=== PATIENT | female | born 1990 | race Caucasian/White ===

== ENCOUNTER 2017-02-09 15:22 | Emergency (ER) | payer BC, OTHER ==
[2017-02-09] MEDS ORDERED: SODIUM CHLORIDE 0.9% 1,000 ML IV STA (16:15)
[2017-02-09] MEDS ORDERED: MAG HYDROX/AL HYDROX/SIMETH 30 ML, HYOSCYAMINE ELIXIR 10 ML, CIMETIDINE HCL 300 MG PO STA ×3 (16:15)
--- NOTE | 2017-02-09 16:20 | ED ---
Abdominal Pain HPI - General Chief Complaint: Abdominal Pain Stated Complaint: upper abdominal pain Time Seen by Provider: 02/09/17 16:09 Source: patient, RN notes reviewed Mode of arrival: ambulatory Limitations: no limitations - History of Present Illness Initial Comments: 26 yo female presents to the ER with cc of epigastric abdominal pain. Patient states the pain started yesterday. Patient states that she went her family care doctor was transferred to [facility]. She had blood work and x-rays done. Patient states he found OUT AND SHE WAS SENT HOME. PATIENT STATES THE PAIN CONTINUES TO WORSEN. PATIENT STATES IT'S WORSE WHEN SHE EATS. PATIENT DENIES ANY NAUSEA VOMITING OR ABDOMINAL SURGERIES. PATIENT STATES IT JUST STARTED YESTERDAY. PATIENT STATES LIKE A STABBING TYPE PAIN THAT IS CONSTANT. PATIENT STATES SHE WAS CONCERNED DUE TO THE CONTINUED PAIN SO SHE THOUGHT THAT SHE SHOULD BE EVALUATED. Patient denies any recent fever, chills, shortness of breath, chest pain, back pain, nausea vomiting, numbness or tingling, dysuria or hematuria, constipation or diarrhea, headaches or visual changes, or any other current symptoms. - Related Data Home Medications Medication Instructions Recorded Confirmed Hydroxychloroquine Sulfate 200 mg PO QAM 08/03/15 02/09/17 [Plaquenil] Benlysta 1 dose IV Q28D 05/11/16 02/09/17 Fluticasone Nasal [place] [Flonase 1 spr EA NOSTRIL DAILY PRN 07/27/16 02/09/17 Nasal [place]] ALPRAZolam [Xanax] 0.5 mg PO BID 02/09/17 02/09/17 Levothyroxine Sodium [Synthroid] 125 mcg PO DAILY 02/09/17 02/09/17 Venlafaxine HCl [Effexor XR] 75 mg PO DAILY 02/09/17 02/09/17 Previous Rx's Medication Instructions Recorded Famotidine [Pepcid] 20 mg PO BID #10 tablet 02/09/17 Allergies Allergy/AdvReac Type Severity Reaction Status Date / Time codeine AdvReac Nausea & Verified 02/09/17 16:28 Vomiting. HEADACHES Review of Systems ROS Statement: Those systems with pertinent positive or pertinent negative responses have been documented in the HPI. ROS Other: All systems not noted in ROS Statement are negative. 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 mota LMP 12/11/15/ was in [facility] 03/2016 for c/o temperol headache History of Any Multi-Drug Resistant Organisms: None Reported Past Surgical History: Ear Surgery, Orthopedic Surgery Additional Past Surgical History / Comment(s): elbow Past Anesthesia/Blood Transfusion Reactions: No Reported Reaction Past Psychological History: Depression Smoking Status: Never smoker Past Alcohol Use History: None Reported Past Drug Use History: None Reported General Exam - General Exam Comments Initial Comments: General: The patient is awake and alert, in no distress, and does not appear acutely ill. Eye: Pupils are equal, round and reactive to light, extra-ocular movements are intact; there is normal conjunctiva bilaterally. No signs of icterus. Ears, nose, mouth and throat: There are moist mucous membranes. Neck: The neck is supple, there is no tenderness. Cardiovascular: There is a regular rate and rhythm. No murmur, rub or gallop is appreciated. Respiratory: Lungs are clear to auscultation, respirations are non-labored, breath sounds are equal. No wheezes, stridor, rales, or rhonchi. Gastrointestinal: Soft, non-distended, bilateral epigastric tenderness of the abdomen without masses or organomegaly noted. There is no rebound or guarding present. No CVA tenderness. Bowel sounds are unremarkable. Back: There is no tenderness to palpation in the midline. There is no obvious deformity. No rashes noted. Musculoskeletal: Normal ROM, no tenderness, There is no pedal edema. There is no calf tenderness or swelling. Sensation intact. Pulses equal bilaterally 2+. Neurological: CN II-XII intact, There are no obvious motor or sensory deficits. Coordination appears grossly intact. Speech is normal. Skin: Skin is warm and dry and no rashes or lesions are noted. Psychiatric: Cooperative, appropriate mood & affect, normal judgment. Limitations: no limitations Course Vital Signs 02/09/17 02/09/17 15:36 17:00 Temperature 98.2 F 98.7 F Pulse Rate 74 57 L Respiratory 20 16 Rate Blood Pressure 138/104 134/85 O2 Sat by Pulse 96 97 Oximetry Medical Decision Making - Medical Decision Making 26-year-old female presents emergency Department chief complaint of abdominal pain. At this time patient's ultrasound and lab work is reviewed. At this time we discussed the findings. We discussed follow-up with GI and we'll put her on a small dose of Pepcid helps with her symptoms. We discussed return parameters all her questions. She stated that she understood all questions have been answered. She will be discharged home. - Lab Data Result diagrams: 02/09/17 16:45 02/09/17 16:45 Lab Results 02/09/17 02/09/17 02/09/17 Range/Units 16:45 16:45 17:54 WBC 6.0 (3.8-10.6) k/uL RBC 4.99 (3.80-5.40) m/uL Hgb 14.1 (11.4-16.0) gm/dL Hct 42.7 (34.0-46.0) % MCV 85.6 (80.0-100.0) fL MCH 28.2 (25.0-35.0) pg MCHC 32.9 (31.0-37.0) g/dL RDW 14.0 (11.5-15.5) % Plt Count 250 (150-450) k/uL Neutrophils % 64 % Lymphocytes % 26 % Monocytes % 7 % Eosinophils % 1 % Basophils % 1 % Neutrophils # 3.9 (1.3-7.7) k/uL Lymphocytes # 1.6 (1.0-4.8) k/uL Monocytes # 0.5 (0-1.0) k/uL Eosinophils # 0.0 (0-0.7) k/uL Basophils # 0.0 (0-0.2) k/uL Sodium 142 (137-145) mmol/L Potassium 4.1 (3.5-5.1) mmol/L Chloride 106 (98-107) mmol/L Carbon Dioxide 26 (22-30) mmol/L Anion Gap 10 mmol/L BUN 11 (7-17) mg/dL Creatinine 0.74 (0.52-1.04) mg/dL Est GFR (MDRD) Af Amer >60 (>60 ml/min/1.73 sqM) Est GFR (MDRD) Non-Af >60 (>60 ml/min/1.73 sqM) Glucose 81 (74-99) mg/dL Calcium 9.7 (8.4-10.2) mg/dL Total Bilirubin 0.5 (0.2-1.3) mg/dL AST 24 (14-36) U/L ALT 22 (9-52) U/L Alkaline Phosphatase 72 (38-126) U/L Total Protein 7.1 (6.3-8.2) g/dL Albumin 3.9 (3.5-5.0) g/dL Amylase 75 (30-110) U/L Lipase 142 (23-300) U/L Urine Color Light Red Urine Appearance Cloudy H (Clear) Urine pH 7.5 (5.0-8.0) Ur Specific [place] 1.015 (1.001-1.035) Urine Protein 1+ H (Negative) Urine Glucose (UA) Negative (Negative) Urine Ketones Negative (Negative) Urine Blood Moderate H (Negative) Urine Nitrite Negative (Negative) Urine Bilirubin Negative (Negative) Urine Urobilinogen <2.0 (<2.0) mg/dL Ur Leukocyte Esterase Moderate H (Negative) Urine RBC >182 H (0-5) /hpf Urine WBC 32 H (0-5) /hpf Ur Squamous Epith Cells 36 H (0-4) /hpf Urine Bacteria Rare H (None) /hpf Urine Mucus Occasional H (None) /hpf - Radiology Data Radiology results: report reviewed, image reviewed Disposition Clinical Impression: Epigastric abdominal pain Disposition: HOME SELF-CARE Condition: Stable Instructions: Abdominal Pain (ED) Additional Instructions: Please use medication as discussed. Please follow up with family doctor if symptoms have not improved over the next two days. Please return to the emergency room if your symptoms increase or worsen or for any other concerns. Prescriptions: Famotidine [Pepcid] 20 mg PO BID #10 tablet Referrals: Getachew Mar MD [Primary Care Provider] - 1-2 days Jagruti Hawk MD [STAFF PHYSICIAN] - 1-2 days Time of Disposition: 18:48
[2017-02-09 16:53] LABS: Basophils % (A) 1 %; CH 28.3; CHCM 33.2; Eosinophils % (A) 1 %; HCT 42.7 % (34.0-46.0); HDW 2.39; HGB 14.1 gm/dL (11.4-16.0); Luc # (Auto) 0.12; Luc % (Auto) 2; Lymphocytes # (A) 1.6 k/uL (1.0-4.8); Lymphocytes % (A) 26 %; MCH 28.2 pg (25.0-35.0); MCHC 32.9 g/dL (31.0-37.0); MCV 85.6 fL (80.0-100.0); Mean Platelet Volume 7.3; Monocytes # (A) 0.5 k/uL (0-1.0); Monocytes % (A) 7 %; Neutrophils # (A) 3.9 k/uL (1.3-7.7); Neutrophils % (A) 64 %; RBC 4.99 m/uL (3.80-5.40)
[2017-02-09 17:09] LABS: ALT 22 U/L (9-52); AST 24 U/L (14-36); Alkaline Phosphatase 72 U/L (38-126); Amylase 75 U/L (30-110); Anion Gap 10 mmol/L; Blood Urea Nitrogen 11 mg/dL (7-17); Calcium 9.7 mg/dL (8.4-10.2); Carbon Dioxide 26 mmol/L (22-30); Chloride 106 mmol/L (98-107); Glucose 81 mg/dL (74-99); Non-African American GFR(MDRD) >60 (>60 ml/min/1.73 sqM); Potassium 4.1 mmol/L (3.5-5.1); Sodium 142 mmol/L (137-145); Total Bilirubin 0.5 mg/dL (0.2-1.3); Total Protein 7.1 g/dL (6.3-8.2)
[2017-02-09 18:00] LABS: Appearance,Urine Cloudy (Clear); Bacteria,Urine Rare /hpf; Bilirubin,Urine Negative (Negative); Glucose,Urine (UA) Negative (Negative); Ketones,Urine Negative (Negative); Leukocyte Esterase,Urine Moderate (Negative); Mucus,Urine Occasional /hpf; Nitrite,Urine Negative (Negative); PH, Urine 7.5 (5.0-8.0); Particle Count 27000; Protein,Urine 1+ (Negative); RBC,Urine >182 /hpf (0-5); Specific Gravity,Urine 1.015 (1.001-1.035); Squamous Epithelial Cell,Urine 36 /hpf (0-4); UA Billing (MACRO vs. MICRO) MICRO; Urobilinogen,Urine <2.0 mg/dL (<2.0); WBC,Urine 32 /hpf (0-5)
--- NOTE | 2017-02-09 18:24 | US ---
EXAMINATION TYPE: US GALLBLADDER DATE OF EXAM: 02/09/2017 6:10 PM COMPARISON: Ultrasound 03/04/2014 CLINICAL HISTORY: Pain. Nausea EXAM MEASUREMENTS: Liver Length: 19.9 cm Gallbladder Wall: 0.2 cm CBD: 0.3 cm Right Kidney: 11.8 x 4.9 x 5.1 cm Pancreas: Obscured by bowel gas Liver: Enlarged, heterogeneous. Gallbladder: wnl Evidence for sonographic Molina's sign: Yes CBD: wnl as visualized, distal portion obscured by bowel gas Right Kidney: No hydronephrosis or masses seen IMPRESSION: 1. NO ACUTE PROCESS. 2. MILD HEPATOMEGALY NOTED.
[2017-02-09 19:00] VITALS: BP 142/92; PULSE 55; RESP 18; TEMP 98.9
== END 2017-02-09 19:00 | disposition home or self-care (01) ==
LOC: EC 15:22
DX: R10.13 Epigastric pain (principal); E07.9 Disorder of thyroid, unspecified; F32.9 Major depressive disorder, single episode, unspecified; Z79.899 Other long term (current) drug therapy; Z88.5 Allergy status to narcotic agent
CPT/HCPCS: 36415; 76705; 80053; 81001; 82150; 83690; 85025; 96360; 96361; 99284

== ENCOUNTER → 2017-07-12 | Outpatient (CLI) | payer BC | END | disposition home or self-care (01) | LOC: LABWHC1 12:29 | PROVIDERS: ATTEND Obstetrics & Gynecology | DX: N92.5 Other specified irregular menstruation (principal) | CPT/HCPCS: 36415; 84702 ==

== ENCOUNTER 2017-10-01 06:38 | Emergency (ER) | payer BC ==
--- NOTE | 2017-10-01 07:46 | ED ---
General Adult HPI - General Chief complaint: Eye Problems Stated complaint: right eye lid swelling Time Seen by Provider: 10/01/17 07:28 Source: patient, RN notes reviewed Mode of arrival: ambulatory Limitations: no limitations - History of Present Illness Initial comments: Patient is a pleasant 27-year-old female presenting to the emergency department complaining of right upper eyelid swelling. Discomfort started just the past couple of days. Patient does have discomfort that feels like pressure. Discomfort is isolated to the right upper eyelid. Patient has had some swelling of the left upper eyelid as well without discomfort. Swelling to both areas has been present for the past few months. Patient does not have any discomfort of the left upper eyelid. No recent sinus problems. No visual problems. Discomfort increases with touch. No fever. No redness. - Related Data Home Medications Medication Instructions Recorded Confirmed Hydroxychloroquine Sulfate 200 mg PO QAM 08/03/15 10/01/17 [Plaquenil] Benlysta 1 dose IV Q28D 05/11/16 10/01/17 Fluticasone Nasal [place] [Flonase 1 spr EA NOSTRIL DAILY PRN 07/27/16 10/01/17 Nasal [place]] ALPRAZolam [Xanax] 0.5 mg PO BID 02/09/17 10/01/17 Levothyroxine Sodium [Synthroid] 125 mcg PO DAILY 02/09/17 10/01/17 Venlafaxine HCl [Effexor XR] 75 mg PO DAILY 02/09/17 10/01/17 Previous Rx's Medication Instructions Recorded Famotidine [Pepcid] 20 mg PO BID #10 tablet 02/09/17 Amoxicillin 500 mg PO Q8H #30 capsule 10/01/17 Tobramycin [Tobrex 0.3% Ophth Soln] 1 drops RIGHT EYE QID #10 ml 10/01/17 Allergies Allergy/AdvReac Type Severity Reaction Status Date / Time codeine AdvReac Nausea & Verified 10/01/17 06:48 Vomiting. HEADACHES Review of Systems ROS Statement: Those systems with pertinent positive or pertinent negative responses have been documented in the HPI. ROS Other: All systems not noted in ROS Statement are negative. 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 mota LMP 12/11/15/ was in 03/2016 for c/o temperol headache History of Any Multi-Drug Resistant Organisms: None Reported Past Surgical History: Cholecystectomy, Ear Surgery, Orthopedic Surgery Additional Past Surgical History / Comment(s): elbow Past Anesthesia/Blood Transfusion Reactions: No Reported Reaction Past Psychological History: Depression Smoking Status: Never smoker Past Alcohol Use History: None Reported Past Drug Use History: None Reported General Exam Limitations: no limitations General appearance: alert, in no apparent distress Head exam: Present: atraumatic Eye exam: Present: normal appearance, PERRL, EOMI, other (Patient does have mild swelling of the right upper lateral eyelid. Eyelid is soft. There is tenderness on exam. Unable to visualize lesion on examination of the inner eyelid. There may be some mild swelling of the left upper lateral eyelid without tenderness. No tenderness over the sinuses.). Absent: scleral icterus , conjunctival injection ENT exam: Present: normal oropharynx Neck exam: Present: normal inspection. Absent: meningismus Respiratory exam: Present: normal lung sounds bilaterally Cardiovascular Exam: Present: regular rate, normal rhythm Neurological exam: Present: alert, oriented X3, CN II-XII intact Psychiatric exam: Present: normal affect, normal mood Skin exam: Present: normal color. Absent: rash Course Vital Signs 10/01/17 06:45 Temperature 97.7 F Pulse Rate 79 Respiratory 18 Rate Blood Pressure 140/94 O2 Sat by Pulse 100 Oximetry Medical Decision Making - Medical Decision Making No evidence of periorbital or orbital edema. Areas are swelling are limited to less than 1 cm. No sinus tenderness. No recent sinus disease. Unclear exact etiology of swelling however concern for early eyelid infection on the right. Patient is advised follow-up with ophthalmology tomorrow. Disposition Clinical Impression: Swelling of eyelid Disposition: HOME SELF-CARE Condition: Stable Instructions: Blepharitis (ED) Additional Instructions: Please follow-up tomorrow with ophthalmology. Return for change in vision, pain with eye movement, limited eye movement, sinus problems, increased swelling , redness, worsening symptoms or any other concerns. Prescriptions: Amoxicillin 500 mg PO Q8H #30 capsule Tobramycin [Tobrex 0.3% Ophth Soln] 1 drops RIGHT EYE QID #10 ml Referrals: Getachew Mar MD [Primary Care Provider] - 1-2 days Padmini Park MD [STAFF PHYSICIAN] - 1-2 days Time of Disposition: 07:58
[2017-10-01 08:07] VITALS: BP 130/76; PULSE 80; RESP 16; TEMP 97.9
== END 2017-10-01 08:04 | disposition home or self-care (01) ==
LOC: EC 06:38
DX: H57.8 Other specified disorders of eye and adnexa (principal); E07.9 Disorder of thyroid, unspecified; F32.9 Major depressive disorder, single episode, unspecified; Z88.5 Allergy status to narcotic agent; Z79.899 Other long term (current) drug therapy
CPT/HCPCS: 99283

== ENCOUNTER → 2017-10-17 | Outpatient (CLI) | payer BC ==
--- NOTE | 2017-10-17 14:56 | CT ---
EXAMINATION TYPE: CT brain wo/w con DATE OF EXAM: 10/17/2017 COMPARISON: NONE HISTORY: Migraines and lumps on eyelids CT DLP: 2930.9 (orbits and brain) mGycm Automated Exposure Control for Dose Reduction was Utilized. TECHNIQUE: CT scan of the head is performed with IV contrast.,CT scan of the head is performed withou t and with without and with IV Contrast, patient injected with 100 mL of Omnipaque 300. FINDINGS: Noncontrast images show no acute intracranial hemorrhage or midline shift. No suspicious extra-axial fluid collection. The ventricles and sulci are within normal limits in size. Postcontrast images show no suspicious enhancing intraparenchymal mass. The globes are intact. There is scant muc osal thickening within the right maxillary sinus. There is partial opacification of the inferior righ t mastoid air cells. Left mastoid air cells and remaining paranasal sinuses are well aerated. Calvari um is intact. IMPRESSION: 1. No evidence of acute intracranial hemorrhage, midline shift or mass effect. No abnormal intracrani al enhancement. Evaluation for white matter disease such as an chronic migraines would be better asse ssed with MRI. MR could be performed if there is further clinical indication. 2. Minimal right maxillary mucosal thickening. 3. Partial opacification of the right mastoid air cells. Correlation for point tenderness to exclude mastoiditis is recommended.
--- NOTE | 2017-10-17 15:13 | CT ---
EXAMINATION TYPE: CT orbits wo/w con DATE OF EXAM: 10/17/2017 COMPARISON: NONE HISTORY: Migraines and lumps on eyelids CT DLP: 2930.9 (orbits and brain) mGycm Automated exposure control for dose reduction was used. CONTRAST: Performed without and with IV Contrast, patient injected with 100 mL of Omnipaque 300. FINDINGS: The lacrimal glands appear symmetric. There is no engorgement of the superior ophthalmic veins. The o ptic nerves are symmetric and unremarkable. Extraocular muscles are symmetric and nonenlarged. There is no thickening of the myotendinous junction of the extraocular muscles. No intraconal or extraconal masses are seen bilaterally. No fat stranding is seen of the preseptal or postseptal fat. Orbits are symmetric and maintained a rounded morphology. Lenses are in place. No vascular varices are seen. Lamina Propecia and orbital de leon are intact. Minimal mucosal thickening of the ethmoid and maxillary sinuses are noted. Maxillary spine and nasal septum are intact. Nasal septum is midline. Nasal bone is also intact. There is no abnormal enhancement throughout the examination. IMPRESSION: 1. NO ORBITAL ABNORMALITIES SEEN BY CT. ORBITS, EXTRAOCULAR MUSCLES, OPTIC NERVES, AND VASCULATURE AP PEAR UNREMARKABLE. NO ORBITAL OR PERIORBITAL MASS IS IDENTIFIED. LACRIMAL GLANDS ARE SYMMETRIC. 2. MILD PARANASAL SINUS DISEASE.
== END | disposition home or self-care (01) ==
LOC: RADCTMAIN 14:03
PROVIDERS: ATTEND Ophthalmology
DX: H04.013 Acute dacryoadenitis, bilateral lacrimal glands (principal); R51 Headache
CPT/HCPCS: 70470; 70482; Q9967

== ENCOUNTER 2017-11-02 11:11 | Emergency (ER) | payer BC ==
--- NOTE | 2017-11-02 12:05 | ED ---
General Adult HPI - General Chief complaint: Chest Pain Stated complaint: Chest Pain x2 days Time Seen by Provider: 11/02/17 11:45 Source: patient, family, RN notes reviewed Mode of arrival: ambulatory Limitations: no limitations - History of Present Illness Initial comments: 27 yo female presenting with central chest pain and left upper chest pain. Pain is sharp, worse with deep inspiration. Pain began yesterday evening. No history of trauma. Patient denies fever. Denies cough. Denies URI symptoms. Denies abdominal pain. Denies lower extremity pain or swelling. She has had some nausea with 2 episodes of vomiting this morning. She is concerned she might be . She has past medical history of lupus. Not currently on any control. No prior history of DVT or PE. - Related Data Home Medications Medication Instructions Recorded Confirmed Benlysta 1 dose IV Q28D 05/11/16 11/02/17 Levothyroxine Sodium [Synthroid] 125 mcg PO DAILY 02/09/17 11/02/17 Cholecalciferol (Vitamin D3) 2,000 unit PO DAILY 11/02/17 11/02/17 [Vitamin D3] Ergocalciferol [Vitamin D2] 50,000 unit PO Q30D 11/02/17 11/02/17 Previous Rx's Medication Instructions Recorded Ibuprofen [Motrin] 600 mg PO Q8HR PRN #24 tab 11/02/17 Allergies Allergy/AdvReac Type Severity Reaction Status Date / Time codeine AdvReac Nausea & Verified 11/02/17 12:18 Vomiting. HEADACHES Review of Systems ROS Statement: Those systems with pertinent positive or pertinent negative responses have been documented in the HPI. ROS Other: All systems not noted in ROS Statement are negative. 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 mota LMP 12/11/15/ was in [facility] 03/2016 for c/o temperol headache History of Any Multi-Drug Resistant Organisms: None Reported Past Surgical History: Cholecystectomy, Ear Surgery, Orthopedic Surgery Additional Past Surgical History / Comment(s): elbow Past Anesthesia/Blood Transfusion Reactions: No Reported Reaction Past Psychological History: Depression Smoking Status: Never smoker Past Alcohol Use History: None Reported Past Drug Use History: None Reported General Exam Limitations: no limitations General appearance: alert, in no apparent distress Head exam: Present: atraumatic, normocephalic Eye exam: Present: normal appearance. Absent: PERRL ENT exam: Present: normal exam Neck exam: Present: normal inspection. Absent: tenderness Respiratory exam: Present: normal lung sounds bilaterally, chest wall tenderness (Sternal chest pain and left upper chest pain which is reproducible on examination). Absent: respiratory distress, wheezes Cardiovascular Exam: Present: regular rate, normal rhythm. Absent: rubs GI/Abdominal exam: Present: soft. Absent: distended, tenderness Extremities exam: Present: normal inspection, normal capillary refill. Absent: pedal edema, joint swelling, calf tenderness Neurological exam: Present: alert, oriented X3, CN II-XII intact. Absent: motor sensory deficit Psychiatric exam: Present: normal affect, normal mood Skin exam: Present: warm, dry, intact Course Vital Signs 11/02/17 11/02/17 11/02/17 11:22 12:09 12:48 Temperature 100.1 F H Pulse Rate 77 Pulse Rate [ 104 H Pulse Oximetery ] Respiratory 18 20 18 Rate Blood Pressure 135/84 O2 Sat by Pulse 98 Oximetry 11/02/17 13:41 Temperature Pulse Rate 84 Pulse Rate [ Pulse Oximetery ] Respiratory 16 Rate Blood Pressure O2 Sat by Pulse 96 Oximetry EKG Findings - EKG Comments: EKG Findings:: EKG shows sinus bradycardia with sinus arrhythmia, no ischemic changes. Ventricular rate 59, AZ interval 166, QRS duration 90, QTC 399. Medical Decision Making - Medical Decision Making 27 yo female presenting with sharp reproducible anterior chest pain. Patient is perc 1 for initial heart rate greater than 100. D-dimer is obtained, this is negative. White blood cell count is 6.5 which is normal. Electrolytes within normal limits. Troponin negative. Urinalysis does show 65 white blood cells, however patient is not symptomatic she will watch for signs of UTI. Beta hCG is negative. - Lab Data Result diagrams: 11/02/17 12:40 11/02/17 12:40 Lab Results 11/02/17 11/02/17 11/02/17 Range/Units 12:05 12:05 12:40 WBC 6.5 (3.8-10.6) k/uL RBC 5.03 (3.80-5.40) m/uL Hgb 13.9 (11.4-16.0) gm/dL Hct 44.3 (34.0-46.0) % MCV 88.2 (80.0-100.0) fL MCH 27.6 (25.0-35.0) pg MCHC 31.3 (31.0-37.0) g/dL RDW 13.5 (11.5-15.5) % Plt Count 239 (150-450) k/uL Neutrophils % 72 % Lymphocytes % 18 % Monocytes % 7 % Eosinophils % 0 % Basophils % 1 % Neutrophils # 4.7 (1.3-7.7) k/uL Lymphocytes # 1.2 (1.0-4.8) k/uL Monocytes # 0.5 (0-1.0) k/uL Eosinophils # 0.0 (0-0.7) k/uL Basophils # 0.0 (0-0.2) k/uL D-Dimer (<0.60) mg/L FEU Sodium (137-145) mmol/L Potassium (3.5-5.1) mmol/L Chloride (98-107) mmol/L Carbon Dioxide (22-30) mmol/L Anion Gap mmol/L BUN (7-17) mg/dL Creatinine (0.52-1.04) mg/dL Est GFR (MDRD) Af Amer (>60 ml/min/1.73 sqM) Est GFR (MDRD) Non-Af (>60 ml/min/1.73 sqM) Glucose (74-99) mg/dL Calcium (8.4-10.2) mg/dL Total Bilirubin (0.2-1.3) mg/dL AST (14-36) U/L ALT (9-52) U/L Alkaline Phosphatase (38-126) U/L Troponin I (0.000-0.034) ng/mL Total Protein (6.3-8.2) g/dL Albumin (3.5-5.0) g/dL Urine Color Yellow Urine Appearance Cloudy H (Clear) Urine pH 5.5 (5.0-8.0) Ur Specific [place] 1.021 (1.001-1.035) Urine Protein 1+ H (Negative) Urine Glucose (UA) Negative (Negative) Urine Ketones Negative (Negative) Urine Blood Small H (Negative) Urine Nitrite Negative (Negative) Urine Bilirubin Negative (Negative) Urine Urobilinogen <2.0 (<2.0) mg/dL Ur Leukocyte Esterase Large H (Negative) Urine RBC 13 H (0-5) /hpf Urine WBC 65 H (0-5) /hpf Ur Squamous Epith Cells 9 H (0-4) /hpf Urine Mucus Many H (None) /hpf Urine HCG, Qual Not Detected (Not Detectd) 11/02/17 11/02/17 11/02/17 Range/Units 12:40 12:40 12:40 WBC (3.8-10.6) k/uL RBC (3.80-5.40) m/uL Hgb (11.4-16.0) gm/dL Hct (34.0-46.0) % MCV (80.0-100.0) fL MCH (25.0-35.0) pg MCHC (31.0-37.0) g/dL RDW (11.5-15.5) % Plt Count (150-450) k/uL Neutrophils % % Lymphocytes % % Monocytes % % Eosinophils % % Basophils % % Neutrophils # (1.3-7.7) k/uL Lymphocytes # (1.0-4.8) k/uL Monocytes # (0-1.0) k/uL Eosinophils # (0-0.7) k/uL Basophils # (0-0.2) k/uL D-Dimer 0.39 (<0.60) mg/L FEU Sodium 142 (137-145) mmol/L Potassium 4.4 (3.5-5.1) mmol/L Chloride 106 (98-107) mmol/L Carbon Dioxide 26 (22-30) mmol/L Anion Gap 10 mmol/L BUN 10 (7-17) mg/dL Creatinine 0.80 (0.52-1.04) mg/dL Est GFR (MDRD) Af Amer >60 (>60 ml/min/1.73 sqM) Est GFR (MDRD) Non-Af >60 (>60 ml/min/1.73 sqM) Glucose 78 (74-99) mg/dL Calcium 9.6 (8.4-10.2) mg/dL Total Bilirubin 0.5 (0.2-1.3) mg/dL AST 21 (14-36) U/L ALT 23 (9-52) U/L Alkaline Phosphatase 74 (38-126) U/L Troponin I <0.012 (0.000-0.034) ng/mL Total Protein 7.1 (6.3-8.2) g/dL Albumin 3.9 (3.5-5.0) g/dL Urine Color Urine Appearance (Clear) Urine pH (5.0-8.0) Ur Specific [place] (1.001-1.035) Urine Protein (Negative) Urine Glucose (UA) (Negative) Urine Ketones (Negative) Urine Blood (Negative) Urine Nitrite (Negative) Urine Bilirubin (Negative) Urine Urobilinogen (<2.0) mg/dL Ur Leukocyte Esterase (Negative) Urine RBC (0-5) /hpf Urine WBC (0-5) /hpf Ur Squamous Epith Cells (0-4) /hpf Urine Mucus (None) /hpf Urine HCG, Qual (Not Detectd) Disposition Clinical Impression: Costalchondritis, Chest pain Disposition: HOME SELF-CARE Condition: Good Instructions: Costochondritis (ED), Chest Pain (ED) Prescriptions: Ibuprofen [Motrin] 600 mg PO Q8HR PRN #24 tab PRN Reason: Pain Referrals: Getachew Mar MD [Primary Care Provider] - 1-2 days Time of Disposition: 13:51
[2017-11-02 12:31] LABS: Appearance,Urine Cloudy (Clear); Bilirubin,Urine Negative (Negative); Blood,Urine Small (Negative); Color,Urine Yellow; Glucose,Urine (UA) Negative (Negative); Ketones,Urine Negative (Negative); Leukocyte Esterase,Urine Large (Negative); Mucus,Urine Many /hpf; Nitrite,Urine Negative (Negative); PH, Urine 5.5 (5.0-8.0); Protein,Urine 1+ (Negative); RBC,Urine 13 /hpf (0-5); Specific Gravity,Urine 1.021 (1.001-1.035); Squamous Epithelial Cell,Urine 9 /hpf (0-4); Urobilinogen,Urine <2.0 mg/dL (<2.0); WBC,Urine 65 /hpf (0-5)
[2017-11-02 12:58] LABS: Basophils % (A) 1 %; Eosinophils % (A) 0 %; HCT 44.3 % (34.0-46.0); HGB 13.9 gm/dL (11.4-16.0); Lymphocytes # (A) 1.2 k/uL (1.0-4.8); Lymphocytes % (A) 18 %; MCH 27.6 pg (25.0-35.0); MCHC 31.3 g/dL (31.0-37.0); MCV 88.2 fL (80.0-100.0); Mean Platelet Volume 8.1; Monocytes # (A) 0.5 k/uL (0-1.0); Monocytes % (A) 7 %; Neutrophils # (A) 4.7 k/uL (1.3-7.7); Neutrophils % (A) 72 %; Platelet Count 239 k/uL (150-450); RBC 5.03 m/uL (3.80-5.40); RDW 13.5 % (11.5-15.5); WBC 6.5 k/uL (3.8-10.6)
--- NOTE | 2017-11-02 13:01 | XR ---
EXAMINATION TYPE: XR chest 2V DATE OF EXAM: 11/02/2017 COMPARISON: Prior chest x-ray August 30, 2015. HISTORY: Chest pain. TECHNIQUE: Frontal and lateral views of the chest are obtained. FINDINGS: There is no focal air space opacity, pleural effusion, or pneumothorax seen. The cardiac silhouette size is within normal limits. The osseous structures are intact. Cholecystectomy clips a re noted on lateral view on current study. IMPRESSION: No acute cardiopulmonary process. No significant change from prior.
[2017-11-02 13:14] LABS: ALT 23 U/L (9-52); AST 21 U/L (14-36); Albumin 3.9 g/dL (3.5-5.0); Alkaline Phosphatase 74 U/L (38-126); Anion Gap 10 mmol/L; Blood Urea Nitrogen 10 mg/dL (7-17); Calcium 9.6 mg/dL (8.4-10.2); Carbon Dioxide 26 mmol/L (22-30); Chloride 106 mmol/L (98-107); Glucose 78 mg/dL (74-99); Potassium 4.4 mmol/L (3.5-5.1); Sodium 142 mmol/L (137-145); Total Bilirubin 0.5 mg/dL (0.2-1.3); Total Protein 7.1 g/dL (6.3-8.2)
[2017-11-02 14:10] VITALS: BP 127/75; PULSE 82; RESP 20; TEMP 99.2
== END 2017-11-02 14:05 | disposition home or self-care (01) ==
LOC: EC 11:11
DX: M94.0 Chondrocostal junction syndrome [Tietze] (principal); R00.0 Tachycardia, unspecified; R11.2 Nausea with vomiting, unspecified; E07.9 Disorder of thyroid, unspecified; Z88.5 Allergy status to narcotic agent; Z79.899 Other long term (current) drug therapy
CPT/HCPCS: 36415; 71046; 80053; 81001; 81025; 84484; 85025; 85379; 93005; 99285

== ENCOUNTER 2018-04-29 10:52 | Emergency (ER) | payer BC ==
[2018-04-29 11:10] VITALS: BP 140/93; PULSE 63; RESP 18; TEMP 98.2
[2018-04-29] MEDS ORDERED: PROPARACAINE 0.5% OPHTH DROPS 15 ML BTL RIGHT EYE STA (11:19)
--- NOTE | 2018-04-29 11:38 | ED ---
Eye Problem HPI - General Chief complaint: Eye Problems Stated complaint: rt eye chemical exposue Time Seen by Provider: 04/29/18 11:14 Source: patient, RN notes reviewed Mode of arrival: ambulatory Limitations: no limitations - History of Present Illness Initial comments: This is a 28-year-old female who presents to the emergency department with chief complaint of chemical exposure to her right eye. Patient reports that she was cleaning with diluted bleach last night between 8 and 9 PM. She states that the solution splashed into her right eye. Patient states that she flushed it out with water for 20-30 minutes. She states that she is having eye irritation and blurred vision. Denies vision loss. Denies significant pain. Denies any other injuries. Denies recent fevers or chills, chest pain or shortness of breath, abdominal pain, nausea or vomiting, dizziness or headache. - Related Data Home Medications Medication Instructions Recorded Confirmed Benlysta 1 dose IV Q28D 05/11/16 11/02/17 Levothyroxine Sodium [Synthroid] 125 mcg PO DAILY 02/09/17 11/02/17 Cholecalciferol (Vitamin D3) 2,000 unit PO DAILY 11/02/17 11/02/17 [Vitamin D3] Ergocalciferol [Vitamin D2] 50,000 unit PO Q30D 11/02/17 11/02/17 Previous Rx's Medication Instructions Recorded Ibuprofen [Motrin] 600 mg PO Q8HR PRN #24 tab 11/02/17 Carboxymethyl/Gly/Poly80/Pf 2 drops RIGHT EYE Q4HR PRN #1 04/29/18 [Refresh Optive Juan Pablo-3 Drops] bottle Allergies Allergy/AdvReac Type Severity Reaction Status Date / Time codeine AdvReac Nausea & Verified 11/02/17 12:18 Vomiting. HEADACHES Review of Systems ROS Statement: Those systems with pertinent positive or pertinent negative responses have been documented in the HPI. ROS Other: All systems not noted in ROS Statement are negative. 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 mota LMP 12/11/15/ was in [facility] 03/2016 for c/o temperol headache History of Any Multi-Drug Resistant Organisms: None Reported Past Surgical History: Cholecystectomy, Ear Surgery, Orthopedic Surgery Additional Past Surgical History / Comment(s): elbow Past Anesthesia/Blood Transfusion Reactions: No Reported Reaction Past Psychological History: Depression Smoking Status: Never smoker Past Alcohol Use History: None Reported Past Drug Use History: None Reported General Exam - General Exam Comments Initial Comments: General: Awake and alert, well-developed; in no apparent distress. HEENT: Head atraumatic, normocephalic. Pupils are equal, round and reactive to light. Extraocular movements intact. Right conjunctiva is non-injected. On fluorescein staining, no abrasions, chemical wallace or ulcers are noted. PH is 7.0. Negative Eun's test. Oropharynx moist without erythema or exudate. Neck: Supple. Normal ROM. Cardiovascular: Regular rate and rhythm. No murmurs, rubs or gallops. Chest symmetrical. Respiratory: Lungs clear to auscultation bilaterally. No wheezes, rales or rhonchi. Normal respiratory effort with no use of accessory muscles. Musculoskeletal: Normal ROM, no tenderness bilateral upper and lower extremities. Ambulating normally. Skin: [place], warm and dry without rashes or lesions. Neurological: Alert and oriented x3. CN II-XII grossly intact. Speech is fluent and answers are appropriate. No focal neuro deficits. Psychiatric: Normal mood and affect. No overt signs of depression or anxiety noted. Limitations: no limitations Course Vital Signs 04/29/18 11:01 Temperature 98.2 F Pulse Rate 63 Respiratory 18 Rate Blood Pressure 140/93 O2 Sat by Pulse 97 Oximetry Medical Decision Making - Medical Decision Making This is a 28-year-old female who presents to the emergency department with chief complaint of chemical exposure in the right eye. Patient reports getting placed into her right eye last night. She did flush it out for 20-30 minutes. Patient complains of some eye irritation and blurred vision today. On physical examination, right conjunctiva is non-injected. No uptake of fluorescein is identified. PH is normal. Patient will be started on lubricating eyedrops. Recommended following up with ophthalmology if no improvement in symptoms within the next couple days. Vitals are stable and patient is in no acute distress and she will be discharged home at this time. She is in agreement and voices understanding. All questions were answered. Disposition Clinical Impression: Chemical exposure of eye Disposition: HOME SELF-CARE Condition: Good Instructions: Chemical Eye Wallace (ED) Additional Instructions: Please take medications as prescribed. Please follow up with primary care provider within 1-2 days. Return to emergency department if symptoms should worsen or any concerns arise. Prescriptions: Carboxymethyl/Gly/Poly80/Pf [Refresh Optive Juan Pablo-3 Drops] 2 drops RIGHT EYE Q4HR PRN #1 bottle PRN Reason: Eye Irritation Is patient prescribed a controlled substance at d/c from ED?: No Referrals: Getachew Mar MD [Primary Care Provider] - 1-2 days Time of Disposition: 12:02
== END 2018-04-29 12:14 | disposition home or self-care (01) ==
LOC: EC 10:52
DX: Z77.098 Contact with and (suspected) exposure to other hazardous, chiefly nonmedicinal, chemicals (principal); E07.9 Disorder of thyroid, unspecified; Z79.899 Other long term (current) drug therapy; Z88.5 Allergy status to narcotic agent
CPT/HCPCS: 99283

== ENCOUNTER 2018-05-23 14:30 | Emergency (ER) | payer BC ==
[2018-05-23 15:00] VITALS: RESP 18
--- NOTE | 2018-05-23 16:01 | XR ---
EXAMINATION TYPE: XR ribs bilat w pa chest xray DATE OF EXAM: 05/23/2018 COMPARISON: 11/02/2017 HISTORY: Pain ribs TECHNIQUE: Chest is examined in the frontal views. Ribs are examined in 2 views FINDINGS: No acute fracture. No pneumothorax is evident. Lung knight are clear. No significant change chest x-ray IMPRESSION: 1. Normal bilateral ribs
--- NOTE | 2018-05-23 17:10 | ED ---
General Adult HPI - General Chief complaint: Chest Pain Stated complaint: Abd Pain Time Seen by Provider: 05/23/18 16:27 Source: patient, RN notes reviewed Mode of arrival: ambulatory Limitations: no limitations - History of Present Illness Initial comments: Patient's a 28-year-old past medical history for lupus, presenting to the emergency room today with chief complaint of bilateral rib pain. Patient denies any injury or trauma. Patient states that she noticed that she was having some discomfort starting 3 days ago. Patient does admit pain is worse with movements. She states that she is staying still pain is very minimal. 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 Patient denies any other complaints or symptoms. Patient denies any recent fever, chills, shortness of breath, abdominal pain, nausea or vomiting, numbness or tingling, headaches or visual changes, or any other complaints. - Related Data Home Medications Medication Instructions Recorded Confirmed Benlysta 1 dose IV Q28D 05/11/16 11/02/17 Levothyroxine Sodium [Synthroid] 125 mcg PO DAILY 02/09/17 11/02/17 Cholecalciferol (Vitamin D3) 2,000 unit PO DAILY 11/02/17 11/02/17 [Vitamin D3] Ergocalciferol [Vitamin D2] 50,000 unit PO Q30D 11/02/17 11/02/17 Previous Rx's Medication Instructions Recorded Ibuprofen [Motrin] 600 mg PO Q8HR PRN #24 tab 11/02/17 Carboxymethyl/Gly/Poly80/Pf 2 drops RIGHT EYE Q4HR PRN #1 04/29/18 [Refresh Optive Juan Pablo-3 Drops] bottle Cyclobenzaprine [Flexeril] 10 mg PO TID #20 tab 05/23/18 Ibuprofen [Motrin] 600 mg PO Q6HR PRN #40 day 05/23/18 Allergies Allergy/AdvReac Type Severity Reaction Status Date / Time codeine AdvReac Nausea & Verified 05/23/18 15:00 Vomiting. HEADACHES Review of Systems ROS Statement: Those systems with pertinent positive or pertinent negative responses have been documented in the HPI. ROS Other: All systems not noted in ROS Statement are negative. 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 mota LMP 12/11/15/ was in [facility] 03/2016 for c/o temperol headache History of Any Multi-Drug Resistant Organisms: None Reported Past Surgical History: Cholecystectomy, Ear Surgery, Orthopedic Surgery Additional Past Surgical History / Comment(s): elbow Past Anesthesia/Blood Transfusion Reactions: No Reported Reaction Past Psychological History: Depression Smoking Status: Never smoker Past Alcohol Use History: None Reported Past Drug Use History: None Reported General Exam - General Exam Comments Initial Comments: General: The patient is awake and alert, in no distress, and does not appear acutely ill. Eye: extra-ocular movements are intact. No nystagmus. There is normal conjunctiva bilaterally. No signs of icterus. Ears, nose, mouth and throat: There are moist mucous membranes and no oral lesions. Neck: The neck is supple, there is no tenderness or JVD. Cardiovascular: There is a regular rate and rhythm. No murmur, rub or gallop is appreciated. Respiratory: Lungs are clear to auscultation, respirations are non-labored, breath sounds are equal. No wheezes, stridor, rales, or rhonchi. Gastrointestinal: Soft, non-distended, non-tender abdomen without masses or organomegaly noted. There is no rebound or guarding present. No CVA tenderness. Musculoskeletal: Normal ROM, no tenderness. Sensation intact. Neurological: A&O x 3. CN II-XII intact, There are no obvious motor or sensory deficits. Coordination appears grossly intact. Speech is normal. Skin: Skin is warm and dry and no rashes or lesions are noted. Psychiatric: Cooperative, appropriate mood & affect, normal judgment. 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 NE interval 160. QRS 84. QT/QTc 460/404. No acute ST changes. Medical Decision Making - Medical Decision Making Patient reexamined at this time shows no signs of distress. Patient does admit that she began having bilateral lower rib pain that started 3 days ago. Patient 's x-rays are unremarkable. Patient's labs been reviewed and negative cardiac enzymes. Negative d-dimer. Patient's vitals are stable. Patient will continue anti-inflammatories. Pain is reproduced with movements. Given short prescription muscle relaxers advised - Lab Data Result diagrams: 05/23/18 17:40 05/23/18 17:40 Lab Results 05/23/18 05/23/18 05/23/18 Range/Units 15:11 17:40 17:40 WBC 6.6 (3.8-10.6) k/uL RBC 4.92 (3.80-5.40) m/uL Hgb 13.5 (11.4-16.0) gm/dL Hct 43.0 (34.0-46.0) % MCV 87.3 (80.0-100.0) fL MCH 27.5 (25.0-35.0) pg MCHC 31.5 (31.0-37.0) g/dL RDW 13.3 (11.5-15.5) % Plt Count 271 (150-450) k/uL Neutrophils % 64 % Lymphocytes % 24 % Monocytes % 9 % Eosinophils % 1 % Basophils % 1 % Neutrophils # 4.3 (1.3-7.7) k/uL Lymphocytes # 1.6 (1.0-4.8) k/uL Monocytes # 0.6 (0-1.0) k/uL Eosinophils # 0.1 (0-0.7) k/uL Basophils # 0.0 (0-0.2) k/uL D-Dimer (<0.60) mg/L FEU Sodium (137-145) mmol/L Potassium (3.5-5.1) mmol/L Chloride (98-107) mmol/L Carbon Dioxide (22-30) mmol/L Anion Gap mmol/L BUN (7-17) mg/dL Creatinine (0.52-1.04) mg/dL Est GFR (CKD-EPI)AfAm (>60 ml/min/1.73 sqM) Est GFR (CKD-EPI)NonAf (>60 ml/min/1.73 sqM) Glucose (74-99) mg/dL Calcium (8.4-10.2) mg/dL Total Bilirubin (0.2-1.3) mg/dL AST (14-36) U/L ALT (9-52) U/L Alkaline Phosphatase (38-126) U/L Total Creatine Kinase 98 (30-135) U/L CK-MB (CK-2) 0.6 (0.0-2.4) ng/mL CK-MB (CK-2) Rel Index 0.6 Troponin I <0.012 (0.000-0.034) ng/mL Total Protein (6.3-8.2) g/dL Albumin (3.5-5.0) g/dL Urine HCG, Qual Not Detected (Not Detectd) 05/23/18 05/23/18 Range/Units 17:40 17:40 WBC (3.8-10.6) k/uL RBC (3.80-5.40) m/uL Hgb (11.4-16.0) gm/dL Hct (34.0-46.0) % MCV (80.0-100.0) fL MCH (25.0-35.0) pg MCHC (31.0-37.0) g/dL RDW (11.5-15.5) % Plt Count (150-450) k/uL Neutrophils % % Lymphocytes % % Monocytes % % Eosinophils % % Basophils % % Neutrophils # (1.3-7.7) k/uL Lymphocytes # (1.0-4.8) k/uL Monocytes # (0-1.0) k/uL Eosinophils # (0-0.7) k/uL Basophils # (0-0.2) k/uL D-Dimer 0.24 (<0.60) mg/L FEU Sodium 139 (137-145) mmol/L Potassium 4.4 (3.5-5.1) mmol/L Chloride 106 (98-107) mmol/L Carbon Dioxide 25 (22-30) mmol/L Anion Gap 8 mmol/L BUN 12 (7-17) mg/dL Creatinine 0.70 (0.52-1.04) mg/dL Est GFR (CKD-EPI)AfAm >90 (>60 ml/min/1.73 sqM) Est GFR (CKD-EPI)NonAf >90 (>60 ml/min/1.73 sqM) Glucose 77 (74-99) mg/dL Calcium 9.5 (8.4-10.2) mg/dL Total Bilirubin 0.3 (0.2-1.3) mg/dL AST 24 (14-36) U/L ALT 29 (9-52) U/L Alkaline Phosphatase 68 (38-126) U/L Total Creatine Kinase (30-135) U/L CK-MB (CK-2) (0.0-2.4) ng/mL CK-MB (CK-2) Rel Index Troponin I (0.000-0.034) ng/mL Total Protein 7.0 (6.3-8.2) g/dL Albumin 3.7 (3.5-5.0) g/dL Urine HCG, Qual (Not Detectd) Disposition Clinical Impression: Muscle strain Disposition: HOME SELF-CARE Condition: Good Instructions: Muscle Strain (ED) Additional Instructions: Please use medication as discussed. Please follow-up with family doctor in the next 2 days. Please return to emergency room if the symptoms increase or worsen or for any other concerns. Prescriptions: Cyclobenzaprine [Flexeril] 10 mg PO TID #20 tab Ibuprofen [Motrin] 600 mg PO Q6HR PRN #40 day PRN Reason: Pain Is patient prescribed a controlled substance at d/c from ED?: No Referrals: Getachew Mar MD [Primary Care Provider] - 1-2 days Time of Disposition: 18:52
[2018-05-23] MEDS ORDERED: KETOROLAC 30 MG/ML 1 ML VIAL IVP STA (17:28)
[2018-05-23 18:07] LABS: Basophils % (A) 1 %; Eosinophils # (A) 0.1 k/uL (0-0.7); Eosinophils % (A) 1 %; HGB 13.5 gm/dL (11.4-16.0); Lymphocytes # (A) 1.6 k/uL (1.0-4.8); Lymphocytes % (A) 24 %; MCH 27.5 pg (25.0-35.0); MCHC 31.5 g/dL (31.0-37.0); MCV 87.3 fL (80.0-100.0); Mean Platelet Volume 8.1; Monocytes # (A) 0.6 k/uL (0-1.0); Monocytes % (A) 9 %; Neutrophils # (A) 4.3 k/uL (1.3-7.7); Neutrophils % (A) 64 %; Platelet Count 271 k/uL (150-450); RBC 4.92 m/uL (3.80-5.40); RDW 13.3 % (11.5-15.5); WBC 6.6 k/uL (3.8-10.6)
[2018-05-23 18:16] LABS: ALT 29 U/L (9-52); AST 24 U/L (14-36); Albumin 3.7 g/dL (3.5-5.0); Alkaline Phosphatase 68 U/L (38-126); Anion Gap 8 mmol/L; Blood Urea Nitrogen 12 mg/dL (7-17); Calcium 9.5 mg/dL (8.4-10.2); Carbon Dioxide 25 mmol/L (22-30); Chloride 106 mmol/L (98-107); Glucose 77 mg/dL (74-99); Potassium 4.4 mmol/L (3.5-5.1); Sodium 139 mmol/L (137-145); Total Bilirubin 0.3 mg/dL (0.2-1.3)
[2018-05-23 18:25] LABS: Creatine Kinase 98 U/L (30-135)
[2018-05-23 18:38] LABS: Creatine Kinase MB 0.6 ng/mL (0.0-2.4); Troponin I <0.012 ng/mL (0.000-0.034)
[2018-05-23 19:06] VITALS: BP 142/90; PULSE 85; TEMP 98.6
== END 2018-05-23 19:06 | disposition home or self-care (01) ==
LOC: EC 14:30
DX: S29.011A Strain of muscle and tendon of front wall of thorax, initial encounter (principal); E07.9 Disorder of thyroid, unspecified; M32.9 Systemic lupus erythematosus, unspecified; Z79.899 Other long term (current) drug therapy; Z88.5 Allergy status to narcotic agent; X58.XXXA Exposure to other specified factors, initial encounter
CPT/HCPCS: 36415; 93005; 85379; 80053; 82550; 82553; 84484; 85025; 81025; 71111; 99285; 96374; J1885

== ENCOUNTER 2018-07-08 11:02 | Emergency (ER) | payer BC ==
[2018-07-08 11:13] VITALS: PULSE 78
[2018-07-08] MEDS ORDERED: ONDANSETRON 4 MG/2 ML VIAL IVP STA (11:39)
[2018-07-08] MEDS ORDERED: SODIUM CHLORIDE 0.9% 1,000 ML IV STA (11:39)
--- NOTE | 2018-07-08 11:42 | ED ---
General Adult HPI - General Chief complaint: Abdominal Pain Stated complaint: abd pain Time Seen by Provider: 07/08/18 11:36 Source: patient, RN notes reviewed, old records reviewed Mode of arrival: ambulatory Limitations: no limitations - History of Present Illness Initial comments: 28 old female presents for evaluation of generalized abdominal pain. Patient's symptoms began approximately 12 hours prior to arrival. She has had several episodes of loose stool and diarrhea. She's had nausea, no vomiting. Denies fever or chills. Denies dysuria. Patient has had previous cholecystectomy. Describes the pain as surrounding her bellybutton. It is somewhat crampy in nature. Mild to moderate in intensity. - Related Data Home Medications Medication Instructions Recorded Confirmed Benlysta 1 dose IV WE 05/11/16 07/08/18 Levothyroxine Sodium [Synthroid] 125 mcg PO DAILY 02/09/17 07/08/18 Effexor Xr(Unknown Dose) 1 cap PO DAILY 07/08/18 07/08/18 Folic Acid 0.8 mg PO DAILY 07/08/18 07/08/18 Wbs-Oywr-Ouxsv Acid 1 cap PO DAILY 07/08/18 07/08/18 [-U Capsule (formulary)] Venlafaxine HCl [Effexor XR] 150 mg PO DAILY 07/08/18 07/08/18 Allergies Allergy/AdvReac Type Severity Reaction Status Date / Time codeine AdvReac Nausea & Verified 07/08/18 12:26 Vomiting. HEADACHES Review of Systems ROS Statement: Those systems with pertinent positive or pertinent negative responses have been documented in the HPI. ROS Other: All systems not noted in ROS Statement are negative. 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, AVASCULAR NECROSIS KARTHIK HIPS, arthritis , LMP 12/11/15/ was in [facility] 03/2016 for c/o temperol headache History of Any Multi-Drug Resistant Organisms: None Reported Past Surgical History: Cholecystectomy, Ear Surgery, Orthopedic Surgery Additional Past Surgical History / Comment(s): elbow Past Anesthesia/Blood Transfusion Reactions: No Reported Reaction Past Psychological History: Depression Smoking Status: Never smoker Past Alcohol Use History: None Reported Past Drug Use History: None Reported General Exam Limitations: no limitations General appearance: alert, in no apparent distress Head exam: Present: atraumatic, normocephalic Eye exam: Present: normal appearance, PERRL ENT exam: Present: normal exam Neck exam: Present: normal inspection. Absent: tenderness, meningismus Respiratory exam: Present: normal lung sounds bilaterally. Absent: respiratory distress Cardiovascular Exam: Present: regular rate, normal rhythm GI/Abdominal exam: Present: soft, tenderness (Very mild tenderness to palpation) . Absent: distended, guarding, rebound Extremities exam: Present: normal inspection, normal capillary refill. Absent: pedal edema Neurological exam: Present: alert, oriented X3, CN II-XII intact. Absent: motor sensory deficit Psychiatric exam: Present: normal affect, normal mood Skin exam: Present: warm, dry, intact. Absent: cyanosis, diaphoretic Course Vital Signs 07/08/18 11:10 Temperature 98.3 F Pulse Rate 78 Respiratory 18 Rate Blood Pressure 140/90 O2 Sat by Pulse 97 Oximetry - Reevaluation(s) Reevaluation #1: 07/08/18 13:13 Patient reevaluated, she is resting comfortably, no episodes of nausea and vomiting. Medical Decision Making - Medical Decision Making 28-year-old female presenting with generalized abdominal pain, nausea, and diarrhea. Patient is well-appearing, stable vitals. No episodes of vomiting while in the emergency department. Patient has normal CBC, normal CMP, normal urinalysis. X-rays obtained, negative for obstruction or free air. Patient will be discharged with outpatient follow-up. Instructed ondietary measures., And symptomatically treatment. Return with worsening or changing symptoms. - Lab Data Result diagrams: 07/08/18 11:45 07/08/18 11:45 Lab Results 07/08/18 07/08/18 07/08/18 Range/Units 11:45 11:45 11:56 WBC 7.2 (3.8-10.6) k/uL RBC 4.95 (3.80-5.40) m/uL Hgb 14.0 (11.4-16.0) gm/dL Hct 42.8 (34.0-46.0) % MCV 86.5 (80.0-100.0) fL MCH 28.2 (25.0-35.0) pg MCHC 32.6 (31.0-37.0) g/dL RDW 13.3 (11.5-15.5) % Plt Count 231 (150-450) k/uL Neutrophils % 71 % Lymphocytes % 20 % Monocytes % 6 % Eosinophils % 0 % Basophils % 0 % Neutrophils # 5.1 (1.3-7.7) k/uL Lymphocytes # 1.4 (1.0-4.8) k/uL Monocytes # 0.4 (0-1.0) k/uL Eosinophils # 0.0 (0-0.7) k/uL Basophils # 0.0 (0-0.2) k/uL Sodium 140 (137-145) mmol/L Potassium 4.5 (3.5-5.1) mmol/L Chloride 108 H (98-107) mmol/L Carbon Dioxide 25 (22-30) mmol/L Anion Gap 7 mmol/L BUN 7 (7-17) mg/dL Creatinine 0.64 (0.52-1.04) mg/dL Est GFR (CKD-EPI)AfAm >90 (>60 ml/min/1.73 sqM) Est GFR (CKD-EPI)NonAf >90 (>60 ml/min/1.73 sqM) Glucose 79 (74-99) mg/dL Calcium 9.0 (8.4-10.2) mg/dL Total Bilirubin 0.3 (0.2-1.3) mg/dL AST 21 (14-36) U/L ALT 18 (9-52) U/L Alkaline Phosphatase 70 (38-126) U/L Total Protein 7.2 (6.3-8.2) g/dL Albumin 3.6 (3.5-5.0) g/dL Amylase 84 (30-110) U/L Lipase 121 (23-300) U/L Urine Color Yellow Urine Appearance Cloudy H (Clear) Urine pH 6.5 (5.0-8.0) Ur Specific [place] 1.016 (1.001-1.035) Urine Protein 1+ H (Negative) Urine Glucose (UA) Negative (Negative) Urine Ketones Negative (Negative) Urine Blood Negative (Negative) Urine Nitrite Negative (Negative) Urine Bilirubin Negative (Negative) Urine Urobilinogen <2.0 (<2.0) mg/dL Ur Leukocyte Esterase Small H (Negative) Urine RBC 2 (0-5) /hpf Urine WBC 6 H (0-5) /hpf Ur Squamous Epith Cells 5 H (0-4) /hpf Urine Mucus Rare H (None) /hpf Urine HCG, Qual (Not Detectd) 07/08/18 Range/Units 11:56 WBC (3.8-10.6) k/uL RBC (3.80-5.40) m/uL Hgb (11.4-16.0) gm/dL Hct (34.0-46.0) % MCV (80.0-100.0) fL MCH (25.0-35.0) pg MCHC (31.0-37.0) g/dL RDW (11.5-15.5) % Plt Count (150-450) k/uL Neutrophils % % Lymphocytes % % Monocytes % % Eosinophils % % Basophils % % Neutrophils # (1.3-7.7) k/uL Lymphocytes # (1.0-4.8) k/uL Monocytes # (0-1.0) k/uL Eosinophils # (0-0.7) k/uL Basophils # (0-0.2) k/uL Sodium (137-145) mmol/L Potassium (3.5-5.1) mmol/L Chloride (98-107) mmol/L Carbon Dioxide (22-30) mmol/L Anion Gap mmol/L BUN (7-17) mg/dL Creatinine (0.52-1.04) mg/dL Est GFR (CKD-EPI)AfAm (>60 ml/min/1.73 sqM) Est GFR (CKD-EPI)NonAf (>60 ml/min/1.73 sqM) Glucose (74-99) mg/dL Calcium (8.4-10.2) mg/dL Total Bilirubin (0.2-1.3) mg/dL AST (14-36) U/L ALT (9-52) U/L Alkaline Phosphatase (38-126) U/L Total Protein (6.3-8.2) g/dL Albumin (3.5-5.0) g/dL Amylase (30-110) U/L Lipase (23-300) U/L Urine Color Urine Appearance (Clear) Urine pH (5.0-8.0) Ur Specific [place] (1.001-1.035) Urine Protein (Negative) Urine Glucose (UA) (Negative) Urine Ketones (Negative) Urine Blood (Negative) Urine Nitrite (Negative) Urine Bilirubin (Negative) Urine Urobilinogen (<2.0) mg/dL Ur Leukocyte Esterase (Negative) Urine RBC (0-5) /hpf Urine WBC (0-5) /hpf Ur Squamous Epith Cells (0-4) /hpf Urine Mucus (None) /hpf Urine HCG, Qual Not Detected (Not Detectd) Disposition Clinical Impression: Abdominal pain Disposition: HOME SELF-CARE Condition: Good Instructions: Abdominal Pain (ED) Is patient prescribed a controlled substance at d/c from ED?: No Referrals: Getachew Mar MD [Primary Care Provider] - 1-2 days Time of Disposition: 13:15
[2018-07-08 12:12] LABS: Basophils % (A) 0 %; Eosinophils % (A) 0 %; HCT 42.8 % (34.0-46.0); Lymphocytes # (A) 1.4 k/uL (1.0-4.8); Lymphocytes % (A) 20 %; MCH 28.2 pg (25.0-35.0); MCHC 32.6 g/dL (31.0-37.0); MCV 86.5 fL (80.0-100.0); Mean Platelet Volume 8.5; Monocytes # (A) 0.4 k/uL (0-1.0); Monocytes % (A) 6 %; Neutrophils # (A) 5.1 k/uL (1.3-7.7); Neutrophils % (A) 71 %; Platelet Count 231 k/uL (150-450); RBC 4.95 m/uL (3.80-5.40); RDW 13.3 % (11.5-15.5); WBC 7.2 k/uL (3.8-10.6)
[2018-07-08 12:28] LABS: Appearance,Urine Cloudy (Clear); Bilirubin,Urine Negative (Negative); Blood,Urine Negative (Negative); Color,Urine Yellow; Glucose,Urine (UA) Negative (Negative); Ketones,Urine Negative (Negative); Leukocyte Esterase,Urine Small (Negative); Mucus,Urine Rare /hpf; Nitrite,Urine Negative (Negative); PH, Urine 6.5 (5.0-8.0); Protein,Urine 1+ (Negative); RBC,Urine 2 /hpf (0-5); Specific Gravity,Urine 1.016 (1.001-1.035); Squamous Epithelial Cell,Urine 5 /hpf (0-4); Urobilinogen,Urine <2.0 mg/dL (<2.0); WBC,Urine 6 /hpf (0-5)
[2018-07-08 12:32] LABS: ALT 18 U/L (9-52); AST 21 U/L (14-36); Albumin 3.6 g/dL (3.5-5.0); Alkaline Phosphatase 70 U/L (38-126); Amylase 84 U/L (30-110); Anion Gap 7 mmol/L; Blood Urea Nitrogen 7 mg/dL (7-17); Carbon Dioxide 25 mmol/L (22-30); Chloride 108 mmol/L (98-107); Glucose 79 mg/dL (74-99); Lipase 121 U/L (23-300); Sodium 140 mmol/L (137-145); Total Bilirubin 0.3 mg/dL (0.2-1.3); Total Protein 7.2 g/dL (6.3-8.2)
--- NOTE | 2018-07-08 12:39 | XR ---
EXAMINATION TYPE: XR KUB , 2 VIEWS DATE OF EXAM ORDERED: 07/08/2018 HISTORY: abdominal pain. COMPARISON: Previous study dated 02/26/2014. FINDINGS: The lung bases are clear. Within the abdomen, the abdominal gas pattern is normal. There is no evidence of obstruction or free air. No unusual calcifications are seen. IMPRESSION: NO ACUTE INTRA-ABDOMINAL ABNORMALITY.
[2018-07-08 12:54] LABS: Potassium 4.5 mmol/L (3.5-5.1)
[2018-07-08 13:51] VITALS: BP 138/74; RESP 16; TEMP 97.8
== END 2018-07-08 13:30 | disposition home or self-care (01) ==
LOC: EC 11:02
DX: R10.84 Generalized abdominal pain (principal); R19.7 Diarrhea, unspecified; R11.0 Nausea; Z32.02 Encounter for pregnancy test, result negative; K21.9 Gastro-esophageal reflux disease without esophagitis; F32.9 Major depressive disorder, single episode, unspecified; Z79.899 Other long term (current) drug therapy; Z88.5 Allergy status to narcotic agent; Z90.49 Acquired absence of other specified parts of digestive tract
CPT/HCPCS: 36415; 80053; 82150; 83690; 85025; 81001; 81025; 74018; 99284; 96374; 96361; J2405

== ENCOUNTER 2018-08-02 10:33 | Emergency (ER) | payer BC ==
[2018-08-02 10:40] VITALS: PULSE 73; RESP 18; TEMP 98
[2018-08-02] MEDS ORDERED: diphenhydrAMINE 50 MG CAP PO STA (11:14)
[2018-08-02] MEDS ORDERED: SODIUM CHLORIDE 0.9% 500 ML 500 ML IV ONE (11:14)
[2018-08-02] MEDS ORDERED: KETOROLAC 30 MG/ML 1 ML VIAL IVP STA (11:14)
[2018-08-02] MEDS ORDERED: METOCLOPRAMIDE 5 MG/ML 2 ML VIAL IVP STA (11:15)
--- NOTE | 2018-08-02 11:36 | ED ---
Headache HPI - General Chief Complaint: Headache Stated Complaint: headache Time Seen by Provider: 08/02/18 10:45 Source: patient, RN notes reviewed Mode of arrival: ambulatory Limitations: no limitations - History of Present Illness Initial Comments: 28-year-old female presents emergency Department chief complaint migraine headache. Patient states that she has chronic migraines is not the worse headache of her life was not sudden onset. Patient states started last night worsened this morning when she woke up. Patient states it's primarily right sided which is usual for her. She only took one dose of Tylenol no relief. She does make to some nausea vomiting light sensitivity. Denies fever, chills. Patient denies any focal weakness denies any chest pain or shortness breath. Patient offers no other associated symptoms. - Related Data Home Medications Medication Instructions Recorded Confirmed Levothyroxine Sodium [Synthroid] 125 mcg PO DAILY 02/09/17 08/02/18 Folic Acid 0.8 mg PO DAILY 07/08/18 08/02/18 Dqo-Wqfi-Yfhrm Acid 1 cap PO DAILY 07/08/18 08/02/18 [-U Capsule (formulary)] Acetaminophen [Tylenol Extra 500 mg PO Q6H PRN 08/02/18 08/02/18 Strength] Belimumab [Benlysta] 120 mg SQ WE 08/02/18 08/02/18 Allergies Allergy/AdvReac Type Severity Reaction Status Date / Time codeine AdvReac Nausea & Verified 08/02/18 10:59 Vomiting. HEADACHES Review of Systems ROS Statement: Those systems with pertinent positive or pertinent negative responses have been documented in the HPI. ROS Other: All systems not noted in ROS Statement are negative. 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, AVASCULAR NECROSIS KARTHIK HIPS, arthritis , LMP 12/11/15/ was in [facility] 03/2016 for c/o temperol headache History of Any Multi-Drug Resistant Organisms: None Reported Past Surgical History: Cholecystectomy, Ear Surgery, Orthopedic Surgery Additional Past Surgical History / Comment(s): elbow Past Anesthesia/Blood Transfusion Reactions: No Reported Reaction Past Psychological History: Depression Smoking Status: Never smoker Past Alcohol Use History: None Reported Past Drug Use History: None Reported General Exam Limitations: no limitations General appearance: alert, in no apparent distress Head exam: Present: atraumatic, normocephalic, normal inspection Eye exam: Present: normal appearance, PERRL, EOMI. Absent: scleral icterus, conjunctival injection, periorbital swelling ENT exam: Present: normal exam, normal oropharynx, mucous membranes moist, TM's normal bilaterally, normal external ear exam Neck exam: Present: normal inspection, full ROM. Absent: tenderness, meningismus, lymphadenopathy Respiratory exam: Present: normal lung sounds bilaterally. Absent: respiratory distress, wheezes, rales, rhonchi, stridor Cardiovascular Exam: Present: regular rate, normal rhythm, normal heart sounds. Absent: systolic murmur, diastolic murmur, rubs, gallop, clicks Extremities exam: Present: other (Upper and lower extremity strength equal bilaterally neurovascular intact) Neurological exam: Present: alert, oriented X3, CN II-XII intact, reflexes normal, other (Finger to nose intact bilaterally, GCS of 15 and NIH scale 0). Absent: motor sensory deficit Skin exam: Present: warm, dry, intact, normal color. Absent: rash Course Vital Signs 08/02/18 10:37 Temperature 98 F Pulse Rate 73 Respiratory 18 Rate Blood Pressure 146/101 O2 Sat by Pulse 98 Oximetry - Reevaluation(s) Reevaluation #1: 08/02/18 12:43 Patient was updated states that she does feel improved. Patient states she still has some tightness. Patient given Norflex though she states that she feels better and wants to go home. Patient has a normal neuro exam. Medical Decision Making - Medical Decision Making 28-year-old female presented for migraine headache. Patient was given migraine cocktail IV states that she has improved. She had a normal neuro exam. Return parameters were discussed. Patient did have hypertension on her initial vitals. Patient does have a history hypertension on medications. Patient will follow-up for recheck. Disposition Clinical Impression: Migraine Disposition: HOME SELF-CARE Condition: Stable Instructions: Acute Headache (ED) Additional Instructions: Please return to the Emergency Department if symptoms worsen or any other concerns. Is patient prescribed a controlled substance at d/c from ED?: No Referrals: Getachew Mar MD [Primary Care Provider] - 1-2 days Time of Disposition: 12:46
[2018-08-02] MEDS ORDERED: ORPHENADRINE 30 MG/ML 2 ML VIAL IVP STA (12:42)
[2018-08-02 13:00] VITALS: BP 111/80
== END 2018-08-02 13:08 | disposition home or self-care (01) ==
LOC: EC 10:33
DX: G43.909 Migraine, unspecified, not intractable, without status migrainosus (principal); M32.9 Systemic lupus erythematosus, unspecified; E07.9 Disorder of thyroid, unspecified; Z90.49 Acquired absence of other specified parts of digestive tract; Z98.890 Other specified postprocedural states; Z79.899 Other long term (current) drug therapy; Z88.5 Allergy status to narcotic agent
CPT/HCPCS: 96361; 96374; 96375; 99283

== ENCOUNTER 2018-08-26 14:51 | Emergency (ER) | payer BC ==
[2018-08-26 14:56] VITALS: PULSE 82; TEMP 98.7
[2018-08-26 15:28] LABS: Basophils % (A) 0 %; Eosinophils # (A) 0.1 k/uL (0-0.7); Eosinophils % (A) 1 %; HCT 41.1 % (34.0-46.0); HGB 13.5 gm/dL (11.4-16.0); Lymphocytes # (A) 1.5 k/uL (1.0-4.8); Lymphocytes % (A) 24 %; MCH 27.7 pg (25.0-35.0); MCHC 32.8 g/dL (31.0-37.0); MCV 84.6 fL (80.0-100.0); Mean Platelet Volume 7.7; Monocytes # (A) 0.5 k/uL (0-1.0); Monocytes % (A) 8 %; Neutrophils % (A) 65 %; Platelet Count 233 k/uL (150-450); RBC 4.86 m/uL (3.80-5.40); RDW 13.4 % (11.5-15.5); WBC 6.2 k/uL (3.8-10.6)
[2018-08-26 15:36] LABS: ALT 18 U/L (9-52); AST 20 U/L (14-36); Albumin 3.6 g/dL (3.5-5.0); Alkaline Phosphatase 68 U/L (38-126); Amylase 71 U/L (30-110); Anion Gap 7 mmol/L; Blood Urea Nitrogen 12 mg/dL (7-17); Calcium 9.3 mg/dL (8.4-10.2); Carbon Dioxide 29 mmol/L (22-30); Chloride 106 mmol/L (98-107); Glucose 81 mg/dL (74-99); Lipase 161 U/L (23-300); Potassium 4.4 mmol/L (3.5-5.1); Sodium 142 mmol/L (137-145); Total Bilirubin 0.3 mg/dL (0.2-1.3); Total Protein 6.8 g/dL (6.3-8.2)
--- NOTE | 2018-08-26 15:57 | XR ---
EXAMINATION TYPE: XR KUB DATE OF EXAM: 08/26/2018 COMPARISON: NONE HISTORY: Pain TECHNIQUE: 2 views FINDINGS: 2 upright views show no sign of intestinal obstruction or pneumoperitoneum. There are clips from cholecystectomy. There are no pathologic calcifications over the kidneys. Lung bases are clear. Fecal pattern is normal. IMPRESSION: Nonacute abdomen. No change.
--- NOTE | 2018-08-26 16:48 | ED ---
Abdominal Pain HPI - General Chief Complaint: Abdominal Pain Stated Complaint: side pain x 2 weeks Time Seen by Provider: 08/26/18 14:58 Source: patient Mode of arrival: ambulatory Limitations: no limitations - History of Present Illness Initial Comments: 28-year-old female with past medical history of lupus and polycystic ovarian disease L0 sitting today for chief complaint of pelvic cramping, and LUQ pain. Pt states that for the past 2 weeks she has had mild LUQ pain, that is on/ off no correlation with food, admits to mild nausea. Denies constipation, diarrhea, vomiting, hematemesis, melena or hematochezia. Pt states that in addition she has had pelvic cramping for 3 weeks, and vaginal discharge with odor. Pt denies abnormal vaginal bleeding, lower abdominal pain, fever, chills, nightsweats, RUQ pain. Pt states she has not been sexually active in the past few months. Pt states she was recently tested by her OBGYN in May for STD which was (-). Remainder of ROS (-), patient denies any recent shortness of breath, chest pain, back pain, numbness or tingling, dysuria or hematuria, constipation or diarrhea, headaches or visual changes, or any other complaints. Upon arrival pt is afebrile and well appearing. No signs of acute distress. Denies . - Related Data Home Medications Medication Instructions Recorded Confirmed Levothyroxine Sodium [Synthroid] 125 mcg PO DAILY 02/09/17 08/02/18 Folic Acid 0.8 mg PO DAILY 07/08/18 08/02/18 Bca-Hazs-Xihkx Acid 1 cap PO DAILY 07/08/18 08/02/18 [-U Capsule (formulary)] Acetaminophen [Tylenol Extra 500 mg PO Q6H PRN 08/02/18 08/02/18 Strength] Belimumab [Benlysta] 120 mg SQ WE 08/02/18 08/02/18 Previous Rx's Medication Instructions Recorded Doxycycline [Vibramycin] 100 mg PO BID 7 Days #14 cap 08/26/18 Allergies Allergy/AdvReac Type Severity Reaction Status Date / Time codeine AdvReac Nausea & Verified 08/26/18 14:56 Vomiting. HEADACHES Review of Systems ROS Statement: Those systems with pertinent positive or pertinent negative responses have been documented in the HPI. ROS Other: All systems not noted in ROS Statement are negative. Constitutional: Denies: fever, chills ENT: Denies: ear pain, throat pain Respiratory: Denies: cough, dyspnea, wheezes, hemoptysis, stridor Cardiovascular: Denies: chest pain, palpitations Endocrine: Denies: fatigue Gastrointestinal: Reports: abdominal pain (LUQ, pelvic cramping), nausea (on/off ). Denies: vomiting, diarrhea, constipation, hematemesis, melena, hematochezia Genitourinary: Reports: discharge. 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, AVASCULAR NECROSIS KARTHIK HIPS, arthritis , LMP 12/10// was in [facility] 03/2016 for c/o temperol headache History of Any Multi-Drug Resistant Organisms: None Reported Past Surgical History: Cholecystectomy, Ear Surgery, Orthopedic Surgery Additional Past Surgical History / Comment(s): elbow Past Anesthesia/Blood Transfusion Reactions: No Reported Reaction Past Psychological History: Depression Smoking Status: Never smoker Past Alcohol Use History: None Reported Past Drug Use History: None Reported General Exam - General Exam Comments Initial Comments: General: The patient is awake and alert, in no distress, and does not appear acutely ill. Eye: Pupils are equal, round and reactive to light, extra-ocular movements are intact. No nystagmus. There is normal conjunctiva bilaterally. No signs of icterus. Ears, nose, mouth and throat: There are moist mucous membranes and no oral lesions. Neck: The neck is supple, there is no tenderness or JVD. Cardiovascular: There is a regular rate and rhythm. No murmur, rub or gallop is appreciated. Respiratory: Lungs are clear to auscultation, respirations are non-labored, breath sounds are equal. No wheezes, stridor, rales, or rhonchi. Gastrointestinal: No noted diaphoresis, jaundice, pallor, protecting postures or squirming. Symmetrical pigmentation of abdomen without signs of inflammation, [scars], or striae. Umbilicus mildline, inverted without swelling. No dilated veins. Abdomen contour obese, no noted abdominal distention. No visible masses. No peristalsis, aortic pulsations, or ventral hernia. Bowel sounds audible in all 4 quadrants, unremarkable. No friction rubs or venous hums. No epigastic, hepatic or abdominal bruits. No tenderness to light or deep palpation of thr RUQ,epigasrtic, periumbilical or lower abdominal quadrants. Mild pain to palpation of the pelvis region. Liver edge, not palpable. Spleen edge, right and left kidney not palpable. Superior bladder margin non-tender. Special Testing: Negative shifting dullness, fluid wave, Sharon, Rovsing, McBurney, Titi, cutaneous hyperesthesia. Iliopsoas and obturator tests negative bilaterally. Negative Heel Jar test/rosalinda sign. No CVA tenderness. Digital rectal exam deferred. Negative velazquez turners or cullens sign Musculoskeletal: Normal ROM, no tenderness. Strength 5/5. Sensation intact. Pulses equal bilaterally 2+. Neurological: A&O x 3. CN II-XII intact, There are no obvious motor or sensory deficits. Coordination appears grossly intact. Speech is normal. Skin: Skin is warm and dry and no rashes or lesions are noted. Psychiatric: Cooperative, appropriate mood & affect, normal judgment. EXAM: External genitalia: [place] eschucheon, no lesions Vagina: Rugated, white discharge, fish like odor Cervix: no motion tenderness, patent os without discharge, noted punctuate lesions Uterus: Small, mobile, mild tenderness Adnexae: No masses, mild left sided tenderness Limitations: no limitations Course Vital Signs 08/26/18 08/26/18 14:54 17:55 Temperature 98.7 F 98.7 F Pulse Rate 82 82 Respiratory 20 18 Rate Blood Pressure 130/89 135/92 O2 Sat by Pulse 99 98 Oximetry - Reevaluation(s) Reevaluation #1: Spoke with Dr Andrade who recommended treatment with 2g flaygll once, 250IM ceftriaxone and doxycycline 100mg BID x 7 days. He states pt is to call the office tmrw morning and if she is still not feeling well to f/u with appointment in next 2-3 days. No further instruction at this time. 08/26/18 18:08 Medical Decision Making - Medical Decision Making 28yo L0. Afebrile. No WBC, pelvic US (-). Remainder of laboratory findings unremarkable. No signs of acute abdomen, very mild tenderness to palpation of the LUQ. No signs of peritoneal irritation. Pt did have tenderness of pelvic region to deep palpation. US pelvis (-) for acute process. Cysts noted, no free fluid, adnexa WNL. No torsion or abscess. Trichomonas (+). All findings discussed with pt. OBGYN consulted, I spoke with Dr. Andrade to arrange f/u for patient. He recommended treatment for gonorrhea/chlamydia, as well as a trichomonas infection. He also recommended doxycycline 100 mg twice a day x 7 days. Pt is to call the office Monday if still experiencing pelvic pain to arrange f/u per Dr. Andrade. No further recommendation, pt stable for discharge with f/u as discussed. Pt is agreeable with plan. Case discussed with Dr Del Valle who agreed with impression and plan. Return parameters discussed at length, pt verbalized understanding. - Lab Data Result diagrams: 08/26/18 15:14 08/26/18 15:14 Lab Results 08/26/18 08/26/18 08/26/18 Range/Units 15:14 15:14 15:39 WBC 6.2 (3.8-10.6) k/uL RBC 4.86 (3.80-5.40) m/uL Hgb 13.5 (11.4-16.0) gm/dL Hct 41.1 (34.0-46.0) % MCV 84.6 (80.0-100.0) fL MCH 27.7 (25.0-35.0) pg MCHC 32.8 (31.0-37.0) g/dL RDW 13.4 (11.5-15.5) % Plt Count 233 (150-450) k/uL Neutrophils % 65 % Lymphocytes % 24 % Monocytes % 8 % Eosinophils % 1 % Basophils % 0 % Neutrophils # 4.0 (1.3-7.7) k/uL Lymphocytes # 1.5 (1.0-4.8) k/uL Monocytes # 0.5 (0-1.0) k/uL Eosinophils # 0.1 (0-0.7) k/uL Basophils # 0.0 (0-0.2) k/uL Sodium 142 (137-145) mmol/L Potassium 4.4 (3.5-5.1) mmol/L Chloride 106 (98-107) mmol/L Carbon Dioxide 29 (22-30) mmol/L Anion Gap 7 mmol/L BUN 12 (7-17) mg/dL Creatinine 0.85 (0.52-1.04) mg/dL Est GFR (CKD-EPI)AfAm >90 (>60 ml/min/1.73 sqM) Est GFR (CKD-EPI)NonAf >90 (>60 ml/min/1.73 sqM) Glucose 81 (74-99) mg/dL Calcium 9.3 (8.4-10.2) mg/dL Total Bilirubin 0.3 (0.2-1.3) mg/dL AST 20 (14-36) U/L ALT 18 (9-52) U/L Alkaline Phosphatase 68 (38-126) U/L Total Protein 6.8 (6.3-8.2) g/dL Albumin 3.6 (3.5-5.0) g/dL Amylase 71 (30-110) U/L Lipase 161 (23-300) U/L Urine Color Urine Appearance (Clear) Urine pH (5.0-8.0) Ur Specific [place] (1.001-1.035) Urine Protein (Negative) Urine Glucose (UA) (Negative) Urine Ketones (Negative) Urine Blood (Negative) Urine Nitrite (Negative) Urine Bilirubin (Negative) Urine Urobilinogen (<2.0) mg/dL Ur Leukocyte Esterase (Negative) Urine RBC (0-5) /hpf Urine WBC (0-5) /hpf Ur Squamous Epith Cells (0-4) /hpf Urine Mucus (None) /hpf Urine HCG, Qual Not Detected (Not Detectd) Trichomonas Ag (Rapid) (Negative) 08/26/18 08/26/18 Range/Units 15:39 16:48 WBC (3.8-10.6) k/uL RBC (3.80-5.40) m/uL Hgb (11.4-16.0) gm/dL Hct (34.0-46.0) % MCV (80.0-100.0) fL MCH (25.0-35.0) pg MCHC (31.0-37.0) g/dL RDW (11.5-15.5) % Plt Count (150-450) k/uL Neutrophils % % Lymphocytes % % Monocytes % % Eosinophils % % Basophils % % Neutrophils # (1.3-7.7) k/uL Lymphocytes # (1.0-4.8) k/uL Monocytes # (0-1.0) k/uL Eosinophils # (0-0.7) k/uL Basophils # (0-0.2) k/uL Sodium (137-145) mmol/L Potassium (3.5-5.1) mmol/L Chloride (98-107) mmol/L Carbon Dioxide (22-30) mmol/L Anion Gap mmol/L BUN (7-17) mg/dL Creatinine (0.52-1.04) mg/dL Est GFR (CKD-EPI)AfAm (>60 ml/min/1.73 sqM) Est GFR (CKD-EPI)NonAf (>60 ml/min/1.73 sqM) Glucose (74-99) mg/dL Calcium (8.4-10.2) mg/dL Total Bilirubin (0.2-1.3) mg/dL AST (14-36) U/L ALT (9-52) U/L Alkaline Phosphatase (38-126) U/L Total Protein (6.3-8.2) g/dL Albumin (3.5-5.0) g/dL Amylase (30-110) U/L Lipase (23-300) U/L Urine Color Yellow Urine Appearance Clear (Clear) Urine pH 8.5 H (5.0-8.0) Ur Specific [place] 1.023 (1.001-1.035) Urine Protein 2+ H (Negative) Urine Glucose (UA) Negative (Negative) Urine Ketones Negative (Negative) Urine Blood Negative (Negative) Urine Nitrite Negative (Negative) Urine Bilirubin Negative (Negative) Urine Urobilinogen <2.0 (<2.0) mg/dL Ur Leukocyte Esterase Moderate H (Negative) Urine RBC 13 H (0-5) /hpf Urine WBC 15 H (0-5) /hpf Ur Squamous Epith Cells 2 (0-4) /hpf Urine Mucus Rare H (None) /hpf Urine HCG, Qual (Not Detectd) Trichomonas Ag (Rapid) Positive H (Negative) Disposition Clinical Impression: Trichomonas infection Disposition: HOME SELF-CARE Condition: Good Instructions: Trichomoniasis (ED) Additional Instructions: Please use medication as discussed. Please follow-up with OBGYN in next 2-3 days. Please return to emergency room if the symptoms increase or worsen or for any other concerns,including fever, RUQ pain. Prescriptions: Doxycycline [Vibramycin] 100 mg PO BID 7 Days #14 cap Is patient prescribed a controlled substance at d/c from ED?: No Referrals: Getachew Mar MD [Primary Care Provider] - 1-2 days Darya Fischer MD [STAFF PHYSICIAN] - 1-2 days Time of Disposition: 17:59
[2018-08-26 17:28] LABS: Appearance,Urine Clear (Clear); Bilirubin,Urine Negative (Negative); Blood,Urine Negative (Negative); Color,Urine Yellow; Glucose,Urine (UA) Negative (Negative); Ketones,Urine Negative (Negative); Leukocyte Esterase,Urine Moderate (Negative); Mucus,Urine Rare /hpf; Nitrite,Urine Negative (Negative); PH, Urine 8.5 (5.0-8.0); Protein,Urine 2+ (Negative); RBC,Urine 13 /hpf (0-5); Specific Gravity,Urine 1.023 (1.001-1.035); Squamous Epithelial Cell,Urine 2 /hpf (0-4); Urobilinogen,Urine <2.0 mg/dL (<2.0); WBC,Urine 15 /hpf (0-5)
--- NOTE | 2018-08-26 17:46 | US ---
EXAMINATION TYPE: US pelvic complete DATE OF EXAM: 08/26/2018 COMPARISON: US CLINICAL HISTORY: Pain. EC patient with pelvic cramping and pressure as feeling like contractions TECHNIQUE: Transvaginal (TV). to better assess the anatomy as patient bladder not full to assess u terus and ovaries; Date of LMP: 08/19/2018 EXAM MEASUREMENTS: Uterus: 7.3 x 4.1 x 3.8 cm Endometrial Stripe: 0.8 cm Right Ovary: 3.8 x 1.8 x 2.2 cm Left Ovary: 2.9 x 1.7 x 2.1 cm 1. Uterus: Anteverted; small Nabothian Cyst in cervix/ JOSE = 0.3 x 0.2 x 0.2cm. 2. Endometrium: thickness is wnl for day 8 LMP 3. Right Ovary: multiple small follicles with largest = 0.7 x 0.5 x 0.5cm 4. Left Ovary: multifollicular with largest thick walled cyst with peripheral ring of color flow = 1 .3 x 1.2 x 1.2cm Spectral, color and waveform Doppler imaging shows good arterial and venous flow within the ovaries ; there is no evidence for ovarian torsion. 5. Bilateral Adnexa: wnl 6. Posterior cul-de-sac: wnl IMPRESSION: Negative transvaginal pelvic sonogram. No evidence of torsion.
[2018-08-26 17:56] VITALS: BP 135/92; RESP 18
[2018-08-26] MEDS ORDERED: metroNIDAZOLE 500 MG TAB PO STA ×2 (17:57→18:14)
[2018-08-26] MEDS ORDERED: DOXYCYCLINE 100 MG CAP PO STA (17:57)
[2018-08-26] MEDS ORDERED: cefTRIAXone 250 MG VIAL IM STA (17:57)
[2018-08-28 15:55] LABS: N. gonorrhoeae,PCR Negative (Neg,Equiv); Neisseria Source Vagina
[2018-08-28 16:06] LABS: C. trachomatis,PCR Negative (Neg,Equiv); Chlamydia trachomatis Source Vagina
== END 2018-08-26 18:35 | disposition home or self-care (01) ==
LOC: EC 14:51
DX: A59.9 Trichomoniasis, unspecified (principal); A54.9 Gonococcal infection, unspecified; A74.9 Chlamydial infection, unspecified; R10.12 Left upper quadrant pain; R11.0 Nausea; M32.9 Systemic lupus erythematosus, unspecified; E07.9 Disorder of thyroid, unspecified; E28.2 Polycystic ovarian syndrome; Z88.5 Allergy status to narcotic agent; Z79.899 Other long term (current) drug therapy; Z90.49 Acquired absence of other specified parts of digestive tract
CPT/HCPCS: 36415; 80053; 82150; 83690; 85025; 81001; 81025; 87808; 87491; 87591; 74018; 93975; 76830; 99284; 96372; J0696

== ENCOUNTER 2018-10-03 20:43 | Emergency (ER) | payer BC, OTHER ==
--- NOTE | 2018-10-03 22:46 | ED ---
General Adult HPI - General Chief complaint: ENT Stated complaint: Swollen lymph node Time Seen by Provider: 10/03/18 21:00 Source: patient, RN notes reviewed Mode of arrival: ambulatory Limitations: no limitations - History of Present Illness Initial comments: This is a 28-year-old female presents emergency Department complaining of swelling under her left mandible. Patient states anytime she eats the swelling starts. Patient states it's painful to touch and eventually it subsides but the pain is still there she touches it. Patient denies any fever chills. Patient denies any drainage in her mouth that she knows of. Patient denies any swelling in her mouth or any tooth pain. Patient states she's never had this before. Patient states been ongoing for 2 days. Patient states it happens consistently with eating. - Related Data Home Medications Medication Instructions Recorded Confirmed Levothyroxine Sodium [Synthroid] 125 mcg PO DAILY 02/09/17 08/02/18 Folic Acid 0.8 mg PO DAILY 07/08/18 08/02/18 Hbd-Wjii-Egplm Acid 1 cap PO DAILY 07/08/18 08/02/18 [-U Capsule (formulary)] Acetaminophen [Tylenol Extra 500 mg PO Q6H PRN 08/02/18 08/02/18 Strength] Belimumab [Benlysta] 120 mg SQ WE 08/02/18 08/02/18 Previous Rx's Medication Instructions Recorded Doxycycline [Vibramycin] 100 mg PO BID 7 Days #14 cap 08/26/18 Allergies Allergy/AdvReac Type Severity Reaction Status Date / Time codeine AdvReac Nausea & Verified 08/26/18 14:56 Vomiting. HEADACHES Review of Systems ROS Statement: Those systems with pertinent positive or pertinent negative responses have been documented in the HPI. ROS Other: All systems not noted in ROS Statement are negative. 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, AVASCULAR NECROSIS KARTHIK HIPS, arthritis , LMP 12/11/15/ was in [facility] 03/2016 for c/o temperol headache History of Any Multi-Drug Resistant Organisms: None Reported Past Surgical History: Cholecystectomy, Ear Surgery, Orthopedic Surgery Additional Past Surgical History / Comment(s): elbow Past Anesthesia/Blood Transfusion Reactions: No Reported Reaction Past Psychological History: Depression Smoking Status: Never smoker Past Alcohol Use History: None Reported, Rare Past Drug Use History: None Reported General Exam - General Exam Comments Initial Comments: GENERAL Patient is well-developed and well-nourished. Patient is in mild distress. EYES Patient's pupils are equal and round. Extraocular motion is intact NECK Patient has a tender and slightly swollen submandibular gland on the left. After patient eats the gland is more swollen. SKIN Unremarkable NEURO The patient is alert and oriented 3 PYSCH Patient has normal interpersonal interactions. Limitations: no limitations Course Vital Signs 10/03/18 21:21 Temperature 98.5 F Pulse Rate 62 Respiratory 16 Rate Blood Pressure 147/91 O2 Sat by Pulse 100 Oximetry Disposition Clinical Impression: Submandibular sialolithiasis Disposition: HOME SELF-CARE Condition: Good Instructions: Sialoadenitis (ED) Additional Instructions: Patient should follow-up with Dr. alexis and if symptoms don't resolve. Patient should massage the area gently, use warm compresses, take NSAIDs, and try to suck on sour hard candies. The patient's submandibular gland becomes red or painful or if she has fevers she should return to the emergency department. Is patient prescribed a controlled substance at d/c from ED?: No Referrals: Guerrero Haji DO [Doctor of Osteopathic Medicine] - 1-2 days Time of Disposition: 22:45
[2018-10-03 22:57] VITALS: BP 142/87; PULSE 61; RESP 18; TEMP 98.1
== END 2018-10-03 22:56 | disposition home or self-care (01) ==
LOC: EC 20:43
DX: K11.5 Sialolithiasis (principal); E07.9 Disorder of thyroid, unspecified; M32.9 Systemic lupus erythematosus, unspecified; Z90.49 Acquired absence of other specified parts of digestive tract; Z98.890 Other specified postprocedural states; Z79.890 Hormone replacement therapy; Z79.899 Other long term (current) drug therapy; Z88.5 Allergy status to narcotic agent
CPT/HCPCS: 99283

== ENCOUNTER 2018-10-15 08:26 | Emergency (ER) | payer OTHER ==
--- NOTE | 2018-10-15 08:51 | ED ---
General Adult HPI - General Chief complaint: Back Pain/Injury Stated complaint: Fall Time Seen by Provider: 10/15/18 08:43 Source: patient, RN notes reviewed Mode of arrival: ambulatory Limitations: no limitations - History of Present Illness Initial comments: Patient 28-year-old female presented to the emergency room today with a chief complaint of a fall that occurred 6 days ago. She does admit that she slipped on some steps outside. She does admit that she twisted the right ankle which is feeling better. She missed some pain in the low back and is the reason that she came here to the emergency room today because it is still bothering after week. Been trying Tylenol with little relief. Does admit that she feels pain in her lower back into the right hip area. Patient denies any bowel or bladder incontinence retention. Denies any saddle anesthesia. Patient admits to history of scoliosis but denies any other back pain. Patient denies any recent fever, chills, shortness of breath, chest pain, abdominal pain, nausea or vomiting, numbness or tingling, dysuria or hematuria, constipation or diarrhea, headaches or visual changes, or any other complaints. - Related Data Home Medications Medication Instructions Recorded Confirmed Belimumab [Benlysta] 120 mg SQ WE 08/02/18 10/15/18 Aspirin EC [Ecotrin Low Dose] 81 mg PO DAILY 10/15/18 10/15/18 Cholecalciferol (Vitamin D3) 2,000 unit PO DAILY 10/15/18 10/15/18 [Vitamin D3] Folic Acid 0.4 mg PO DAILY 10/15/18 10/15/18 Levothyroxine Sodium [Synthroid] 125 mcg PO DAILY 10/15/18 10/15/18 Bsk-Fymh-Eairx Acid 1 cap PO DAILY 10/15/18 10/15/18 [-U Capsule (formulary)] Venlafaxine HCl ER [Effexor Xr] 150 mg PO DAILY 10/15/18 10/15/18 Previous Rx's Medication Instructions Recorded Cyclobenzaprine [Flexeril] 10 mg PO TID #20 tab 10/15/18 Ibuprofen [Motrin] 600 mg PO Q6HR PRN #40 day 10/15/18 Allergies Allergy/AdvReac Type Severity Reaction Status Date / Time codeine AdvReac Nausea & Verified 10/15/18 09:27 Vomiting. HEADACHES Review of Systems ROS Statement: Those systems with pertinent positive or pertinent negative responses have been documented in the HPI. ROS Other: All systems not noted in ROS Statement are negative. 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, AVASCULAR NECROSIS KARTHIK HIPS, arthritis , LMP 12/11/15/ was in [facility] 03/2016 for c/o temperol headache History of Any Multi-Drug Resistant Organisms: None Reported Past Surgical History: Cholecystectomy, Ear Surgery, Orthopedic Surgery Additional Past Surgical History / Comment(s): elbow Past Anesthesia/Blood Transfusion Reactions: No Reported Reaction Past Psychological History: Depression Smoking Status: Never smoker Past Alcohol Use History: None Reported, Rare Past Drug Use History: None Reported General Exam - General Exam Comments Initial Comments: General: The patient is awake and alert, in no distress, and does not appear acutely ill. Eye: There is normal conjunctiva bilaterally. No signs of icterus. Ears, nose, mouth and throat: There are moist mucous membranes and no oral lesions. Neck: The neck is supple, Musculoskeletal: Normal appearance of the thoracic and lumbar spine no step-off or deformity. Mild tenderness beginning at L1 down through L5. Patient does have some paravertebral tenderness on the right side of the lumbar spine. Sensations intact. Strength 5/5. Neurological: A&O x 3. CN II-XII intact, There are no obvious motor or sensory deficits. Coordination appears grossly intact. Speech is normal. Skin: Skin is warm and dry and no rashes or lesions are noted. Psychiatric: Cooperative, appropriate mood & affect, normal judgment. Limitations: no limitations Course Vital Signs 10/15/18 08:37 Temperature 98.6 F Pulse Rate 66 Respiratory 16 Rate Blood Pressure 146/91 O2 Sat by Pulse 99 Oximetry Medical Decision Making - Medical Decision Making Patient's x-ray reviewed is negative for any acute abnormality. Results were discussed with the patient. Patient will be started on anti-inflammatories, muscle relaxer. Patient advised that muscle laxer may make her drowsy. She is requesting work note for today. Will be given this to go back to work tomorrow. Advised to follow-up family doctor return here to emergency room for any other concerns. - Lab Data Lab Results 01/21/19 Range/Units 08:42 Urine HCG, Qual Not Detected (Not Detectd) Disposition Clinical Impression: Acute low back pain Disposition: HOME SELF-CARE Condition: Good Instructions (If sedation given, give patient instructions): Acute Low Back Pain (ED) Additional Instructions: Please use medication as discussed. Please be aware that muscle relaxant may make you drowsy. Please follow-up with family doctor in the next 2-5 days of symptoms have not improved. Please return to emergency room if the symptoms increase or worsen or for any other concerns. Prescriptions: Cyclobenzaprine [Flexeril] 10 mg PO TID #20 tab Ibuprofen [Motrin] 600 mg PO Q6HR PRN #40 day PRN Reason: Pain Is patient prescribed a controlled substance at d/c from ED?: No Referrals: Getachew Mar MD [Primary Care Provider] - 1-2 days Time of Disposition: 10:15
--- NOTE | 2018-10-15 09:36 | XR ---
EXAMINATION TYPE: XR lumbosacral spine min 4V DATE OF EXAM: 10/15/2018 CLINICAL HISTORY: Pain from fall. TECHNIQUE: Frontal, lateral, and oblique images of the lumbar spine are obtained. COMPARISON: Lumbosacral x-ray October 12, 2013 FINDINGS: There are 5 lumbar type vertebral bodies identified. There is hypoplastic left T12 rib re demonstrated. The lumbar spine shows stable and straightened alignment without evidence of acute frac ture or dislocation. Vertebral body heights and disk space heights are within normal limits. The ob lique images appear within normal limits. Cholecystectomy clips are now present in overlying soft tis bertin. IMPRESSION: No acute fracture or dislocation is seen in the lumbar spine.
[2018-10-15 10:27] VITALS: BP 153/108; PULSE 63; RESP 18; TEMP 98
== END 2018-10-15 10:27 | disposition home or self-care (01) ==
LOC: EC 08:26
DX: M54.5 Low back pain (principal); M32.9 Systemic lupus erythematosus, unspecified; E07.9 Disorder of thyroid, unspecified; F32.9 Major depressive disorder, single episode, unspecified; Z87.39 Personal history of other diseases of the musculoskeletal system and connective tissue; Z79.82 Long term (current) use of aspirin; Z79.890 Hormone replacement therapy; Z79.899 Other long term (current) drug therapy; Z88.5 Allergy status to narcotic agent; W01.0XXA Fall on same level from slipping, tripping and stumbling without subsequent striking against object, initial encounter
CPT/HCPCS: 72110; 81025; 99283

== ENCOUNTER → 2019-01-30 | Outpatient (CLI) | payer OTHER ==
--- NOTE | 2019-01-31 18:54 | MR ---
EXAMINATION TYPE: MR ankle LT wo/w con DATE OF EXAM: 01/30/2019 COMPARISON: None HISTORY: Lt ankle pain/mass anterior aspect, marker placed CONTRAST: Standard multiplanar, multisequence MRI departmental protocol utilizing 12 mL intravenous Gadavist ga dolinium contrast. FINDINGS: There is a marker placed over the anterior aspect of the ankle joint. There is subcutaneous edema around the medial aspect of the ankle extending somewhat anteriorly. There is increased fluid signal at the area of concern over the anterior ankle joint in the subcutaneous tissues consistent wi th edema. No discrete solid mass identified. There is a 5 mm cystic fluid collection at the anterior aspect of the talonavicular joint that could be palpable and is probably a small synovial cyst. 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 The ankle mortise is anatomic. Collateral ligaments appear intact. The medial and lateral flexor tendons of the ankle appear intact. There is a mild ankle joint effusion. The Achilles tendon is intact. Plantar fascia appears intact. Joint spaces are fairly normal. I see n o focal bone destruction of the hindfoot. There is no sign of a fracture. I see no pathologic enhance ment. IMPRESSION: Subcutaneous edema around the medial ankle and lower leg. Subcutaneous edema seen at the area of conc blake over the anterior ankle joint. There is evidence of a small synovial cyst on the anterior aspect of the talonavicular joint in the area of concern. Small ankle joint effusion consistent with mild nonspecific synovitis. No evidence of ligament or tendon tear.
== END ==
LOC: RADMRIMAIN 18:52
PROVIDERS: ATTEND Podiatrist Foot & Ankle Surgery
DX: M25.472 Effusion, left ankle (principal); M71.372 Other bursal cyst, left ankle and foot
CPT/HCPCS: 73723; A9585

== ENCOUNTER 2019-02-02 12:10 | Emergency (ER) | payer OTHER ==
[2019-02-02 12:22] VITALS: BP 126/85; PULSE 76; RESP 18; TEMP 98.7
[2019-02-02] MEDS ORDERED: DEXAMETHASONE 4 MG TAB PO STA (13:10)
--- NOTE | 2019-02-02 13:26 | ED ---
ENT HPI - General Chief complaint: ENT Stated complaint: swollen lymph nodes Time Seen by Provider: 02/02/19 12:23 Source: patient Mode of arrival: ambulatory - History of Present Illness Initial comments: Patient is 28-year-old female with a history of lupus presenting to emergency Department for a swelling near the left submandibular region.. She states the pain started 4 days ago and 3 days ago she went to the emergency Department at [facility] where they didn't do anything and told her to follow with primary care. Patient states the swelling has slowly progressed and she has pain with swallowing. Patient reports that she also has otalgia in her left ear. Patient denies any fever, headache, night sweats, chills weight loss, nausea, vomiting, diarrhea, abdominal pain. Patient also reports the appearance of a butterfly rash on her face that is consistent with her symptoms of lupus. Patient also states that she feels discharged under her tongue when she applies pressure in the swelling. Patient denies taking any medication for pain. - Related Data Home Medications Medication Instructions Recorded Confirmed Belimumab [Benlysta] 120 mg SQ WE 08/02/18 10/15/18 Aspirin EC [Ecotrin Low Dose] 81 mg PO DAILY 10/15/18 10/15/18 Cholecalciferol (Vitamin D3) 2,000 unit PO DAILY 10/15/18 10/15/18 [Vitamin D3] Folic Acid 0.4 mg PO DAILY 10/15/18 10/15/18 Levothyroxine Sodium [Synthroid] 125 mcg PO DAILY 10/15/18 10/15/18 Wtb-Kptj-Tgrvg Acid 1 cap PO DAILY 10/15/18 10/15/18 [-U Capsule (formulary)] Venlafaxine HCl ER [Effexor Xr] 150 mg PO DAILY 10/15/18 10/15/18 Previous Rx's Medication Instructions Recorded Cyclobenzaprine [Flexeril] 10 mg PO TID #20 tab 10/15/18 Ibuprofen [Motrin] 600 mg PO Q6HR PRN #40 day 10/15/18 Amoxicillin/Potassium Clav 1 tab PO Q12HR #20 tab 02/02/19 [Augmentin 875-125 Tablet] Allergies Allergy/AdvReac Type Severity Reaction Status Date / Time codeine AdvReac Nausea & Verified 10/15/18 09:27 Vomiting. HEADACHES Review of Systems ROS Statement: Those systems with pertinent positive or pertinent negative responses have been documented in the HPI. ROS Other: All systems not noted in ROS Statement are negative. 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, AVASCULAR NECROSIS KARTHIK HIPS, arthritis , LMP 12/10// was in [facility] 03/2016 for c/o temperol headache History of Any Multi-Drug Resistant Organisms: None Reported Past Surgical History: Cholecystectomy, Ear Surgery, Orthopedic Surgery Additional Past Surgical History / Comment(s): elbow Past Anesthesia/Blood Transfusion Reactions: No Reported Reaction Past Psychological History: Depression Smoking Status: Never smoker Past Alcohol Use History: None Reported, Rare Past Drug Use History: None Reported General Exam Limitations: no limitations General appearance: alert, in no apparent distress Head exam: Present: atraumatic, normocephalic, normal inspection Eye exam: Present: normal appearance, PERRL, EOMI Pupils: Present: normal accommodation ENT exam: Present: normal exam, mucous membranes moist, TM's normal bilaterally Neck exam: Present: normal inspection, tenderness (With swallowing and palpation), full ROM (Limited left rotation due to pain.), lymphadenopathy (Left submandibular) Respiratory exam: Present: normal lung sounds bilaterally. Absent: respiratory distress, wheezes Cardiovascular Exam: Present: regular rate, normal rhythm, normal heart sounds GI/Abdominal exam: Present: soft Extremities exam: Present: normal inspection Back exam: Present: normal inspection Neurological exam: Present: alert, oriented X3 Psychiatric exam: Present: normal affect, normal mood Skin exam: Present: normal color, rash (Butterfly rash on her face) Course Vital Signs 02/02/19 12:18 Temperature 98.7 F Pulse Rate 76 Respiratory 18 Rate Blood Pressure 126/85 O2 Sat by Pulse 97 Oximetry Medical Decision Making - Medical Decision Making Patient a 28-year-old female presenting to the emergency department with left submandibular swelling. CBC for infection was obtained. Monospot and rapid strep were obtained to rule out mono and strep throat, respectively. Patient was also given a dose of Decadron to alleviate the swelling and acute flareup of the rash. Patient will be discharged with 10 days of Augmentin as I'm suspicious of sialadentitis due to erythematous salivary duct and discharge on palpation of the swollen area. The case was discussed with Dr. Phillips suggested no additional imaging is required. Patient advised to follow with ENT. Patient advised to return to the emergency department if symptoms worsen. Disposition Clinical Impression: Swelling, lymph nodes Disposition: HOME SELF-CARE Condition: Stable Additional Instructions: Please take prescribed medication as directed. Please follow up with ENT. Please return to the emergency department if symptoms worsen. Is patient prescribed a controlled substance at d/c from ED?: No Referrals: Getachew Mar MD [Primary Care Provider] - 1-2 days Guerrero Haji DO [Doctor of Osteopathic Medicine] - 1-2 days Time of Disposition: 14:43
[2019-02-02 13:30] LABS: Basophils % (A) 1 %; Eosinophils # (A) 0.1 k/uL (0-0.7); Eosinophils % (A) 1 %; HCT 43.7 % (34.0-46.0); HGB 14.5 gm/dL (11.4-16.0); Lymphocytes # (A) 1.4 k/uL (1.0-4.8); Lymphocytes % (A) 22 %; MCH 28.6 pg (25.0-35.0); MCHC 33.2 g/dL (31.0-37.0); MCV 86.3 fL (80.0-100.0); Mean Platelet Volume 7.8; Monocytes # (A) 0.5 k/uL (0-1.0); Monocytes % (A) 7 %; Neutrophils # (A) 4.4 k/uL (1.3-7.7); Neutrophils % (A) 68 %; Platelet Count 238 k/uL (150-450); RBC 5.07 m/uL (3.80-5.40); RDW 14.1 % (11.5-15.5); WBC 6.5 k/uL (3.8-10.6)
== END 2019-02-02 14:58 | disposition home or self-care (01) ==
LOC: EC 12:10
DX: R59.9 Enlarged lymph nodes, unspecified (principal); R13.10 Dysphagia, unspecified; H92.02 Otalgia, left ear; R21 Rash and other nonspecific skin eruption; M32.9 Systemic lupus erythematosus, unspecified; E07.9 Disorder of thyroid, unspecified; F32.9 Major depressive disorder, single episode, unspecified; Z79.82 Long term (current) use of aspirin; Z79.890 Hormone replacement therapy; Z79.899 Other long term (current) drug therapy; Z88.5 Allergy status to narcotic agent
CPT/HCPCS: 36415; 85025; 86308; 99283; J8540

== ENCOUNTER 2019-04-14 09:21 | Emergency (ER) | payer OTHER ==
[2019-04-14 09:45] VITALS: TEMP 98
[2019-04-14] MEDS ORDERED: ONDANSETRON 4 MG/2 ML VIAL IVP STA (10:06)
[2019-04-14] MEDS ORDERED: KETOROLAC 30 MG/ML 1 ML VIAL IVP STA (10:06)
--- NOTE | 2019-04-14 10:24 | ED ---
Chest Pain HPI - General Chief Complaint: Chest Pain Stated Complaint: Chest Pain Time Seen by Provider: 04/14/19 09:54 Source: patient Mode of arrival: ambulatory Limitations: no limitations - History of Present Illness Initial Comments: Patient is a 29-year-old female who presents emergency Department with complaints of chest pain and left arm pain since this morning. Patient states she was driving to work this morning and started to get chest pain with radiation to her left shoulder. Patient states he attempted to stay at work but then came to the ER. Patient states she has unable to lift or move her left arm without increase in pain. Patient states the chest pain has improved and it's mostly her left shoulder and left side of her neck that is hurting right now. Patient states she felt as slightly short of breath earlier but that has improved as well. Patient also admits to mild nausea. Patient denies cough, recent illness, fever, chills, abdominal pain, vomiting. Patient has never had anything like this before. Patient admits to past medical history of lupus and avascular necrosis of bilateral hips. No other complaints at this time. - Related Data Home Medications Medication Instructions Recorded Confirmed Belimumab [Benlysta] 120 mg SQ WE 08/02/18 10/15/18 Aspirin EC [Ecotrin Low Dose] 81 mg PO DAILY 10/15/18 10/15/18 Cholecalciferol (Vitamin D3) 2,000 unit PO DAILY 10/15/18 10/15/18 [Vitamin D3] Folic Acid 0.4 mg PO DAILY 10/15/18 10/15/18 Levothyroxine Sodium [Synthroid] 125 mcg PO DAILY 10/15/18 10/15/18 Rnz-Jzml-Nvsrb Acid 1 cap PO DAILY 10/15/18 10/15/18 [-U Capsule (formulary)] Venlafaxine HCl ER [Effexor Xr] 150 mg PO DAILY 10/15/18 10/15/18 Previous Rx's Medication Instructions Recorded Cyclobenzaprine [Flexeril] 10 mg PO TID #20 tab 10/15/18 Ibuprofen [Motrin] 600 mg PO Q6HR PRN #40 day 10/15/18 Amoxicillin/Potassium Clav 1 tab PO Q12HR #20 tab 02/02/19 [Augmentin 875-125 Tablet] Cyclobenzaprine [Flexeril] 5 mg PO BID #15 tablet 04/14/19 Allergies Allergy/AdvReac Type Severity Reaction Status Date / Time codeine AdvReac Nausea & Verified 04/14/19 09:45 Vomiting. HEADACHES Review of Systems ROS Statement: Those systems with pertinent positive or pertinent negative responses have been documented in the HPI. ROS Other: All systems not noted in ROS Statement are negative. EKG Findings - EKG Comments: EKG Findings:: Ventricular rate 53, NE interval 168, QTC 395. Sinus bradycardia, no ST segment changes, no T-wave inversions. 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, AVASCULAR NECROSIS KARTHIK HIPS, arthritis , LMP 12/10// was in [facility] 03/2016 for c/o temperol headache History of Any Multi-Drug Resistant Organisms: None Reported Past Surgical History: Cholecystectomy, Ear Surgery, Orthopedic Surgery Additional Past Surgical History / Comment(s): elbow Past Anesthesia/Blood Transfusion Reactions: No Reported Reaction Past Psychological History: Depression Smoking Status: Never smoker Past Alcohol Use History: None Reported, Rare Past Drug Use History: None Reported General Exam - General Exam Comments Initial Comments: GENERAL: Well-appearing, well-nourished and in no acute distress. HEAD: Atraumatic, normocephalic. EYES: Pupils equal round and reactive to light, extraocular movements intact, sclera anicteric, conjunctiva are normal. ENT: TMs normal, nares patent, oropharynx clear without exudates. Moist mucous membranes. NECK: Normal range of motion, supple without lymphadenopathy or JVD. LUNGS: Breath sounds clear to auscultation bilaterally and equal. No wheezes rales or rhonchi. HEART: Regular rate and rhythm without murmurs, rubs or gallops. Mild pain with palpation of the sternum. ABDOMEN: Soft, nontender, normoactive bowel sounds. No guarding, no rebound. No masses appreciated. : Deferred EXTREMITIES: Pain with palpation of the left cervical paraspinals, upper left trapezius, and around entire left shoulder joint. Patient has decreased left shoulder range of motion in all directions. Neurovascular intact NEUROLOGICAL: Cranial nerves II through XII grossly intact. Normal speech, normal gait. PSYCH: Normal mood, normal affect. SKIN: Warm, Dry, normal turgor, no rashes or lesions noted. Limitations: no limitations Course Vital Signs 04/14/19 04/14/19 04/14/19 09:42 10:21 10:30 Temperature 98 F Pulse Rate 61 53 L Respiratory 18 19 Rate Blood Pressure 141/104 138/101 O2 Sat by Pulse 99 Oximetry 04/14/19 10:40 Temperature Pulse Rate 50 L Respiratory 9 L Rate Blood Pressure 131/93 O2 Sat by Pulse Oximetry Chest Pain MDM - MDM Patient is a 29-year-old female with complaints of chest pain and left arm pain since this morning. Patient states she was driving to work her chest pain started and now she is unable to move her left shoulder with radiation down to her elbow. Patient has no cardiac risk factors. On exam patient has tenderness of the sternum, left shoulder, left cervical paraspinals, left upper trap. Patient has increased pain with left shoulder movement in all directions. EKG is within normal limits. CBC, CMP, troponin, UA are all within normal limits. Discussed with patient this is most likely related to muscle spasms in her left shoulder. Patient was counseled to use NSAIDs, heat and muscle relaxer to help with pain. Patient will be discharged home and she is in agreement with this plan. Return parameters were discussed with the patient she verbalized understanding. Case discussed with Dr. Bell. Disposition Clinical Impression: Left shoulder pain, Atypical chest pain Disposition: HOME SELF-CARE Condition: Stable Instructions (If sedation given, give patient instructions): Shoulder Pain (ED) Additional Instructions: Please return to the Emergency Department if symptoms worsen or any other concerns. Use heat, take NSAIDs for shoulder discomfort. Prescriptions: Cyclobenzaprine [Flexeril] 5 mg PO BID #15 tablet Is patient prescribed a controlled substance at d/c from ED?: No Referrals: Getachew Mar MD [Primary Care Provider] - 1-2 days
[2019-04-14 10:37] LABS: Appearance,Urine Cloudy (Clear); Bacteria,Urine Rare /hpf; Bilirubin,Urine Negative (Negative); Blood,Urine Negative (Negative); Color,Urine Light Yellow; Glucose,Urine (UA) Negative (Negative); Ketones,Urine Negative (Negative); Leukocyte Esterase,Urine Moderate (Negative); Mucus,Urine Rare /hpf; Nitrite,Urine Negative (Negative); Protein,Urine 2+ (Negative); RBC,Urine 2 /hpf (0-5); Specific Gravity,Urine 1.021 (1.001-1.035); Squamous Epithelial Cell,Urine 4 /hpf (0-4); Urobilinogen,Urine <2.0 mg/dL (<2.0)
[2019-04-14 10:39] LABS: ALT 21 U/L (9-52); AST 25 U/L (14-36); African American GFR (CKD) >90 (>60 ml/min/1.73 sqM); Albumin 3.5 g/dL (3.5-5.0); Alkaline Phosphatase 66 U/L (38-126); Anion Gap 5 mmol/L; Blood Urea Nitrogen 12 mg/dL (7-17); Calcium 9.2 mg/dL (8.4-10.2); Carbon Dioxide 27 mmol/L (22-30); Chloride 107 mmol/L (98-107); Glucose 76 mg/dL (74-99); Potassium 4.4 mmol/L (3.5-5.1); Sodium 139 mmol/L (137-145); Total Bilirubin 0.5 mg/dL (0.2-1.3); Total Protein 6.5 g/dL (6.3-8.2)
[2019-04-14 10:42] LABS: Basophils % (A) 1 %; Eosinophils # (A) 0.1 k/uL (0-0.7); Eosinophils % (A) 1 %; HCT 41.2 % (34.0-46.0); HGB 13.5 gm/dL (11.4-16.0); Lymphocytes # (A) 1.5 k/uL (1.0-4.8); Lymphocytes % (A) 25 %; MCH 27.9 pg (25.0-35.0); MCHC 32.7 g/dL (31.0-37.0); MCV 85.4 fL (80.0-100.0); Mean Platelet Volume 7.8; Monocytes # (A) 0.4 k/uL (0-1.0); Monocytes % (A) 7 %; Neutrophils # (A) 3.7 k/uL (1.3-7.7); Neutrophils % (A) 64 %; Platelet Count 250 k/uL (150-450); RBC 4.82 m/uL (3.80-5.40); RDW 13.3 % (11.5-15.5); WBC 5.9 k/uL (3.8-10.6)
--- NOTE | 2019-04-14 10:45 | XR ---
EXAMINATION TYPE: XR chest 2V DATE OF EXAM: 04/14/2019 HISTORY: Cough/pain. REFERENCE: Previous study dated 05/23/2018. FINDINGS: The lungs remain clear. Pleural space are clear. Heart size is upper limits of normal. IMPRESSION: NO ACUTE INTRATHORACIC ABNORMALITY.
[2019-04-14 11:54] VITALS: BP 138/89; PULSE 58; RESP 18
== END 2019-04-14 11:53 | disposition home or self-care (01) ==
LOC: EC 09:21
DX: R07.89 Other chest pain (principal); M25.512 Pain in left shoulder; M54.2 Cervicalgia; R11.0 Nausea; R06.02 Shortness of breath; F32.9 Major depressive disorder, single episode, unspecified; E07.9 Disorder of thyroid, unspecified; L93.0 Discoid lupus erythematosus; Z79.82 Long term (current) use of aspirin; Z79.890 Hormone replacement therapy; Z79.899 Other long term (current) drug therapy; Z88.5 Allergy status to narcotic agent
CPT/HCPCS: 36415; 93005; 80053; 84484; 85025; 81001; 81025; 87086; 71046; 99285; 96374; 96375; J2405; J1885

== ENCOUNTER 2019-05-24 08:15 | Emergency (ER) | payer OTHER ==
[2019-05-24 08:20] VITALS: BP 139/92; PULSE 82; RESP 18; TEMP 98
--- NOTE | 2019-05-24 08:38 | ED ---
General Adult HPI - General Chief complaint: Extremity Injury, Lower Stated complaint: Post Op Foot Pain Time Seen by Provider: 05/24/19 08:20 Source: patient Mode of arrival: ambulatory Limitations: no limitations - History of Present Illness Initial comments: Dictation was produced using [employer] dictation software. please excuse any g rammatical, word or spelling errors. Chief Complaint: 29-year-old female presents with left foot pain. History of Present Illness: 29-year-old female presents with left foot pain. Patient states that she had podiatry surgery 3 weeks ago. She states that she had a soft tissue mass removal that was compressing a nerve. Patient states that postoperatively she began having significant left foot pain. She had the stitches removed at wrap yarn sorter's office yesterday. Patient was initially given Hoven pills but ran out because she was told to double up on them. She does still partial weightbearing at this time. As any fever, chills or night sweats. No numbness to paresthesias. Patient states she has pain when she bears weight and was referred. The ROS documented in this emergency department record has been reviewed and confirmed by me. Those systems with pertinent positive or negative responses have been documented in the HPI. All other systems are other negative and/or noncontributory. PHYSICAL EXAM: General Impression: Alert and oriented x3, not in acute distress HEENT: Normocephalic atraumatic, extra-ocular movements intact, pupils equal and reactive to light bilaterally, mucous membranes moist. Cardiovascular: Heart regular rate and rhythm, S1&S2 audible, no murmurs, rubs or gallops Chest: Lungs clear to auscultation bilaterally, no rhonchi, no wheeze, no rales Abdomen: Bowel sounds present, abdomen soft, non-tender, non-distended, no organomegaly Musculoskeletal: Pulses present and equal in all extremities, no peripheral edema Motor: no focal deficits noted Neurological: CN II-XII grossly intact, no focal motor or sensory deficits noted Skin: Intact with no visualized rashes Left foot: 2 cm scar well-healed without any drainage, erythema or other signs of infection. Palpable tenderness around the surgical scar. Psych: Normal affect and mood ED course: 29-year-old male presents with postoperative left foot pain. As upon arrival are within acceptable limits. Patient's well-appearing. Rest of physical exam is unremarkable. No concerns of infection. X-ray is unremarkable however there is some mild soft tissue swelling. . Patient advised to follow- up with her wrap yarn sorter. Patient is agreeable to disposition. I did provide a prescription for when necessary analgesics. - Related Data Previous Rx's Medication Instructions Recorded HYDROcodone/APAP 5-325MG [[place] 1 tab PO Q6HR PRN 3 Days #12 tab 05/24/19 5-325] Allergies Allergy/AdvReac Type Severity Reaction Status Date / Time codeine AdvReac Nausea & Verified 05/24/19 09:10 Vomiting. HEADACHES Review of Systems ROS Statement: Those systems with pertinent positive or pertinent negative responses have been documented in the HPI. ROS Other: All systems not noted in ROS Statement are negative. 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, AVASCULAR NECROSIS KARTHIK HIPS, arthritis , LMP 12/11/15/ was in [facility] 03/2016 for c/o temperol headache History of Any Multi-Drug Resistant Organisms: None Reported Past Surgical History: Cholecystectomy, Ear Surgery, Orthopedic Surgery Additional Past Surgical History / Comment(s): elbow, L foot surgery Past Anesthesia/Blood Transfusion Reactions: No Reported Reaction Past Psychological History: Depression Smoking Status: Never smoker Past Alcohol Use History: None Reported Past Drug Use History: None Reported General Exam Limitations: no limitations Course Vital Signs 05/24/19 08:16 Temperature 98 F Pulse Rate 82 Respiratory 18 Rate Blood Pressure 139/92 O2 Sat by Pulse 99 Oximetry Disposition Clinical Impression: Pain at surgical site Disposition: HOME SELF-CARE Condition: Good Instructions (If sedation given, give patient instructions): Narcotic Safety (ED) Additional Instructions: follow up wrap yarn sorter Prescriptions: HYDROcodone/APAP 5-325MG [[place] 5-325] 1 tab PO Q6HR PRN 3 Days #12 tab PRN Reason: Severe Pain Is patient prescribed a controlled substance at d/c from ED?: Yes If prescribed controlled substance>3 days was MAPS reviewed?: Prescribed <3 Days Referrals: Getachew Mar MD [Primary Care Provider] - 1-2 days Time of Disposition: 09:14
--- NOTE | 2019-05-24 08:50 | XR ---
EXAMINATION TYPE: XR foot complete LT DATE OF EXAM: 05/24/2019 COMPARISON: NONE HISTORY: 29-year-old female with pain. TECHNIQUE: 3 views FINDINGS: There is dorsal soft tissue swelling noted. Small os supra naviculare. Tiny plantar calcane al spur. Os trigonum. No acute fracture, subluxation, or dislocation. IMPRESSION: Dorsal sided soft tissue swelling. Clinically correlate. Small plantar calcaneal spur. No acute osseo us abnormality seen.
== END 2019-05-24 09:20 | disposition home or self-care (01) ==
LOC: EC 08:15
DX: G89.18 Other acute postprocedural pain (principal); M79.672 Pain in left foot; M79.89 Other specified soft tissue disorders; Z88.5 Allergy status to narcotic agent
CPT/HCPCS: 99283

== ENCOUNTER 2019-06-12 15:17 | Emergency (ER) | payer OTHER ==
[2019-06-12] MEDS ORDERED: KETOROLAC 30 MG/ML 1 ML VIAL IVP STA (16:05)
[2019-06-12] MEDS ORDERED: METOCLOPRAMIDE 5 MG/ML 2 ML VIAL IVP STA (16:05)
[2019-06-12] MEDS ORDERED: diphenhydrAMINE 50 MG/ML 1 ML VIAL IVP STA (16:05)
--- NOTE | 2019-06-12 16:10 | ED ---
General Adult HPI - General Chief complaint: Headache Stated complaint: headache Time Seen by Provider: 06/12/19 15:51 Source: patient, RN notes reviewed Mode of arrival: ambulatory Limitations: no limitations - History of Present Illness Initial comments: 29-year-old female with a past medical history of GERD, hypertension, seizure disorder, thyroid disorder, lupus, avascular necrosis presents to the emergency department for chief when of migraine headache. Patient states that she has a history of migraines. States that this has lasted about 10 days. Patient states in the past they have lasted up to 6 months and she does not want that to happen again. Patient states the pain is in the bilateral temples and across her forehead. States this pain is consistent with previous migraines. Denies any head injury. States she has seen a neurologist for this but they did not tell her why she gets these headaches. She admits to associated nausea but denies vomiting. Patient does not take medications for this.Patient has no other complaints at this time including shortness of breath, chest pain, abdominal pain, nausea or vomiting, or visual changes. - Related Data Home Medications Medication Instructions Recorded Confirmed No Known Home Medications 06/12/19 06/12/19 Allergies Allergy/AdvReac Type Severity Reaction Status Date / Time codeine AdvReac Nausea & Verified 06/12/19 16:13 Vomiting. HEADACHES Review of Systems ROS Statement: Those systems with pertinent positive or pertinent negative responses have been documented in the HPI. ROS Other: All systems not noted in ROS Statement are negative. 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, AVASCULAR NECROSIS KARTHIK HIPS, arthritis , LMP 12/11/15/ was in [facility] 03/2016 for c/o temperol headache History of Any Multi-Drug Resistant Organisms: None Reported Past Surgical History: Cholecystectomy, Ear Surgery, Orthopedic Surgery Additional Past Surgical History / Comment(s): elbow, L foot surgery Past Anesthesia/Blood Transfusion Reactions: No Reported Reaction Past Psychological History: Depression Smoking Status: Never smoker Past Alcohol Use History: None Reported Past Drug Use History: None Reported General Exam Limitations: no limitations General appearance: alert, in no apparent distress Head exam: Present: atraumatic, normocephalic, normal inspection Eye exam: Present: normal appearance, PERRL, EOMI. Absent: scleral icterus, conjunctival injection, periorbital swelling ENT exam: Present: normal exam, mucous membranes moist, other (no tenerness to the temples or temporal arteries bilat. 2+ temporal pulse bilat) Neck exam: Present: normal inspection, full ROM. Absent: tenderness, meningismus, lymphadenopathy Respiratory exam: Present: normal lung sounds bilaterally. Absent: respiratory distress, wheezes, rales, rhonchi, stridor Cardiovascular Exam: Present: regular rate, normal rhythm, normal heart sounds. Absent: systolic murmur, diastolic murmur, rubs, gallop, clicks Neurological exam: Present: alert, oriented X3, CN II-XII intact, normal gait, other (GCS 15) Course Vital Signs 06/12/19 15:27 Temperature 98.1 F Pulse Rate 70 Respiratory 18 Rate Blood Pressure 141/98 O2 Sat by Pulse 100 Oximetry Medical Decision Making - Medical Decision Making 29-year-old female with a history of headaches presents for headache. States this 8has lasted about 10 days. States it is exactly consistent with previous headaches and migraines for whom she has seen a neurologist. Patient requesting a CT which was done and showed no acute abnormalities. Mild sphenoid sinusitis compared to last CT however no sinusitis symptoms or fever. She was given migraine cocktail and additional medications which did improve her pain somewhat. I did offer patient or pain medication but she states she is feeling well enough to go home. She'll follow up with her neurologist. She'll return if she has any worsening symptoms. - Lab Data Lab Results 06/12/19 Range/Units 16:16 Urine HCG, Qual Not Detected (Not Detectd) Disposition Clinical Impression: Headache Disposition: HOME SELF-CARE Condition: Good Instructions (If sedation given, give patient instructions): Acute Headache (ED) Additional Instructions: Please follow up with primary care and your neurologist in 1-2 days. Please return to the emergency department if you've any worsening symptoms. Is patient prescribed a controlled substance at d/c from ED?: No Referrals: Getachwe Mar MD [Primary Care Provider] - 1-2 days Time of Disposition: 19:04
--- NOTE | 2019-06-12 17:29 | CT ---
EXAMINATION TYPE: CT brain wo con DATE OF EXAM: 06/12/2019 COMPARISON: 10/17/2017 HISTORY: Headache x [address] DLP: 1094.4 mGycm. Automated Exposure Control for Dose Reduction was Utilized. TECHNIQUE: CT scan of the head is performed without contrast. FINDINGS: Ventricles have normal size. There is no mass effect nor midline shift. There is no sign of intracranial hemorrhage. There is mucosal thickening in the sphenoid sinus. Calvarium appears intact . IMPRESSION: Negative CT scan of the brain. Mild sphenoid sinusitis increased compared to old exam..
[2019-06-12] MEDS ORDERED: methylPREDNISolone SOD SUCCI 125 MG/2 ML VIAL IV STA (17:37)
[2019-06-12] MEDS ORDERED: MORPHINE SULFATE 4 MG/ML SYRINGE IVP STA (17:37)
[2019-06-12] MEDS ORDERED: SUMAtriptan SUCCINATE 6 MG/0.5 ML VIAL SQ STA (17:37)
[2019-06-12] MEDS ORDERED: ACETAMINOPHEN TAB 500 MG TAB PO STA (17:38)
[2019-06-12] MEDS ORDERED: DEXAMETHASONE SOD PHOSPHATE 10 MG/ML 1 ML VIAL IV STA (17:38)
[2019-06-12 19:35] VITALS: BP 145/105; PULSE 57; RESP 16; TEMP 98
== END 2019-06-12 19:34 | disposition home or self-care (01) ==
LOC: EC 15:17
DX: R51 Headache (principal); J32.3 Chronic sphenoidal sinusitis; R11.0 Nausea; Z88.5 Allergy status to narcotic agent; Z86.69 Personal history of other diseases of the nervous system and sense organs
CPT/HCPCS: 81025; 70450; 99284; 96374; 96375 ×5; 96372; J3030; J1200; J1100; J2765; J1885

== ENCOUNTER → 2020-03-25 | Outpatient (CLI) | payer OTHER ==
--- NOTE | 2020-03-25 15:59 | P.HPBAR ---
Bariatric H&P - History & Physicial H&P Date: 03/25/20 History & Physicial: Visit/CC: Patient initial contact: Initial weight: Initial weight in pounds: Height: Initial BMI: e has Last weight: Current weight: Current weight in pounds: Current BMI: [place] body weight (based on NIH guidelines): Excess body weight loss: The patient is a 30 year-old F who presents for Bariatric Assessment. She comes in with Lupus and pseudotumor cerebri. She has a terrible . She had vaginal delivery with HELP syndrome and baby . Her PCP is Dr. Mar. She has 1 time criteria. Her highest weight current. All family with troubles of weight. No Crohns in family. Ulcerative colitis. No chronic diarrhea. Her complex director is Dr. Reilly. No GERD. Her gallbladder is removed. Elbow surgery. She had kidney biopsy. No esophageal or stomach cancer. No DVTs. No easy bleeding. She wants the bypass. Scoliosis of the spine. Past knee pain. Has hip pain. Went over calculator PLAN: 1. She is trying to get . 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, AVASCULAR NECROSIS KARTHIK HIPS, arthritis , LMP 12/11/15/ was in [facility] 03/2016 for c/o temperol headache History of Any Multi-Drug Resistant Organisms: None Reported Past Surgical History: Cholecystectomy, Ear Surgery, Orthopedic Surgery Additional Past Surgical History / Comment(s): elbow, L foot surgery Past Anesthesia/Blood Transfusion Reactions: No Reported Reaction Past Psychological History: Depression Smoking Status: Never smoker Past Alcohol Use History: None Reported Past Drug Use History: None Reported Bariatric Checklist Checklist: Plan: Checklist: EGD: 1. Hiatal hernia: 2. H. Pylori: HgbA1c: Vitamin D: Smoking: Never smoker Primary care physician referral: Dr Saurabh Mar Psychiatry clearance: Cardiology clearance: Sleep study: Diet journal: VTE risk score: VTE risk level: Rehab needs at discharge:
[2020-03-25 16:10] VITALS: BP 147/100; PULSE 86; TEMP 98.1; BMI 51.9
== END | disposition home or self-care (01) ==
LOC: BARWHC3 14:34
PROVIDERS: ATTEND Surgery Plastic and Reconstructive Surgery
DX: E66.9 Obesity, unspecified (principal); G93.2 Benign intracranial hypertension; M32.9 Systemic lupus erythematosus, unspecified; K51.90 Ulcerative colitis, unspecified, without complications; Z68.43 Body mass index [BMI] 50.0-59.9, adult
CPT/HCPCS: 99211

== ENCOUNTER → 2020-03-26 | Outpatient (CLI) | payer OTHER ==
[2020-03-26 15:46] LABS: HCT 40.8 % (34.0-46.0); HGB 13.6 gm/dL (11.4-16.0); MCH 29.4 pg (25.0-35.0); MCHC 33.3 g/dL (31.0-37.0); MCV 88.2 fL (80.0-100.0); Mean Platelet Volume 10.1; Platelet Count 174 k/uL (150-450); RBC 4.62 m/uL (3.80-5.40); RDW 13.3 % (11.5-15.5); WBC 6.8 k/uL (3.8-10.6)
[2020-03-27 00:21] LABS: Hemoglobin A1C 5.8 % (4.0-6.0)
[2020-03-27 01:09] LABS: African American GFR (CKD) 115.5 (60.0-200.0); Albumin 4.1 g/dL (3.80-4.90); Albumin/Globulin Ratio 1.64 (1.60-3.17); BUN/Creat Ratio 12.5 Ratio (12.00-20.00); Calcium 9.4 mg/dL (8.7-10.3); Chol/HDL Ratio 4.77; Globulin 2.5 g/dL (1.6-3.3); LDL Cholesterol,Calculated 114.8 mg/dL (0.0-131.0); Non-African American GFR(CKD) 99.6 (60.0-200.0); Potassium 3.9 mmol/L (3.5-5.5); Total Bilirubin 0.3 mg/dL (0.3-1.2); Total Protein 6.6 g/dL (6.2-8.2); VLDL Calculation 32.2 mg/dL (5.00-40.00)
[2020-03-27 01:10] LABS: % Iron Saturation 14.33 (12.00-45.00); Magnesium 1.7 mg/dL (1.5-2.4); Phosphorus 3.8 mg/dL (2.4-5.1)
[2020-03-27 01:20] LABS: Ferritin 189.5 ng/mL (10.0-291.0); Folate, Serum 9.1 ng/mL
[2020-03-27 05:57] LABS: INR <0.90 (0.90-1.11); Partial Thromboplastin Time 30.4 sec (24.7-29.9); Prothrombin Time <9.9 sec (9.9-11.9)
== END | disposition home or self-care (01) ==
LOC: LABWHC1 14:15
PROVIDERS: ATTEND Surgery Plastic and Reconstructive Surgery
DX: E89.1 Postprocedural hypoinsulinemia (principal); D50.9 Iron deficiency anemia, unspecified; K90.9 Intestinal malabsorption, unspecified; E55.9 Vitamin D deficiency, unspecified; K74.1 Hepatic sclerosis; N19 Unspecified kidney failure; K50.90 Crohn's disease, unspecified, without complications; E66.01 Morbid (severe) obesity due to excess calories; E21.1 Secondary hyperparathyroidism, not elsewhere classified
CPT/HCPCS: 36415; 80053; 80061; 82306; 82525; 82607; 82728; 82746; 83036; 83540; 83550; 83735; 83970; 84100; 84134; 84255; 84425; 84443; 84590; 84630; 85027; 85610; 85730; 93005

== ENCOUNTER → 2020-04-08 | Day surgery (SDC) | payer OTHER ==
[2020-04-06 10:27] VITALS: BMI 49.3
[~2020-04-08] MED LIST: LACTATED RINGERS 1,000 ML IV SCH; LIDOCAINE 1% (10MG/ML) FOR IV START INTRADERMA PRN; LIDOCAINE 1% INJ 10MG/ML (20 ML MDV) ONE; PROPOFOL 10 MG/ML 20 ML VIAL IV ONE
[2020-04-08 09:11] VITALS: TEMP 97
--- NOTE | 2020-04-08 09:33 | P.GSHP ---
History of Present Illness H&P Date: 04/08/20 CHIEF COMPLAINT: GERD HISTORY OF PRESENT ILLNESS: The patient is a 30-year-old female who presents reports gastroesophageal reflux disease. Upper endoscopy was offered for further evaluation and management. PAST MEDICAL HISTORY: Please see list. PAST SURGICAL HISTORY: Please see list. MEDICATIONS: Please see list. ALLERGIES: Please see list. SOCIAL HISTORY: No illicit drug use FAMILY HISTORY: No reports of Crohn disease or ulcerative colitis. REVIEW OF ORGAN SYSTEMS: CONSTITUTIONAL: No reports of fevers or chills. GI: Denies any blood in stools or constipation. PHYSICAL EXAM: VITAL SIGNS: Stable GENERAL: Well-developed and pleasant in no acute distress. HEENT: No scleral icterus. Extraocular movements grossly intact. Moist buccal mucosa. NECK: Supple without lymphadenopathy. CHEST: Unlabored respirations. Equal bilateral excursions. CARDIOVASCULAR: Regular rate and rhythm. Distal 2+ pulses. ABDOMEN: Soft, nondistended. MUSCULOSKELETAL: No clubbing, cyanosis, or edema. ASSESSMENT: 1. Gastroesophageal reflux disease PLAN: 1. Recommend proceeding with an upper endoscopy 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, AVASCULAR NECROSIS KARTHIK HIPS, arthritis, pseudotumur History of Any Multi-Drug Resistant Organisms: None Reported Past Surgical History: Cholecystectomy, Ear Surgery, Orthopedic Surgery Additional Past Surgical History / Comment(s): elbow, L foot surgery Past Anesthesia/Blood Transfusion Reactions: No Reported Reaction Past Psychological History: Depression Past Alcohol Use History: None Reported Past Drug Use History: None Reported Medications and Allergies Home Medications Medication Instructions Recorded Confirmed Type HYDROcodone/APAP 5-325MG [[place] 1 tab PO BID 03/26/20 04/08/20 History 5-325] Levothyroxine Sodium [Synthroid] 25 mcg PO DAILY 03/26/20 04/06/20 History NIFEdipine [Procardia] 10 mg PO DAILY 03/26/20 04/08/20 History Belimumab [Benlysta] 200 mg SQ DIRECTED 03/30/20 04/08/20 History Multivitamins, Thera [Multivitamin 1 tab PO DAILY 04/06/20 04/06/20 History (formulary)] Allergies Allergy/AdvReac Type Severity Reaction Status Date / Time codeine AdvReac Nausea & Verified 04/06/20 10:22 Vomiting. HEADACHES Surgical - Exam Vital Signs Temp Pulse Resp BP Pulse Ox 97.0 F L 72 17 137/82 97 04/08/20 09:11 04/08/20 09:11 04/08/20 09:11 04/08/20 09:11 04/08/20 09:11
--- NOTE | 2020-04-08 10:04 | P.PCN ---
Date of Procedure: 04/08/20 Description of Procedure: PREOPERATIVE DIAGNOSIS: Gastroesophageal reflux disease. Morbid obesity. POSTOPERATIVE DIAGNOSIS: Morbid obesity. Gastritis. OPERATION: Esophagogastroduodenoscopy with biopsies along antrum. SURGEON: Darya Martinez MD ANESTHESIA: MAC. INDICATIONS: The patient is a 30-year-old female who presents with a history of reflux disease. Benefits and risks of the procedure were described. Informed consent was obtained. DESCRIPTION: The patient was brought into the endoscopy suite and laid in the left lateral decubitus position. An Olympus gastroscope was passed along the posterior oropharynx down to the distal esophagus where the squamocolumnar junction was encountered at 40 cm from the incisors. The stomach was entered and no bile reflux was found. Additional findings are listed below. Biopsies with cold forceps were obtained of the antrum. The first through third portion of the duodenum was examined and unremarkable. Retroflexion of the scope confirmed Hill grade 1 lower esophageal valve. The squamocolumnar junction demonstrated no LA grade A erosive esophagitis. The stomach was desufflated. The patient tolerated the procedure well. FINDINGS: Squamocolumnar junction 40 cm from the incisors. Diaphragmatic hiatus at 40 cm. Hill grade 1 lower esophageal valve. No LA grade A erosive esophagitis. No active duodenitis. Chronic gastritis RECOMMENDATIONS: Upper endoscopy as needed. Plan - Discharge Summary Discharge Rx Participant: No New Discharge Prescriptions: Continue Levothyroxine Sodium [Synthroid] 25 mcg PO DAILY HYDROcodone/APAP 5-325MG [[place] 5-325] 1 tab PO BID NIFEdipine [Procardia] 10 mg PO DAILY Belimumab [Benlysta] 200 mg SQ DIRECTED Multivitamins, Thera [Multivitamin (formulary)] 1 tab PO DAILY Discharge Medication List HYDROcodone/APAP 5-325MG [[place] 5-325] 1 tab PO BID 03/26/20 [History] Levothyroxine Sodium [Synthroid] 25 mcg PO DAILY 03/26/20 [History] NIFEdipine [Procardia] 10 mg PO DAILY 03/26/20 [History] Belimumab [Benlysta] 200 mg SQ DIRECTED 03/30/20 [History] Multivitamins, Thera [Multivitamin (formulary)] 1 tab PO DAILY 04/06/20 [History] [facility] [place] [facility] - [facility]20 Patient Instructions/Handouts: *[facility] - (Anesthesia) Endoscopy Discharge Instructions Discharge Disposition: HOME SELF-CARE
[2020-04-08 10:09] VITALS: RESP 18
[2020-04-08 10:32] VITALS: BP 126/82; PULSE 69
== END | disposition home or self-care (01) ==
LOC: ORWHC2ENDO 08:42
PROVIDERS: ATTEND Surgery Plastic and Reconstructive Surgery
DX: K29.50 Unspecified chronic gastritis without bleeding (principal); E66.01 Morbid (severe) obesity due to excess calories; I10 Essential (primary) hypertension; E07.9 Disorder of thyroid, unspecified; M32.9 Systemic lupus erythematosus, unspecified; M19.90 Unspecified osteoarthritis, unspecified site; F32.9 Major depressive disorder, single episode, unspecified; K08.89 Other specified disorders of teeth and supporting structures; Z68.42 Body mass index [BMI] 45.0-49.9, adult; Z88.5 Allergy status to narcotic agent; Z86.69 Personal history of other diseases of the nervous system and sense organs; Z87.39 Personal history of other diseases of the musculoskeletal system and connective tissue; Z90.49 Acquired absence of other specified parts of digestive tract; Z98.890 Other specified postprocedural states; Z79.891 Long term (current) use of opiate analgesic; Z79.890 Hormone replacement therapy; Z79.899 Other long term (current) drug therapy; Z86.73 Personal history of transient ischemic attack (TIA), and cerebral infarction without residual deficits
CPT/HCPCS: 81025; 88305; 43239; J2001; J2704

== ENCOUNTER → 2020-05-11 | Outpatient (CLI) | payer OTHER ==
[2020-05-11 09:25] VITALS: BMI 52.0
== END | disposition home or self-care (01) ==
LOC: BARWHC3 08:40
PROVIDERS: ATTEND Surgery Plastic and Reconstructive Surgery
DX: E66.01 Morbid (severe) obesity due to excess calories (principal); Z68.43 Body mass index [BMI] 50.0-59.9, adult; Z71.3 Dietary counseling and surveillance
CPT/HCPCS: 97804

== ENCOUNTER → 2020-05-27 | Outpatient (CLI) | payer OTHER ==
[2020-05-27 16:16] VITALS: BP 144/99; PULSE 74; TEMP 98.6; BMI 51.7
[2020-05-27 16:19] VITALS: RESP 18
--- NOTE | 2020-05-27 16:36 | P.PN ---
Subjective Progress Note Date: 05/27/20 DATE OF SERVICE: 05/27/2020 CHIEF COMPLAINT: Morbid obesity HISTORY OF PRESENT ILLNESS: Breonna Garcia is a 30-year-old female who comes with morbid obesity and looking into the gastric bypass. She is currently being managed for her moderate to severe hypothyroidism. No reports of gastroesophage al reflux disease or abdominal pain today. She is on antidepressants. She is pending additional cardiac risk assessment. At height of 5 feet 2 inches, her ideal body weight is 135 pounds. She comes in 282 pounds from 281 pounds. She gained 1 pound in 1 month. Her body mass index is 51.8. She is 147 pounds overweight. PAST MEDICAL HISTORY: 1. Morbid obesity due to excess calories 2. Body mass index, 51.9 3. Lupus 4. Pseudotumor cerebri 5. Hypertensive heart disease 6. History of kidney nodule 7. Hypothyroidism 8. Depressive disorder 9. Seizure disorder 10. Avascular necrosis hips 11. Scoliosis of the spine 12. History of HELLP syndrome 13. Osteoarthritis knee 14. Osteoarthritis of the hips PAST SURGICAL HISTORY: 1. Kidney biopsy 2. Elbow surgery 3. Cholecystectomy 4. Left foot surgery 5. Ear surgery 6. Upper endoscopy HOME MEDICATIONS: Home Medications Medication Instructions Recorded Confirmed HYDROcodone/APAP 5-325MG [[place] 1 tab PO BID 03/26/20 05/27/20 5-325] Levothyroxine Sodium [Synthroid] 25 mcg PO DAILY 03/26/20 05/27/20 NIFEdipine [Procardia] 10 mg PO DAILY 03/26/20 05/27/20 Belimumab [Benlysta] 200 mg SQ DIRECTED 03/30/20 05/27/20 Multivitamins, Thera [Multivitamin 1 tab PO DAILY 04/06/20 05/27/20 (formulary)] Venlafaxine HCl [Effexor] 75 mg PO DAILY 04/23/20 05/27/20 Previous Rx's Medication Instructions Recorded Levothyroxine Sodium [Synthroid] 100 mcg PO DAILY #30 tab 05/27/20 Cephalexin [Keflex] 250 mg PO Q6HR 7 Days #28 cap 05/30/20 acetaZOLAMIDE [Diamox] 250 mg PO BID 5 Days #10 tablet 05/30/20 Topiramate [Topamax] 50 mg PO BID #14 tab 06/01/20 ALLERGIES: SOCIAL HISTORY: No past tobacco use. FAMILY HISTORY: No family history of ulcerative colitis disease or Crohn's disease. Family history of morbid obesity. No lupus in the family. No reports of stomach or esophageal cancer. REVIEW OF ORGAN SYSTEMS: CONSTITUTIONAL: At height of 5 feet 2 inches, her ideal body weight is 135 pounds. She comes in 283 pounds. Her body mass index is 51.9. She is 148 pounds overweight. HEENT: Denies any active troubles with vision or hearing. ENDOCRINE: No diabetes. Has hypothyroidism. CARDIOVASCULAR: No past reports of palpitations or heart attacks or chest pain. RESPIRATORY: No daytime somnolence. No asthma. GASTROINTESTINAL: Denies any bright red blood per rectum. No diarrhea. No constipation. MUSCULOSKELETAL: Has lower back pain and joint pain. Has osteoarthritis of the knees. History of avascular necrosis of the tibia including hips. NEURO: Has headaches.has seizure disorders. PSYCH: Has depression. No suicidal ideation. RHEUMATOLOGIC: Has lupus. No rheumatoid arthritis. HEMATOLOGIC: Denies any abnormal bleeding or bruising. No personal history of DVTs. SKIN: No rash. No skin cancer. PHYSICAL EXAM: VITAL SIGNS: Height 5 foot 2 inches, weight 282 pounds. BMI 51.8 Vital Signs Temp 98.6 F 05/27/20 16:15 Pulse 74 05/27/20 16:15 Resp 18 05/27/20 16:15 BP 144/99 05/27/20 16:15 Pulse Ox GENERAL: Well-developed in no acute distress. HEENT: No scleral icterus. Extraocular movements grossly intact. Hears conversational speech. No nasal drainage. NECK: Supple without lymphadenopathy. CHEST: Nonlabored respirations with equal bilateral excursions. CARDIOVASCULAR: Tachycardic. Distal 2+ pulses. ABDOMEN: Obese, soft, nontender, nondistended. MUSCULOSKELETAL: No clubbing, cyanosis. NEURO: No focal or lateralizing signs. Cranial nerves 2 through 12 grossly within normal limits. PSYCH: Appropriate affect. Alert and oriented to person, place and time. SKIN: Good skin turgor. Well perfused. LABS: TSH moderately elevated 33 but improved to 26. ASSESSMENT: 1. Morbid obesity due to excess calories 2. Body mass index, 51.9 now 51.6 3. Lupus 4. Pseudotumor cerebri 5. Hypertensive heart disease 6. History of kidney nodule 7. Hypothyroidism, poorly treated 8. Depressive disorder 9. Seizure disorder 10. Avascular necrosis hips 11. Scoliosis of the spine 12. History of HELLP syndrome 13. Osteoarthritis knee 14. Osteoarthritis of the hips PLAN: 1. Bariatric options between a sleeve, band and a Bharathi-en-Y gastric bypass were reviewed in detail. The patient elected for gastric bypass. Robotic assisted approach described. 2. The [place] [facility] Data was also reviewed with benefits and risks as described. 3. An 8 page second-generation bariatric consent form was reviewed in detail including potential of bleeding, infection, leaks, adequate weight loss, nutritional deficiencies which the patient demonstrated understanding of the risks. 4. A 2 week high-protein low caloric 800 kcal diet described to address hepatomegaly. 5. Preoperative labs including complete metabolic panel and CBC with type and screen recommended. 6. DVT prophylaxis per [place] [facility]. 7. Antibiotic prophylaxis. 8. Inpatient hospitalization anticipated for more than 2 nights. 9. All questions and concerns were addressed with the patient. 10. Patient reports being started on Synthroid 50 g daily. Recommend thyroid TSH levels to be within normal limits prior to surgical intervention. 11. Patient presents with elevated risk for bruno-operative complications due to hypercoagulable state, lupus, pseudotumor cerebri Objective - Vital Signs Vital signs: Vital Signs Temp 98.6 F 05/27/20 16:15 Pulse 74 05/27/20 16:15 Resp 18 05/27/20 16:15 BP 144/99 05/27/20 16:15 Pulse Ox Intake & Output 05/26/20 05/27/20 05/27/20 18:59 06:59 18:59 Weight 128.367 kg
== END | disposition home or self-care (01) ==
LOC: BARWHC3 15:56
PROVIDERS: ATTEND Surgery Plastic and Reconstructive Surgery
DX: E66.01 Morbid (severe) obesity due to excess calories (principal); M32.9 Systemic lupus erythematosus, unspecified; G93.2 Benign intracranial hypertension; I11.9 Hypertensive heart disease without heart failure; E03.9 Hypothyroidism, unspecified; F32.9 Major depressive disorder, single episode, unspecified; G40.909 Epilepsy, unspecified, not intractable, without status epilepticus; I96 Gangrene, not elsewhere classified; M41.9 Scoliosis, unspecified; M17.10 Unilateral primary osteoarthritis, unspecified knee; M16.0 Bilateral primary osteoarthritis of hip; Z79.899 Other long term (current) drug therapy; Z79.890 Hormone replacement therapy; Z68.43 Body mass index [BMI] 50.0-59.9, adult; Z87.448 Personal history of other diseases of urinary system
CPT/HCPCS: 99211

== ENCOUNTER → 2020-05-27 | Outpatient (CLI) | payer OTHER ==
[2020-05-28 01:02] LABS: T4, Free (Free Thyroxine) 0.6 ng/dL (0.80-1.80)
== END | disposition home or self-care (01) ==
LOC: LABWHC1 15:27
PROVIDERS: ATTEND Family Medicine
DX: E03.9 Hypothyroidism, unspecified (principal); E55.9 Vitamin D deficiency, unspecified
CPT/HCPCS: 36415; 82306; 84439; 84443; 86376; 86800

== ENCOUNTER 2020-05-30 11:27 | Emergency (ER) | payer OTHER ==
[2020-05-30 11:35] VITALS: RESP 18; TEMP 98.5
[2020-05-30] MEDS ORDERED: SODIUM CHLORIDE 0.9% 500 ML 500 ML IV STA (12:07)
[2020-05-30] MEDS ORDERED: HYDROcodone/APAP 7.5-325MG 1 EACH TAB PO ONE (12:07)
[2020-05-30 12:28] LABS: Basophils % (A) 1 %; Eosinophils # (A) 0.1 k/uL (0-0.7); Eosinophils % (A) 1 %; HCT 44.8 % (34.0-46.0); HGB 14.4 gm/dL (11.4-16.0); Lymphocytes # (A) 1.6 k/uL (1.0-4.8); Lymphocytes % (A) 29 %; MCH 27.8 pg (25.0-35.0); MCHC 32.1 g/dL (31.0-37.0); MCV 86.6 fL (80.0-100.0); Monocytes # (A) 0.4 k/uL (0-1.0); Monocytes % (A) 7 %; Neutrophils # (A) 3.4 k/uL (1.3-7.7); Neutrophils % (A) 61 %; Platelet Count 160 k/uL (150-450); RBC 5.17 m/uL (3.80-5.40); RDW 13.2 % (11.5-15.5); WBC 5.6 k/uL (3.8-10.6)
--- NOTE | 2020-05-30 12:37 | CT ---
EXAMINATION TYPE: CT brain wo con DATE OF EXAM: 05/30/2020 COMPARISON: 06/12/2019 HISTORY: 30-year-old female Head pressure, swelling to Rt eye, blurred vision TECHNIQUE: Examination was done in axial plane without intravenous contrast. Coronal and sagittal r econstructions performed. CT DLP: 1011.4 mGycm Automated exposure control for dose reduction was used. FINDINGS: There is no evidence of acute intracranial hemorrhage, acute ischemic changes, mass, mass-effect, or extra-axial fluid collection. There is no effacement of cerebral sulci or basal subarachnoid cister ns. There is no hydrocephalus. There is no midline shift. Macedo-white matter distinction is preserv ed. Asymmetrically smaller right lateral ventricle unchanged from prior exam compatible with congenital v ariation. Air-fluid level left sphenoid sinus. There is also some trapped fluid inferior right mastoid air cell s. Orbits and globes appear intact. IMPRESSION: 1. No acute intracranial abnormality seen. 2. Correlate for acute left sphenoid sinusitis. 3. Some trapped fluid in the inferior right mastoid air cells. Correlate for any mastoid pain to excl ude mastoiditis.
[2020-05-30 12:40] LABS: ALT 35 U/L (4-34); AST 44 U/L (14-36); African American GFR (CKD) >90 (>60 ml/min/1.73 sqM); Albumin 3.7 g/dL (3.5-5.0); Alkaline Phosphatase 72 U/L (38-126); Anion Gap 4 mmol/L; Blood Urea Nitrogen 7 mg/dL (7-17); Calcium 9.1 mg/dL (8.4-10.2); Carbon Dioxide 25 mmol/L (22-30); Chloride 108 mmol/L (98-107); Glucose 80 mg/dL (74-99); Non-African American GFR(CKD) >90 (>60 ml/min/1.73 sqM); Potassium 4.1 mmol/L (3.5-5.1); Sodium 137 mmol/L (137-145); Total Bilirubin 0.5 mg/dL (0.2-1.3); Total Protein 6.8 g/dL (6.3-8.2)
--- NOTE | 2020-05-30 13:14 | ED ---
General Adult HPI - General Chief complaint: Neuro Symptoms/Deficit Stated complaint: eye swelling/blurred vision Time Seen by Provider: 05/30/20 11:39 Source: patient Mode of arrival: ambulatory Limitations: no limitations - History of Present Illness Initial comments: Patient is a 30-year-old female, hx of lupus, presenting to emergency Department with complaints of a right-sided headache as well as right eye pressure and swelling that started 2 days ago. Patient states she has a history of pseudotumor cerebri. She states she does have chronic headaches but feels like this is much worse. She states the headaches that started this morning and has been severe. Patient states she noticed some right eye swelling 2 days ago and now she is having blurry vision out of her right eye. Patient states she sees a [facility] neurologist in [place] and also sees a neurologist in [facility] here. Patient states she was able to get into her neurologist on Monday but feels like her symptoms are severe and she wanted to come to the ER for evaluation. She denies any falls or trauma. She denies any fever or chills. She denies any nausea, vomiting. She denies any recent changes in medications. She has no further complaints at this time. Upon arrival to the ER, her vital signs are stable. - Related Data Home Medications Medication Instructions Recorded Confirmed HYDROcodone/APAP 5-325MG [Anza 1 tab PO BID 03/26/20 05/27/20 5-325] Levothyroxine Sodium [Synthroid] 25 mcg PO DAILY 03/26/20 05/27/20 NIFEdipine [Procardia] 10 mg PO DAILY 03/26/20 05/27/20 Belimumab [Benlysta] 200 mg SQ DIRECTED 03/30/20 05/27/20 Multivitamins, Thera [Multivitamin 1 tab PO DAILY 04/06/20 05/27/20 (formulary)] Venlafaxine HCl [Effexor] 75 mg PO DAILY 04/23/20 05/27/20 Previous Rx's Medication Instructions Recorded Levothyroxine Sodium [Synthroid] 100 mcg PO DAILY #30 tab 05/27/20 Cephalexin [Keflex] 250 mg PO Q6HR 7 Days #28 cap 05/30/20 acetaZOLAMIDE [Diamox] 250 mg PO BID 5 Days #10 tablet 09/05/20 Allergies Allergy/AdvReac Type Severity Reaction Status Date / Time codeine AdvReac Nausea & Verified 05/30/20 11:31 Vomiting. HEADACHES Review of Systems ROS Statement: Those systems with pertinent positive or pertinent negative responses have been documented in the HPI. ROS Other: All systems not noted in ROS Statement are negative. 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 Patient is nontoxic and in no acute distress. HEAD: Atraumatic, normocephalic. EYES: Pupils equal round and reactive to light, extraocular movements intact, sclera anicteric, conjunctiva are normal. Right eyelid is swollen compared to left, she does have pain with palpation around the right orbit, no erythema or signs of infection. IOP of the left eye measures 25-28, right eye measures lowest 31, highest of 44. Visual acuity, left eye is 20/20, right eye is 20/50, bilateral 20/30. ENT: TMs normal, nares patent, oropharynx clear without exudates. Moist mucous membranes. NECK: Normal range of motion, supple without lymphadenopathy or JVD. LUNGS: Unlabored respirations. Breath sounds clear to auscultation bilaterally and equal. No wheezes rales or rhonchi. HEART: Regular rate and rhythm without murmurs, rubs or gallops. ABDOMEN: Soft, nontender, normoactive bowel sounds. No guarding, no rebound. No masses appreciated. : Deferred MUSCULOSKELETAL: Normal extremities with adequate strength and normal range of motion, no pitting or edema. No clubbing or cyanosis. NEUROLOGICAL: Patient is alert and oriented x 3. Motor and sensory are also intact. Cranial nerves II through XII grossly intact. Symmetrical smile. Normal speech, normal gait. PSYCH: Normal mood, normal affect. SKIN: Warm, Dry, normal turgor, no rashes or lesions noted. Limitations: no limitations Course Vital Signs 05/30/20 05/30/20 05/30/20 11:31 13:11 14:28 Temperature 98.5 F Pulse Rate 65 58 L 61 Respiratory 18 18 18 Rate Blood Pressure 142/98 147/99 150/118 O2 Sat by Pulse 99 98 98 Oximetry Medical Decision Making - Medical Decision Making Patient is a 30-year-old female, with history of pseudotumor cerebri, presenting with a right-sided headache, right eye swelling and right blurry vision for the past 2 days. Patient does have increased pressures with the left eye 25-28, right eye measures 31 to the highest of 44. Blood work shows no acute abnormalities, computed tomography scan also shows no acute bleeds or masses. We discussed case with Dr. Park who agreed to come in to see the patient. Pt was examined by Dr. Park who stated that she is okay to go home today, and did want her to start diamox and keflex. I did send these to her pharmacy. She can also use warm compresses for small sty in her right eye. Patient will co ntinue to follow-up with her neurologist and her marketing planning manager. Patient is in agreement with this plan of care. She is stable for discharge. Return parameters were discussed with the patient she verbalized understanding. Case discussed with Dr. Vargas. - Lab Data Result diagrams: 05/30/20 12:10 05/30/20 12:10 Lab Results 05/30/20 05/30/20 Range/Units 12:10 12:10 WBC 5.6 (3.8-10.6) k/uL RBC 5.17 (3.80-5.40) m/uL Hgb 14.4 (11.4-16.0) gm/dL Hct 44.8 (34.0-46.0) % MCV 86.6 (80.0-100.0) fL MCH 27.8 (25.0-35.0) pg MCHC 32.1 (31.0-37.0) g/dL RDW 13.2 (11.5-15.5) % Plt Count 160 (150-450) k/uL Neutrophils % 61 % Lymphocytes % 29 % Monocytes % 7 % Eosinophils % 1 % Basophils % 1 % Neutrophils # 3.4 (1.3-7.7) k/uL Lymphocytes # 1.6 (1.0-4.8) k/uL Monocytes # 0.4 (0-1.0) k/uL Eosinophils # 0.1 (0-0.7) k/uL Basophils # 0.0 (0-0.2) k/uL Sodium 137 (137-145) mmol/L Potassium 4.1 (3.5-5.1) mmol/L Chloride 108 H (98-107) mmol/L Carbon Dioxide 25 (22-30) mmol/L Anion Gap 4 mmol/L BUN 7 (7-17) mg/dL Creatinine 0.71 (0.52-1.04) mg/dL Est GFR (CKD-EPI)AfAm >90 (>60 ml/min/1.73 sqM) Est GFR (CKD-EPI)NonAf >90 (>60 ml/min/1.73 sqM) Glucose 80 (74-99) mg/dL Calcium 9.1 (8.4-10.2) mg/dL Total Bilirubin 0.5 (0.2-1.3) mg/dL AST 44 H (14-36) U/L ALT 35 H (4-34) U/L Alkaline Phosphatase 72 (38-126) U/L Total Protein 6.8 (6.3-8.2) g/dL Albumin 3.7 (3.5-5.0) g/dL Disposition Clinical Impression: Headache, Pain in right eye, Hordeolum externum right upper eyelid, Raised intraocular pressure of right eye Disposition: HOME SELF-CARE Condition: Stable Instructions (If sedation given, give patient instructions): Eye Pain (ED) Additional Instructions: Please return to the Emergency Department if symptoms worsen or any other concerns. Take both medications as prescribed. Follow up with neurologist and ophthalmology supervisor agency appointments as well, as discussed. Prescriptions: acetaZOLAMIDE [Diamox] 250 mg PO BID 5 Days #10 tablet Cephalexin [Keflex] 250 mg PO Q6HR 7 Days #28 cap Is patient prescribed a controlled substance at d/c from ED?: No Referrals: Getachew Mar MD [Primary Care Provider] - 1-2 days
[2020-05-30 14:31] VITALS: BP 150/118; PULSE 61
--- NOTE | 2020-05-30 16:31 | CONS ---
CONSULTATION CHIEF COMPLAINT: Pain and blurry vision in the right eye for the last 2 days. 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 The patient has systemic lupus. Medication was reviewed. Medical history was reviewed. CT scans were reviewed. EYE EXAMINATION: Lids show right upper lid swelling with a localized swelling (stye) in the right upper lid. There is tenderness on pressure on the lid. Extraocular motility full. The pupils were small, but normal with no relative afferent pupillary defect. Vision was 20/100 right eye and 20/30 left eye. The patient did not bring her glasses. AC deep in both eyes. Intra-ocular pressure was taken by the available tonometer in the emergency room and it recorded 28-30 right eye and 20 mmHg left eye. Retina dilated. Disk was 0.1. No obvious disk swelling. Possible mild retinal edema (patient has lupus). ASSESSMENT: 1. Ocular hypertension. Start Diamox 250 mg twice a day for 5 days until evaluated by Dr. Broussard in his office. 2. Right upper lid stye. Start Keflex 250 mg every 6 hours for 7 days. 3. Pseudotumor cerebri. The patient is a previous patient of Dr. Broussard. He is fully aware of her history and was given appointment to see Dr. Broussard on Monday. I can see her if she develops any more problems. I could not see any other retina problem, iritis or vitreitis but I am unaware of her previous visual acuity in the right eye. MMODL / IJN: [id number] /
== END 2020-05-30 14:31 | disposition home or self-care (01) ==
LOC: EC 11:27
DX: H00.011 Hordeolum externum right upper eyelid (principal); H40.051 Ocular hypertension, right eye; I10 Essential (primary) hypertension; F32.9 Major depressive disorder, single episode, unspecified; E07.9 Disorder of thyroid, unspecified; Z79.899 Other long term (current) drug therapy; Z79.890 Hormone replacement therapy; Z88.5 Allergy status to narcotic agent
CPT/HCPCS: 36415; 70450; 80053; 85025; 99285

== ENCOUNTER 2020-06-01 17:23 | Emergency (ER) | payer OTHER ==
[2020-06-01] MEDS ORDERED: PROPARACAINE 0.5% OPHTH DROPS 15 ML BTL RIGHT EYE STA (17:55)
[2020-06-01] MEDS: TROPICAMIDE 1% OPHTH DROPS 2 ML BTL RIGHT EYE SCH ×3 (18:26→21:48)
--- NOTE | 2020-06-01 18:28 | ED ---
General Adult HPI - General Chief complaint: ENT Stated complaint: eye pressure/vision loss Time Seen by Provider: 06/01/20 17:55 Source: patient, RN notes reviewed, old records reviewed Mode of arrival: ambulatory Limitations: no limitations - History of Present Illness Initial comments: 30-year-old female history of pseudotumor cerebri, chronic decreased vision in the right eye presenting with complete visual loss in the right eye. She was seen in the emergency department 2 days prior was prescribed Diamox and given close outpatient follow-up. She has been seen by neuro ophthalmology and follows with Dr. Broussard. She was seen 2 days ago with 20/100 vision in the right eye. Today she is unable to perceive light or any shadows in the right ey e. Vision in the left eye is unchanged according to the patient. She is also having a fullness and pressure sensation in the right eye. She is also being treated for a right eye stye. - Related Data Home Medications Medication Instructions Recorded Confirmed HYDROcodone/APAP 5-325MG [[place] 1 tab PO BID 03/26/20 05/27/20 5-325] Levothyroxine Sodium [Synthroid] 25 mcg PO DAILY 03/26/20 05/27/20 NIFEdipine [Procardia] 10 mg PO DAILY 03/26/20 05/27/20 Belimumab [Benlysta] 200 mg SQ DIRECTED 03/30/20 05/27/20 Multivitamins, Thera [Multivitamin 1 tab PO DAILY 04/06/20 05/27/20 (formulary)] Venlafaxine HCl [Effexor] 75 mg PO DAILY 04/23/20 05/27/20 Previous Rx's Medication Instructions Recorded Levothyroxine Sodium [Synthroid] 100 mcg PO DAILY #30 tab 05/27/20 Cephalexin [Keflex] 250 mg PO Q6HR 7 Days #28 cap 05/30/20 acetaZOLAMIDE [Diamox] 250 mg PO BID 5 Days #10 tablet 05/30/20 Topiramate [Topamax] 50 mg PO BID #14 tab 06/01/20 Allergies Allergy/AdvReac Type Severity Reaction Status Date / Time codeine AdvReac Nausea & Verified 06/01/20 17:48 Vomiting. HEADACHES Review of Systems ROS Statement: Those systems with pertinent positive or pertinent negative responses have been documented in the HPI. ROS Other: All systems not noted in ROS Statement are negative. 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, AVASCULAR NECROSIS KARTHIK HIPS, arthritis, pseudotumur History of Any Multi-Drug Resistant Organisms: None Reported Past Surgical History: Cholecystectomy, Ear Surgery, Orthopedic Surgery Additional Past Surgical History / Comment(s): elbow, L foot surgery; eye surg ed Past Anesthesia/Blood Transfusion Reactions: No Reported Reaction Past Psychological History: Depression Smoking Status: Never smoker Past Alcohol Use History: None Reported Past Drug Use History: None Reported General Exam Limitations: no limitations General appearance: alert, in no apparent distress Head exam: Present: atraumatic, normocephalic Eye exam: Present: normal appearance, PERRL, EOMI, other (Right eye pupil is reactive to light and contralateral light in the left eye.) ENT exam: Present: normal exam Neck exam: Present: normal inspection, tenderness Respiratory exam: Present: normal lung sounds bilaterally. Absent: respiratory distress Cardiovascular Exam: Present: regular rate, normal rhythm GI/Abdominal exam: Present: soft. Absent: distended, tenderness Course Vital Signs 06/01/20 17:46 Temperature 99.3 F Pulse Rate 86 Respiratory 18 Rate Blood Pressure 155/79 O2 Sat by Pulse 97 Oximetry Medical Decision Making - Medical Decision Making Case immediately discussed with Dr. Park who requested the patient be dilated and will evaluate the patient emergency department. Recommends CT orbits. Dr. Park requests the patient be transferred for ophthalmology and neurology consultation. He also requested the patient be started on Diamox 500 mg and 500 mg of IV Solu-Medrol. I did discuss the case with Dr. Mcdaniels covering for Dr. Sanders who is the patient's neuro-victim advocate regarding her presentation and where the patient should be transferred. He feels that this is likely a chronic progression and does not request the patient be transferred at this time. He recommends the patient be started on Topamax and follow-up with her neuro- victim advocate Dr. Sanders tomorrow at 11 AM. The findings and recommendation of victim advocate at our institution were discussed and Dr. Mcdaniels again feels this is chronic and requests the patient be discharged with close outpatient follow- up. - Lab Data Result diagrams: 06/01/20 18:13 06/01/20 18:13 Lab Results 06/01/20 06/01/20 Range/Units 18:13 18:13 WBC 8.6 (3.8-10.6) k/uL RBC 5.16 (3.80-5.40) m/uL Hgb 14.3 (11.4-16.0) gm/dL Hct 44.6 (34.0-46.0) % MCV 86.4 (80.0-100.0) fL MCH 27.7 (25.0-35.0) pg MCHC 32.0 (31.0-37.0) g/dL RDW 13.5 (11.5-15.5) % Plt Count 160 (150-450) k/uL Neutrophils % 77 % Lymphocytes % 14 % Monocytes % 6 % Eosinophils % 0 % Basophils % 1 % Neutrophils # 6.6 (1.3-7.7) k/uL Lymphocytes # 1.2 (1.0-4.8) k/uL Monocytes # 0.5 (0-1.0) k/uL Eosinophils # 0.0 (0-0.7) k/uL Basophils # 0.1 (0-0.2) k/uL Sodium 139 (137-145) mmol/L Potassium 4.2 (3.5-5.1) mmol/L Chloride 103 (98-107) mmol/L Carbon Dioxide 27 (22-30) mmol/L Anion Gap 9 mmol/L BUN 10 (7-17) mg/dL Creatinine 0.81 (0.52-1.04) mg/dL Est GFR (CKD-EPI)AfAm >90 (>60 ml/min/1.73 sqM) Est GFR (CKD-EPI)NonAf >90 (>60 ml/min/1.73 sqM) Glucose 102 H (74-99) mg/dL Calcium 9.7 (8.4-10.2) mg/dL Disposition Clinical Impression: Benign intracranial hypertension, Blind right eye Disposition: HOME SELF-CARE Condition: Fair Instructions (If sedation given, give patient instructions): Idiopathic Intracranial Hypertension (ED) Additional Instructions: Please follow up with Dr. Sanders tomorrow in the [place] [facility] at 11 AM. Prescriptions: Topiramate [Topamax] 50 mg PO BID #14 tab Is patient prescribed a controlled substance at d/c from ED?: No Referrals: Getachew Mar MD [Primary Care Provider] - 1-2 days Time of Disposition: 20:34
[2020-06-01 18:31] LABS: Basophils # (A) 0.1 k/uL (0-0.2); Basophils % (A) 1 %; Eosinophils % (A) 0 %; HCT 44.6 % (34.0-46.0); HGB 14.3 gm/dL (11.4-16.0); Lymphocytes # (A) 1.2 k/uL (1.0-4.8); Lymphocytes % (A) 14 %; MCH 27.7 pg (25.0-35.0); MCV 86.4 fL (80.0-100.0); Monocytes # (A) 0.5 k/uL (0-1.0); Monocytes % (A) 6 %; Neutrophils # (A) 6.6 k/uL (1.3-7.7); Neutrophils % (A) 77 %; Platelet Count 160 k/uL (150-450); RBC 5.16 m/uL (3.80-5.40); RDW 13.5 % (11.5-15.5); WBC 8.6 k/uL (3.8-10.6)
[2020-06-01 18:39] LABS: African American GFR (CKD) >90 (>60 ml/min/1.73 sqM); Anion Gap 9 mmol/L; Blood Urea Nitrogen 10 mg/dL (7-17); Calcium 9.7 mg/dL (8.4-10.2); Carbon Dioxide 27 mmol/L (22-30); Chloride 103 mmol/L (98-107); Glucose 102 mg/dL (74-99); Non-African American GFR(CKD) >90 (>60 ml/min/1.73 sqM); Potassium 4.2 mmol/L (3.5-5.1); Sodium 139 mmol/L (137-145)
--- NOTE | 2020-06-01 19:06 | CT ---
EXAMINATION TYPE: CT orbits wo/w con DATE OF EXAM: 06/01/2020 COMPARISON: CT brain 05/30/2020 HISTORY: 30-year-old female Right eye vision loss TECHNIQUE: Contiguous axial scanning of the orbits performed without and with IV Contrast, patient in jected with 100 mL of Isovue 300. Coronal reconstructions performed. CT DLP: 1098.8 mGycm Automated exposure control for dose reduction was used. FINDINGS: Some frothy fluid in the left sphenoid sinus. Scattered mild mucosal thickening in the ethmoid air ce lls. The sensitivity slight preseptal soft tissue swelling on the right. Globes appear symmetric and intact. Symmetric and normal appearance to the extraocular musculature. Appropriate enhancement of the superi or ophthalmic vein. No intraorbital rectal bulbar abnormality or other postseptal abnormality is seen . Optic canal appears normal. No acute fracture is identified. IMPRESSION: 1. THERE SEEMS TO BE SOME PRESEPTAL SOFT TISSUE SWELLING ON THE RIGHT. CORRELATE FOR POTENTIAL PRESEP IRA CELLULITIS. 2. NO POST SEPTAL OR RETROBULBAR ABNORMALITY IS IDENTIFIED. 3. CORRELATE TO EXCLUDE ACUTE LEFT SINUSITIS.
[2020-06-01] MEDS ORDERED: acetaZOLAMIDE 250 MG TAB PO STA (19:46)
[2020-06-01] MEDS ORDERED: TOPIRAMATE 25 MG TAB PO STA (20:31)
[2020-06-01 21:50] VITALS: BP 148/98; PULSE 63; RESP 19; TEMP 98
--- NOTE | 2020-06-02 06:43 | CONS ---
CONSULTATION CHIEF COMPLAINT: Decreased vision in the right eye in the last 3 hours. 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 Sanders in early this year. Followed by Dr. Skaggs as a neurologist in [facility]. Medical history was reviewed. EYE EXAMINATION: Vision right eye shows light perception. Left eye 20/40. Extraocular motility is full. Pupils are equal and reactive with no relative afferent pupillary defect and there is a mild upper lid swelling due to a stye, improving in size. Both lacrimal glands could be enlarged on the size from the lupus, however, from other disease. The cornea is clear. AC quiet and deep. Vitreous no cells. Disc is 0.2 to 0.3 with no disc swelling. Retina with no retinal detachment, possible minimum swelling on the superior and inferior arcades. Unable to evaluate without an OCT. Confrontation in the left eye was 100% normal. ASSESSMENT: 1. Right visual distortion in (loss of vision). 2. Right preseptal cellulitis, treated with antibiotic tablets, Keflex. 3. Benign intracranial hypertension. 4. Lupus erythematosus. PLAN: CT scan of the orbit was done and was within normal limits except for a preseptal cellulitis, mild. No retro-ocular or orbital lesion. The patient was given Diamox on Monday and she did not take the Diamox tablets. I consulted the ER doctor, decided to start Solu-Medrol 500 mg stat and Diamox 500 mg tablet stat and to send her to [place] where Dr. Sanders, her sciences dean, who did the fenestration of the sheath would see her with a neurologist consult to do a lumbar puncture and evaluate the benign intracranial hypertension. MMODL / IJN: [id number] /
== END 2020-06-01 21:14 | disposition home or self-care (01) ==
LOC: EC 17:23
DX: H54.61 Unqualified visual loss, right eye, normal vision left eye (principal); G93.2 Benign intracranial hypertension; I10 Essential (primary) hypertension; E07.9 Disorder of thyroid, unspecified; Z79.899 Other long term (current) drug therapy; Z79.890 Hormone replacement therapy; Z88.5 Allergy status to narcotic agent
CPT/HCPCS: 36415; 80048; 85025; 70482; 99284; 96365; J2930; Q9967

== ENCOUNTER → 2020-06-17 | Outpatient (CLI) | payer OTHER ==
--- NOTE | 2020-06-17 11:06 | P.STRESS ---
- Stress Test Note Stress Test Results/Findings: Exam Performed: stress test Exam Date: 06/17/20 Reason for Exam: ABNORMAL EKG, PRE-OP Height: 5 ft 2 in Weight: 122.47 kg Protocol: DEMI Stage: II Duration of Exercise: 6:00 Resting Heart Rate: 92 Resting Blood Pressure: 135/94 Maximum Achieved Heart Rate: 152 Maximum Achieved Blood Pressure: 147/79 85% PMHR: 162 100% PMHR: 191 METS: 7.3 Technologist Comment: Stress Test Results/Findings: Baseline heart rate 90 beats a minute, Baseline blood pressure 135/94 mmHg the central ECG shows normal sinus rhythm normal heart intervals Patient exercised for a Demi protocol for 6 minutes. She was unable to go any further for an unclear reason There is a 0.[address] depression inferolaterally. Normal blood pressure response No arrhythmias impression Low exercise level achieved, 6 minutes on Demi protocol Borderline abnormal ECG with exercise
== END | disposition home or self-care (01) ==
LOC: RADNMMAIN 08:24
PROVIDERS: ATTEND Family Medicine
DX: R94.31 Abnormal electrocardiogram [ECG] [EKG] (principal)
CPT/HCPCS: 93017

== ENCOUNTER → 2020-06-24 | Outpatient (CLI) | payer OTHER ==
--- NOTE | 2020-06-24 15:58 | US ---
EXAMINATION TYPE: US kidneys/renal and bladder DATE OF EXAM: 06/24/2020 COMPARISON: NONE CLINICAL HISTORY: R31.9 hematuria, unspecified type. EXAM MEASUREMENTS: Right Kidney: 12.1 x 5.7 x 4.9 cm Left Kidney: 11.7x 5.5 x 5.0 cm Morbidly obese, technically difficult study. Right Kidney: No hydronephrosis or masses seen Left Kidney: No hydronephrosis or masses seen . Hypoechoic area within the renal sinus of the left k idney measuring 1 cm. Bladder: wnl Bilateral Jets seen: yes IMPRESSION: No hydronephrosis or nephrolithiasis. Recommend CT of the abdomen to assess the left kidney for hypoe choic nodularity in the left renal sinus.
== END | disposition home or self-care (01) ==
LOC: RADUSWWP 15:22
PROVIDERS: ATTEND Family Medicine
DX: R31.9 Hematuria, unspecified (principal)
CPT/HCPCS: 76770

== ENCOUNTER → 2020-06-30 | Outpatient (CLI) | payer OTHER ==
[2020-06-30 21:12] LABS: African American GFR (CKD) 115.5 (60.0-200.0); Albumin 4.1 g/dL (3.80-4.90); Albumin/Globulin Ratio 1.71 (1.60-3.17); Anion Gap 8.1 mmol/L (4.00-12.00); Calcium 9.1 mg/dL (8.7-10.3); Carbon Dioxide 25.9 mmol/L (21.6-31.8); Globulin 2.4 g/dL (1.6-3.3); Non-African American GFR(CKD) 99.6 (60.0-200.0); Potassium 4.5 mmol/L (3.5-5.5); Total Bilirubin 0.4 mg/dL (0.2-1.2); Total Protein 6.5 g/dL (6.2-8.2)
== END | disposition home or self-care (01) ==
LOC: LABWHC1 12:15
PROVIDERS: ATTEND Physician Assistant
DX: E87.5 Hyperkalemia (principal)
CPT/HCPCS: 36415; 80053

== ENCOUNTER → 2020-07-02 | Outpatient (CLI) | payer OTHER ==
--- NOTE | 2020-07-02 14:56 | CT ---
EXAMINATION TYPE: CT abdomen wo con DATE OF EXAM: 07/02/2020 HISTORY: abnormal US, kidney nodule CT DLP: 747 mGycm. Automated Exposure Control for Dose Reduction was Utilized. TECHNIQUE: CT scan of the abdomen is performed without oral or IV contrast. COMPARISON: Renal ultrasound June 24, 2020 FINDINGS: Within the limitations of a non-contrast study, the following observations are made. LUNG BASES: No significant abnormality is appreciated. LIVER/GB: Liver is heterogeneously hypodense consistent with diffuse fatty infiltration. Mild thyrome tricia is present. Cholecystectomy clips are noted. PANCREAS: No significant abnormality is seen. SPLEEN:. There is 1.2 cm splenule anteriorly axial image 23. ADRENALS: No significant abnormality is seen. KIDNEYS: No renal stones on noncontrast CT. No concerning solid or cystic renal mass on noncontrast C T. No hydronephrosis noted bilaterally. BOWEL: Stomach not greatly distended and thus suboptimally evaluated. No suspicious bowel dilatation. LYMPH NODES: No greater than 1cm abdominal lymph nodes are appreciated. OSSEOUS STRUCTURES: Complete sagittal images not sent to PACS to assess for pars defect. No significa nt spondylolisthesis. OTHER: No significant additional abnormality is seen. IMPRESSION: No concerning mass identified noncontrast CT with particular attention central mid pole l evel left kidney.
== END | disposition home or self-care (01) ==
LOC: RADCTMAIN 12:24
PROVIDERS: ATTEND Family Medicine
DX: N28.89 Other specified disorders of kidney and ureter (principal)
CPT/HCPCS: 74150

== ENCOUNTER → 2020-07-23 | Outpatient (CLI) | payer OTHER | END | disposition home or self-care (01) | LOC: LABWHC1 12:44 | PROVIDERS: ATTEND Surgery Plastic and Reconstructive Surgery | DX: E44.0 Moderate protein-calorie malnutrition (principal) | CPT/HCPCS: 36415; 84443 ==

== ENCOUNTER → 2020-08-13 | Outpatient (CLI) | payer OTHER | END | disposition home or self-care (01) | LOC: LABWHC1 09:35 | PROVIDERS: ATTEND Family Medicine | DX: E03.9 Hypothyroidism, unspecified (principal) | CPT/HCPCS: 36415; 84443 ==

== ENCOUNTER 2020-08-18 09:37 | Emergency (ER) | payer OTHER ==
[2020-08-18 09:47] VITALS: RESP 18; TEMP 98.1
[2020-08-18] MEDS ORDERED: LIDOCAINE 5% PATCH TOPICAL STA (10:05)
[2020-08-18] MEDS ORDERED: predniSONE 50 MG TAB PO STA (10:06)
[2020-08-18] MEDS ORDERED: HYDROcodone/APAP 10-325MG 1 EACH TAB PO ONE (10:06)
[2020-08-18] MEDS ORDERED: KETOROLAC 15 MG/ML 1 ML VIAL IM STA (10:06)
[2020-08-18] MEDS ORDERED: ACET/COD 300 MG/30 MG STARTER PACK 6 TAB BTL PO STA (10:06)
--- NOTE | 2020-08-18 10:23 | ED ---
Lower Extremity Injury HPI - General Chief Complaint: Extremity Injury, Lower Stated Complaint: lower back pain Time Seen by Provider: 08/18/20 10:02 Source: patient Mode of arrival: ambulatory Limitations: no limitations - History of Present Illness Initial Comments: 30yo female presenting for low back pain that radiates down the right leg, patient states this occurred approximately 5-6 days ago and she can no longer tolerate the pain, pt states she is able to walk but it hurts. She denies chest pain SOB. Pt denies IVDU, cancer, falls trauma. Patient denies loss of bowel/bladder control or urinary retention. Denies sensation deficits. Denies rashes. Denies abdominal pain or urinary changes. Patient denies additional complaints. - Related Data Home Medications Medication Instructions Recorded Confirmed HYDROcodone/APAP 5-325MG [[place] 1 tab PO BID 03/26/20 05/27/20 5-325] Levothyroxine Sodium [Synthroid] 25 mcg PO DAILY 03/26/20 05/27/20 NIFEdipine [Procardia] 10 mg PO DAILY 03/26/20 05/27/20 Belimumab [Benlysta] 200 mg SQ DIRECTED 03/30/20 05/27/20 Multivitamins, Thera [Multivitamin 1 tab PO DAILY 04/06/20 05/27/20 (formulary)] Venlafaxine HCl [Effexor] 75 mg PO DAILY 04/23/20 05/27/20 Previous Rx's Medication Instructions Recorded Levothyroxine Sodium [Synthroid] 100 mcg PO DAILY #30 tab 05/27/20 Cephalexin [Keflex] 250 mg PO Q6HR 7 Days #28 cap 05/30/20 acetaZOLAMIDE [Diamox] 250 mg PO BID 5 Days #10 tablet 05/30/20 Topiramate [Topamax] 50 mg PO BID #14 tab 06/01/20 predniSONE 50 mg PO DAILY 4 Days #4 tab 08/18/20 Allergies Allergy/AdvReac Type Severity Reaction Status Date / Time codeine AdvReac Nausea & Verified 08/18/20 09:47 Vomiting. HEADACHES Review of Systems ROS Statement: Those systems with pertinent positive or pertinent negative responses have been documented in the HPI. ROS Other: All systems not noted in ROS Statement are negative. 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, AVASCULAR NECROSIS KARTHIK HIPS, arthritis, pseudotumur History of Any Multi-Drug Resistant Organisms: None Reported Past Surgical History: Cholecystectomy, Ear Surgery, Orthopedic Surgery Additional Past Surgical History / Comment(s): elbow, L foot surgery; eye surgery Past Anesthesia/Blood Transfusion Reactions: No Reported Reaction Past Psychological History: Depression Smoking Status: Never smoker Past Alcohol Use History: None Reported Past Drug Use History: None Reported General Exam - General Exam Comments Initial Comments: General: The patient is awake and alert, in no distress, and does not appear acutely ill. Eye: Pupils are equal, round and reactive to light, extra-ocular movements are intact. No nystagmus. There is normal conjunctiva bilaterally. No signs of icterus. Cardiovascular: There is a regular rate and rhythm. No murmur, rub or gallop is appreciated. Respiratory: Lungs are clear to auscultation, respirations are non-labored, breath sounds are equal. No wheezes, stridor, rales, or rhonchi. Gastrointestinal: Soft, non-distended, non-tender abdomen without masses or organomegaly noted. There is no rebound or guarding present. No CVA tenderness. Musculoskeletal: Normal inspection of the back. no midline tenderness to palpation of the spine some right sided paraspinal tenderness. Normal ROM, of the LE b/l. Can ambulate. Strength 5/5 of the LE b/l . Sensation intact of the saddle region b/l and LE b/l. DP and radial pulses equal bilaterally 2+. Neurological: A&O x 3. CN II-XII intact grossly, There are no obvious motor or sensory deficits. Coordination appears grossly intact. Speech is normal. Skin: Skin is warm and dry and no rashes or lesions are noted. Psychiatric: Cooperative, appropriate mood & affect, normal judgment. Limitations: no limitations Course Vital Signs 08/18/20 09:45 Temperature 98.1 F Pulse Rate 70 Respiratory 18 Rate Blood Pressure 148/97 O2 Sat by Pulse 99 Oximetry Disposition Clinical Impression: Low back pain, Radicular syndrome of right leg Disposition: HOME SELF-CARE Condition: Good Instructions (If sedation given, give patient instructions): Lumbar Radiculopathy (ED) Additional Instructions: Please use medication as discussed. Please follow-up with family doctor in the next 2 days. Please return to emergency room if the symptoms increase or worsen or for any other concerns. Prescriptions: predniSONE 50 mg PO DAILY 4 Days #4 tab Is patient prescribed a controlled substance at d/c from ED?: No Referrals: Getachew Mar MD [Primary Care Provider] - 1-2 days Time of Disposition: 10:23
[2020-08-18] MEDS ORDERED: HYDROmorphone 0.5 MG/0.5 ML SYRINGE IM STA (10:29)
[2020-08-18 11:06] VITALS: BP 125/87; PULSE 59
== END 2020-08-18 10:55 | disposition home or self-care (01) ==
LOC: EC 09:37
DX: M54.10 Radiculopathy, site unspecified (principal); M54.5 Low back pain; I10 Essential (primary) hypertension; F32.9 Major depressive disorder, single episode, unspecified; E07.9 Disorder of thyroid, unspecified; Z79.891 Long term (current) use of opiate analgesic; Z79.890 Hormone replacement therapy; Z79.899 Other long term (current) drug therapy; Z88.5 Allergy status to narcotic agent
CPT/HCPCS: 99283; 96372 ×2; J1885; J7512; J1170

== ENCOUNTER → 2020-12-09 | Outpatient (CLI) | payer OTHER ==
[2020-12-09 15:51] VITALS: BP 115/84; PULSE 69; RESP 18; TEMP 98.7; BMI 47.9
== END ==
LOC: BARWHC3 14:45
PROVIDERS: ATTEND Surgery Plastic and Reconstructive Surgery
DX: E66.01 Morbid (severe) obesity due to excess calories (principal); K21.9 Gastro-esophageal reflux disease without esophagitis; Z68.42 Body mass index [BMI] 45.0-49.9, adult
CPT/HCPCS: 99211

== ENCOUNTER → 2020-12-14 | Outpatient (CLI) | payer OTHER ==
[2020-12-14 18:25] LABS: HCT 39.5 % (37.2-46.3); HGB 12.5 g/dL (12.0-15.0); MCH 27.5 pg (27.0-32.0); MCHC 31.6 g/dL (32.0-37.0); MCV 86.8 fL (80.0-97.0); Mean Platelet Volume 12.1 fL (9.5-12.2); Platelet Count 224 X 10*3/uL (140-440); RBC 4.55 X 10*6/uL (4.10-5.20); RDW 13.2 % (11.5-14.5); WBC 6.78 X 10*3/uL (4.50-10.00)
[2020-12-14 19:46] LABS: Hemoglobin A1C 5.7 % (4.0-6.0)
[2020-12-14 21:38] LABS: % Iron Saturation 15.64 (12.00-45.00); African American GFR (CKD) 135.7 (60.0-200.0); Albumin 3.9 g/dL (3.80-4.90); Albumin/Globulin Ratio 1.86 (1.60-3.17); Anion Gap 5.4 mmol/L (4.00-12.00); BUN/Creat Ratio 15.71 Ratio (12.00-20.00); Calcium 9.4 mg/dL (8.7-10.3); Carbon Dioxide 31.6 mmol/L (21.6-31.8); Chol/HDL Ratio 4.36; Globulin 2.1 g/dL (1.6-3.3); LDL Cholesterol,Calculated 89.4 mg/dL (0.0-131.0); Magnesium 1.8 mg/dL (1.5-2.4); Non-African American GFR(CKD) 117.1 (60.0-200.0); Potassium 3.6 mmol/L (3.5-5.5); Total Bilirubin 0.3 mg/dL (0.3-1.2); VLDL Calculation 31.6 mg/dL (5.00-40.00)
[2020-12-14 21:48] LABS: Ferritin 167.2 ng/mL (10.0-291.0); Folate, Serum 6.5 ng/mL
[2020-12-15 00:06] LABS: INR 0.92 (0.90-1.11); Partial Thromboplastin Time 25.6 sec (23.5-31.0); Prothrombin Time 10.1 sec (9.9-11.9)
[2020-12-15 12:54] LABS: Zinc, Serum 57 ug/dL (60-130)
[2020-12-16 06:35] LABS: Vitamin A 25 ug/dL (38-106)
[2020-12-16 06:42] LABS: Vit B1(Thiamine) 59 ug/L (38-122)
== END | disposition home or self-care (01) ==
LOC: LABWHC1 13:16
PROVIDERS: ATTEND Surgery Plastic and Reconstructive Surgery
DX: E66.01 Morbid (severe) obesity due to excess calories (principal); E89.1 Postprocedural hypoinsulinemia; D50.8 Other iron deficiency anemias; K90.89 Other intestinal malabsorption; E55.9 Vitamin D deficiency, unspecified; K74.1 Hepatic sclerosis; N19 Unspecified kidney failure; K50.90 Crohn's disease, unspecified, without complications; F17.210 Nicotine dependence, cigarettes, uncomplicated
CPT/HCPCS: 84255; 84134; 84425; 80061; 80053; 82607; 82728; 82525; 82746; 83540; 83550; 83735; 84100; 84443; 84590; 84630; 85027; 85610; 85730; 82306; 83970; 83036; 36415; G0480; 80323

== ENCOUNTER → 2021-01-08 | Outpatient (CLI) | payer OTHER ==
[2021-01-08 12:10] LABS: Basophils % (A) 1 %; Eosinophils % (A) 1 %; HCT 42.2 % (34.0-46.0); HGB 13.5 gm/dL (11.4-16.0); Lymphocytes # (A) 1.4 k/uL (1.0-4.8); Lymphocytes % (A) 24 %; MCH 27.3 pg (25.0-35.0); MCV 85.6 fL (80.0-100.0); Mean Platelet Volume 8.6; Monocytes # (A) 0.5 k/uL (0-1.0); Monocytes % (A) 8 %; Neutrophils # (A) 3.7 k/uL (1.3-7.7); Neutrophils % (A) 65 %; Platelet Count 227 k/uL (150-450); RBC 4.93 m/uL (3.80-5.40); WBC 5.8 k/uL (3.8-10.6)
[2021-01-08 12:24] LABS: ALT 27 U/L (4-34); AST 35 U/L (14-36); African American GFR (CKD) >90 (>60 ml/min/1.73 sqM); Albumin 3.9 g/dL (3.5-5.0); Alkaline Phosphatase 97 U/L (38-126); Anion Gap 8 mmol/L; Blood Urea Nitrogen 8 mg/dL (7-17); Calcium 9.6 mg/dL (8.4-10.2); Carbon Dioxide 27 mmol/L (22-30); Chloride 105 mmol/L (98-107); Glucose 84 mg/dL (74-99); Non-African American GFR(CKD) >90 (>60 ml/min/1.73 sqM); Potassium 4.4 mmol/L (3.5-5.1); Sodium 140 mmol/L (137-145); Total Bilirubin 0.5 mg/dL (0.2-1.3); Total Protein 7.2 g/dL (6.3-8.2)
== END | disposition home or self-care (01) ==
LOC: LABPAT 11:27
PROVIDERS: ATTEND Surgery Plastic and Reconstructive Surgery
DX: Z01.812 Encounter for preprocedural laboratory examination (principal)
CPT/HCPCS: 36415; 80053; 85025; 86850; 86900; 86901

== ENCOUNTER 2021-01-18 09:55 | Inpatient (IN) | payer OTHER ==
--- NOTE | 2021-01-18 08:22 | P.GSHP ---
History of Present Illness H&P Date: 01/18/21 CHIEF COMPLAINT: Morbid obesity HISTORY OF PRESENT ILLNESS: Breonna Garcia is a 30-year-old female who comes with morbid obesity. She presents for a gastric bypass. As a result of her morbid obesity, she presents for comorbidities including osteoarthritis of the knees, hips, hypertensive heart disease including pseudotumor cerebri. She has completed bariatric program with medical risk assessment, psychological assessment, bariatric education. At height of 5 feet 2 inches, her ideal body weight is 135 pounds. Her highest weight is 282 pounds, body mass index 51.7. She comes in 261 pounds. Her body mass index is 47.9. She is 126 pounds overweight. PAST MEDICAL HISTORY: 1. Morbid obesity due to excess calories 2. Body mass index, 51.9 3. Lupus 4. Pseudotumor cerebri 5. Hypertensive heart disease 6. History of kidney nodule 7. Hypothyroidism 8. Depressive disorder 9. Seizure disorder 10. Avascular necrosis hips 11. Scoliosis of the spine 12. History of HELLP syndrome 13. Osteoarthritis knee 14. Osteoarthritis of the hips PAST SURGICAL HISTORY: 1. Kidney biopsy 2. Elbow surgery 3. Cholecystectomy 4. Left foot surgery 5. Ear surgery 6. Upper endoscopy HOME MEDICATIONS: Home Medications Medication Instructions Recorded Confirmed HYDROcodone/APAP 5-325MG [[place] 1 tab PO BID 03/26/20 01/12/21 5-325] Levothyroxine Sodium [Synthroid] 50 mcg PO BID 03/26/20 01/12/21 Belimumab [Benlysta] 200 mg SQ Q30D 03/30/20 01/12/21 Multivitamins, Thera [Multivitamin 1 tab PO DAILY 04/06/20 01/12/21 (formulary)] Venlafaxine HCl [Effexor] 75 mg PO DAILY 04/23/20 01/12/21 Furosemide [Lasix] 20 mg PO BID 12/09/20 01/12/21 acetaZOLAMIDE [Diamox] 250 mg PO TID 01/12/21 01/12/21 ALLERGIES: Allergies Allergy/AdvReac Type Severity Reaction Status Date / Time codeine AdvReac Nausea & Verified 01/12/21 10:45 Vomiting. HEADACHES SOCIAL HISTORY: No past tobacco use. FAMILY HISTORY: No family history of ulcerative colitis disease or Crohn's disease. Family history of morbid obesity. No lupus in the family. No reports of stomach or esophageal cancer. REVIEW OF ORGAN SYSTEMS: CONSTITUTIONAL: At height of 5 feet 2 inches, her ideal body weight is 135 pounds. She comes in 283 pounds. Her body mass index is 51.9. She is 148 pounds overweight. HEENT: Denies any active troubles with vision or hearing. ENDOCRINE: No diabetes. Has hypothyroidism. CARDIOVASCULAR: No past reports of palpitations or heart attacks or chest pain. Has essential hypertension. RESPIRATORY: No daytime somnolence. No asthma. GASTROINTESTINAL: Denies any bright red blood per rectum. No diarrhea. No constipation. MUSCULOSKELETAL: Has lower back pain and joint pain. Has osteoarthritis of the knees. History of avascular necrosis of the tibia including hips. NEURO: Has headaches. Has seizure disorders. Has pseudotumor cerebri. PSYCH: Has depression. No suicidal ideation. RHEUMATOLOGIC: Has lupus. No rheumatoid arthritis. HEMATOLOGIC: Denies any abnormal bleeding or bruising. No personal history of DVTs. SKIN: No rash. No skin cancer. PHYSICAL EXAM: VITAL SIGNS: Height 5 foot 2 inches, weight 261 pounds. BMI 47.9 GENERAL: Well-developed in no acute distress. HEENT: No scleral icterus. Extraocular movements grossly intact. Hears conversational speech. No nasal drainage. NECK: Supple without lymphadenopathy. CHEST: Nonlabored respirations with equal bilateral excursions. CARDIOVASCULAR: Tachycardic. Distal 2+ pulses. ABDOMEN: Obese, soft, nontender, nondistended. MUSCULOSKELETAL: No clubbing, cyanosis. NEURO: No focal or lateralizing signs. Cranial nerves 2 through 12 grossly within normal limits. PSYCH: Appropriate affect. Alert and oriented to person, place and time. SKIN: Good skin turgor. Well perfused. ASSESSMENT: 1. Morbid obesity due to excess calories 2. Body mass index, 51.9 now 47.9. 3. Lupus 4. Pseudotumor cerebri 5. Hypertensive heart disease 6. History of kidney nodule 7. Hypothyroidism, poorly controlled 8. Depressive disorder 9. Seizure disorder 10. Avascular necrosis hips 11. Scoliosis of the spine 12. History of HELLP syndrome 13. Osteoarthritis knee 14. Osteoarthritis of the hips PLAN: 1. She elected for a gastric bypass. 2. DVT prophylaxis per [place] [facility]. 3. Antibiotic prophylaxis. 4. Inpatient hospitalization anticipated for more than 2 nights. 5. She is elevated risk for complications with hypertensive heart disease and psuedotumor cerebri. Past Medical History Past Medical History: GERD/Reflux, Hypertension, Osteoarthritis (OA), Seizure Disorder, Thyroid Disorder Additional Past Medical History / Comment(s): LUPUS, 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, AVASCULAR NECROSIS KARTHIK HIPS, pseudotumor cerebri, took BP med briefly 2-3 yrs. ago, ?seizures >11 yrs. ago related to pseudotumor but never took meds for History of Any Multi-Drug Resistant Organisms: None Reported Past Surgical History: Cholecystectomy, Ear Surgery, Orthopedic Surgery Additional Past Surgical History / Comment(s): elbow, L foot surgery; eye surgery Past Anesthesia/Blood Transfusion Reactions: No Reported Reaction Smoking Status: Never smoker Medications and Allergies Home Medications Medication Instructions Recorded Confirmed Type HYDROcodone/APAP 5-325MG [[place] 1 tab PO BID 03/26/20 01/12/21 History 5-325] Levothyroxine Sodium [Synthroid] 50 mcg PO BID 03/26/20 01/12/21 History Belimumab [Benlysta] 200 mg SQ Q30D 03/30/20 01/12/21 History Multivitamins, Thera [Multivitamin 1 tab PO DAILY 04/06/20 01/12/21 History (formulary)] Venlafaxine HCl [Effexor] 75 mg PO DAILY 04/23/20 01/12/21 History Furosemide [Lasix] 20 mg PO BID 12/09/20 01/12/21 History acetaZOLAMIDE [Diamox] 250 mg PO TID 01/12/21 01/12/21 History Allergies Allergy/AdvReac Type Severity Reaction Status Date / Time codeine AdvReac Nausea & Verified 01/12/21 10:45 Vomiting. HEADACHES
[~2021-01-18 09:55] MED LIST changes: +ACETAMINOPHEN TAB 500 MG TAB PO PRN; +CHLORHEXIDINE GLUCONATE 15 ML CUP MUCOUS MEM PRN; +DEXAMETHASONE SOD PHOSPHATE 4 MG/ML 1 ML VIAL IV ONE; +ENOXAPARIN 40 MG/0.4 ML SYRINGE SQ PRN; +GABAPENTIN 300 MG CAP PO PRN; -LACTATED RINGERS 1,000 ML IV SCH; -LIDOCAINE 1% INJ 10MG/ML (20 ML MDV) ONE; +MELOXICAM 7.5 MG TAB PO PRN; +ONDANSETRON 4 MG/2 ML VIAL IVP ONE; +PANTOPRAZOLE 40 MG/10 ML VIAL IVP PRN; -PROPOFOL 10 MG/ML 20 ML VIAL IV ONE; +SCOPOLAMINE 1.5MG/72HR PATCH TRANSDERM ONE; +SCOPOLAMINE 1.5MG/72HR PATCH TRANSDERM PRN; +fentaNYL (PF) 50 MCG/ML 2 ML AMP IV PRN
[2021-01-18] MEDS: LACTATED RINGERS 1,000 ML IV SCH (14:50)
[2021-01-18] MEDS ORDERED: MIDAZOLAM 2 MG/2 ML VIAL IV ONE (15:00)
[2021-01-18] MEDS ORDERED: diphenhydrAMINE 50 MG/ML 1 ML VIAL ONE (17:56)
[2021-01-18] MEDS ORDERED: MIDAZOLAM 2 MG/2 ML VIAL ONE (17:56)
[2021-01-18] MEDS ORDERED: LIDOCAINE 1% INJ 10MG/ML (20 ML MDV) ONE (17:56)
[2021-01-18] MEDS ORDERED: fentaNYL (PF) 50 MCG/ML 2 ML AMP ONE (17:56)
[2021-01-18] MEDS ORDERED: KETOROLAC 15 MG/ML 1 ML VIAL ONE (17:56)
[2021-01-18] MEDS ORDERED: ROCURONIUM 10 MG/ML (5 ML VIAL) IV ONE (17:56)
[2021-01-18] MEDS ORDERED: SUCCINYLCHOLINE CHLORIDE 100 MG/5 ML SYR IV ONE (17:56)
[2021-01-18] MEDS ORDERED: PROPOFOL 10 MG/ML 20 ML VIAL IV ONE (17:56)
[2021-01-18] MEDS ORDERED: NEOSTIGMINE 1 MG/ML 10 ML VIAL ONE (17:56)
[2021-01-18] MEDS ORDERED: GLYCOPYRROLATE 0.2 MG/ML 2 ML VIAL ONE (17:56)
[2021-01-18] MEDS ORDERED: BUPIVACAINE-EPI 0.5%-1:200,000 10 ML VIAL SQ ONE (18:53)
[2021-01-18] MEDS ORDERED: LACTATED RINGERS 1,000 ML IV ONE ×3 (19:01→21:17)
[2021-01-18] MEDS ORDERED: diphenhydrAMINE 50 MG/ML 1 ML VIAL IVP PRN (21:14)
[2021-01-18] MEDS ORDERED: NALOXONE 0.4 MG/ML 1 ML VIAL IV PRN (21:14)
--- NOTE | 2021-01-18 21:23 | P.OP ---
Date of Procedure: 01/18/21 Description of Procedure: SURGEON: GIOVANNY SHERIFF MD PREOPERATIVE DIAGNOSES: 1. Morbid obesity due to excess calories 2. Body mass index, 51.9 now 47.9. 3. Lupus 4. Pseudotumor cerebri 5. Hypertensive heart disease 6. History of kidney nodule 7. Hypothyroidism, poorly controlled 8. Depressive disorder 9. Seizure disorder 10. Avascular necrosis hips 11. Scoliosis of the spine 12. History of HELLP syndrome 13. Osteoarthritis knee 14. Osteoarthritis of the hips POSTOPERATIVE DIAGNOSES: 1. Morbid obesity due to excess calories 2. Body mass index, 51.9 now 47.9. 3. Lupus 4. Pseudotumor cerebri 5. Hypertensive heart disease 6. History of kidney nodule 7. Hypothyroidism, poorly controlled 8. Depressive disorder 9. Seizure disorder 10. Avascular necrosis hips 11. Scoliosis of the spine 12. History of HELLP syndrome 13. Osteoarthritis knee 14. Osteoarthritis of the hips 15. Hepatomegaly with fatty liver disease OPERATION: 1. Robotic assisted da Chaitanya Xi laparoscopic Cortney-en-Y gastric bypass, 100 cm antecolic antegastric Cortney limb, with 25 mm EEA. 2. Intraoperative esophagogastrojejunoscopy. ANESTHESIA: GETA and local ESTIMATED BLOOD LOSS: 10 mL SPECIMENS REMOVED: None. COMPLICATIONS: NONE. Operative Findings: 1. Biliopancreatic limb 60 cm 2. Bypass performed using 100 cm cortney limb due to short mesentery with tension. 3. Jejunojejunostomy defects closed using 2-0 VLOC including Oscar's defect. 4. Leak test negative with gastrojejunal anastomosis patent and hemostatic. 5. Reinforcement sutures were placed along the gastrojejunal anastomosis at 9:00, 12:00, 6:00 and 3:00 6. Hepatomegaly with fatty liver disease 7. Thoracic length 16 cm 8. Short mesentery involving jejunum INDICATIONS: Breonna Garcia is a 30-year-old female who comes with morbid obesity. She presents for a gastric bypass. As a result of her morbid obesity, she presents for comorbidities including osteoarthritis of the knees, hips, hypertensive heart disease including pseudotumor cerebri. She has completed bariatric program with medical risk assessment, psychological assessment, bariatric education. At height of 5 feet 2 inches, her ideal body weight is 135 pounds. Her highest weight is 282 pounds, body mass index 51.7. She comes in 253 pounds. A second-generation bariatric consent form was described in detail including the possibility of protein malnutrition, leaks, gastrojejunal stricture, venous thrombosis, need for further surgery for which she demonstrated understanding. Benefits and risks of the procedure were described at length. Informed consent was obtained. DESCRIPTION: The patient was brought into the operating room theater. She was placed supine. She had received Lovenox subcutaneously for DVT prophylaxis. Additionally she Peridex oral solution as an oral decontaminant was placed per anesthesia. After general induction, the abdomen was prepped and draped in standard sterile fashion. Ioban draping was placed along the abdomen. Belcher catheter was placed A robotic [employer] Xi system was prepped and primed. Incisions were proposed at 15 cm from the xiphoid. Proposed port sites were marked with indelible marker along the anterior axillary line bilaterally, mid clavicular line bilaterally with each port marked 10 cm from each other. The robotic stapler port was marked for the right midclavicular line including along the left midclavicular line. A 5 mm 0 degrees laparoscopic trocar entry was performed along the left upper quadrant. The abdomen was insufflated to 15 mmHg pressure, which she tolerated well. Diagnostic laparoscopy demonstrated no injury to bowel, viscera, or mesentery. The liver was floppy including hepatomegaly with fatty liver disease. An 8 mm camera port was placed left lateral to the umbilicus at the epigastrium, 15 cm distal to the xiphoid. Next, 12-mm robot stapler port was placed along the right mid abdomen. An 12 mm port was exchanged along the left upper quadrant. An 8 mm port was placed on the left lateral abdominal wall under direct visualization Please note that the ports were placed 18 to 20 cm away from the target anatomy of the stomach. Care was taken to check that each robotic arm was safely away from collision with the bed or the patient. At the epigastrium, a medium sized Noris liver retractor was placed under direct visualization with the Iron Program Checker placed under the right shoulder of the patient. The patient was repositioned in reverse Trendelenburg position at 21-degrees after lowering the bed. The robot was docked over the patient. Using grasper for arm 3, a grasper for arm 1, including vessel sealer for arm 4, the robotic system was docked and primed as described. Instruments were interchanged by the general assistant including endoscissors, the needle package delivery driver, and stapler. I had sat at the console. Next, the transverse mesocolon was reflected into the upper abdomen after dividing the mesentery and preparing for the jejunojejunostomy portion of the case. The mesentery was short along the jejunum. The ligament of Treitz was identified and measured 60 cm antegrade and marked using 3-0 Silk. The jejunum was divided at the 60 cm point using 60-mm white loads above the suture measurement. The biliopancreatic limb was held in place. The Cortney limb was measured 100 cm in an antegrade fashion to avoid tension along the proposed gastrojejunal anastomosis. At 100 cm along the anti-mesenteric border of the Cortney limb, a jejunojejunostomy was proposed whereby enterotomies were created along the biliopancreatic limb including the Cortney limb using a Bovie cautery. A stay suture of 3-0 Slik was placed to align and create the anastomosis. The enterotomies along the anti- mesenteric borders were created followed by unidirectional fire from the patient's right side using 60 mm blue loads [employer] robotic stapler. The jejunojejunostomy was found to be hemostatic. The enterotomy was closed after horizontal mattress stitch of 3-0 silk used to elevate the enterotomy followed by closure with the robotic stapler blue load. The jejunal limb was temporarily tacked along the left upper quadrant. Attention was now brought to the creation of the gastrojejunostomy. Along the lesser curvature of the stomach, dissection was made along the retrogastric space to allow first firing of the robotic staple. Green loads of 60 mm staplers were used to divide the stomach to create the gastric pouch. The patient was then prepared for placement of a Orvil. The patient was Mallampati 2. A 25-mm Orvil was selected for placement by the nurse associate research scientist. Intraoperative upper endoscopy was used to advance and push the Orvil into the gastric pouch. The Orvil tubing was placed anterior to the staple line of the gastric pouch and brought out through the left inferior lateral port. I re-scrubbed into the case. The robotic arms were temporarily undocked. The Orvil was then carefully and successfully navigated with the help of the nurse associate research scientist into the gastric pouch. The sutures were identified and divided. The tubing was from the 25 mm anvil. As the Orvil had been placed, the blind jejunal limb was brought proximally into the upper abdomen. No torsion was found upon the Cortney limb. No tension was identified as the limb was brought along the upper abdomen. The blind jejunal limb was previously opened using endo-scissors with cautery. The 25-mm EEA stapler was brought through the left anterior lateral port site from the left side. The EEA stapler was brought through the open jejunal limb and its needle was deployed at the antimesenteric border where the anvil were mated for approximately 1 minute upon firing. The stapler was removed after irrigating the shaft of the instrument with warm normal saline. Donuts were found to be intact and on both sides. The [employer] Xi robot arms were then re-docked. I sat at the console. The open jejunal limb defect was closed using 60 mm blue loads after releasing any tension from the blind jejunal limb. Care was taken to avoid any long blind limb to avoid candycane syndrome. Reinforcement sutures were placed along the gastrojejunal anastomosis and placed along the 9:00, 12:00, 6:00 and 3 o'clock position using 3-0 Vicryl. The jejunojejunostomy mesenteric defect was closed using 2-0 VLOC including Petersens defect. I then went to the head of the bed to perform the esophagogastrojejunoscopy and a leak test. An Olympus gastroscope was passed alongthe posterior oropharynx which was unremarkable for any injury to the vocal cords. The scope was passed down to the proximal portion of the pouch, whereby no active bleeding was encountered. Excellent visualization of the gastrojejunostomy anastomosis, including the Cortney limb was encountered with endoscopic image obtained. The anastomosis was found to be patent. The gastrointestinal tract was desufflated. No evidence of intraoperative leak was encountered as the gastric pouch and anastomosis were submerged under normal saline solution. The robot was then undocked. I then went back to the bedside of the patient, whereby with coordinated effort of the general assistant, irrigation was aspirated from the upper abdominal cavity. Tisseel was placed circumferentially over the anastomosis of the gastrojejunostomy. The fascial defect of the EEA stapler was closed using Immanuel Gomez and 0 Vicryl. All instruments and pneumoperitoneum were evacuated from the abdominal cavity. The port correlating with the EEA stapler device was cleansed with normal saline solution and hydrogen peroxide. The rest of incisions were reapproximated using 4-0 Monocryl in an interrupted subcuticular fashion. Local anesthetic was infiltrated along the skin for postop analgesia. Liquid glue was applied to the skin. OptiFoam dressing was placed along the EEA stapler site. At the end of the procedure, needle, sponge and instrument count had been verified correct by the surgical specialist. The patient had tolerated the procedure well and was extubated and taken to the postanesthesia unit in stable condition. The patient's mother was updated over the telephone.
[2021-01-18] MEDS ORDERED: HYDROmorphone 0.5 MG/0.5 ML SYRINGE IVP ONE ×2 (21:30→21:39)
[2021-01-18] MEDS: acetaZOLAMIDE 250 MG TAB PO SCH (23:16)
[2021-01-19] MEDS: DEXAMETHASONE SOD PHOSPHATE 4 MG/ML 1 ML VIAL IV SCH ×3 (00:02→12:42)
[2021-01-19] MEDS: ONDANSETRON 4 MG/2 ML VIAL IVP SCH ×3 (00:02→12:42)
[2021-01-19] MEDS: ACETAMINOPHEN IV (For NPO) 1,000 MG in EMPTY BAG 1 BAG IVPB SCH ×3 (00:02→11:39)
[2021-01-19] MEDS: SIMETHICONE 40 MG/0.6 ML DROPS 2,000 MG/30 ML BOTTLE PO SCH ×3 (00:03→12:42)
[2021-01-19] MEDS: HYOSCYAMINE ORAL DROPS 1.875 MG/15 ML BOTTLE PO SCH ×3 (00:04→12:41)
[2021-01-19] MEDS: HYDROmorphone 1 MG/ML 1 ML SYRINGE IVP PRN ×2 (01:05→09:40)
[2021-01-19] MEDS: LACTATED RINGERS 1,000 ML IV SCH (06:28)
[2021-01-19] MEDS ORDERED: LEVOTHYROXINE 137 MCG TAB PO SCH (06:30)
[2021-01-19] MEDS ORDERED: SODIUM CHLORIDE 0.9% 2,000 ML IV ONE (06:52)
[2021-01-19] MEDS ORDERED: 1: MVI, ADULT NO.4 WITH VIT K 10 ML, THIAMINE 100 MG, FOLIC ACID 1 MG, POTASSIUM CHLORID IV SCH ×6 (08:00)
[2021-01-19] MEDS: ALBUTEROL NEBULIZED 2.5 MG/3 ML INHALATION SCH ×2 (08:14→10:54)
[2021-01-19 08:21] LABS: African American GFR (CKD) >90 (>60 ml/min/1.73 sqM); Anion Gap 9 mmol/L; Blood Urea Nitrogen 15 mg/dL (7-17); Calcium 9.5 mg/dL (8.4-10.2); Carbon Dioxide 29 mmol/L (22-30); Chloride 100 mmol/L (98-107); Magnesium 1.8 mg/dL (1.6-2.3); Non-African American GFR(CKD) >90 (>60 ml/min/1.73 sqM); Phosphorus 3.7 mg/dL (2.5-4.5); Potassium 4.2 mmol/L (3.5-5.1); Sodium 138 mmol/L (137-145)
[2021-01-19 08:22] LABS: Basophils % (A) 0 %; Eosinophils % (A) 0 %; HGB 14.7 gm/dL (11.4-16.0); Lymphocytes # (A) 0.5 k/uL (1.0-4.8); Lymphocytes % (A) 3 %; MCH 28.8 pg (25.0-35.0); MCHC 34.2 g/dL (31.0-37.0); MCV 84.2 fL (80.0-100.0); Mean Platelet Volume 9.4; Monocytes # (A) 0.8 k/uL (0-1.0); Monocytes % (A) 4 %; Neutrophils # (A) 19.9 k/uL (1.3-7.7); Neutrophils % (A) 93 %; Platelet Count 224 k/uL (150-450); RBC 5.11 m/uL (3.80-5.40); RDW 13.5 % (11.5-15.5); WBC 21.3 k/uL (3.8-10.6)
[2021-01-19] MEDS: acetaZOLAMIDE 250 MG TAB PO SCH (08:27)
[2021-01-19] MEDS ORDERED: ENOXAPARIN 40 MG/0.4 ML SYRINGE SQ SCH (09:00)
[2021-01-19] MEDS ORDERED: PANTOPRAZOLE 40 MG/10 ML VIAL IV SCH (09:00)
[2021-01-19] MEDS ORDERED: LEVOTHYROXINE 25 MCG TAB PO SCH (09:00)
[2021-01-19] MEDS ORDERED: VENLAFAXINE HCL 75 MG TAB PO SCH (09:00)
--- NOTE | 2021-01-19 09:12 | P.PN ---
Subjective Progress Note Date: 01/19/21 Pain controlled. She is tolerating liquid diet. She is voiding spontaneously. Intraoperative findings reviewed for gastric bypass. Recommend 2L bolus for dehydration. Anticipated disposition later today following clinical course. Objective - Vital Signs Vital signs: Vital Signs Temp 98.4 F 01/19/21 07:53 Pulse 90 01/19/21 08:23 Resp 18 01/19/21 07:53 BP 142/100 01/19/21 07:53 Pulse Ox 94 L 01/19/21 07:53 Intake & Output 01/18/21 01/19/21 01/19/21 18:59 06:59 18:59 Intake Total 1050 1200 Output Total 10 400 Balance 1040 800 Weight 114.986 kg 114.986 kg Intake: IV 1050 1200 Output: Urine 400 Estimated Blood Loss 10 Other: Voiding Method Toilet - Labs CBC & Chem 7: 01/19/21 07:04 01/19/21 07:04 Labs: Abnormal Lab Results - Last 24 Hours (Table) 01/19/21 Range/Units 07:04 WBC 21.3 H (3.8-10.6) k/uL Neutrophils # 19.9 H (1.3-7.7) k/uL Lymphocytes # 0.5 L (1.0-4.8) k/uL
[2021-01-19 13:39] VITALS: BP 111/73; PULSE 78; RESP 17; TEMP 98
[2021-01-19 13:56] VITALS: BMI 45.6
--- NOTE | 2021-01-19 13:58 | P.DS ---
Providers Date of admission: 01/18/21 13:47 Expected date of discharge: 01/19/21 Attending physician: Darya Martinez Primary care physician: Getachew Mar Plan - Discharge Summary Discharge Rx Participant: Yes New Discharge Prescriptions: New Acetaminophen Tab [Tylenol Tab] 1,000 mg PO Q6HR PRN #30 tablet PRN Reason: Pain Levothyroxine Sodium 125 mcg PO DAILY #30 tablet bisacodyL [Dulcolax] 5 mg PO DAILY PRN #10 tablet. PRN Reason: Constipation Simethicone 40 mg/0.6 ml Drops [Mylicon Drops] 40 mg PO PCHS PRN #30 ml PRN Reason: Gas Omeprazole [PriLOSEC] 40 mg PO DAILY #30 capsule. Ondansetron Odt [Zofran Odt] 4 mg PO Q8HR PRN #9 tab PRN Reason: Nausea Continue HYDROcodone/APAP 5-325MG [Dorris 5-325] 1 tab PO BID Belimumab [Benlysta] 200 mg SQ Q30D Venlafaxine HCl [Effexor] 75 mg PO DAILY Furosemide [Lasix] 20 mg PO BID acetaZOLAMIDE [Diamox] 250 mg PO TID Discontinued Levothyroxine Sodium [Synthroid] 50 mcg PO BID Multivitamins, Thera [Multivitamin (formulary)] 1 tab PO DAILY Discharge Medication List HYDROcodone/APAP 5-325MG [Dorris 5-325] 1 tab PO BID 03/26/20 [History] Belimumab [Benlysta] 200 mg SQ Q30D 03/30/20 [History] Venlafaxine HCl [Effexor] 75 mg PO DAILY 04/23/20 [History] Furosemide [Lasix] 20 mg PO BID 12/09/20 [History] acetaZOLAMIDE [Diamox] 250 mg PO TID 01/12/21 [History] Acetaminophen Tab [Tylenol Tab] 1,000 mg PO Q6HR PRN #30 tablet 01/19/21 [Rx] Levothyroxine Sodium 125 mcg PO DAILY #30 tablet 01/19/21 [Rx] Omeprazole [PriLOSEC] 40 mg PO DAILY #30 capsule. 01/19/21 [Rx] Ondansetron Odt [Zofran Odt] 4 mg PO Q8HR PRN #9 tab 01/19/21 [Rx] Simethicone 40 mg/0.6 ml Drops [Mylicon Drops] 40 mg PO HS PRN #30 ml 01/19/21 [Rx] bisacodyL [Dulcolax] 5 mg PO DAILY PRN #10 tablet. 01/19/21 [Rx] Follow up Appointment(s)/Referral(s): [place], [place] [NON-STAFF] - 01/22/21 10:00 am Patient Instructions/Handouts: Nutrition after Bariatric Surgery (GEN), Bharathi-en-Y Gastric Bypass (DC) Activity/Diet/Wound Care/Special Instructions: Liquid diet only for 2 weeks until February 01 No lifting over 4 pounds in 4 weeks, January 18January Shower. No soaking in bath tubs, until February 01, 2 weeks. Please notify your surgeon if you develop nausea and vomiting including new onset of abdominal pain. Continue to use incentive spirometry to prevent pneumonias. Please continue to ambulate at home to prevent blood clots in legs. You have new prescriptions at your local pharmacy. Follow-up at the bariatric center. May shower. Dressings to be discontinued by surgeon in the office. Drink 64 oz of fluid daily. Start protein shakes on . Notify bariatric center for temp over 101.0, increased pain, drainage from incisions. No straws or carbonated beverages. Liquid diet only. Sugar content should be less than 6 g to avoid dumping syndrome. Take MOM for constipation. CRUSH, OPEN, OR CUT TABLETS LARGER THAN A SIZE OF A TIC TAC Discharge Disposition: HOME SELF-CARE
[2021-01-20] MEDS ORDERED: bisacodyL 5 MG TABLET.DR PO PRN (08:00)
== END 2021-01-19 15:13 | disposition home or self-care (01) | DRG 620 ==
LOC: 2ORMAIN 13:47 → 4SSUR 21:02
PROVIDERS: ADMIT Surgery Plastic and Reconstructive Surgery; ATTEND Surgery Plastic and Reconstructive Surgery
PROC: 0D164ZA Bypass Stomach to Jejunum, Percutaneous Endoscopic Approach (ICD-10-PCS; principal; 2021-01-18 15:00)
PROC: 8E0W4CZ Robotic Assisted Procedure of Trunk Region, Percutaneous Endoscopic Approach (ICD-10-PCS; principal; 2021-01-18 15:00)
PROC: 0DJ08ZZ Inspection of Upper Intestinal Tract, Via Natural or Artificial Opening Endoscopic (ICD-10-PCS; principal; 2021-01-18 15:00)
DX: E66.01 Morbid (severe) obesity due to excess calories (principal); M87.059 Idiopathic aseptic necrosis of unspecified femur; I11.9 Hypertensive heart disease without heart failure; K76.0 Fatty (change of) liver, not elsewhere classified; Z68.42 Body mass index [BMI] 45.0-49.9, adult; G40.909 Epilepsy, unspecified, not intractable, without status epilepticus; Z20.822 Contact with and (suspected) exposure to COVID-19; R16.0 Hepatomegaly, not elsewhere classified; E86.0 Dehydration; K21.9 Gastro-esophageal reflux disease without esophagitis; G93.2 Benign intracranial hypertension; M17.0 Bilateral primary osteoarthritis of knee; M16.0 Bilateral primary osteoarthritis of hip; E03.9 Hypothyroidism, unspecified; F32.9 Major depressive disorder, single episode, unspecified; M41.9 Scoliosis, unspecified; Z79.890 Hormone replacement therapy; Z79.891 Long term (current) use of opiate analgesic; Z79.899 Other long term (current) drug therapy; Z90.49 Acquired absence of other specified parts of digestive tract; Z86.69 Personal history of other diseases of the nervous system and sense organs; Z87.19 Personal history of other diseases of the digestive system; Z87.39 Personal history of other diseases of the musculoskeletal system and connective tissue; Z87.59 Personal history of other complications of pregnancy, childbirth and the puerperium; Z98.890 Other specified postprocedural states; Z71.3 Dietary counseling and surveillance; Z88.5 Allergy status to narcotic agent; Z83.49 Family history of other endocrine, nutritional and metabolic diseases
CPT/HCPCS: 80051; 81025; 82310; 82565; 83735; 84100; 84520; 85025; 86850; 86900; 86901; 87635; 94640

== ENCOUNTER → 2021-01-22 | Outpatient (CLI) | payer OTHER ==
[2021-01-22 10:32] VITALS: BP 131/83; PULSE 88; TEMP 98.3; BMI 45.8
== END | disposition home or self-care (01) ==
LOC: BARWHC3 09:21
PROVIDERS: ATTEND Surgery Plastic and Reconstructive Surgery
DX: E66.01 Morbid (severe) obesity due to excess calories (principal); Z98.84 Bariatric surgery status; Z68.42 Body mass index [BMI] 45.0-49.9, adult; Z88.5 Allergy status to narcotic agent
CPT/HCPCS: 99211

== ENCOUNTER → 2021-01-22 | Outpatient (CLI) | payer OTHER ==
[2021-01-22 11:06] VITALS: BP 131/87; PULSE 88; RESP 16; TEMP 98.2
[2021-01-22] MEDS: SODIUM CHLORIDE 0.9% 1,000 ML IV SCH ×2 (11:07→11:22)
== END ==
LOC: PROCWHC3 10:51
PROVIDERS: ATTEND Surgery Plastic and Reconstructive Surgery
DX: E86.0 Dehydration (principal)
CPT/HCPCS: 96360; 96361

== ENCOUNTER → 2021-01-27 | Outpatient (CLI) | payer OTHER ==
--- NOTE | 2021-01-27 16:43 | P.PN ---
Subjective Progress Note Date: 01/27/21 She is 1 week. She had diarrhea. She reports hemorrhoids. She has tendernes at left upper quadrant pain. She is using preparation H. She has a thrombosed hemorrhoids. May need repeat CBC. She has not taken lasix. Lidocaine rectal 5% described.
[2021-01-27 17:32] VITALS: BP 126/86; PULSE 80; RESP 16; TEMP 99; BMI 45.7
== END ==
LOC: BARWHC3 15:36
PROVIDERS: ATTEND Surgery Plastic and Reconstructive Surgery
DX: Z71.3 Dietary counseling and surveillance (principal); E66.9 Obesity, unspecified; E03.9 Hypothyroidism, unspecified; F33.0 Major depressive disorder, recurrent, mild; F41.9 Anxiety disorder, unspecified; I10 Essential (primary) hypertension; Z79.890 Hormone replacement therapy; Z68.42 Body mass index [BMI] 45.0-49.9, adult; Z79.899 Other long term (current) drug therapy
CPT/HCPCS: 97803; G0463; 99211

== ENCOUNTER → 2021-01-29 | Outpatient (CLI) | payer OTHER ==
[2021-01-29 19:11] LABS: Basophils # (A) 0.06 X 10*3/uL (0.00-0.10); Basophils % (A) 0.7 %; Eosinophils # (A) 0.12 X 10*3/uL (0.04-0.35); Eosinophils % (A) 1.4 %; HCT 41.9 % (37.2-46.3); HGB 13.2 g/dL (12.0-15.0); Lymphocytes # (A) 1.63 X 10*3/uL (0.90-5.00); Lymphocytes % (A) 19.2 %; MCH 27.1 pg (27.0-32.0); MCHC 31.5 g/dL (32.0-37.0); Mean Platelet Volume 12.1 fL (9.5-12.2); Monocytes # (A) 0.75 X 10*3/uL (0.20-1.00); Monocytes % (A) 8.9 %; Neutrophils # (A) 5.86 X 10*3/uL (1.80-7.70); Neutrophils % (A) 69.2 %; Platelet Count 351 X 10*3/uL (140-440); RBC 4.87 X 10*6/uL (4.10-5.20); RDW 13.4 % (11.5-14.5); WBC 8.47 X 10*3/uL (4.50-10.00)
== END | disposition home or self-care (01) ==
LOC: LABWHC1 10:55
PROVIDERS: ATTEND Surgery Plastic and Reconstructive Surgery
DX: Z01.812 Encounter for preprocedural laboratory examination (principal); D72.829 Elevated white blood cell count, unspecified
CPT/HCPCS: 36415; 85025

== ENCOUNTER → 2021-02-17 | Outpatient (CLI) | payer OTHER ==
[2021-02-17 14:16] VITALS: BP 129/89; PULSE 108; RESP 18; TEMP 98.3; BMI 42.6
--- NOTE | 2021-02-17 14:34 | P.PN ---
Subjective Progress Note Date: 02/17/21 She has lost 45 pounds since December. She feels great! She has occasional cramps. Occasional heart burn. She reports food gets stuck with peaches. Recommend blood work. She is already back to work. No problem with her joints. Her protein intake is 2 to 3 shakes daily. Objective - Vital Signs Vital signs: Vital Signs Temp 98.3 F 02/17/21 14:02 Pulse 108 H 02/17/21 14:02 Resp 18 02/17/21 14:02 BP 129/89 02/17/21 14:02 Pulse Ox Intake & Output 02/16/21 02/17/21 02/17/21 18:59 06:59 18:59 Weight 105.732 kg
== END ==
LOC: BARWHC3 13:38
PROVIDERS: ATTEND Surgery Plastic and Reconstructive Surgery
DX: E66.01 Morbid (severe) obesity due to excess calories (principal); Z71.3 Dietary counseling and surveillance; Z68.41 Body mass index [BMI] 40.0-44.9, adult; Z88.5 Allergy status to narcotic agent
CPT/HCPCS: 97803; G0463; 99211

== ENCOUNTER → 2021-02-19 | Outpatient (CLI) | payer OTHER ==
[2021-02-19 20:25] LABS: HCT 44.9 % (37.2-46.3); HGB 14.6 g/dL (12.0-15.0); MCH 27.4 pg (27.0-32.0); MCHC 32.5 g/dL (32.0-37.0); MCV 84.4 fL (80.0-97.0); Platelet Count 161 X 10*3/uL (140-440); RBC 5.32 X 10*6/uL (4.10-5.20); RDW 14.1 % (11.5-14.5); WBC 6.25 X 10*3/uL (4.50-10.00)
[2021-02-19 21:54] LABS: Hemoglobin A1C 5.5 % (4.0-6.0)
[2021-02-20 00:05] LABS: INR 1.03 (0.90-1.11); Partial Thromboplastin Time 27.8 sec (23.5-31.0); Prothrombin Time 11.2 sec (9.9-11.9)
[2021-02-20 03:30] LABS: % Iron Saturation 12.12 (12.00-45.00); African American GFR (CKD) 115.5 (60.0-200.0); Albumin 4.5 g/dL (3.80-4.90); Albumin/Globulin Ratio 1.67 (1.60-3.17); Anion Gap 14.1 mmol/L (4.00-12.00); Calcium 10.2 mg/dL (8.7-10.3); Carbon Dioxide 23.9 mmol/L (21.6-31.8); Chol/HDL Ratio 4.53; Globulin 2.7 g/dL (1.6-3.3); LDL Cholesterol,Calculated 83.2 mg/dL (0.0-131.0); Magnesium 1.7 mg/dL (1.5-2.4); Non-African American GFR(CKD) 99.6 (60.0-200.0); Phosphorus 3.6 mg/dL (2.4-5.1); Total Bilirubin 0.5 mg/dL (0.3-1.2); Total Protein 7.2 g/dL (6.2-8.2); VLDL Calculation 22.8 mg/dL (5.00-40.00)
[2021-02-20 03:43] LABS: Ferritin 295.7 ng/mL (10.0-291.0)
[2021-02-20 03:44] LABS: Folate, Serum 9.7 ng/mL
== END | disposition home or self-care (01) ==
LOC: LABWHC1 12:23
PROVIDERS: ATTEND Surgery Plastic and Reconstructive Surgery
DX: N19 Unspecified kidney failure (principal); D50.8 Other iron deficiency anemias; E89.1 Postprocedural hypoinsulinemia; K90.89 Other intestinal malabsorption; E55.9 Vitamin D deficiency, unspecified; K74.1 Hepatic sclerosis; K50.90 Crohn's disease, unspecified, without complications
CPT/HCPCS: 36415; 80053; 80061; 82306; 82525; 82607; 82728; 82746; 83036; 83540; 83550; 83735; 83970; 84100; 84134; 84255; 84425; 84443; 84590; 84630; 85027; 85610; 85730

== ENCOUNTER → 2021-02-24 | Outpatient (CLI) | payer OTHER ==
[2021-02-24 12:34] VITALS: BP 124/83; PULSE 85; RESP 16; TEMP 98.6
[2021-02-24] MEDS: SODIUM CHLORIDE 0.9% 1,000 ML IV SCH ×2 (12:42→13:39)
== END | disposition home or self-care (01) ==
LOC: PROCWHC3 12:14
PROVIDERS: ATTEND Surgery Plastic and Reconstructive Surgery
DX: E86.0 Dehydration (principal)
CPT/HCPCS: 96360; 96361

== ENCOUNTER → 2021-03-17 | Outpatient (CLI) | payer OTHER ==
[2021-03-17 11:46] VITALS: BP 129/86; PULSE 50; TEMP 98.2; BMI 41.3
--- NOTE | 2021-03-17 12:02 | P.PN ---
Subjective Progress Note Date: 03/17/21 DATE OF SERVICE: 03/17/2021 CHIEF COMPLAINT: Status post gastric bypass HISTORY OF PRESENT ILLNESS: Breonna Garcia is a 30-year-old female status post gastric bypass, 01/18/21. She is 2 months out. She reports nausea ongoing for more than a month. She has been self-medicating with Zofran. She takes moderate amount of artificial sweeteners. She still takes omeprazole. She reports vomiting with water. At height of 5 feet 2 inches, her ideal body weight is 135 pounds. Her highest weight is 282 pounds, body mass index 51.7. She comes in 226 pounds from 233 pounds, 1 month ago. She has lost 7 pounds in 1 month. Her body mass index is 41.3. She is 90 pounds overweight. Lifetime percent excess weight loss is 38%. PHYSICAL EXAM: VITAL SIGNS: Height 5 foot 2 inches, weight 226 pounds. BMI 41.3 Vital Signs Temp 98.2 F 03/17/21 11:44 Pulse 50 L 03/17/21 11:44 Resp BP 129/86 03/17/21 11:44 Pulse Ox GENERAL: Well-developed in no acute distress. HEENT: No scleral icterus. Extraocular movements grossly intact. Hears conversational speech. No nasal drainage. NECK: Supple without lymphadenopathy. CHEST: Nonlabored respirations with equal bilateral excursions. CARDIOVASCULAR: Regular rate and rhythm. Distal 2+ pulses. ABDOMEN: All incisions granulated. MUSCULOSKELETAL: No clubbing, cyanosis. NEURO: No focal or lateralizing signs. Cranial nerves 2 through 12 grossly within normal limits. PSYCH: Appropriate affect. Alert and oriented to person, place and time. SKIN: Good skin turgor. Well perfused. LABS: Reviewed. Hemoglobin now normal. Iron is low at 40. Vitamin D is low. ASSESSMENT: 1. Morbid obesity due to excess calories 2. Body mass index, 51.9 now 41.3 3. Lupus 4. Pseudotumor cerebri 5. Hypertensive heart disease 6. History of kidney nodule 7. Hypothyroidism, poorly controlled 8. Depressive disorder 9. Seizure disorder 10. Avascular necrosis hips 11. Scoliosis of the spine 12. History of HELLP syndrome 13. Osteoarthritis knee 14. Osteoarthritis of the hips 15. Status post gastric bypass 16. Thrombosed hemorrhoids 17. Vitamin D deficiency 18. Iron deficiency 19. Adverse reaction to artificial sweeteners. PLAN: 1. Recommend upper endoscopy for persistent symptoms of nausea and vomiting including gastroesophageal reflux disease. 2. Prescription for Pepcid instead of omeprazole. 3. Stop all artificial sweeteners which may contribute to nausea. 4. Follow-up in 2 weeks with upper endoscopy Objective - Vital Signs Vital signs: Vital Signs Temp 98.2 F 03/17/21 11:44 Pulse 50 L 03/17/21 11:44 Resp BP 129/86 03/17/21 11:44 Pulse Ox Intake & Output 03/16/21 03/17/21 03/17/21 18:59 06:59 18:59 Weight 102.512 kg
== END ==
LOC: BARWHC3 11:19
PROVIDERS: ATTEND Surgery Plastic and Reconstructive Surgery
DX: E66.01 Morbid (severe) obesity due to excess calories (principal); E03.9 Hypothyroidism, unspecified; E55.9 Vitamin D deficiency, unspecified; F32.9 Major depressive disorder, single episode, unspecified; G40.909 Epilepsy, unspecified, not intractable, without status epilepticus; I11.9 Hypertensive heart disease without heart failure; M32.9 Systemic lupus erythematosus, unspecified; M16.0 Bilateral primary osteoarthritis of hip; G93.2 Benign intracranial hypertension; M41.9 Scoliosis, unspecified; Z87.59 Personal history of other complications of pregnancy, childbirth and the puerperium; M17.10 Unilateral primary osteoarthritis, unspecified knee; K64.5 Perianal venous thrombosis; E61.1 Iron deficiency; Z98.84 Bariatric surgery status; Z68.41 Body mass index [BMI] 40.0-44.9, adult; Z87.448 Personal history of other diseases of urinary system; Z88.5 Allergy status to narcotic agent; Z91.018 Allergy to other foods
CPT/HCPCS: 99211

== ENCOUNTER 2021-05-12 17:41 | Emergency (ER) | payer OTHER ==
[2021-05-12 18:27] VITALS: TEMP 98.4
[2021-05-12] MEDS ORDERED: KETOROLAC 15 MG/ML 1 ML VIAL IM STA (19:00)
[2021-05-12] MEDS ORDERED: DEXAMETHASONE SOD PHOSPHATE 10 MG/ML 1 ML VIAL IM STA (19:00)
[2021-05-12] MEDS ORDERED: LORATADINE 10 MG TAB PO STA (19:01)
--- NOTE | 2021-05-12 19:31 | ED ---
General Adult HPI - General Chief complaint: Shortness of Breath Stated complaint: BRYCE Time Seen by Provider: 05/12/21 18:52 Source: patient Mode of arrival: ambulatory Limitations: no limitations - History of Present Illness Initial comments: 31 year-old female patient presents to the emergency department for evaluation of sore throat and painful breathing. States that starting last night she developed a sore throat. States now it hurts her throat to breath. States she gets sharp pains in her throat whenever she takes a breath. Denies any chest pain. Reports dry cough. Denies fever or chills. Denies any unusual nausea or vomiting. Denies rash or itching. Denies any tongue, lip, or throat swelling. States that a two days ago she started having flooding in her basement, states there is a foul sewage smell and she believes there is mold. Denies taking any medication for her symptoms. Denies any nasal congestion or drainage. Denies any chance of . Does have history of Lupus. - Related Data Home Medications Medication Instructions Recorded Confirmed HYDROcodone/APAP 5-325MG [[place] 1 tab PO BID 03/26/20 02/24/21 5-325] Belimumab [Benlysta] 200 mg SQ Q30D 03/30/20 02/24/21 Venlafaxine HCl [Effexor] 75 mg PO DAILY 04/23/20 02/24/21 Furosemide [Lasix] 20 mg PO BID 12/09/20 02/24/21 acetaZOLAMIDE [Diamox] 250 mg PO TID 01/12/21 02/24/21 Ergocalciferol [Vitamin D2 (1250 50,000 unit PO WEEKLY 02/24/21 02/24/21 Mcg = 30850 Iu)] Vitamin A [Vitamin A (8,000 Units 10,000 unit PO DAILY 02/24/21 02/24/21 = 2,400 MCG)] Previous Rx's Medication Instructions Recorded Levothyroxine Sodium 125 mcg PO DAILY #30 tablet 01/19/21 bisacodyL [Dulcolax] 5 mg PO DAILY PRN #10 tablet. 01/19/21 Lidocaine [Lidocaine 5% Rectal 1 applic RECTAL BID #15 gm 01/27/21 Cream] Famotidine [Pepcid] 20 mg PO BID #30 tablet 03/17/21 Levothyroxine Sodium [Euthyrox] 175 mcg PO DAILY #30 tablet 03/17/21 Magnesium Oxide [Magox 400] 400 mg PO DAILY #60 tablet 03/17/21 Allergies Allergy/AdvReac Type Severity Reaction Status Date / Time codeine AdvReac Nausea & Verified 05/12/21 18:27 Vomiting. HEADACHES Review of Systems ROS Statement: Those systems with pertinent positive or pertinent negative responses have been documented in the HPI. ROS Other: All systems not noted in ROS Statement are negative. 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, AVASCULAR NECROSIS KARTHIK HIPS, arthritis, pseudotumur History of Any Multi-Drug Resistant Organisms: None Reported Past Surgical History: Bariatric Surgery, Cholecystectomy, Ear Surgery, Orthopedic Surgery Additional Past Surgical History / Comment(s): elbow, L foot surgery; eye surgery sleeve gastrectomy 01-18-21 Past Anesthesia/Blood Transfusion Reactions: No Reported Reaction Past Psychological History: Depression Smoking Status: Never smoker Past Alcohol Use History: None Reported Past Drug Use History: None Reported General Exam Limitations: no limitations General appearance: alert, in no apparent distress, other (Physical well- developed, well-nourished adult female patient in no acute distress. Vital signs upon presentation temperature 98.4F, pulse 47, respirations 19, blood pressure 147/100, pulse ox 100% on room air.) ENT exam: Present: normal exam, normal oropharynx, mucous membranes moist, other (No pharyngeal erythema, tonsillar hypertrophy, or tonsillar exudate. Tonsils are symmetric and uvula is midline.) Respiratory exam: Present: normal lung sounds bilaterally. Absent: respiratory distress, wheezes, rales, rhonchi, stridor Cardiovascular Exam: Present: normal rhythm, bradycardia, normal heart sounds. Absent: systolic murmur, diastolic murmur, rubs, gallop, clicks GI/Abdominal exam: Present: soft, normal bowel sounds. Absent: distended, tenderness, guarding, rebound, rigid Neurological exam: Present: alert, oriented X3, CN II-XII intact Psychiatric exam: Present: normal affect, normal mood Skin exam: Present: warm, dry, intact, normal color. Absent: rash Course Vital Signs 05/12/21 05/12/21 18:24 22:12 Temperature 98.4 F 98.4 F Pulse Rate 47 L 56 L Respiratory 19 16 Rate Blood Pressure 147/100 133/70 O2 Sat by Pulse 100 98 Oximetry - Reevaluation(s) Reevaluation #1: 05/12/21 20:10 Patient found to have low heart rate on EKG with rate of 42. Chest xray showed possibly enlarged heart. Re-evaluated patient who admits she has been feeling more lightheaded than usual and more tired. I did recommend admission. Labs added. EKG Findings - EKG Comments: EKG Findings:: EKG obtained in 1938 shows marked sinus bradycardia with a rate of 42, MT interval 154, QRS duration 96, QTc 464, QTC 387. No evidence of ST elevation or depression. Medical Decision Making - Medical Decision Making 31-year-old female patient presents to the emergency department today for evaluation of sore throat and painful breathing. Physical examination reveals clear equal lung sounds. Pharynx appeared normal. Upon exam heart rate was low in the 40s. I did obtain EKG which showed a heart rate of 42. Labs reviewed and are unremarkable. Chest x-ray did show possible cardiomegaly. I did discuss findings and results with the patient. It was recommended that she be admitted to the hospital for further evaluation by cardiology given low heart rate and abnormal chest x-ray. Patient refused to stay in the hospital stating that she had to care for her dogs. I did discuss risks of leaving including worsening of her condition or . She verbalizes understanding. She did sign AGAINST MEDICAL ADVICE form. She is instructed to follow-up with the primary care physician and/or cardiology as soon as possible. Return parameters were discussed in detail. She verbalizes understanding and agrees with this plan. Case discussed with my attending Dr. Ahuja. - Lab Data Result diagrams: 05/12/21 20:13 05/12/21 20:13 Lab Results 05/12/21 05/12/21 05/12/21 Range/Units 19:04 20:13 20:13 WBC 6.5 (3.8-10.6) k/uL RBC 4.60 (3.80-5.40) m/uL Hgb 13.4 (11.4-16.0) gm/dL Hct 40.4 (34.0-46.0) % MCV 87.8 (80.0-100.0) fL MCH 29.0 (25.0-35.0) pg MCHC 33.1 (31.0-37.0) g/dL RDW 14.6 (11.5-15.5) % Plt Count 145 L (150-450) k/uL MPV 11.7 Neutrophils % 55 % Lymphocytes % 34 % Monocytes % 7 % Eosinophils % 1 % Basophils % 1 % Neutrophils # 3.6 (1.3-7.7) k/uL Lymphocytes # 2.2 (1.0-4.8) k/uL Monocytes # 0.4 (0-1.0) k/uL Eosinophils # 0.0 (0-0.7) k/uL Basophils # 0.0 (0-0.2) k/uL Sodium 140 (137-145) mmol/L Potassium 3.7 (3.5-5.1) mmol/L Chloride 109 H (98-107) mmol/L Carbon Dioxide 27 (22-30) mmol/L Anion Gap 4 mmol/L BUN 4 L (7-17) mg/dL Creatinine 0.50 L (0.52-1.04) mg/dL Est GFR (CKD-EPI)AfAm >90 (>60 ml/min/1.73 sqM) Est GFR (CKD-EPI)NonAf >90 (>60 ml/min/1.73 sqM) Glucose 83 (74-99) mg/dL Calcium 9.3 (8.4-10.2) mg/dL Magnesium 1.7 (1.6-2.3) mg/dL Total Bilirubin 0.3 (0.2-1.3) mg/dL AST 38 H (14-36) U/L ALT 28 (4-34) U/L Alkaline Phosphatase 72 (38-126) U/L Total Protein 6.1 L (6.3-8.2) g/dL Albumin 3.4 L (3.5-5.0) g/dL Urine Color Urine Appearance (Clear) Urine pH (5.0-8.0) Ur Specific [place] (1.001-1.035) Urine Protein (Negative) Urine Glucose (UA) (Negative) Urine Ketones (Negative) Urine Blood (Negative) Urine Nitrite (Negative) Urine Bilirubin (Negative) Urine Urobilinogen (<2.0) mg/dL Ur Leukocyte Esterase (Negative) Urine RBC (0-5) /hpf Urine WBC (0-5) /hpf Ur Squamous Epith Cells (0-4) /hpf Urine Mucus (None) /hpf Urine HCG, Qual (Not Detectd) Coronavirus (PCR) Not Detected (Not Detectd) 05/12/21 05/12/21 Range/Units 20:13 20:13 WBC (3.8-10.6) k/uL RBC (3.80-5.40) m/uL Hgb (11.4-16.0) gm/dL Hct (34.0-46.0) % MCV (80.0-100.0) fL MCH (25.0-35.0) pg MCHC (31.0-37.0) g/dL RDW (11.5-15.5) % Plt Count (150-450) k/uL MPV Neutrophils % % Lymphocytes % % Monocytes % % Eosinophils % % Basophils % % Neutrophils # (1.3-7.7) k/uL Lymphocytes # (1.0-4.8) k/uL Monocytes # (0-1.0) k/uL Eosinophils # (0-0.7) k/uL Basophils # (0-0.2) k/uL Sodium (137-145) mmol/L Potassium (3.5-5.1) mmol/L Chloride (98-107) mmol/L Carbon Dioxide (22-30) mmol/L Anion Gap mmol/L BUN (7-17) mg/dL Creatinine (0.52-1.04) mg/dL Est GFR (CKD-EPI)AfAm (>60 ml/min/1.73 sqM) Est GFR (CKD-EPI)NonAf (>60 ml/min/1.73 sqM) Glucose (74-99) mg/dL Calcium (8.4-10.2) mg/dL Magnesium (1.6-2.3) mg/dL Total Bilirubin (0.2-1.3) mg/dL AST (14-36) U/L ALT (4-34) U/L Alkaline Phosphatase (38-126) U/L Total Protein (6.3-8.2) g/dL Albumin (3.5-5.0) g/dL Urine Color Yellow Urine Appearance Cloudy H (Clear) Urine pH 6.5 (5.0-8.0) Ur Specific [place] 1.023 (1.001-1.035) Urine Protein Trace H (Negative) Urine Glucose (UA) Negative (Negative) Urine Ketones 2+ H (Negative) Urine Blood Negative (Negative) Urine Nitrite Negative (Negative) Urine Bilirubin Negative (Negative) Urine Urobilinogen 3.0 (<2.0) mg/dL Ur Leukocyte Esterase Small H (Negative) Urine RBC 9 H (0-5) /hpf Urine WBC 7 H (0-5) /hpf Ur Squamous Epith Cells 6 H (0-4) /hpf Urine Mucus Many H (None) /hpf Urine HCG, Qual Not Detected (Not Detectd) Coronavirus (PCR) (Not Detectd) - Radiology Data Radiology results: report reviewed, image reviewed One view x-ray of the chest is obtained. Report was reviewed in its entirety. Impression by Dr. Hughes shows no active cardiopulmonary disease. No adverse change. Disposition Clinical Impression: Bradycardia, Cardiomegaly, Pharyngitis Disposition: Left Against Medical Advice Condition: Fair Instructions (If sedation given, give patient instructions): Pharyngitis (ED), Bradycardia (ED) Additional Instructions: Follow up with her primary care physician and pants closer for further evaluation as soon as possible. Return to the emergency department for any new, worsening, or concerning symptoms. Is patient prescribed a controlled substance at d/c from ED?: No Referrals: Getachew Mar MD [Primary Care Provider] - 1-2 days Axel Hawk MD [STAFF PHYSICIAN] - 1-2 days Time of Disposition: 21:50
--- NOTE | 2021-05-12 19:46 | XR ---
EXAMINATION TYPE: XR chest 1V DATE OF EXAM: 05/12/2021 COMPARISON: 04/14/2019 HISTORY: Difficulty breathing TECHNIQUE: Single view FINDINGS: Heart appears enlarged.. There is no heart failure. Costophrenic angles are clear. There ar e no hilar masses. IMPRESSION: No active cardiopulmonary disease. No adverse change.
[2021-05-12 20:21] LABS: Basophils % (A) 1 %; Eosinophils % (A) 1 %; HCT 40.4 % (34.0-46.0); HGB 13.4 gm/dL (11.4-16.0); Lymphocytes # (A) 2.2 k/uL (1.0-4.8); Lymphocytes % (A) 34 %; MCHC 33.1 g/dL (31.0-37.0); MCV 87.8 fL (80.0-100.0); Mean Platelet Volume 11.7; Monocytes # (A) 0.4 k/uL (0-1.0); Monocytes % (A) 7 %; Neutrophils # (A) 3.6 k/uL (1.3-7.7); Neutrophils % (A) 55 %; Platelet Count 145 k/uL (150-450); RDW 14.6 % (11.5-15.5); WBC 6.5 k/uL (3.8-10.6)
[2021-05-12 20:35] LABS: ALT 28 U/L (4-34); AST 38 U/L (14-36); African American GFR (CKD) >90 (>60 ml/min/1.73 sqM); Albumin 3.4 g/dL (3.5-5.0); Alkaline Phosphatase 72 U/L (38-126); Anion Gap 4 mmol/L; Blood Urea Nitrogen 4 mg/dL (7-17); Calcium 9.3 mg/dL (8.4-10.2); Carbon Dioxide 27 mmol/L (22-30); Chloride 109 mmol/L (98-107); Glucose 83 mg/dL (74-99); Magnesium 1.7 mg/dL (1.6-2.3); Non-African American GFR(CKD) >90 (>60 ml/min/1.73 sqM); Potassium 3.7 mmol/L (3.5-5.1); Sodium 140 mmol/L (137-145); Total Bilirubin 0.3 mg/dL (0.2-1.3); Total Protein 6.1 g/dL (6.3-8.2)
[2021-05-12 20:59] LABS: Appearance,Urine Cloudy (Clear); Bilirubin,Urine Negative (Negative); Blood,Urine Negative (Negative); Color,Urine Yellow; Glucose,Urine (UA) Negative (Negative); Ketones,Urine 2+ (Negative); Leukocyte Esterase,Urine Small (Negative); Mucus,Urine Many /hpf; Nitrite,Urine Negative (Negative); PH, Urine 6.5 (5.0-8.0); Protein,Urine Trace (Negative); RBC,Urine 9 /hpf (0-5); Specific Gravity,Urine 1.023 (1.001-1.035); Squamous Epithelial Cell,Urine 6 /hpf (0-4); WBC,Urine 7 /hpf (0-5)
[2021-05-12 22:13] VITALS: BP 133/70; PULSE 56; RESP 16
== END 2021-05-12 22:16 | disposition left against medical advice (07) ==
LOC: EC 17:41
DX: I51.7 Cardiomegaly (principal); J02.9 Acute pharyngitis, unspecified; K21.9 Gastro-esophageal reflux disease without esophagitis; I10 Essential (primary) hypertension; G40.909 Epilepsy, unspecified, not intractable, without status epilepticus; F32.9 Major depressive disorder, single episode, unspecified; Z79.890 Hormone replacement therapy; Z79.899 Other long term (current) drug therapy; Z88.5 Allergy status to narcotic agent
CPT/HCPCS: 36415; 93005; 80053; 87449; 83735; 85025; 81001; 81025; 87635; 71045; 96372 ×2; 99284; J1100; J1885

== ENCOUNTER 2021-05-13 09:28 | Observation (INO) | payer OTHER ==
--- NOTE | 2021-05-13 10:15 | ED ---
General Adult HPI - General Source: patient, RN notes reviewed, old records reviewed Mode of arrival: ambulatory Limitations: no limitations - History of Present Illness -: days(s) (1) Location: chest Radiation: non-radiation Consistency: constant Associated Symptoms: shortness of breath <Nirav Valiente - Last Filed: 05/13/21 12:51> <Kindra Hinojosa - Last Filed: 05/14/21 00:05> - General Chief complaint: Chest Pain Stated complaint: Bradycardia Time Seen by Provider: 05/13/21 10:10 - History of Present Illness Initial comments: 31-year-old female patient, alert and oriented 4, presents to the emergency room with complaints of chest tightness and difficulty breathing. Patient was seen yesterday and offered admission for bradycardia. She refused at that time stating she had animals to care for. She is now returning with some chest tightness and the same shortness of breath. She is willing to stay in the hospital this time. She denies any syncope or dizziness. Heart rate on the monitor at this time is 58, no ectopy. She does have a history of lupus, hypertension and hypothyroid. (Nirav Valiente) - Related Data Home Medications Medication Instructions Recorded Confirmed HYDROcodone/APAP 5-325MG [[place] 1 tab PO BID PRN 03/26/20 05/13/21 5-325] Belimumab [Benlysta] 200 mg SQ Q30D 03/30/20 05/13/21 Furosemide [Lasix] 20 mg PO BID 12/09/20 05/13/21 acetaZOLAMIDE [Diamox] 250 mg PO TID 01/12/21 05/13/21 Ergocalciferol [Vitamin D2 (1250 1,250 unit PO TH 02/24/21 05/13/21 Mcg = 68255 Iu)] Acetaminophen [Tylenol] 325 mg PO Q6H PRN 05/13/21 05/13/21 Magnesium Citrate [Citrate of 15 ml PO DAILY 05/13/21 05/13/21 Magnesia] Multivitamins, Thera [Multivitamin 1 tab PO DAILY 05/13/21 05/13/21 (formulary)] Sodium Chloride 0.65% Nasal [Deep 2 spray NASAL Q2H PRN 05/13/21 05/13/21 Sea (Saline)] Vitamin A [Vitamin A (8,000 Units 2,400 mcg PO DAILY 05/13/21 05/13/21 = 2,400 MCG)] Previous Rx's Medication Instructions Recorded Famotidine [Pepcid] 20 mg PO BID #30 tablet 03/17/21 Levothyroxine Sodium [Euthyrox] 175 mcg PO DAILY #30 tablet 03/17/21 Magnesium Oxide [Magox 400] 400 mg PO DAILY #60 tablet 03/17/21 Allergies Allergy/AdvReac Type Severity Reaction Status Date / Time codeine AdvReac Nausea & Verified 05/13/21 11:07 Vomiting. HEADACHES Review of Systems ROS Other: All systems not noted in ROS Statement are negative. <Nirav Valiente - Last Filed: 05/13/21 12:51> ROS Other: All systems not noted in ROS Statement are negative. <Kindra Hinojosa - Last Filed: 05/14/21 00:05> ROS Statement: Those systems with pertinent positive or pertinent negative responses have been documented in the HPI. 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, AVASCULAR NECROSIS KARTHIK HIPS, arthritis, pseudotumur History of Any Multi-Drug Resistant Organisms: None Reported Past Surgical History: Bariatric Surgery, Cholecystectomy, Ear Surgery, Orthopedic Surgery Additional Past Surgical History / Comment(s): elbow, L foot surgery; eye surgery sleeve gastrectomy 01-18-21 Past Anesthesia/Blood Transfusion Reactions: No Reported Reaction Past Psychological History: Depression Smoking Status: Never smoker Past Alcohol Use History: None Reported Past Drug Use History: None Reported <Nirav Valiente - Last Filed: 05/13/21 12:51> General Exam Limitations: no limitations General appearance: alert, in no apparent distress Head exam: Present: atraumatic, normocephalic, normal inspection Eye exam: Present: normal appearance, PERRL, EOMI. Absent: scleral icterus, conjunctival injection, periorbital swelling ENT exam: Present: normal exam, normal oropharynx, mucous membranes moist Neck exam: Present: normal inspection, full ROM. Absent: tenderness, meni ngismus, lymphadenopathy Respiratory exam: Present: normal lung sounds bilaterally. Absent: respiratory distress, wheezes, rales, rhonchi, stridor, chest wall tenderness, decreased breath sounds Cardiovascular Exam: Present: normal rhythm, bradycardia, normal heart sounds. Absent: systolic murmur, diastolic murmur, rubs, gallop, clicks, JVD (46) GI/Abdominal exam: Present: soft, normal bowel sounds. Absent: distended, tenderness, guarding, rebound, rigid Extremities exam: Present: normal inspection, full ROM, normal capillary refill. Absent: tenderness, pedal edema, joint swelling, calf tenderness Back exam: Present: normal inspection, full ROM. Absent: tenderness, CVA tenderness (R), CVA tenderness (L), muscle spasm, paraspinal tenderness, vertebral tenderness, rash noted Neurological exam: Present: alert, oriented X3, CN II-XII intact Psychiatric exam: Present: normal affect, normal mood Skin exam: Present: warm, dry, intact, normal color. Absent: rash, cyanosis, diaphoretic, petechiae, pallor <Nirav Valiente - Last Filed: 05/13/21 12:51> Course Vital Signs 05/13/21 05/13/21 05/13/21 09:36 17:32 19:57 Temperature 98.6 F Pulse Rate 60 50 L 48 L Respiratory 18 18 Rate Blood Pressure 142/95 146/85 O2 Sat by Pulse 99 97 Oximetry 05/13/21 05/13/21 20:16 20:27 Temperature 98.3 F Pulse Rate 62 67 Respiratory 18 Rate Blood Pressure 147/85 O2 Sat by Pulse 98 Oximetry EKG Findings - EKG Results: EKG: sinus rhythm EKG shows: bradycardia (Ventricular rate 46, OR interval 0.152, QRS of 0.88, QTc of 0.386) <Nirav Valiente - Last Filed: 05/13/21 12:51> Medical Decision Making <Nirav Valiente - Last Filed: 05/13/21 12:51> <Kindra Hinojosa - Last Filed: 05/14/21 00:05> - Medical Decision Making Patient is well-appearing and was found to have bradycardia yesterday during her visit. She was offered admission at that time and refused. She returns today for admission and echocardiogram. She denies worsening symptoms, no shortness of breath or dizziness. Her labs were unremarkable yesterday. Troponin was negative. TSH was added on and found to be 5.640. Case discussed with Dr. Hinojosa will be admitted with cardiology consult. (Nirav Valiente) I was available for consultation in the emergency department. The history and physical exam were done by the midlevel provider. I was consulted for this patients care. I reviewed the case with the midlevel provider and based on their presentation of the patient, I agree with the assessment, medical decision making and plan of care as documented. I spoke with Dr. Hurd who agreed to admit the patient. Chart was dictated using [employer] dictation software. Attempts were made to correct any dictation errors however some typographical errors may persist. Patient was seen during a national state of emergency due to the Covid-19 pandemic. (Kindra Hinojosa) - Lab Data Lab Results 05/13/21 05/13/21 Range/Units 10:20 10:20 Magnesium 1.7 (1.6-2.3) mg/dL Troponin I <0.012 (0.000-0.034) ng/mL TSH 5.640 H (0.465-4.680) mIU/L Free T4 0.55 L (0.78-2.19) ng/dL Disposition Decision Date: 05/13/21 Decision Time: 12:37 <Nirav Valiente - Last Filed: 05/13/21 12:51> <Kindra Hinojosa - Last Filed: 05/14/21 00:05> Clinical Impression: Bradycardia Disposition: ADMITTED IP TO THIS HOSP Condition: Good
[2021-05-13] MEDS ORDERED: SODIUM CHLORIDE 0.9% 1,000 ML IV STA (10:17)
[2021-05-13 10:41] LABS: Magnesium 1.7 mg/dL (1.6-2.3)
[2021-05-13] MEDS ORDERED: NALOXONE 0.4 MG/ML 1 ML VIAL IV PRN (12:38)
[2021-05-13] MEDS ORDERED: IBUPROFEN 400 MG TAB PO PRN (12:38)
[2021-05-13] MEDS ORDERED: ACETAMINOPHEN TAB 325 MG TAB PO PRN (12:38)
[2021-05-13 12:58] LABS: T4, Free (Free Thyroxine) 0.55 ng/dL (0.78-2.19)
[2021-05-13] MEDS ORDERED: IPRATROPIUM-ALBUTEROL 3 ML NEB INHALATION PRN (16:18)
[2021-05-13] MEDS ORDERED: HYDROcodone/APAP 5-325MG 1 EACH TAB PO PRN (16:23)
[2021-05-13] MEDS ORDERED: NON FORMULARY DRUG (Acetaminophen [Tylenol] 325 MG Capsule) PO PRN (16:23)
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
[2021-05-13] MEDS: LEVOTHYROXINE 88 MCG TAB PO SCH (17:30)
[2021-05-13] MEDS ORDERED: ERGOCALCIFEROL 1,250 MCG (50,000 IU) CAPSULE PO SCH (18:00)
[2021-05-13] MEDS ORDERED: methylPREDNISolone SOD SUCCI 125 MG/2 ML VIAL IV SCH (18:00)
[2021-05-13 18:27] LABS: Glucose,Whole Blood 88 mg/dL (75-99)
[2021-05-13] MEDS: BUDESONIDE 0.5 MG/2 ML NEBU INHALATION SCH (19:26)
[2021-05-13] MEDS: FAMOTIDINE 20 MG TAB PO SCH (21:19)
[2021-05-13] MEDS: FUROSEMIDE 20 MG TAB PO SCH (21:19)
[2021-05-13] MEDS: acetaZOLAMIDE 250 MG TAB PO SCH (21:19)
--- NOTE | 2021-05-13 22:04 | P.GSCN ---
History of Present Illness Consult date: 05/13/21 History of present illness: CHIEF COMPLAINT: Atypical chest pain HISTORY OF PRESENT ILLNESS: Breonna Garcia is a 31-year-old female status post gastric bypass December 2020. She is 4 months out. She went to the emergency room yesterday with chest pain. She had bradycardia. She had left the ER prior to being admitted and now returns to the hospital with persistent symptoms. She has atypical chest pain and per her report enlarged heart. She had troubles with swallowing. General surgery is consulted for atypical chest pain and history of gastric bypass. At height of 5 feet 2 inches, her ideal body weight is 135 pounds. Her highest weight is 282 pounds, body mass index 51.7. She comes in 204 pounds. She has lost 77 pounds lifetimes. Her body mass index is 37.5. She is 70 pounds overweight. PAST MEDICAL HISTORY: 1. Morbid obesity due to excess calories 2. Body mass index, 51.9 3. Lupus 4. Pseudotumor cerebri 5. Hypertensive heart disease 6. History of kidney nodule 7. Hypothyroidism 8. Depressive disorder 9. Seizure disorder 10. Avascular necrosis hips 11. Scoliosis of the spine 12. History of HELLP syndrome 13. Osteoarthritis knee 14. Osteoarthritis of the hips PAST SURGICAL HISTORY: 1. Kidney biopsy 2. Elbow surgery 3. Cholecystectomy 4. Left foot surgery 5. Ear surgery 6. Upper endoscopy 7. Status post gastric bypass HOME MEDICATIONS: Home Medications Medication Instructions Recorded Confirmed HYDROcodone/APAP 5-325MG [[place] 1 tab PO BID 03/26/20 01/12/21 5-325] Levothyroxine Sodium [Synthroid] 50 mcg PO BID 03/26/20 01/12/21 Belimumab [Benlysta] 200 mg SQ Q30D 03/30/20 01/12/21 Multivitamins, Thera [Multivitamin 1 tab PO DAILY 04/06/20 01/12/21 (formulary)] Venlafaxine HCl [Effexor] 75 mg PO DAILY 04/23/20 01/12/21 Furosemide [Lasix] 20 mg PO BID 12/09/20 01/12/21 acetaZOLAMIDE [Diamox] 250 mg PO TID 01/12/21 01/12/21 ALLERGIES: Allergies Allergy/AdvReac Type Severity Reaction Status Date / Time codeine AdvReac Nausea & Verified 01/12/21 10:45 Vomiting. HEADACHES SOCIAL HISTORY: No past tobacco use. FAMILY HISTORY: No family history of ulcerative colitis disease or Crohn's disease. Family history of morbid obesity. No lupus in the family. No reports of stomach or esophageal cancer. REVIEW OF ORGAN SYSTEMS: CONSTITUTIONAL: At height of 5 feet 2 inches, her ideal body weight is 135 pounds. She comes in 283 pounds. Her body mass index is 51.9. She is 148 pounds overweight. HEENT: Denies any active troubles with vision or hearing. ENDOCRINE: No diabetes. Has hypothyroidism. CARDIOVASCULAR: Has new bradycardia and chest pain. RESPIRATORY: No daytime somnolence. No asthma. GASTROINTESTINAL: History of dysphagia and nausea. MUSCULOSKELETAL: Has lower back pain and joint pain. Has osteoarthritis of the knees. History of avascular necrosis of the tibia including hips. NEURO: Has headaches. Has seizure disorders. Has pseudotumor cerebri. PSYCH: Has depression. No suicidal ideation. RHEUMATOLOGIC: Has lupus. No rheumatoid arthritis. HEMATOLOGIC: Denies any abnormal bleeding or bruising. No personal history of DVTs. SKIN: No rash. No skin cancer. PHYSICAL EXAM: VITAL SIGNS: Reviewed GENERAL: Well-developed in no acute distress. HEENT: No scleral icterus. Extraocular movements grossly intact. Hears conversational speech. No nasal drainage. NECK: Supple without lymphadenopathy. CHEST: Nonlabored respirations with equal bilateral excursions. CARDIOVASCULAR: Bradycardic ABDOMEN: Obese, soft, nontender, nondistended. MUSCULOSKELETAL: No clubbing, cyanosis. NEURO: No focal or lateralizing signs. Cranial nerves 2 through 12 grossly within normal limits. PSYCH: Appropriate affect. Alert and oriented to person, place and time. SKIN: Good skin turgor. Well perfused. EKG: Marked sinus bradycardia, possible anterior infarct ASSESSMENT: 1. Atypical chest pain 2. Morbid obesity due to excess calories, body mass index, 51.9 now 37.5 3. Lupus 4. Pseudotumor cerebri 5. Hypertensive heart disease 6. History of kidney nodule 7. Hypothyroidism, poorly controlled 8. Depressive disorder 9. Seizure disorder 10. Avascular necrosis hips 11. Scoliosis of the spine 12. History of HELLP syndrome 13. Osteoarthritis knee 14. Osteoarthritis of the hips 15. Status post gastric bypass. PLAN: 1. Recommend upper endoscopy for atypical chest pain in presence of gastric bypass. 2. Cardiology consultation is pending. 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, AVASCULAR NECROSIS KARTHIK HIPS, arthritis, pseudotumur History of Any Multi-Drug Resistant Organisms: None Reported Past Surgical History: Bariatric Surgery, Cholecystectomy, Ear Surgery, Orthopedic Surgery Additional Past Surgical History / Comment(s): elbow, L foot surgery; eye surgery sleeve gastrectomy 01-18-21 Past Anesthesia/Blood Transfusion Reactions: No Reported Reaction Past Psychological History: Depression Smoking Status: Never smoker Past Alcohol Use History: None Reported Past Drug Use History: None Reported Medications and Allergies Home Medications Medication Instructions Recorded Confirmed Type HYDROcodone/APAP 5-325MG [[place] 1 tab PO BID PRN 03/26/20 05/13/21 History 5-325] Belimumab [Benlysta] 200 mg SQ Q30D 03/30/20 05/13/21 History Furosemide [Lasix] 20 mg PO BID 12/09/20 05/13/21 History acetaZOLAMIDE [Diamox] 250 mg PO TID 01/12/21 05/13/21 History Ergocalciferol [Vitamin D2 (1250 1,250 unit PO TH 02/24/21 05/13/21 History Mcg = 99400 Iu)] Famotidine [Pepcid] 20 mg PO BID #30 tablet 03/17/21 05/13/21 Rx Levothyroxine Sodium [Euthyrox] 175 mcg PO DAILY #30 tablet 03/17/21 05/13/21 Rx Magnesium Oxide [Magox 400] 400 mg PO DAILY #60 tablet 03/17/21 05/13/21 Rx Acetaminophen [Tylenol] 325 mg PO Q6H PRN 05/13/21 05/13/21 History Magnesium Citrate [Citrate of 15 ml PO DAILY 05/13/21 05/13/21 History Magnesia] Multivitamins, Thera [Multivitamin 1 tab PO DAILY 05/13/21 05/13/21 History (formulary)] Sodium Chloride 0.65% Nasal [Deep 2 spray NASAL Q2H PRN 05/13/21 05/13/21 History Sea (Saline)] Vitamin A [Vitamin A (8,000 Units 2,400 mcg PO DAILY 05/13/21 05/13/21 History = 2,400 MCG)] Allergies Allergy/AdvReac Type Severity Reaction Status Date / Time codeine AdvReac Nausea & Verified 05/13/21 11:07 Vomiting. HEADACHES Surgical - Exam Vital Signs Temp Pulse Resp BP Pulse Ox 98.6 F 60 18 142/95 99 05/13/21 09:36 05/13/21 09:36 05/13/21 09:36 05/13/21 09:36 05/13/21 09:36 Results - Labs Abnormal Lab Results - Last 24 Hours (Table) 05/13/21 Range/Units 10:20 TSH 5.640 H (0.465-4.680) mIU/L Free T4 0.55 L (0.78-2.19) ng/dL Thyroid panel 05/13/21 Range/Units 10:20 TSH 5.640 H (0.465-4.680) mIU/L Pituitary panel 05/13/21 Range/Units 10:20 TSH 5.640 H (0.465-4.680) mIU/L Assessment and Plan (1) Atypical chest pain Current Visit: Yes Status: Acute Code(s): R07.89 - OTHER CHEST PAIN SNOMED Code(s): 767895856 (2) Bradycardia Current Visit: Yes Status: Acute Code(s): R00.1 - BRADYCARDIA, UNSPECIFIED SNOMED Code(s): 59545781 (3) Morbid obesity due to excess calories Current Visit: No Status: Acute Code(s): E66.01 - MORBID (SEVERE) OBESITY DUE TO EXCESS CALORIES SNOMED Code(s): 649472651 (4) Gastric bypass status for obesity Current Visit: Yes Status: Acute Code(s): Z98.84 - BARIATRIC SURGERY STATUS SNOMED Code(s): 757053457
[2021-05-14] MEDS: methylPREDNISolone SOD SUCCI 40 MG/ML 1 ML VIAL IV SCH ×5 (04:04→21:53)
[2021-05-14 06:05] LABS: Glucose,Whole Blood 92 mg/dL (75-99)
[2021-05-14] MEDS: LEVOTHYROXINE 88 MCG TAB PO SCH (06:25)
[2021-05-14] MEDS: BUDESONIDE 0.5 MG/2 ML NEBU INHALATION SCH ×2 (07:42→19:58)
[2021-05-14] MEDS: acetaZOLAMIDE 250 MG TAB PO SCH ×3 (08:05→21:52)
[2021-05-14] MEDS: FUROSEMIDE 20 MG TAB PO SCH ×2 (08:05→21:52)
[2021-05-14] MEDS: FAMOTIDINE 20 MG TAB PO SCH ×2 (08:05→21:52)
[2021-05-14] MEDS: MAGNESIUM OXIDE 400 MG TAB PO SCH (08:05)
--- NOTE | 2021-05-14 09:45 | ECHOF ---
Referral Reason:bradycardia MEASUREMENTS -------- HEIGHT: 160.0 cm WEIGHT: 93.0 kg BP: 142/95 RVIDd: 3.0 cm (< 3.3) IVSd: 1.2 cm (0.6 - 1.1) LVIDd: 4.1 cm (3.9 - 5.3) LVPWd: 1.4 cm (0.6 - 1.1) IVSs: 1.4 cm LVIDs: 2.8 cm LVPWs: 1.5 cm LAESV Index (A-L): 26.56 ml/m Ao Diam: 3.5 cm (2.0 - 3.7) AV Cusp: 2.5 cm (1.5 - 2.6) MV EXCURSION: 17.333 mm (> 18.000) MV EF SLOPE: 90 mm/s (70 - 150) EPSS: 0.3 cm MV E Chaz: 0.94 m/s MV DecT: 244 ms MV A Chaz: 0.44 m/s MV E/A Ratio: 2.15 RAP: 5.00 mmHg RVSP: 32.12 mmHg FINDINGS -------- Sinus rhythm. This was a technically adequate study. The left ventricular size is normal. There is mild concentric left ventricular hypertrophy. Overa ll left ventricular systolic function is normal with, an EF between 55 - 60 %. The diastolic fillin g pattern is normal for the age of the patient 9.12. The right ventricle is normal in size. Normal LA size by volume 22+/-6 ml/m2. The right atrial size is normal. Interatrial and interventricular septum intact. The aortic valve is trileaflet and appears structurally normal. There is no evidence of aortic regu rgitation. There is no evidence of aortic stenosis. There is trace mitral regurgitation. Mild tricuspid regurgitation present. There is no evidence of pulmonary hypertension. The right v entricular systolic pressure, as measured by Doppler, is 32.12mmHg. There is no pulmonic regurgitation present. The aortic root size is normal. IVC Not well visulized. There is no pericardial effusion. CONCLUSIONS -------- 1. The left ventricular size is normal. 2. There is mild concentric left ventricular hypertrophy. 3. Overall left ventricular systolic function is normal with, an EF between 55 - 60 %. 4. The diastolic filling pattern is normal for the age of the patient 9.12 5. The right ventricle is normal in size. 6. There is trace mitral regurgitation. 7. Mild tricuspid regurgitation present. [employer]: Jennifer Kaye RDCS
[2021-05-14] MEDS: MAGNESIUM CITRATE 296 ML BOTTLE PO SCH (10:40)
[2021-05-14 11:36] LABS: Glucose,Whole Blood 69 mg/dL (75-99)
[2021-05-14 11:53] LABS: Glucose,Whole Blood 76 mg/dL (75-99)
--- NOTE | 2021-05-14 12:44 | P.CRDCN ---
History of Present Illness History of present illness: HISTORY OF PRESENTING ILLNESS This is a pleasant 31-year-old female past medical history significant for no tumor cerebri, recent gastric bypass surgery, GERD, hypothyroidism and obesity with BMI 38. We have been asked to see in consultation for bradycardia. She presented to the hospital with symptoms of epigastric discomfort, incidentally she was found to have sinus bradycardia on EKG and telemetry tracings prompting a cardiac evaluation. She is seen and examined up ambulating around the room in no acute distress. She denies symptoms of dizziness or syncope. She is having discomfort in the epigastric region that is exacerbated by deep inspiration. She is scheduled to undergo an EGD today. EKG reveals sinus bradycardia heart rate of [address] or T wave abnormalities noted. Laboratory data reviewed, TSH 5.64, free T4 0.55, magnesium 1.7 and cardiac enzymes negative 1 REVIEW OF SYSTEMS At the time of my exam: CONSTITUTIONAL: Denies fever or chills. CARDIOVASCULAR: Denies chest pain, shortness of breath, orthopnea, PND or palpitations. RESPIRATORY: Denies cough. GASTROINTESTINAL: Complains of epigastric pain. Denies abdominal pain, diarrhea, constipation, nausea or vomiting. MUSCULOSKELETAL: Denies myalgias. NEUROLOGIC: Denies numbness, tingling, headache or weakness. ENDOCRINE: Denies fatigue, weight change, polydipsia or polyurina. GENITOURINARY: Denies burning, hematuria or urgency with micturation. HEMATOLOGIC: Denies history of anemia or bleeding. PHYSICAL EXAMINATION Blood pressure 146/95 heart rate 52 afebrile and maintaining oxygen saturation on room air. CONSTITUTIONAL: No apparent distress. HEENT: Head is normocephalic. Pupils are equal, round. Sclerae anicteric. Mucous membranes of the mouth are moist. No JVD. No carotid bruit. CHEST EXAMINATION: Lungs are clear to auscultation. No chest wall tenderness is noted on palpation or with deep breathing. HEART EXAMINATION: Regular rate and rhythm. S1, S2 heard. No murmurs, gallops or rub. ABDOMEN: Soft, nontender. EXTREMITIES: 2+ peripheral pulses, no lower extremity edema and no calf tenderness. NEUROLOGIC EXAMINATION: Patient is awake, alert and oriented x3. ASSESSMENT Sinus bradycardia Epigastric pain Hypothyroidism PLAN Recommend adjustment of levothyroxine, defer to primary medical team. Pain is epigastric in nature and reproducible, not related to underlying coronary artery disease. She is asymptomatic regarding her sinus bradycardia. No further cardiac intervention at this time. Table to undergo endoscopy this afternoon. We will follow along as needed. Thank you kindly for this consultation. Nurse Practitioner note has been reviewed, I agree with a documented findings and plan of care. Patient was seen and examined. 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, AVASCULAR NECROSIS KARTHIK HIPS, arthritis, pseudotumur History of Any Multi-Drug Resistant Organisms: None Reported Past Surgical History: Bariatric Surgery, Cholecystectomy, Ear Surgery, Orthopedic Surgery Additional Past Surgical History / Comment(s): elbow, L foot surgery; eye surgery sleeve gastrectomy 01-18-21 Past Anesthesia/Blood Transfusion Reactions: No Reported Reaction Past Psychological History: Depression Smoking Status: Never smoker Past Alcohol Use History: None Reported Past Drug Use History: None Reported Medications and Allergies Home Medications Medication Instructions Recorded Confirmed Type HYDROcodone/APAP 5-325MG [[place] 1 tab PO BID PRN 03/26/20 05/13/21 History 5-325] Belimumab [Benlysta] 200 mg SQ Q30D 03/30/20 05/13/21 History Furosemide [Lasix] 20 mg PO BID 12/09/20 05/13/21 History acetaZOLAMIDE [Diamox] 250 mg PO TID 01/12/21 05/13/21 History Ergocalciferol [Vitamin D2 (1250 1,250 unit PO TH 02/24/21 05/13/21 History Mcg = 87559 Iu)] Famotidine [Pepcid] 20 mg PO BID #30 tablet 03/17/21 05/13/21 Rx Levothyroxine Sodium [Euthyrox] 175 mcg PO DAILY #30 tablet 03/17/21 05/13/21 Rx Magnesium Oxide [Magox 400] 400 mg PO DAILY #60 tablet 03/17/21 05/13/21 Rx Acetaminophen [Tylenol] 325 mg PO Q6H PRN 05/13/21 05/13/21 History Magnesium Citrate [Citrate of 15 ml PO DAILY 05/13/21 05/13/21 History Magnesia] Multivitamins, Thera [Multivitamin 1 tab PO DAILY 05/13/21 05/13/21 History (formulary)] Sodium Chloride 0.65% Nasal [Deep 2 spray NASAL Q2H PRN 05/13/21 05/13/21 History Sea (Saline)] Vitamin A [Vitamin A (8,000 Units 2,400 mcg PO DAILY 05/13/21 05/13/21 History = 2,400 MCG)] Allergies Allergy/AdvReac Type Severity Reaction Status Date / Time codeine AdvReac Nausea & Verified 05/13/21 11:07 Vomiting. HEADACHES Physical Exam Vitals: Vital Signs Temp Pulse Pulse Resp BP BP Pulse Ox 05/14/21 11:38 52 L 16 146/95 99 05/14/21 07:59 97.8 F 49 L 16 158/99 99 05/14/21 07:49 50 L 16 05/14/21 07:42 50 L 16 97 05/14/21 04:00 52 L 18 135/86 98 05/14/21 00:00 57 L 16 113/72 99 05/13/21 20:52 98.7 F 58 L 18 147/94 05/13/21 20:27 98.3 F 67 18 147/85 98 05/13/21 20:16 62 05/13/21 19:57 48 L 05/13/21 17:32 50 L 18 146/85 97 Intake and Output 05/13/21 05/14/21 05/14/21 22:59 06:59 14:59 Intake Total 300 Balance 300 Intake: Oral 300 Other: # Voids 0 Weight 92.986 kg 95.4 kg Results Current Medications Generic Name Dose Route Start Last Admin Trade Name Freq PRN Reason Stop Dose Admin Acetaminophen 650 mg 05/13/21 12:38 Acetaminophen Tab 325 Mg Tab PO Q6HR PRN Mild Pain or Fever > 100.5 Hydrocodone Bitart/Acetaminophen 1 each 05/13/21 16:23 Hydrocodone/Apap 5-325mg 1 Each Tab PO BID PRN Pain Acetazolamide 250 mg 05/13/21 22:00 05/14/21 08:05 Acetazolamide 250 Mg Tab PO 250 mg TID MAIA Administration Albuterol/Ipratropium 3 ml 05/13/21 16:18 05/13/21 19:26 Ipratropium-Albuterol 3 Ml Neb INHALATION 3 ml RT-QID PRN Administration Shortness Of Breath Or Wheezing Budesonide 0.5 mg 05/13/21 20:00 05/14/21 07:42 Budesonide 0.5 Mg/2 Ml Nebu INHALATION 0.5 mg RT-BID MAIA Administration Ergocalciferol 1,250 mcg 05/13/21 18:00 05/13/21 17:31 Ergocalciferol 1,250 Mcg (50,000 Iu) Capsule PO 1,250 mcg TH MAIA Administration Famotidine 20 mg 05/13/21 21:00 05/14/21 08:05 Famotidine 20 Mg Tab PO 20 mg BID MAIA Administration Furosemide 20 mg 05/13/21 21:00 05/14/21 08:05 Furosemide 20 Mg Tab PO 20 mg BID MAIA Administration Ibuprofen 400 mg 05/13/21 12:38 Ibuprofen 400 Mg Tab PO Q6HR PRN Mild Pain or Fever > 100.5 Levothyroxine Sodium 176 mcg 05/13/21 17:00 05/14/21 06:25 Levothyroxine 88 Mcg Tab PO 176 mcg 0630 MAIA Administration Magnesium Citrate 15 ml 05/14/21 09:00 05/14/21 10:40 Magnesium Citrate 296 Ml Bottle PO Not Given DAILY MAIA Magnesium Oxide 400 mg 05/14/21 09:00 05/14/21 08:05 Magnesium Oxide 400 Mg Tab PO 400 mg DAILY MAIA Administration Methylprednisolone Sodium Succinate 40 mg 05/14/21 00:00 05/14/21 11:38 Methylprednisolone Sod Succi 40 Mg/Ml 1 Ml Vial IV Not Given Q6HR MAIA Naloxone HCl 0.2 mg 05/13/21 12:38 Naloxone 0.4 Mg/Ml 1 Ml Vial IV Q2M PRN Opioid Reversal Intake and Output 05/13/21 05/14/21 05/14/21 22:59 06:59 14:59 Intake Total 300 Balance 300 Intake: Oral 300 Other: # Voids 0 Weight 92.986 kg 95.4 kg
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
[2021-05-14] MEDS ORDERED: PROPOFOL 10 MG/ML 20 ML VIAL IV ONE (14:10)
[2021-05-14] MEDS ORDERED: LIDOCAINE 1% INJ 10MG/ML (20 ML MDV) ONE (14:10)
[2021-05-14] MEDS ORDERED: IV FLUID CONTINUATION 1,000 ML IV ONE ×2 (14:16)
--- NOTE | 2021-05-14 14:38 | P.PCN ---
Date of Procedure: 05/14/21 Description of Procedure: PREOPERATIVE DIAGNOSIS: Atypical chest pain Dysphagia. Morbid obesity due to excess calories, BMI 38.5 History of gastric bypass Bradycardia POSTOPERATIVE DIAGNOSIS: Atypical chest pain Dysphagia. Morbid obesity due to excess calories, BMI 38.5 History of gastric bypass Gastrojejunal stricture with chronic ulcer without perforation OPERATION: Esophagogastrojejunoscopy with balloon dilatation from 12 to 18 mm. SURGEON: Darya Martinez MD ANESTHESIA: MAC. INDICATIONS: The patient is a 31-year-old female who presents with a history of dysphagia, gastric bypass and atypical chest pain. Benefits and risks of the procedure were described. Informed consent was obtained. DESCRIPTION: The patient was brought into the endoscopy suite and laid in the left lateral decubitus position. After a timeout was confirmed, the procedure was initiated. An Olympus gastroscope was passed along the posterior oropharynx down to the distal esophagus where the squamocolumnar junction was unremarkable. The gastric pouch was entered. A gastrojejunal stricture of 12 mm was found as the adult gastroscope was 9.5 mm in size. A Open Wager balloon dilator was placed through the scope. Final insufflation up to 18 mm was performed with a total of 2 minutes. The scope was advanced up to 60 cm from the incisors into the Bharathi limb. The mucosa of the gastrojejunal anastomosis was intact. However chronic gastrojejunal marginal ulcer was encountered. No full-thickness injury was encountered. The GI tract was desufflated. The patient tolerated the procedure well. FINDINGS: Squamocolumnar junction unremarkable at 35 cm. Stricture of approximately 12 mm encountered. Chronic gastrojejunal ulceration encountered Retained calderon and anastomosis. Retaining suture at blind jejunal limb Successful balloon dilatation to 18 mm. Gastric pouch 5 cm. RECOMMENDATIONS: 1. Start Carafate 1 gram 3 times a day as patient has intolerance to omeprazole 2. Start bariatric full liquid diet. 3. May advance to bariatric regular diet tomorrow
[2021-05-14] MEDS: SUCRALFATE 1 GM TAB PO SCH (16:19)
[2021-05-14 16:43] LABS: Glucose,Whole Blood 80 mg/dL (75-99)
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
[2021-05-14 20:38] LABS: Glucose,Whole Blood 88 mg/dL (75-99)
[2021-05-15 06:12] LABS: Glucose,Whole Blood 66 mg/dL (75-99)
[2021-05-15 06:25] LABS: Glucose,Whole Blood 78 mg/dL (75-99)
[2021-05-15] MEDS ORDERED: LEVOTHYROXINE 100 MCG TAB PO SCH (06:30)
[2021-05-15] MEDS: SUCRALFATE 1 GM TAB PO SCH ×2 (07:05→11:46)
[2021-05-15 07:29] VITALS: RESP 16; TEMP 98.3
[2021-05-15] MEDS: BUDESONIDE 0.5 MG/2 ML NEBU INHALATION SCH (08:19)
[2021-05-15 08:39] VITALS: PULSE 55
[2021-05-15] MEDS: FAMOTIDINE 20 MG TAB PO SCH (09:12)
[2021-05-15] MEDS: MAGNESIUM OXIDE 400 MG TAB PO SCH (09:12)
[2021-05-15] MEDS: MAGNESIUM CITRATE 296 ML BOTTLE PO SCH (09:12)
[2021-05-15] MEDS: FUROSEMIDE 20 MG TAB PO SCH (09:12)
[2021-05-15] MEDS: acetaZOLAMIDE 250 MG TAB PO SCH (09:12)
[2021-05-15] MEDS: methylPREDNISolone SOD SUCCI 40 MG/ML 1 ML VIAL IV SCH ×2 (09:15→11:47)
--- NOTE | 2021-05-15 09:37 | P.PN ---
Subjective Progress Note Date: 05/15/21 Principal diagnosis: Marginal ulcer Patient doing well today. Underwent EGD showing a ulcer at her gastrojejunostomy anastomotic site with stricture. Patient had balloon dilation performed. Doing well today. Pain is improved. Tolerating diet. Objective - Vital Signs Vital signs: Vital Signs Temp 98.3 F 05/15/21 07:29 Pulse 55 L 05/15/21 08:30 Resp 16 05/15/21 07:29 BP 125/87 05/15/21 07:29 Pulse Ox 97 05/15/21 08:21 Intake & Output 05/14/21 05/15/21 05/15/21 18:59 06:59 18:59 Intake Total 220 118 Balance 220 118 Weight 94.1 kg Intake: IV 100 Oral 120 118 Other: # Voids 2 1 - Exam Abdomen: Soft, nondistended, nontender - Labs Labs: Abnormal Lab Results - Last 24 Hours (Table) 05/14/21 05/15/21 Range/Units 11:34 06:10 POC Glucose (mg/dL) 69 L 66 L (75-99) mg/dL Assessment and Plan (1) Marginal ulcer Narrative/Plan: Patient doing well at this time. Continue antiacid therapy. May discharge from our point of view. Follow-up bariatric clinic with Dr. Tang post discharge. Current Visit: Yes Status: Acute Code(s): K28.9 - GASTROJEJUNAL ULCER, UNSP ACUTE OR CHR, W/O HEMOR OR PERF SNOMED Code(s): 019660855
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
[2021-05-15 11:50] LABS: Glucose,Whole Blood 92 mg/dL (75-99)
[2021-05-15 11:52] LABS: Basophils % (A) 0 %; Eosinophils % (A) 0 %; HCT 43.1 % (34.0-46.0); HGB 14.3 gm/dL (11.4-16.0); Lymphocytes # (A) 1.9 k/uL (1.0-4.8); Lymphocytes % (A) 29 %; MCH 29.6 pg (25.0-35.0); MCHC 33.2 g/dL (31.0-37.0); Monocytes # (A) 0.4 k/uL (0-1.0); Monocytes % (A) 6 %; Neutrophils # (A) 4.1 k/uL (1.3-7.7); Neutrophils % (A) 63 %; Platelet Count 195 k/uL (150-450); RBC 4.84 m/uL (3.80-5.40); RDW 15.5 % (11.5-15.5); WBC 6.6 k/uL (3.8-10.6)
[2021-05-15 12:09] VITALS: BP 123/85
[2021-05-15 12:11] LABS: African American GFR (CKD) >90 (>60 ml/min/1.73 sqM); Anion Gap 10 mmol/L; Blood Urea Nitrogen 9 mg/dL (7-17); Calcium 9.7 mg/dL (8.4-10.2); Carbon Dioxide 25 mmol/L (22-30); Chloride 106 mmol/L (98-107); Glucose 82 mg/dL (74-99); Non-African American GFR(CKD) 89 (>60 ml/min/1.73 sqM); Potassium 4.1 mmol/L (3.5-5.1); Sodium 141 mmol/L (137-145)
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
== END 2021-05-15 15:37 | disposition home or self-care (01) ==
LOC: EC 09:28 → 6NMEDSUR 11:48 → 3SCARD 20:32
PROVIDERS: ADMIT Family Medicine; ATTEND Family Medicine
DX: J40 Bronchitis, not specified as acute or chronic (principal); K28.7 Chronic gastrojejunal ulcer without hemorrhage or perforation; K56.699 Other intestinal obstruction unspecified as to partial versus complete obstruction; G93.2 Benign intracranial hypertension; E03.9 Hypothyroidism, unspecified; G40.909 Epilepsy, unspecified, not intractable, without status epilepticus; M32.9 Systemic lupus erythematosus, unspecified; R13.10 Dysphagia, unspecified; K21.9 Gastro-esophageal reflux disease without esophagitis; E66.01 Morbid (severe) obesity due to excess calories; Z68.43 Body mass index [BMI] 50.0-59.9, adult; M19.90 Unspecified osteoarthritis, unspecified site; M17.10 Unilateral primary osteoarthritis, unspecified knee; M16.0 Bilateral primary osteoarthritis of hip; I11.9 Hypertensive heart disease without heart failure; F32.9 Major depressive disorder, single episode, unspecified; Z77.120 Contact with and (suspected) exposure to mold (toxic); Z79.890 Hormone replacement therapy; M41.9 Scoliosis, unspecified; M87.9 Osteonecrosis, unspecified; Z79.899 Other long term (current) drug therapy; Z88.5 Allergy status to narcotic agent; Z98.84 Bariatric surgery status; Z90.49 Acquired absence of other specified parts of digestive tract
CPT/HCPCS: 43249; 99285; 96374; 36415; 94640 ×4; 94760 ×2; 93005; 93306; 84439; 80048; 84443; 83735; 84484; 85025; G0378 ×4; J2930; J2001; J2704; C1726

== ENCOUNTER 2021-05-27 21:11 | Emergency (ER) | payer OTHER ==
--- NOTE | 2021-05-27 23:07 | ED ---
Weakness HPI - General Chief complaint: Weakness Stated complaint: Body Numbess Time Seen by Provider: 05/27/21 23:04 Source: patient, RN notes reviewed, old records reviewed Mode of arrival: ambulatory Limitations: no limitations - History of Present Illness Initial comments: This is a 31-year-old female DF for evaluation. Patient presents today for e valuation of multiple nonspecific complaints. At this time patient is complaining of numbness and feeling in arms or legs and face. She does admit to some diminished sensation in her legs. She states she is able to ambulatory without difficulty but did not take her as he was a likely with sometimes fevers his symptoms. Patient also complains that she suffers from lupus and gets treatment once a month is scheduled for next week. No other issues going on patient did recently start a new job was able to finish her day today at work secondary symptoms MD Complaint: generalized weakness, numbness, tingling -: days(s) Location: LUE, RUE, LLE, RLE, face Severity: mild Severity scale (1-10): 1 Quality: tingling, numbness Consistency: constant Improves with: none Worsens with: none Context: history of similar Associated Symptoms: denies other symptoms - Related Data Home Medications Medication Instructions Recorded Confirmed HYDROcodone/APAP 5-325MG [[place] 1 tab PO BID PRN 03/26/20 05/13/21 5-325] Belimumab [Benlysta] 200 mg SQ Q30D 03/30/20 05/13/21 Furosemide [Lasix] 20 mg PO BID 12/09/20 05/13/21 acetaZOLAMIDE [Diamox] 250 mg PO TID 01/12/21 05/13/21 Ergocalciferol [Vitamin D2 (1250 1,250 unit PO TH 02/24/21 05/13/21 Mcg = 51185 Iu)] Acetaminophen [Tylenol] 325 mg PO Q6H PRN 05/13/21 05/13/21 Magnesium Citrate [Citrate of 15 ml PO DAILY 05/13/21 05/13/21 Magnesia] Multivitamins, Thera [Multivitamin 1 tab PO DAILY 05/13/21 05/13/21 (formulary)] Sodium Chloride 0.65% Nasal [Deep 2 spray NASAL Q2H PRN 05/13/21 05/13/21 Sea (Saline)] Vitamin A [Vitamin A (8,000 Units 2,400 mcg PO DAILY 05/13/21 05/13/21 = 2,400 MCG)] Previous Rx's Medication Instructions Recorded Famotidine [Pepcid] 20 mg PO BID #30 tablet 03/17/21 Levothyroxine Sodium [Euthyrox] 175 mcg PO DAILY #30 tablet 03/17/21 Magnesium Oxide [Magox 400] 400 mg PO DAILY #60 tablet 03/17/21 Sucralfate [Carafate] 1 gm PO BID #30 tablet 05/14/21 Albuterol Sulfate [Ventolin HFA] 1 - 2 puff INHALATION Q6H PRN #1 05/15/21 each Levothyroxine Sodium [Synthroid] 200 mcg PO DAILY@0630 #30 tab 05/15/21 Allergies Allergy/AdvReac Type Severity Reaction Status Date / Time codeine AdvReac Nausea & Verified 05/27/21 22:43 Vomiting. HEADACHES Review of Systems ROS Statement: Those systems with pertinent positive or pertinent negative responses have been documented in the HPI. ROS Other: All systems not noted in ROS Statement are negative. 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, AVASCULAR NECROSIS KARTHIK HIPS, arthritis, pseudotumur History of Any Multi-Drug Resistant Organisms: None Reported Past Surgical History: Bariatric Surgery, Cholecystectomy, Ear Surgery, Orthopedic Surgery Additional Past Surgical History / Comment(s): elbow, L foot surgery; eye surgery sleeve gastrectomy 01-18-21 Past Anesthesia/Blood Transfusion Reactions: No Reported Reaction Past Psychological History: Depression Smoking Status: Never smoker Past Alcohol Use History: None Reported Past Drug Use History: None Reported General Exam General appearance: alert, in no apparent distress Head exam: Present: atraumatic, normocephalic, normal inspection Eye exam: Present: normal appearance, PERRL, EOMI. Absent: scleral icterus, conjunctival injection, periorbital swelling ENT exam: Present: normal exam, mucous membranes moist Neck exam: Present: normal inspection. Absent: tenderness, meningismus, lymphadenopathy Respiratory exam: Present: normal lung sounds bilaterally. Absent: respiratory distress, wheezes, rales, rhonchi, stridor Cardiovascular Exam: Present: regular rate, normal rhythm, normal heart sounds. Absent: systolic murmur, diastolic murmur, rubs, gallop, clicks GI/Abdominal exam: Present: soft, normal bowel sounds. Absent: distended, tenderness, guarding, rebound, rigid Extremities exam: Present: normal inspection, full ROM, normal capillary refill. Absent: tenderness, pedal edema, joint swelling, calf tenderness Back exam: Present: normal inspection Neurological exam: Present: alert, oriented X3, CN II-XII intact Psychiatric exam: Present: normal affect, normal mood Skin exam: Present: warm, dry, intact, normal color. Absent: rash Course Vital Signs 05/27/21 05/28/21 22:39 00:21 Temperature 98.1 F Pulse Rate 56 L 50 L Respiratory 19 16 Rate Blood Pressure 132/90 120/79 O2 Sat by Pulse 100 100 Oximetry - Reevaluation(s) Reevaluation #1: 05/28/21 00:47 Medical record is reviewed Reevaluation #2: 05/28/21 03:05 Patient symptoms are mildly improved Reevaluation #3: 05/28/21 03:05 Patient is informed of results and questions are answered Medical Decision Making - Medical Decision Making 31 female to be discharged home, patient having paresthesias arms and legs. Symptoms are improved able to amply without significant difficulty currently. Patient has no focal neurological deficits - Lab Data Result diagrams: 05/27/21 23:36 05/27/21 23:36 Lab Results 05/27/21 05/27/21 05/27/21 Range/Units 23:36 23:36 23:36 WBC 5.9 (3.8-10.6) k/uL RBC 4.80 (3.80-5.40) m/uL Hgb 13.5 (11.4-16.0) gm/dL Hct 43.2 (34.0-46.0) % MCV 90.1 (80.0-100.0) fL MCH 28.2 (25.0-35.0) pg MCHC 31.3 (31.0-37.0) g/dL RDW 15.2 (11.5-15.5) % Plt Count 148 L (150-450) k/uL MPV 10.9 Neutrophils % 53 % Lymphocytes % 34 % Monocytes % 8 % Eosinophils % 1 % Basophils % 1 % Neutrophils # 3.1 (1.3-7.7) k/uL Lymphocytes # 2.0 (1.0-4.8) k/uL Monocytes # 0.5 (0-1.0) k/uL Eosinophils # 0.1 (0-0.7) k/uL Basophils # 0.1 (0-0.2) k/uL PT 10.3 (9.0-12.0) sec INR 1.0 (<1.2) APTT 22.7 (22.0-30.0) sec Sodium 141 (137-145) mmol/L Potassium 3.5 (3.5-5.1) mmol/L Chloride 110 H (98-107) mmol/L Carbon Dioxide 22 (22-30) mmol/L Anion Gap 9 mmol/L BUN 7 (7-17) mg/dL Creatinine 0.65 (0.52-1.04) mg/dL Est GFR (CKD-EPI)AfAm >90 (>60 ml/min/1.73 sqM) Est GFR (CKD-EPI)NonAf >90 (>60 ml/min/1.73 sqM) Glucose 72 L (74-99) mg/dL Plasma Lactic Acid Darío (0.7-2.0) mmol/L Calcium 9.7 (8.4-10.2) mg/dL Phosphorus 4.2 (2.5-4.5) mg/dL Magnesium 1.8 (1.6-2.3) mg/dL Total Bilirubin 0.3 (0.2-1.3) mg/dL AST 34 (14-36) U/L ALT 25 (4-34) U/L Alkaline Phosphatase 78 (38-126) U/L Creatine Kinase 48 (30-135) U/L Troponin I (0.000-0.034) ng/mL Total Protein 6.5 (6.3-8.2) g/dL Albumin 3.7 (3.5-5.0) g/dL Urine Color Urine Appearance (Clear) Urine pH (5.0-8.0) Ur Specific [place] (1.001-1.035) Urine Protein (Negative) Urine Glucose (UA) (Negative) Urine Ketones (Negative) Urine Blood (Negative) Urine Nitrite (Negative) Urine Bilirubin (Negative) Urine Urobilinogen (<2.0) mg/dL Ur Leukocyte Esterase (Negative) Urine RBC (0-5) /hpf Urine WBC (0-5) /hpf Ur Squamous Epith Cells (0-4) /hpf Urine Bacteria (None) /hpf Urine Mucus (None) /hpf Urine HCG, Qual (Not Detectd) 05/27/21 05/27/21 05/28/21 Range/Units 23:36 23:36 00:19 WBC (3.8-10.6) k/uL RBC (3.80-5.40) m/uL Hgb (11.4-16.0) gm/dL Hct (34.0-46.0) % MCV (80.0-100.0) fL MCH (25.0-35.0) pg MCHC (31.0-37.0) g/dL RDW (11.5-15.5) % Plt Count (150-450) k/uL MPV Neutrophils % % Lymphocytes % % Monocytes % % Eosinophils % % Basophils % % Neutrophils # (1.3-7.7) k/uL Lymphocytes # (1.0-4.8) k/uL Monocytes # (0-1.0) k/uL Eosinophils # (0-0.7) k/uL Basophils # (0-0.2) k/uL PT (9.0-12.0) sec INR (<1.2) APTT (22.0-30.0) sec Sodium (137-145) mmol/L Potassium (3.5-5.1) mmol/L Chloride (98-107) mmol/L Carbon Dioxide (22-30) mmol/L Anion Gap mmol/L BUN (7-17) mg/dL Creatinine (0.52-1.04) mg/dL Est GFR (CKD-EPI)AfAm (>60 ml/min/1.73 sqM) Est GFR (CKD-EPI)NonAf (>60 ml/min/1.73 sqM) Glucose (74-99) mg/dL Plasma Lactic Acid Darío 0.7 (0.7-2.0) mmol/L Calcium (8.4-10.2) mg/dL Phosphorus (2.5-4.5) mg/dL Magnesium (1.6-2.3) mg/dL Total Bilirubin (0.2-1.3) mg/dL AST (14-36) U/L ALT (4-34) U/L Alkaline Phosphatase (38-126) U/L Creatine Kinase (30-135) U/L Troponin I <0.012 (0.000-0.034) ng/mL Total Protein (6.3-8.2) g/dL Albumin (3.5-5.0) g/dL Urine Color Yellow Urine Appearance Cloudy H (Clear) Urine pH 5.5 (5.0-8.0) Ur Specific [place] 1.032 (1.001-1.035) Urine Protein 1+ H (Negative) Urine Glucose (UA) Negative (Negative) Urine Ketones 1+ H (Negative) Urine Blood Moderate H (Negative) Urine Nitrite Negative (Negative) Urine Bilirubin 1+ H (Negative) Urine Urobilinogen 3.0 (<2.0) mg/dL Ur Leukocyte Esterase Negative (Negative) Urine RBC 1 (0-5) /hpf Urine WBC 8 H (0-5) /hpf Ur Squamous Epith Cells 6 H (0-4) /hpf Urine Bacteria Rare H (None) /hpf Urine Mucus Many H (None) /hpf Urine HCG, Qual (Not Detectd) 05/28/21 Range/Units 00:19 WBC (3.8-10.6) k/uL RBC (3.80-5.40) m/uL Hgb (11.4-16.0) gm/dL Hct (34.0-46.0) % MCV (80.0-100.0) fL MCH (25.0-35.0) pg MCHC (31.0-37.0) g/dL RDW (11.5-15.5) % Plt Count (150-450) k/uL MPV Neutrophils % % Lymphocytes % % Monocytes % % Eosinophils % % Basophils % % Neutrophils # (1.3-7.7) k/uL Lymphocytes # (1.0-4.8) k/uL Monocytes # (0-1.0) k/uL Eosinophils # (0-0.7) k/uL Basophils # (0-0.2) k/uL PT (9.0-12.0) sec INR (<1.2) APTT (22.0-30.0) sec Sodium (137-145) mmol/L Potassium (3.5-5.1) mmol/L Chloride (98-107) mmol/L Carbon Dioxide (22-30) mmol/L Anion Gap mmol/L BUN (7-17) mg/dL Creatinine (0.52-1.04) mg/dL Est GFR (CKD-EPI)AfAm (>60 ml/min/1.73 sqM) Est GFR (CKD-EPI)NonAf (>60 ml/min/1.73 sqM) Glucose (74-99) mg/dL Plasma Lactic Acid Darío (0.7-2.0) mmol/L Calcium (8.4-10.2) mg/dL Phosphorus (2.5-4.5) mg/dL Magnesium (1.6-2.3) mg/dL Total Bilirubin (0.2-1.3) mg/dL AST (14-36) U/L ALT (4-34) U/L Alkaline Phosphatase (38-126) U/L Creatine Kinase (30-135) U/L Troponin I (0.000-0.034) ng/mL Total Protein (6.3-8.2) g/dL Albumin (3.5-5.0) g/dL Urine Color Urine Appearance (Clear) Urine pH (5.0-8.0) Ur Specific [place] (1.001-1.035) Urine Protein (Negative) Urine Glucose (UA) (Negative) Urine Ketones (Negative) Urine Blood (Negative) Urine Nitrite (Negative) Urine Bilirubin (Negative) Urine Urobilinogen (<2.0) mg/dL Ur Leukocyte Esterase (Negative) Urine RBC (0-5) /hpf Urine WBC (0-5) /hpf Ur Squamous Epith Cells (0-4) /hpf Urine Bacteria (None) /hpf Urine Mucus (None) /hpf Urine HCG, Qual Not Detected (Not Detectd) - Radiology Data Radiology results: report reviewed (CT brain CT of chest abdomen and pelvis is negative for acute disease), image reviewed Disposition Clinical Impression: Paresthesia of bilateral legs, Paresthesia of hand, bilateral Disposition: HOME SELF-CARE Condition: Good Instructions (If sedation given, give patient instructions): Paresthesia (ED), Lumbar Radiculopathy (ED) Is patient prescribed a controlled substance at d/c from ED?: No Referrals: Getachew Mar MD [Primary Care Provider] - 1-2 days
[2021-05-27] MEDS ORDERED: SODIUM CHLORIDE 0.9% 500 ML 500 ML IV STA (23:30)
[2021-05-28 00:13] LABS: Basophils # (A) 0.1 k/uL (0-0.2); Basophils % (A) 1 %; Eosinophils # (A) 0.1 k/uL (0-0.7); Eosinophils % (A) 1 %; HCT 43.2 % (34.0-46.0); HGB 13.5 gm/dL (11.4-16.0); Lymphocytes % (A) 34 %; MCH 28.2 pg (25.0-35.0); MCHC 31.3 g/dL (31.0-37.0); MCV 90.1 fL (80.0-100.0); Mean Platelet Volume 10.9; Monocytes # (A) 0.5 k/uL (0-1.0); Monocytes % (A) 8 %; Neutrophils # (A) 3.1 k/uL (1.3-7.7); Neutrophils % (A) 53 %; Platelet Count 148 k/uL (150-450); RDW 15.2 % (11.5-15.5); WBC 5.9 k/uL (3.8-10.6)
[2021-05-28 00:25] LABS: ALT 25 U/L (4-34); AST 34 U/L (14-36); African American GFR (CKD) >90 (>60 ml/min/1.73 sqM); Albumin 3.7 g/dL (3.5-5.0); Alkaline Phosphatase 78 U/L (38-126); Anion Gap 9 mmol/L; Blood Urea Nitrogen 7 mg/dL (7-17); Calcium 9.7 mg/dL (8.4-10.2); Carbon Dioxide 22 mmol/L (22-30); Chloride 110 mmol/L (98-107); Creatine Kinase 48 U/L (30-135); Glucose 72 mg/dL (74-99); Magnesium 1.8 mg/dL (1.6-2.3); Non-African American GFR(CKD) >90 (>60 ml/min/1.73 sqM); Phosphorus 4.2 mg/dL (2.5-4.5); Potassium 3.5 mmol/L (3.5-5.1); Sodium 141 mmol/L (137-145); Total Bilirubin 0.3 mg/dL (0.2-1.3); Total Protein 6.5 g/dL (6.3-8.2)
[2021-05-28 00:32] LABS: Partial Thromboplastin Time 22.7 sec (22.0-30.0); Prothrombin Time 10.3 sec (9.0-12.0)
[2021-05-28 01:04] LABS: Appearance,Urine Cloudy (Clear); Bacteria,Urine Rare /hpf; Bilirubin,Urine 1+ (Negative); Blood,Urine Moderate (Negative); Color,Urine Yellow; Glucose,Urine (UA) Negative (Negative); Ketones,Urine 1+ (Negative); Leukocyte Esterase,Urine Negative (Negative); Mucus,Urine Many /hpf; Nitrite,Urine Negative (Negative); PH, Urine 5.5 (5.0-8.0); Protein,Urine 1+ (Negative); RBC,Urine 1 /hpf (0-5); Specific Gravity,Urine 1.032 (1.001-1.035); Squamous Epithelial Cell,Urine 6 /hpf (0-4); WBC,Urine 8 /hpf (0-5)
--- NOTE | 2021-05-28 01:51 | CT ---
EXAMINATION TYPE: CT brain wo con DATE OF EXAM: 05/28/2021 COMPARISON: 05/30/2020 HISTORY: Headache CT DLP: 1099.40 mGycm Automated exposure control for dose reduction was used. Ventricles and sulci appear normal. There is no mass effect nor midline shift. There is no sign of in tracranial hemorrhage. The calvarium is intact. There is no evidence of cerebral edema. Skull base is intact. There is incomplete aeration of the mastoid sinuses. IMPRESSION: Negative CT scan of the brain. Possible mastoiditis. No change compared to old exam.
--- NOTE | 2021-05-28 01:56 | CT ---
EXAMINATION TYPE: CT abdomen pelvis w con DATE OF EXAM: 05/28/2021 COMPARISON: 07/02/2020 HISTORY: Numbness, tingling in hands CT DLP: 1426.10 mGycm Automated exposure control for dose reduction was used. CONTRAST: Performed with IV Contrast, patient injected with 100 mL of Isovue 370. Lung bases are clear. There is no pleural effusion. Heart size is normal. There is no pericardial eff usion there is hypodensity throughout the liver consistent with fatty infiltration. There are clips f rom cholecystectomy. Spleen is intact. There is previous gastric surgery. There is no pancreatic mass . There are clips from cholecystectomy. The bile ducts are not dilated. There is no adrenal mass. Kidneys show satisfactory contrast opacification. There is no hydronephrosi s. Ureters are not dilated. There is no retroperitoneal adenopathy. Delayed images show normal renal excretion. Bladder distends smoothly. Uterus is anteverted. There is no inguinal hernia. There is 1.6 cm cyst on the left ovary. There is tiny amount of free fluid in the cul-de-sac. Appendix appears no rmal. There is no mesenteric edema. There is no ascites or free air. There is no bowel obstruction. The lumbar vertebra have normal spacing and alignment. There is no compression fracture. Bony pelvis is intact. Hip joints are intact. IMPRESSION: Fatty infiltration of the liver. No dilated ducts. No renal stone or obstruction. Normal appendix.
--- NOTE | 2021-05-28 01:59 | CT ---
EXAMINATION TYPE: CT angio chest DATE OF EXAM: 05/28/2021 COMPARISON: HISTORY: Numbness, mold exposure, lupus CT DLP: 614 mGycm Automated exposure control for dose reduction was used. CONTRAST: Performed with IV Contrast, patient injected with 100 mL of Isovue 370. There are 3-D post processed images. The lungs are clear of consolidation. There is no pleural effusion. There is fatty infiltration of th e liver. Heart appears borderline enlarged. There is no pericardial effusion. There is no mediastinal adenopathy. There is normal appearing thoracic aorta. There is no aneurysm or dissection. The ascending aorta cindy sures 3.3 cm. There is normal contrast opacification of the pulmonary arteries. There are no filling defects. The thoracic spine is intact. There is no compression fracture. Sternum is intact. The ribs appear in tact. IMPRESSION: Negative exam. No evidence of pulmonary embolism.
[2021-05-28 03:11] VITALS: RESP 18
[2021-05-28 03:13] VITALS: BP 151/87; PULSE 42; TEMP 97.9
== END 2021-05-28 03:11 | disposition home or self-care (01) ==
LOC: EC 21:11
DX: R20.2 Paresthesia of skin (principal); I10 Essential (primary) hypertension; K21.9 Gastro-esophageal reflux disease without esophagitis; E07.9 Disorder of thyroid, unspecified; M32.9 Systemic lupus erythematosus, unspecified; F32.9 Major depressive disorder, single episode, unspecified; Z88.5 Allergy status to narcotic agent; Z98.84 Bariatric surgery status; Z90.49 Acquired absence of other specified parts of digestive tract
CPT/HCPCS: 99284; 36415; 80053; 82550; 83605; 83735; 84100; 84484; 85025; 85610; 85730; 81001; 81025; 70450; 71275; 74177; Q9967

== ENCOUNTER → 2021-07-02 | Outpatient (CLI) | payer BC, OTHER ==
[2021-07-02 11:16] LABS: Partial Thromboplastin Time 23.1 sec (22.0-30.0); Prothrombin Time 10.3 sec (9.0-12.0)
[2021-07-02 15:22] LABS: HCT 40.1 % (37.2-46.3); HGB 12.8 g/dL (12.0-15.0); MCH 27.9 pg (27.0-32.0); MCHC 31.9 g/dL (32.0-37.0); MCV 87.6 fL (80.0-97.0); Mean Platelet Volume 13.7 fL (9.5-12.2); Platelet Count 166 X 10*3/uL (140-440); RBC 4.58 X 10*6/uL (4.10-5.20); RDW 13.6 % (11.5-14.5); WBC 4.64 X 10*3/uL (4.50-10.00)
[2021-07-02 23:32] LABS: % Iron Saturation 19.67 (12.00-45.00); Albumin 3.8 g/dL (3.8-4.9); Albumin/Globulin Ratio 1.65 (1.60-3.17); Anion Gap 11.2 mmol/L (4.00-12.00); BUN/Creat Ratio 8.42 Ratio (12.00-20.00); Blood Urea Nitrogen 4.9 mg/dL (9.0-27.0); Calcium 9.4 mg/dL (8.7-10.3); Chol/HDL Ratio 3.43 Ratio; Globulin 2.3 g/dL (1.6-3.3); HDL Cholesterol 39.6 mg/dL (40.00-60.00); LDL Cholesterol,Calculated 81.5 mg/dL (0.0-131.0); Magnesium 1.8 mg/dL (1.5-2.4); Non-African American GFR(CKD) 123.4 (60.0-200.0); Potassium 3.3 mmol/L (3.5-5.5); Prealbumin 13.9 mg/dL (18.0-42.0); Total Bilirubin 0.6 mg/dL (0.30-1.20); Total Protein 6.2 g/dL (6.2-8.2); Triglycerides 74.6 mg/dL (0.00-149.00); VLDL Calculation 14.92 mg/dL (5.00-40.00)
[2021-07-02 23:35] LABS: Folate, Serum 2.6 ng/mL (4.40-31.00)
== END | disposition home or self-care (01) ==
LOC: LABWHC1 10:09
PROVIDERS: ATTEND Surgery Plastic and Reconstructive Surgery
DX: E44.0 Moderate protein-calorie malnutrition (principal); E89.1 Postprocedural hypoinsulinemia; N19 Unspecified kidney failure; D50.8 Other iron deficiency anemias; K74.1 Hepatic sclerosis; K50.90 Crohn's disease, unspecified, without complications
CPT/HCPCS: 36415; 80053; 80061; 82306; 82525; 82607; 82728; 82746; 83036; 83540; 83550; 83735; 83970; 84100; 84134; 84255; 84425; 84443; 84590; 84630; 85027; 85610; 85730

== ENCOUNTER 2021-07-23 09:52 | Emergency (ER) | payer BC, OTHER ==
[2021-07-23 10:22] VITALS: BP 133/88; PULSE 59; RESP 18; TEMP 98
[2021-07-23] MEDS ORDERED: SODIUM CHLORIDE 0.9% 1,000 ML IV ONE (10:43)
[2021-07-23 11:05] LABS: Basophils % (A) 0 %; Eosinophils # (A) 0.1 k/uL (0-0.7); Eosinophils % (A) 1 %; HCT 41.1 % (34.0-46.0); HGB 13.4 gm/dL (11.4-16.0); Lymphocytes # (A) 1.5 k/uL (1.0-4.8); Lymphocytes % (A) 31 %; MCH 29.2 pg (25.0-35.0); MCHC 32.6 g/dL (31.0-37.0); MCV 89.7 fL (80.0-100.0); Monocytes # (A) 0.4 k/uL (0-1.0); Monocytes % (A) 8 %; Neutrophils # (A) 2.8 k/uL (1.3-7.7); Neutrophils % (A) 57 %; Platelet Count 174 k/uL (150-450); RBC 4.59 m/uL (3.80-5.40); RDW 12.6 % (11.5-15.5); WBC 4.9 k/uL (3.8-10.6)
--- NOTE | 2021-07-23 11:17 | ED ---
Weakness HPI - General Chief complaint: Weakness Stated complaint: weakness, vomiting Time Seen by Provider: 07/23/21 10:24 Source: patient, RN notes reviewed Mode of arrival: wheelchair Limitations: no limitations - History of Present Illness Initial comments: This is a 31-year-old female presents emergency Department chief complaint of generalized weakness, not feeling well. Patient states symptoms started yesterday states that she just felt slightly off, like her heart was racing, had nausea and vomiting. Patient was flushed feeling. Patient has small areas of rash in which she is concerned she is possibly ALLERGIC reaction. She did minute that she had her Benlysta infusion yesterday morning for her lupus in which she's had this for several years. Patient states she's never had this reaction though she has had a prior gastric bypass and states that she had a thiamine confusion few days prior in which they think may be causing some sy mptoms. She states she does feel slightly better yesterday though still generalized weak, tingling or extremities. Denies any focal weakness no headache no reported fever or chills night sweats. - Related Data Home Medications Medication Instructions Recorded Confirmed HYDROcodone/APAP 5-325MG [[place] 1 tab PO BID PRN 03/26/20 07/23/21 5-325] Belimumab [Benlysta] 200 mg SQ Q30D 03/30/20 07/23/21 Furosemide [Lasix] 20 mg PO BID 12/09/20 07/23/21 acetaZOLAMIDE [Diamox] 250 mg PO TID 01/12/21 07/23/21 Multivitamins, Thera [Multivitamin 1 tab PO DAILY 05/13/21 07/23/21 (formulary)] Albuterol Sulfate [Proair Hfa] 2 puff INHALATION RT-Q6H PRN 07/23/21 07/23/21 Ergocalciferol [Vitamin D2 (1250 1,250 mcg PO WE 07/23/21 07/23/21 Mcg = 08375 Iu)] Levothyroxine Sodium [Synthroid] 50 mcg PO DAILY 07/23/21 07/23/21 Previous Rx's Medication Instructions Recorded Magnesium Oxide [Magox 400] 400 mg PO DAILY #60 tablet 03/17/21 Nystatin 100,000 Unit/gm Powd 1 applic TOPICAL BID #60 gm 07/07/21 [Mycostatin Powder] Allergies Allergy/AdvReac Type Severity Reaction Status Date / Time codeine AdvReac Nausea & Verified 07/23/21 12:43 Vomiting. HEADACHES Review of Systems ROS Statement: Those systems with pertinent positive or pertinent negative responses have been documented in the HPI. ROS Other: All systems not noted in ROS Statement are negative. 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, AVASCULAR NECROSIS KARTHIK HIPS, arthritis, pseudotumur History of Any Multi-Drug Resistant Organisms: None Reported Past Surgical History: Bariatric Surgery, Cholecystectomy, Ear Surgery, Orthopedic Surgery Additional Past Surgical History / Comment(s): elbow, L foot surgery; eye surgery sleeve gastrectomy 01-18-21 Past Anesthesia/Blood Transfusion Reactions: No Reported Reaction Past Psychological History: Depression Smoking Status: Never smoker Past Alcohol Use History: None Reported Past Drug Use History: None Reported General Exam Limitations: no limitations General appearance: alert, in no apparent distress Head exam: Present: atraumatic, normocephalic, normal inspection Eye exam: Present: normal appearance, PERRL, EOMI. Absent: scleral icterus, conjunctival injection, periorbital swelling ENT exam: Present: normal exam, normal oropharynx, mucous membranes moist, TM's normal bilaterally Neck exam: Present: normal inspection, full ROM. Absent: tenderness, meningismus, lymphadenopathy Respiratory exam: Present: normal lung sounds bilaterally. Absent: respiratory distress, wheezes, rales, rhonchi, stridor Cardiovascular Exam: Present: regular rate, normal rhythm, normal heart sounds. Absent: systolic murmur, diastolic murmur, rubs, gallop, clicks Neurological exam: Present: alert, oriented X3, CN II-XII intact, reflexes normal. Absent: motor sensory deficit Course Vital Signs 07/23/21 10:15 Temperature 98.0 F Pulse Rate 59 L Respiratory 18 Rate Blood Pressure 133/88 O2 Sat by Pulse 97 Oximetry Medical Decision Making - Medical Decision Making 31-year-old presented for multiple to the symptoms. Patient's labs are unremarkable. Patient was hydrated. This felt 3 possible reaction from her infusion of thiamine and her lupus medication. Patient will be discharged stable that she will close follow-up return parameters were discussed. - Lab Data Result diagrams: 07/23/21 10:55 10/29/21 10:55 Lab Results 07/23/21 07/23/21 07/23/21 Range/Units 10:55 10:55 12:03 WBC 4.9 (3.8-10.6) k/uL RBC 4.59 (3.80-5.40) m/uL Hgb 13.4 (11.4-16.0) gm/dL Hct 41.1 (34.0-46.0) % MCV 89.7 (80.0-100.0) fL MCH 29.2 (25.0-35.0) pg MCHC 32.6 (31.0-37.0) g/dL RDW 12.6 (11.5-15.5) % Plt Count 174 (150-450) k/uL MPV 10.0 Neutrophils % 57 % Lymphocytes % 31 % Monocytes % 8 % Eosinophils % 1 % Basophils % 0 % Neutrophils # 2.8 (1.3-7.7) k/uL Lymphocytes # 1.5 (1.0-4.8) k/uL Monocytes # 0.4 (0-1.0) k/uL Eosinophils # 0.1 (0-0.7) k/uL Basophils # 0.0 (0-0.2) k/uL Sodium 138 (137-145) mmol/L Potassium 4.1 (3.5-5.1) mmol/L Chloride 108 H (98-107) mmol/L Carbon Dioxide 26 (22-30) mmol/L Anion Gap 4 mmol/L BUN 7 (7-17) mg/dL Creatinine 0.52 (0.52-1.04) mg/dL Est GFR (CKD-EPI)AfAm >90 (>60 ml/min/1.73 sqM) Est GFR (CKD-EPI)NonAf >90 (>60 ml/min/1.73 sqM) Glucose 79 (74-99) mg/dL Calcium 9.3 (8.4-10.2) mg/dL Magnesium 1.9 (1.6-2.3) mg/dL Total Bilirubin 0.6 (0.2-1.3) mg/dL AST 37 H (14-36) U/L ALT 20 (4-34) U/L Alkaline Phosphatase 75 (38-126) U/L Total Protein 6.3 (6.3-8.2) g/dL Albumin 3.3 L (3.5-5.0) g/dL Urine Color Yellow Urine Appearance Clear (Clear) Urine pH 7.0 (5.0-8.0) Ur Specific [place] 1.018 (1.001-1.035) Urine Protein Negative (Negative) Urine Glucose (UA) Negative (Negative) Urine Ketones Negative (Negative) Urine Blood Negative (Negative) Urine Nitrite Negative (Negative) Urine Bilirubin Negative (Negative) Urine Urobilinogen 2.0 (<2.0) mg/dL Ur Leukocyte Esterase Negative (Negative) Urine HCG, Qual (Not Detectd) 07/23/21 Range/Units 12:03 WBC (3.8-10.6) k/uL RBC (3.80-5.40) m/uL Hgb (11.4-16.0) gm/dL Hct (34.0-46.0) % MCV (80.0-100.0) fL MCH (25.0-35.0) pg MCHC (31.0-37.0) g/dL RDW (11.5-15.5) % Plt Count (150-450) k/uL MPV Neutrophils % % Lymphocytes % % Monocytes % % Eosinophils % % Basophils % % Neutrophils # (1.3-7.7) k/uL Lymphocytes # (1.0-4.8) k/uL Monocytes # (0-1.0) k/uL Eosinophils # (0-0.7) k/uL Basophils # (0-0.2) k/uL Sodium (137-145) mmol/L Potassium (3.5-5.1) mmol/L Chloride (98-107) mmol/L Carbon Dioxide (22-30) mmol/L Anion Gap mmol/L BUN (7-17) mg/dL Creatinine (0.52-1.04) mg/dL Est GFR (CKD-EPI)AfAm (>60 ml/min/1.73 sqM) Est GFR (CKD-EPI)NonAf (>60 ml/min/1.73 sqM) Glucose (74-99) mg/dL Calcium (8.4-10.2) mg/dL Magnesium (1.6-2.3) mg/dL Total Bilirubin (0.2-1.3) mg/dL AST (14-36) U/L ALT (4-34) U/L Alkaline Phosphatase (38-126) U/L Total Protein (6.3-8.2) g/dL Albumin (3.5-5.0) g/dL Urine Color Urine Appearance (Clear) Urine pH (5.0-8.0) Ur Specific [place] (1.001-1.035) Urine Protein (Negative) Urine Glucose (UA) (Negative) Urine Ketones (Negative) Urine Blood (Negative) Urine Nitrite (Negative) Urine Bilirubin (Negative) Urine Urobilinogen (<2.0) mg/dL Ur Leukocyte Esterase (Negative) Urine HCG, Qual Not Detected (Not Detectd) Disposition Clinical Impression: Adverse drug reaction, Nausea, Paresthesias, Weakness Disposition: HOME SELF-CARE Condition: Stable Additional Instructions: Please return to the Emergency Department if symptoms worsen or any other concerns. Is patient prescribed a controlled substance at d/c from ED?: No Referrals: Getachew Mar MD [Primary Care Provider] - 1-2 days Time of Disposition: 12:58
[2021-07-23 11:25] LABS: ALT 20 U/L (4-34); AST 37 U/L (14-36); African American GFR (CKD) >90 (>60 ml/min/1.73 sqM); Albumin 3.3 g/dL (3.5-5.0); Alkaline Phosphatase 75 U/L (38-126); Anion Gap 4 mmol/L; Blood Urea Nitrogen 7 mg/dL (7-17); Calcium 9.3 mg/dL (8.4-10.2); Carbon Dioxide 26 mmol/L (22-30); Chloride 108 mmol/L (98-107); Glucose 79 mg/dL (74-99); Magnesium 1.9 mg/dL (1.6-2.3); Non-African American GFR(CKD) >90 (>60 ml/min/1.73 sqM); Sodium 138 mmol/L (137-145); Total Bilirubin 0.6 mg/dL (0.2-1.3); Total Protein 6.3 g/dL (6.3-8.2)
[2021-07-23 11:29] LABS: Potassium 4.1 mmol/L (3.5-5.1)
[2021-07-23 12:26] LABS: Appearance,Urine Clear (Clear); Bilirubin,Urine Negative (Negative); Blood,Urine Negative (Negative); Color,Urine Yellow; Glucose,Urine (UA) Negative (Negative); Ketones,Urine Negative (Negative); Leukocyte Esterase,Urine Negative (Negative); Nitrite,Urine Negative (Negative); Protein,Urine Negative (Negative); Specific Gravity,Urine 1.018 (1.001-1.035)
== END 2021-07-23 13:48 | disposition home or self-care (01) ==
LOC: EC 09:52
DX: R53.1 Weakness (principal); T45.1X5A Adverse effect of antineoplastic and immunosuppressive drugs, initial encounter; R11.0 Nausea; R20.2 Paresthesia of skin; K21.9 Gastro-esophageal reflux disease without esophagitis; I10 Essential (primary) hypertension; E07.9 Disorder of thyroid, unspecified; M32.9 Systemic lupus erythematosus, unspecified; F32.9 Major depressive disorder, single episode, unspecified; Z88.5 Allergy status to narcotic agent; Z98.84 Bariatric surgery status; Z90.49 Acquired absence of other specified parts of digestive tract
CPT/HCPCS: 36415; 80053; 81003; 81025; 83735; 85025; 93005; 96360; 99285

== ENCOUNTER → 2021-09-21 | Outpatient (CLI) | payer BC, OTHER ==
[~2021-09-21] MED LIST changes: -ACETAMINOPHEN TAB 500 MG TAB PO PRN; -CHLORHEXIDINE GLUCONATE 15 ML CUP MUCOUS MEM PRN; -DEXAMETHASONE SOD PHOSPHATE 4 MG/ML 1 ML VIAL IV ONE; -ENOXAPARIN 40 MG/0.4 ML SYRINGE SQ PRN; -GABAPENTIN 300 MG CAP PO PRN; -LIDOCAINE 1% (10MG/ML) FOR IV START INTRADERMA PRN; -MELOXICAM 7.5 MG TAB PO PRN; -ONDANSETRON 4 MG/2 ML VIAL IVP ONE; -PANTOPRAZOLE 40 MG/10 ML VIAL IVP PRN; -SCOPOLAMINE 1.5MG/72HR PATCH TRANSDERM ONE; -SCOPOLAMINE 1.5MG/72HR PATCH TRANSDERM PRN; +cefTRIAXone 1,000 MG VIAL (IM USE) IM NR; -fentaNYL (PF) 50 MCG/ML 2 ML AMP IV PRN
[2021-09-21 11:54] VITALS: BP 133/85; PULSE 52; RESP 16; TEMP 98.4
== END ==
LOC: PROCWHC3 11:22
PROVIDERS: ATTEND Physician Assistant
DX: Z20.2 Contact with and (suspected) exposure to infections with a predominantly sexual mode of transmission (principal); Z88.5 Allergy status to narcotic agent
CPT/HCPCS: 96372; J0696

== ENCOUNTER → 2021-10-29 | Outpatient (CLI) | payer BC, OTHER ==
[2021-10-29 13:54] LABS: INR 0.9 (<1.2); Partial Thromboplastin Time 23.6 sec (22.0-30.0)
[2021-10-29 20:10] LABS: HCT 44.7 % (37.2-46.3); HGB 14.1 g/dL (12.0-15.0); MCH 28.4 pg (27.0-32.0); MCHC 31.5 g/dL (32.0-37.0); MCV 89.9 fL (80.0-97.0); Mean Platelet Volume 14.1 fL (9.5-12.2); Platelet Count 163 X 10*3/uL (140-440); RBC 4.97 X 10*6/uL (4.10-5.20); RDW 13.2 % (11.5-14.5); WBC 5.33 X 10*3/uL (4.50-10.00)
[2021-10-29 20:59] LABS: % Iron Saturation 9.12 (12.00-45.00); ALT 22 U/L (8-44); AST 25 U/L (13-35); Albumin 3.9 g/dL (3.8-4.9); Albumin/Globulin Ratio 1.56 (1.60-3.17); Alkaline Phosphatase 101 U/L (41-126); BUN/Creat Ratio 12.09 Ratio (12.00-20.00); Blood Urea Nitrogen 7.5 mg/dL (9.0-27.0); Calcium 9.5 mg/dL (8.7-10.3); Carbon Dioxide 24.3 mmol/L (20.0-27.5); Chloride 107 mmol/L (96-109); Globulin 2.5 g/dL (1.6-3.3); Glucose 60 mg/dL (70-110); Iron 35 ug/dL (50-170); Magnesium 2.1 mg/dL (1.5-2.4); Non-African American GFR(CKD) 120.8 (60.0-200.0); Phosphorus 3.3 mg/dL (2.4-5.1); Potassium 4.2 mmol/L (3.5-5.5); Sodium 143 mmol/L (135-145); Total Iron Binding Capacity 384 ug/dL (228-460); Total Protein 6.5 g/dL (6.2-8.2)
[2021-10-29 21:05] LABS: LDL Cholesterol,Calculated 76.1 mg/dL (0.0-131.0)
[2021-11-01 11:42] LABS: Zinc, Serum 71 ug/dL (60-130)
== END | disposition home or self-care (01) ==
LOC: LABWHC1 12:18
PROVIDERS: ATTEND Surgery Plastic and Reconstructive Surgery
DX: E66.01 Morbid (severe) obesity due to excess calories (principal); E55.9 Vitamin D deficiency, unspecified; E89.1 Postprocedural hypoinsulinemia; E44.0 Moderate protein-calorie malnutrition; D50.8 Other iron deficiency anemias; K74.1 Hepatic sclerosis; K50.90 Crohn's disease, unspecified, without complications
CPT/HCPCS: 36415; 80053; 80061; 82306; 82525; 82607; 82728; 82746; 83036; 83540; 83550; 83735; 83970; 84100; 84134; 84255; 84425; 84443; 84590; 84630; 85027; 85610; 85730

== ENCOUNTER → 2021-11-03 | Outpatient (CLI) | payer BC, OTHER ==
[2021-11-03 16:08] VITALS: BP 160/88; PULSE 72; RESP 16; TEMP 98.2; BMI 31.1
--- NOTE | 2021-11-03 16:16 | P.BASOAP ---
Subjective Progress Note Date: 11/03/21 DATE OF SERVICE: 11/03/2021 CHIEF COMPLAINT: Status post gastric bypass HISTORY OF PRESENT ILLNESS: Breonna Garcia is a 30-year-old female status post gastric bypass, 01/18/21. She is over 10 months out. She reports her psuedo tumor cerebri is better. She is on medication for headaches. She has pavel jo-ann. She lost 100 pounds. She denies further abdominal pain. No reports of dysphagia. She wants to lose 10 more pounds. At height of 5 feet 2 inches, her ideal body weight is 135 pounds. Her highest weight is 282 pounds, body mass index 51.7. She comes in 170 pounds from 192 pounds, 4 months ago. She has lost 22 pounds in 3 months. Her body mass index is 31.1. Lifetime weight loss is 112 pounds. She is 35 pounds overweight. Lifetime percent excess weight loss is 76%. PAST MEDICAL HISTORY: 1. Morbid obesity due to excess calories 2. Body mass index, 51.9 3. Lupus 4. Pseudotumor cerebri 5. Hypertensive heart disease 6. History of kidney nodule 7. Hypothyroidism 8. Depressive disorder 9. Seizure disorder 10. Avascular necrosis hips 11. Scoliosis of the spine 12. History of HELLP syndrome 13. Osteoarthritis knee 14. Osteoarthritis of the hips PAST SURGICAL HISTORY: 1. Kidney biopsy 2. Elbow surgery 3. Cholecystectomy 4. Left foot surgery 5. Ear surgery 6. Upper endoscopy HOME MEDICATIONS: Home Medications Medication Instructions Recorded Confirmed HYDROcodone/APAP 5-325MG [[place] 1 tab PO BID PRN 03/26/20 11/17/21 5-325] Belimumab [Benlysta] 200 mg SQ TU 03/30/20 11/17/21 acetaZOLAMIDE [Diamox] 250 mg PO TID 01/12/21 11/17/21 Multivitamins, Thera [Multivitamin 1 tab PO DAILY 05/13/21 11/17/21 (formulary)] Albuterol Sulfate [Proair Hfa] 2 puff INHALATION RT-Q6H PRN 07/23/21 11/17/21 Ergocalciferol [Vitamin D2 (1250 1,250 mcg PO WE 07/23/21 11/17/21 Mcg = 75207 Iu)] Cetirizine HCl 10 mg PO BID 11/03/21 11/17/21 Ascorbic Acid [Vitamin C] 1,000 mg PO DAILY 11/07/21 11/17/21 Fluticasone Propionate [Flovent 1 puff INHALATION RT-BID 11/07/21 11/17/21 Hfa 44 mcg] Folic Acid 0.8 mg PO DAILY 11/07/21 11/17/21 Levothyroxine Sodium 300 mcg PO DAILY 11/07/21 11/17/21 Progesterone, Micronized 200 mg PO DIRECTED 11/07/21 11/17/21 [Progesterone] Thiamine HCl [Vitamin B-1] 100 mg PO DAILY 11/07/21 11/17/21 Venlafaxine HCl [Effexor XR] 37.5 mg PO BID-W/MEALS 11/07/21 11/17/21 Vitamin A [Vitamin A (8,000 Units 2,400 mcg PO DAILY 11/07/21 11/17/21 = 2,400 MCG)] Previous Rx's Medication Instructions Recorded Magnesium Oxide [Magox 400] 400 mg PO DAILY #60 tablet 03/17/21 ALLERGIES: Allergies Allergy/AdvReac Type Severity Reaction Status Date / Time cobalt Allergy Unknown Verified 11/17/21 13:59 lidocaine Allergy Unknown Verified 11/17/21 13:59 neomycin Allergy Unknown Verified 11/17/21 13:58 codeine AdvReac Nausea & Verified 11/17/21 13:57 Vomiting. HEADACHES LINALOOL Allergy Unknown Uncoded 11/17/21 13:59 SOCIAL HISTORY: No past tobacco use. FAMILY HISTORY: No family history of ulcerative colitis disease or Crohn's disease. Family history of morbid obesity. No lupus in the family. No reports of stomach or esophageal cancer. REVIEW OF ORGAN SYSTEMS: CONSTITUTIONAL: At height of 5 feet 2 inches, her ideal body weight is 135 pounds. She comes in 283 pounds. Her body mass index is 51.9. She is 148 pounds overweight. HEENT: Denies any active troubles with vision or hearing. ENDOCRINE: No diabetes. Has hypothyroidism. CARDIOVASCULAR: No past reports of palpitations or heart attacks or chest pain. Has essential hypertension. RESPIRATORY: No daytime somnolence. No asthma. GASTROINTESTINAL: Denies any bright red blood per rectum. No diarrhea. No constipation. MUSCULOSKELETAL: Has lower back pain and joint pain. Has osteoarthritis of the knees. History of avascular necrosis of the tibia including hips. NEURO: Has headaches. Has seizure disorders. Has pseudotumor cerebri. PSYCH: Has depression. No suicidal ideation. RHEUMATOLOGIC: Has lupus. No rheumatoid arthritis. HEMATOLOGIC: Denies any abnormal bleeding or bruising. No personal history of DVTs. SKIN: No rash. No skin cancer. PHYSICAL EXAM: VITAL SIGNS: Height 5 foot 2 inches, weight 170 pounds. BMI 31.1 Vital Signs Temp 98.2 F 11/03/21 16:05 Pulse 72 11/03/21 16:05 Resp 16 11/03/21 16:05 BP 160/88 11/03/21 16:05 Pulse Ox GENERAL: Well-developed in no acute distress. HEENT: No scleral icterus. Extraocular movements grossly intact. Hears conversational speech. No nasal drainage. NECK: Supple without lymphadenopathy. CHEST: Nonlabored respirations with equal bilateral excursions. CARDIOVASCULAR: Regular rate and rhythm. Distal 2+ pulses. ABDOMEN: No peritonitis. MUSCULOSKELETAL: No clubbing, cyanosis. NEURO: No focal or lateralizing signs. Cranial nerves 2 through 12 grossly within normal limits. PSYCH: Appropriate affect. Alert and oriented to person, place and time. SKIN: Good skin turgor. Well perfused. LABS: Reviewed. Glucose low. Iron low. Triglycerides elevated. Vitamin A is low. Vitamin B-12 low. Vitamin D low. Selenium is elevated. ASSESSMENT: 1. Morbid obesity due to excess calories 2. Body mass index, 51.9 now 31.1 3. Lupus 4. Pseudotumor cerebri 5. Hypertensive heart disease 6. History of kidney nodule 7. Hypothyroidism, poorly controlled 8. Depressive disorder 9. Seizure disorder 10. Avascular necrosis hips 11. Scoliosis of the spine 12. History of HELLP syndrome 13. Osteoarthritis knee 14. Osteoarthritis of the hips 15. Status post gastric bypass 16. Thrombosed hemorrhoids 17. Vitamin D deficiency 18. Iron deficiency 19. Adverse reaction to artificial sweeteners. 20. Hypokalemia 21. Vitamin A deficiency 22. Vitamin B1 deficiency 23. Folate deficiency PLAN: 1. Recommend iron supplement. 2. Recommend Vitamin A 10,000 units daily 3. Recommend iron infusion. 4. Recommend Vitamin B-12 injection. 5. Recommend magnesium for headaches. Objective - Vital Signs Vital signs: Vital Signs Temp 98.2 F 11/03/21 16:05 Pulse 72 11/03/21 16:05 Resp 16 11/03/21 16:05 BP 160/88 11/03/21 16:05 Pulse Ox Intake & Output 11/02/21 11/03/21 11/03/21 18:59 06:59 18:59 Weight 77.111 kg Assessment/Plan Plan: Date: 11/03/21 Initial Weight: 128.82 kg Initial BMI: 51.9 Current Weight: 77.111 kg Current BMI: 31.1 Type of Surgery: Total Volume in Band: Previous Volume: Volume Removed: Volume Added: Band Size:
== END ==
LOC: BARWHC3 14:35
PROVIDERS: ATTEND Surgery Plastic and Reconstructive Surgery
DX: E66.01 Morbid (severe) obesity due to excess calories (principal); Z68.31 Body mass index [BMI] 31.0-31.9, adult; M32.9 Systemic lupus erythematosus, unspecified; G93.2 Benign intracranial hypertension; I11.9 Hypertensive heart disease without heart failure; E03.9 Hypothyroidism, unspecified; F32.A Depression, unspecified; G40.909 Epilepsy, unspecified, not intractable, without status epilepticus; M87.852 Other osteonecrosis, left femur; M87.851 Other osteonecrosis, right femur; M41.9 Scoliosis, unspecified; M17.10 Unilateral primary osteoarthritis, unspecified knee; M16.0 Bilateral primary osteoarthritis of hip; Z98.84 Bariatric surgery status; K64.5 Perianal venous thrombosis; E55.9 Vitamin D deficiency, unspecified; E61.1 Iron deficiency; Z91.02 Food additives allergy status; E87.6 Hypokalemia; E50.9 Vitamin A deficiency, unspecified; D52.9 Folate deficiency anemia, unspecified; E51.9 Thiamine deficiency, unspecified; Z88.9 Allergy status to unspecified drugs, medicaments and biological substances; Z88.1 Allergy status to other antibiotic agents; Z88.5 Allergy status to narcotic agent
CPT/HCPCS: 99211

== ENCOUNTER → 2022-01-19 | Outpatient (CLI) | payer BC, OTHER ==
[2022-01-19 11:01] LABS: Basophils # (A) 0.1 k/uL (0-0.2); Basophils % (A) 1 %; Eosinophils % (A) 1 %; HCT 46.7 % (34.0-46.0); HGB 14.8 gm/dL (11.4-16.0); Lymphocytes # (A) 1.8 k/uL (1.0-4.8); Lymphocytes % (A) 32 %; MCHC 31.8 g/dL (31.0-37.0); MCV 94.4 fL (80.0-100.0); Mean Platelet Volume 9.4; Monocytes # (A) 0.5 k/uL (0-1.0); Monocytes % (A) 8 %; Neutrophils # (A) 3.2 k/uL (1.3-7.7); Neutrophils % (A) 56 %; Platelet Count 181 k/uL (150-450); RBC 4.95 m/uL (3.80-5.40); RDW 13.6 % (11.5-15.5); WBC 5.8 k/uL (3.8-10.6)
[2022-01-19 12:34] LABS: RBC Morphology Normal
[2022-01-19 12:52] LABS: Erythrocyte Sedimentation Rate 13 mm/hr (0-20)
[2022-01-19 17:31] LABS: Protein, Total 6.9 g/dL (6.2-8.2)
[2022-01-20 14:29] LABS: Albumin 3.62 g/dL (3.80-4.90); Gamma Globulin 0.82 g/dL (0.70-1.50)
== END | disposition home or self-care (01) ==
LOC: LABWHC1 09:43
PROVIDERS: ATTEND Orthopaedic Surgery Orthopaedic Surgery of the Spine
DX: M79.12 Myalgia of auxiliary muscles, head and neck (principal); M50.323 Other cervical disc degeneration at C6-C7 level
CPT/HCPCS: 36415; 84165; 85025; 85652

== ENCOUNTER → 2022-02-02 | Outpatient (CLI) | payer BC, OTHER ==
--- NOTE | 2022-02-03 05:55 | MR ---
EXAMINATION TYPE: MR shoulder LT wo con DATE OF EXAM: 02/02/2022 COMPARISON: None HISTORY: Left shoulder pain since 12-04-21 due to injury Multiplanar multiecho imaging of the left shoulder without contrast. There is small shoulder joint effusion biceps tendon is intact. Subscapularis tendon is intact. The g lenoid guanako appear intact. The AC joint is intact. No subacromial impingement. The supraspinatus tendon appears fairly normal. N o retraction. No evidence of full-thickness tear. The infraspinatus tendon is intact. Humeral head is intact. No evidence of a fracture. IMPRESSION: No evidence of rotator cuff tear. Small joint effusion consistent with some mild synovitis.
== END | disposition home or self-care (01) ==
LOC: RADMRIMAIN 17:01
PROVIDERS: ATTEND Internal Medicine Rheumatology
DX: M25.412 Effusion, left shoulder (principal); S49.92XA Unspecified injury of left shoulder and upper arm, initial encounter; M65.812 Other synovitis and tenosynovitis, left shoulder

== ENCOUNTER 2022-02-23 09:21 | Observation (INO) | payer BC, OTHER ==
[2022-02-23] MEDS ORDERED: SODIUM CHLORIDE 0.9% 500 ML 500 ML IV STA (09:56)
--- NOTE | 2022-02-23 09:56 | ED ---
General Adult HPI - General Chief complaint: Abdominal Pain Stated complaint: Abd Pain Time Seen by Provider: 02/23/22 09:45 Source: patient, RN notes reviewed, old records reviewed Mode of arrival: ambulatory Limitations: no limitations - History of Present Illness Initial comments: This is a pleasant 31-year-old female that presents to the emergency room with complaints of epigastric abdominal pain that started at 4:00 this morning waking her up. She denies any nausea vomiting or diarrhea. She denies any fevers. She does have a history of bariatric surgery one year ago had a scheduled follow-up visit with Dr. Tang on February 02 and had no complications. She has a history of GERD, hypertension, seizures, hypothyroidism, anemia and lupus. -: hour(s) (6) Location: abdomen (epigastric) Quality: stabbing, aching, other Consistency: constant Improves with: none Worsens with: none Associated Symptoms: denies other symptoms Treatments Prior to Arrival: none - Related Data Home Medications Medication Instructions Recorded Confirmed Belimumab [Benlysta] 200 mg SQ WE 03/30/20 02/23/22 acetaZOLAMIDE [Diamox] 500 mg PO DAILY 01/12/21 02/23/22 Ergocalciferol [Vitamin D2 (1250 1,250 mcg PO TU 07/23/21 02/23/22 Mcg = 97260 Iu)] Etonogestrel/Ethinyl Estradiol 1 vag ring VAGINAL Q28D 02/02/22 02/23/22 [Nuvaring Vaginal Ring] Cetirizine HCl [Zyrtec] 10 mg PO BID 02/23/22 02/23/22 HYDROcodone/APAP 10-325MG [[place] 1 tab PO DAILY PRN 02/23/22 02/23/22 10-325] Levothyroxine Sodium [Synthroid] 200 mcg PO DAILY 02/23/22 02/23/22 Olopatadine HCl 1 applic BOTH EYES DAILY PRN 02/23/22 02/23/22 Allergies Allergy/AdvReac Type Severity Reaction Status Date / Time cobalt Allergy Unknown Verified 02/23/22 10:25 lidocaine Allergy Unknown Verified 02/23/22 10:25 neomycin Allergy Unknown Verified 02/23/22 10:25 codeine AdvReac Nausea & Verified 02/23/22 10:25 Vomiting. HEADACHES LINALOOL Allergy Unknown Uncoded 02/23/22 09:26 Review of Systems ROS Statement: Those systems with pertinent positive or pertinent negative responses have been documented in the HPI. ROS Other: All systems not noted in ROS Statement are negative. 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, AVASCULAR NECROSIS KARTHIK HIPS, arthritis, pseudotumur History of Any Multi-Drug Resistant Organisms: None Reported Past Surgical History: Bariatric Surgery, Cholecystectomy, Ear Surgery, Orthopedic Surgery Additional Past Surgical History / Comment(s): elbow, L foot surgery; eye surgery sleeve gastrectomy 01-18-21 Past Anesthesia/Blood Transfusion Reactions: No Reported Reaction Past Psychological History: Depression Smoking Status: Never smoker Past Alcohol Use History: None Reported Past Drug Use History: None Reported General Exam Limitations: no limitations General appearance: alert, in no apparent distress Head exam: Present: atraumatic, normocephalic, normal inspection Eye exam: Present: normal appearance. Absent: scleral icterus, conjunctival injection ENT exam: Present: normal exam, normal oropharynx, mucous membranes moist Neck exam: Present: normal inspection, full ROM. Absent: tenderness, meningismus, lymphadenopathy Respiratory exam: Present: normal lung sounds bilaterally. Absent: respiratory distress, accessory muscle use Cardiovascular Exam: Present: bradycardia GI/Abdominal exam: Present: soft, tenderness (Epigastric). Absent: distended Extremities exam: Present: normal inspection, full ROM, normal capillary refill. Absent: tenderness, pedal edema Back exam: Present: normal inspection. Absent: tenderness, CVA tenderness (R), CVA tenderness (L), rash noted Neurological exam: Present: alert, oriented X3 Psychiatric exam: Present: normal affect, normal mood Skin exam: Present: warm, dry, normal color. Absent: cyanosis, diaphoretic, erythema, petechiae, pallor Course Vital Signs 02/23/22 02/23/22 09:24 10:41 Temperature 98.7 F 98.1 F Pulse Rate 56 L 55 L Respiratory 20 18 Rate Blood Pressure 133/98 134/93 O2 Sat by Pulse 99 99 Oximetry Medical Decision Making - Medical Decision Making X-ray of the abdomen shows nonspecific abdomen with post surgical changes. She denies any nausea or vomiting. States is having normal bowel movements. There is marked hypertrophy of the acetabulum and sclerosis of the left femoral head. Early osteonecrosis cannot be excluded. Patient does have a history of avascular necrosis to bilateral hips. She has no complaints of hip pain at this time. Hemoglobin and hematocrit are stable, there is no evidence of leukocytosis. Patient was given Protonix and GI cocktail without lidocaine as patient is allergic and she had no relief. She was given additional IV fluids and fentanyl and continues to complain of epigastric abdominal pain. Vital signs are stable, abdomen is soft. I did speak with Dr. Martinez who recommended observation and she will see the patient in the hospital. Patient is agreeable to this patient. She was given an additional dose of fentanyl for her pain. - Lab Data Result diagrams: 02/23/22 10:13 02/23/22 10:13 Lab Results 02/23/22 02/23/22 02/23/22 Range/Units 10:13 10:13 10:13 WBC 6.1 (3.8-10.6) k/uL RBC 4.58 (3.80-5.40) m/uL Hgb 13.7 (11.4-16.0) gm/dL Hct 42.1 (34.0-46.0) % MCV 91.9 (80.0-100.0) fL MCH 30.0 (25.0-35.0) pg MCHC 32.7 (31.0-37.0) g/dL RDW 12.5 (11.5-15.5) % Plt Count 158 (150-450) k/uL MPV 9.1 Neutrophils % 63 % Lymphocytes % 28 % Monocytes % 6 % Eosinophils % 0 % Basophils % 1 % Neutrophils # 3.8 (1.3-7.7) k/uL Lymphocytes # 1.7 (1.0-4.8) k/uL Monocytes # 0.4 (0-1.0) k/uL Eosinophils # 0.0 (0-0.7) k/uL Basophils # 0.1 (0-0.2) k/uL PT 9.7 (9.0-12.0) sec INR 0.9 (<1.2) APTT 22.4 (22.0-30.0) sec Sodium (137-145) mmol/L Potassium (3.5-5.1) mmol/L Chloride (98-107) mmol/L Carbon Dioxide (22-30) mmol/L Anion Gap mmol/L BUN (7-17) mg/dL Creatinine (0.52-1.04) mg/dL Est GFR (CKD-EPI)AfAm (>60 ml/min/1.73 sqM) Est GFR (CKD-EPI)NonAf (>60 ml/min/1.73 sqM) Glucose (74-99) mg/dL Plasma Lactic Acid [place] (0.7-2.0) mmol/L Calcium (8.4-10.2) mg/dL Total Bilirubin (0.2-1.3) mg/dL AST (14-36) U/L ALT (4-34) U/L Alkaline Phosphatase (38-126) U/L Total Protein (6.3-8.2) g/dL Albumin (3.5-5.0) g/dL Amylase (30-110) U/L Lipase (23-300) U/L Urine Color Yellow Urine Appearance Cloudy H (Clear) Urine pH 6.0 (5.0-8.0) Ur Specific [place] 1.020 (1.001-1.035) Urine Protein Negative (Negative) Urine Glucose (UA) Negative (Negative) Urine Ketones Negative (Negative) Urine Blood Negative (Negative) Urine Nitrite Negative (Negative) Urine Bilirubin Negative (Negative) Urine Urobilinogen <2.0 (<2.0) mg/dL Ur Leukocyte Esterase Moderate H (Negative) Urine RBC 2 (0-5) /hpf Ur Squamous Epith Cells 3 (0-4) /hpf Urine Bacteria Rare H (None) /hpf Urine Mucus Many H (None) /hpf Urine HCG, Qual (Not Detectd) 02/23/22 02/23/22 02/23/22 Range/Units 10:13 10:13 10:13 WBC (3.8-10.6) k/uL RBC (3.80-5.40) m/uL Hgb (11.4-16.0) gm/dL Hct (34.0-46.0) % MCV (80.0-100.0) fL MCH (25.0-35.0) pg MCHC (31.0-37.0) g/dL RDW (11.5-15.5) % Plt Count (150-450) k/uL MPV Neutrophils % % Lymphocytes % % Monocytes % % Eosinophils % % Basophils % % Neutrophils # (1.3-7.7) k/uL Lymphocytes # (1.0-4.8) k/uL Monocytes # (0-1.0) k/uL Eosinophils # (0-0.7) k/uL Basophils # (0-0.2) k/uL PT (9.0-12.0) sec INR (<1.2) APTT (22.0-30.0) sec Sodium 140 (137-145) mmol/L Potassium 3.5 (3.5-5.1) mmol/L Chloride 108 H (98-107) mmol/L Carbon Dioxide 25 (22-30) mmol/L Anion Gap 7 mmol/L BUN 8 (7-17) mg/dL Creatinine 0.73 (0.52-1.04) mg/dL Est GFR (CKD-EPI)AfAm >90 (>60 ml/min/1.73 sqM) Est GFR (CKD-EPI)NonAf >90 (>60 ml/min/1.73 sqM) Glucose 96 (74-99) mg/dL Plasma Lactic Acid [place] 1.2 (0.7-2.0) mmol/L Calcium 9.2 (8.4-10.2) mg/dL Total Bilirubin 0.4 (0.2-1.3) mg/dL AST 32 (14-36) U/L ALT 19 (4-34) U/L Alkaline Phosphatase 67 (38-126) U/L Total Protein 6.6 (6.3-8.2) g/dL Albumin 3.9 (3.5-5.0) g/dL Amylase 87 (30-110) U/L Lipase 157 (23-300) U/L Urine Color Urine Appearance (Clear) Urine pH (5.0-8.0) Ur Specific [place] (1.001-1.035) Urine Protein (Negative) Urine Glucose (UA) (Negative) Urine Ketones (Negative) Urine Blood (Negative) Urine Nitrite (Negative) Urine Bilirubin (Negative) Urine Urobilinogen (<2.0) mg/dL Ur Leukocyte Esterase (Negative) Urine RBC (0-5) /hpf Ur Squamous Epith Cells (0-4) /hpf Urine Bacteria (None) /hpf Urine Mucus (None) /hpf Urine HCG, Qual Not Detected (Not Detectd) Disposition Clinical Impression: Abdominal pain Disposition: ADMITTED IP TO THIS HOSP Decision Date: 02/23/22 Decision Time: 13:02
[2022-02-23] MEDS ORDERED: MAG HYDROX/AL HYDROX/SIMETH 30 ML, HYOSCYAMINE ELIXIR 10 ML PO STA ×2 (09:58)
[2022-02-23 11:10] LABS: Basophils # (A) 0.1 k/uL (0-0.2); Basophils % (A) 1 %; Eosinophils % (A) 0 %; HCT 42.1 % (34.0-46.0); HGB 13.7 gm/dL (11.4-16.0); Lymphocytes # (A) 1.7 k/uL (1.0-4.8); Lymphocytes % (A) 28 %; MCHC 32.7 g/dL (31.0-37.0); MCV 91.9 fL (80.0-100.0); Mean Platelet Volume 9.1; Monocytes # (A) 0.4 k/uL (0-1.0); Monocytes % (A) 6 %; Neutrophils # (A) 3.8 k/uL (1.3-7.7); Neutrophils % (A) 63 %; Platelet Count 158 k/uL (150-450); RBC 4.58 m/uL (3.80-5.40); RDW 12.5 % (11.5-15.5); WBC 6.1 k/uL (3.8-10.6)
--- NOTE | 2022-02-23 11:17 | XR ---
EXAMINATION TYPE: XR KUB DATE OF EXAM: 02/23/2022 COMPARISON: NONE HISTORY: Abdominal pain TECHNIQUE: One view abdominal series FINDINGS: The osseous structures are intact. The bowel gas pattern is nonspecific. Lung bases are clear. Post surgical changes are seen in the abdomen. Hypertrophic changes of the acetabulum comparison films fem oral acetabular impingement. IMPRESSION: 1. Nonspecific abdomen. Postsurgical changes are seen. 2. There is marked hypertrophy of the acetabulum which can be associated with femoral acetabular impi ngement. There is sclerosis of the left femoral head which can be associated with a bone island. Arturo y osteonecrosis not excluded correlate clinically.
[2022-02-23 11:20] LABS: Appearance,Urine Cloudy (Clear); Bacteria,Urine Rare /hpf; Bilirubin,Urine Negative (Negative); Blood,Urine Negative (Negative); Color,Urine Yellow; Glucose,Urine (UA) Negative (Negative); Ketones,Urine Negative (Negative); Leukocyte Esterase,Urine Moderate (Negative); Mucus,Urine Many /hpf; Nitrite,Urine Negative (Negative); Protein,Urine Negative (Negative); RBC,Urine 2 /hpf (0-5); Squamous Epithelial Cell,Urine 3 /hpf (0-4); Urobilinogen,Urine <2.0 mg/dL (<2.0)
[2022-02-23] MEDS ORDERED: fentaNYL (PF) 50 MCG/ML 2 ML AMP IVP STA ×2 (11:24→13:11)
[2022-02-23 11:31] LABS: INR 0.9 (<1.2); Partial Thromboplastin Time 22.4 sec (22.0-30.0); Prothrombin Time 9.7 sec (9.0-12.0)
[2022-02-23] MEDS ORDERED: SODIUM CHLORIDE 0.9% 1,000 ML IV ONE (11:31)
[2022-02-23 11:32] LABS: ALT 19 U/L (4-34); AST 32 U/L (14-36); African American GFR (CKD) >90 (>60 ml/min/1.73 sqM); Albumin 3.9 g/dL (3.5-5.0); Alkaline Phosphatase 67 U/L (38-126); Amylase 87 U/L (30-110); Anion Gap 7 mmol/L; Blood Urea Nitrogen 8 mg/dL (7-17); Calcium 9.2 mg/dL (8.4-10.2); Carbon Dioxide 25 mmol/L (22-30); Chloride 108 mmol/L (98-107); Glucose 96 mg/dL (74-99); Lipase 157 U/L (23-300); Non-African American GFR(CKD) >90 (>60 ml/min/1.73 sqM); Potassium 3.5 mmol/L (3.5-5.1); Sodium 140 mmol/L (137-145); Total Bilirubin 0.4 mg/dL (0.2-1.3); Total Protein 6.6 g/dL (6.3-8.2)
--- NOTE | 2022-02-23 12:18 | CT ---
EXAMINATION TYPE: CT abdomen pelvis w con DATE OF EXAM: 02/23/2022 COMPARISON: 11/07/2021 INDICATION: Midline abdominal pain to pelvis DLP: 886.3 mGycm, Automated exposure control for dose reduction was used. CONTRAST: 100 mL of Isovue 300. Study performed with Oral Contrast TECHNIQUE: Axial images were obtained from above the diaphragm to the pubic rami in the axial plane a t 5 mm thick sections. Reconstructed images are reviewed on the computer in the coronal plane. FINDINGS: Limited CT sections are obtained the lung bases. The lung bases are clear. CT ABDOMEN: Post gastric surgery changes are evident. Liver: Normal Spleen: Normal Pancreas: Normal Adrenal glands: The adrenal glands are normal. Gallbladder: Surgically absent Kidneys: No masses are evident. No hydronephrosis is present. No cysts are present. Delayed images were obtained through the kidneys, which remain unremarkable. Aorta: Normal Inferior vena cava: Normal. CT PELVIS: Loops of bowel within the abdomen and pelvis are normal. There are loops of bowel which are incom pletely distended or lack oral contrast limiting their evaluation. Appendix: Normal as visualized. Urinary bladder: Normal. Genitourinary structures: Uterus is normal. Adnexa are normal. Minimal amount of free fluid may be wi thin the pelvis, this can be physiologic. Osseous structures: No suspicious lytic or sclerotic lesions. IMPRESSIONS: 1. No suspicious acute changes to account for patient's epigastric pain.
[2022-02-23] MEDS ORDERED: NALOXONE 0.4 MG/ML 1 ML VIAL IV PRN (13:05)
[2022-02-23] MEDS ORDERED: ACETAMINOPHEN TAB 325 MG TAB PO PRN (13:05)
[2022-02-23] MEDS: SODIUM CHLORIDE 0.9% 1,000 ML IV SCH (14:31)
[2022-02-23] MEDS: ACETAMINOPHEN IV (For NPO) 1,000 MG in EMPTY BAG 1 BAG IVPB SCH ×2 (15:53→20:35)
--- NOTE | 2022-02-23 17:44 | P.GSHP ---
History of Present Illness H&P Date: 02/23/22 Patient seen and evaluated. Reports epigastric abdominal pain. She does report hunger. Similar episode over 6+ months ago. Her pain is more intense. At the time of evaluation, patient was drinking liquids. Denies abdominal distention. With history of gastrojejunal ulcer, upper endoscopy advised. Nothing by mouth after midnight. In the interim, Protonix twice a day. Carafate 3 times daily. 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, AVASCULAR NECROSIS KARTHIK HIPS, arthritis, pseudotumur History of Any Multi-Drug Resistant Organisms: None Reported Past Surgical History: Bariatric Surgery, Cholecystectomy, Ear Surgery, Orthopedic Surgery Additional Past Surgical History / Comment(s): elbow, L foot surgery; eye surgery sleeve gastrectomy 01-18-21 Past Anesthesia/Blood Transfusion Reactions: No Reported Reaction Past Psychological History: Depression Smoking Status: Never smoker Past Alcohol Use History: None Reported Past Drug Use History: None Reported Medications and Allergies Home Medications Medication Instructions Recorded Confirmed Type Belimumab [Benlysta] 200 mg SQ WE 03/30/20 02/23/22 History acetaZOLAMIDE [Diamox] 500 mg PO DAILY 01/12/21 02/23/22 History Ergocalciferol [Vitamin D2 (1250 1,250 mcg PO TU 07/23/21 02/23/22 History Mcg = 92737 Iu)] Etonogestrel/Ethinyl Estradiol 1 vag ring VAGINAL Q28D 02/02/22 02/23/22 History [Nuvaring Vaginal Ring] Cetirizine HCl [Zyrtec] 10 mg PO BID 02/23/22 02/23/22 History HYDROcodone/APAP 10-325MG [[place] 1 tab PO DAILY PRN 02/23/22 02/23/22 History 10-325] Levothyroxine Sodium [Synthroid] 200 mcg PO DAILY 02/23/22 02/23/22 History Olopatadine HCl 1 applic BOTH EYES DAILY PRN 02/23/22 02/23/22 History Allergies Allergy/AdvReac Type Severity Reaction Status Date / Time cobalt Allergy Unknown Verified 02/23/22 10:25 lidocaine Allergy Unknown Verified 02/23/22 10:25 neomycin Allergy Unknown Verified 02/23/22 10:25 codeine AdvReac Nausea & Verified 02/23/22 10:25 Vomiting. HEADACHES LINALOOL Allergy Unknown Uncoded 02/23/22 09:26 Surgical - Exam Vital Signs Temp Pulse Resp BP Pulse Ox 98.7 F 56 L 20 133/98 99 02/23/22 09:24 02/23/22 09:24 02/23/22 09:24 02/23/22 09:24 02/23/22 09:24 Results - Labs 02/23/22 10:13 02/23/22 10:13 Abnormal Lab Results - Last 24 Hours (Table) 02/23/22 02/23/22 Range/Units 10:13 10:13 Chloride 108 H (98-107) mmol/L Urine Appearance Cloudy H (Clear) Ur Leukocyte Esterase Moderate H (Negative) Urine Bacteria Rare H (None) /hpf Urine Mucus Many H (None) /hpf Diabetes panel 02/23/22 Range/Units 10:13 Sodium 140 (137-145) mmol/L Potassium 3.5 (3.5-5.1) mmol/L Chloride 108 H (98-107) mmol/L Carbon Dioxide 25 (22-30) mmol/L BUN 8 (7-17) mg/dL Creatinine 0.73 (0.52-1.04) mg/dL Glucose 96 (74-99) mg/dL Calcium 9.2 (8.4-10.2) mg/dL AST 32 (14-36) U/L ALT 19 (4-34) U/L Alkaline Phosphatase 67 (38-126) U/L Total Protein 6.6 (6.3-8.2) g/dL Albumin 3.9 (3.5-5.0) g/dL Calcium panel 02/23/22 Range/Units 10:13 Calcium 9.2 (8.4-10.2) mg/dL Albumin 3.9 (3.5-5.0) g/dL Pituitary panel 02/23/22 Range/Units 10:13 Sodium 140 (137-145) mmol/L Potassium 3.5 (3.5-5.1) mmol/L Chloride 108 H (98-107) mmol/L Carbon Dioxide 25 (22-30) mmol/L BUN 8 (7-17) mg/dL Creatinine 0.73 (0.52-1.04) mg/dL Glucose 96 (74-99) mg/dL Calcium 9.2 (8.4-10.2) mg/dL Adrenal panel 02/23/22 Range/Units 10:13 Sodium 140 (137-145) mmol/L Potassium 3.5 (3.5-5.1) mmol/L Chloride 108 H (98-107) mmol/L Carbon Dioxide 25 (22-30) mmol/L BUN 8 (7-17) mg/dL Creatinine 0.73 (0.52-1.04) mg/dL Glucose 96 (74-99) mg/dL Calcium 9.2 (8.4-10.2) mg/dL Total Bilirubin 0.4 (0.2-1.3) mg/dL AST 32 (14-36) U/L ALT 19 (4-34) U/L Alkaline Phosphatase 67 (38-126) U/L Total Protein 6.6 (6.3-8.2) g/dL Albumin 3.9 (3.5-5.0) g/dL
[2022-02-24] MEDS: ACETAMINOPHEN IV (For NPO) 1,000 MG in EMPTY BAG 1 BAG IVPB SCH ×2 (04:14→08:45)
[2022-02-24] MEDS: SODIUM CHLORIDE 0.9% 1,000 ML IV SCH ×2 (04:15→14:16)
[2022-02-24] MEDS ORDERED: LACTATED RINGERS 1,000 ML IV SCH (06:50)
[2022-02-24 07:54] VITALS: RESP 18
[2022-02-24] MEDS ORDERED: PANTOPRAZOLE 40 MG/10 ML VIAL IVP SCH (13:30)
[2022-02-24] MEDS ORDERED: ONDANSETRON 4 MG/2 ML VIAL IVP PRN (13:35)
[2022-02-24] MEDS ORDERED: PROPOFOL 10 MG/ML 20 ML VIAL IV ONE (13:39)
[2022-02-24] MEDS ORDERED: LIDOCAINE 2% INJ 20 MG/ML (2 ML VIAL) ONE (13:39)
[2022-02-24] MEDS ORDERED: SODIUM CHLORIDE 0.9% 1,000 ML IV ONE (13:42)
--- NOTE | 2022-02-24 13:56 | P.PCN ---
Date of Procedure: 02/24/22 Description of Procedure: PREOPERATIVE DIAGNOSES: 1. History of gastrojejunal ulcers and stricture 2. Nausea and vomiting. 3. History of Bharathi-en-Y gastric bypass 4. Epigastric abdominal pain. POSTOPERATIVE DIAGNOSES: 1. Foreign body at gastrojejunal anastomosis 2. History of Bharathi-en-Y gastric bypass 3. Gastritis PROCEDURE PERFORMED: 1. Esophagogastrojejunoscopy with removal of foreign body 2. Esophagogastrojejunoscopy with biopsies on the gastric pouch. SURGEON: Darya Martinez MD ANESTHESIA: MAC. INDICATIONS: The patient is a 31-year-old female with prior history of Bharathi-en-Y gastric bypass. She presents with nausea and vomiting, epigastric abdominal pain and history of gastrojejunal ulcer. With her history of Bharathi-en-Y gastric bypass, upper endoscopy was offered for further evaluation and management. Benefits and risks described. Informed consent was obtained. DESCRIPTION: Patient was brought to the endoscopy suite and laid in the left lateral decubitus position. After adequate IV sedation, a bite block was placed. An Olympus gastroscope was passed along the posterior oropharynx down to the distal esophagus where the squamocolumnar junction was found at approximately 36 cm from the incisors. The diaphragmatic hiatus was found at 36 cm from the incisors. Her anastomosis was found at 40 cm, consistent with approximately 4 cm gastric pouch. Foreign body involving calderon x2 at the anastomosis, removed. No active gastrojejunal ulceration was encountered. Biopsies along the gastric pouch for gastritis. The scope was passed to 60 cm of the Bharathi limb. Blind jejunal limb of 4 cm was identified. The GI tract was desufflated. The patient tolerated the procedure well. FINDINGS: 1. No acute gastrojejunal ulceration 2. Foreign body found along the anastomosis. 3. Elongated jejunal blind pouch, 4 cm 4. Squamocolumnar junction at 36 cm from the incisors. 5. Diaphragmatic hiatus at 36 cm from the incisors. 6. No hiatal hernia 7. Anastomosis at 40 cm from the incisors. 8. Gastric pouch 4 cm. 9. Chronic gastritis of the gastric pouch. PLAN: 1. Upper endoscopy as needed 2. Omeprazole for 2 weeks
[2022-02-24 14:44] VITALS: BP 148/92; PULSE 43; TEMP 98.6
--- NOTE | 2022-02-24 18:52 | P.DS ---
Providers Date of admission: 02/23/22 13:10 Expected date of discharge: 02/24/22 Attending physician: Darya Martinez Primary care physician: Getachew Mar [facility] Course: Abdominal pain improved. She tolerated diet. Bentyl started for medications. Follow up as outpatient in 2 weeks. Plan - Discharge Summary New Discharge Prescriptions: New Dicyclomine [Bentyl] 10 mg PO QID #30 capsule Continue RX: Belimumab [Benlysta] 200 mg SQ WE RX: Ergocalciferol [Vitamin D2 (1250 Mcg = 25638 Iu)] 1,250 mcg PO TU RX: Etonogestrel/Ethinyl Estradiol [Nuvaring Vaginal Ring] 1 vag ring VAGINAL Q28D RX: Cetirizine HCl [Zyrtec] 10 mg PO BID RX: acetaZOLAMIDE [Diamox] 500 mg PO DAILY RX: HYDROcodone/APAP 10-325MG [[place] 10-325] 1 tab PO DAILY PRN PRN Reason: Pain RX: Levothyroxine Sodium [Synthroid] 200 mcg PO DAILY RX: Olopatadine HCl 1 applic BOTH EYES DAILY PRN PRN Reason: eye iritation Discharge Medication List RX: Belimumab [Benlysta] 200 mg SQ WE 03/30/20 [History] RX: acetaZOLAMIDE [Diamox] 500 mg PO DAILY 01/12/21 [History] RX: Ergocalciferol [Vitamin D2 (1250 Mcg = 89281 Iu)] 1,250 mcg PO TU 07/23/21 [History] RX: Etonogestrel/Ethinyl Estradiol [Nuvaring Vaginal Ring] 1 vag ring VAGINAL Q28D 02/02/22 [History] RX: Cetirizine HCl [Zyrtec] 10 mg PO BID 02/23/22 [History] RX: HYDROcodone/APAP 10-325MG [[place] 10-325] 1 tab PO DAILY PRN 02/23/22 [History] RX: Levothyroxine Sodium [Synthroid] 200 mcg PO DAILY 02/23/22 [History] RX: Olopatadine HCl 1 applic BOTH EYES DAILY PRN 02/23/22 [History] Dicyclomine [Bentyl] 10 mg PO QID #30 capsule 02/24/22 [Rx] Follow up Appointment(s)/Referral(s): Getachew Mar MD [Primary Care Provider] [facility] [place] [facility] - 03/09/22 Patient Instructions/Handouts: *Surgery [facility] - (Anesthesia) Endoscopy Discharge Instructions Discharge Disposition: HOME SELF-CARE
[2022-02-26 11:57] LABS: Cotinine 2.2 ng/mL (<2.0); Nicotine <2.0 ng/mL (<2.0)
== END 2022-02-24 19:18 | disposition home or self-care (01) ==
LOC: EC 09:21 → 6NMEDSUR 13:10
PROVIDERS: ADMIT Surgery Plastic and Reconstructive Surgery; ATTEND Surgery Plastic and Reconstructive Surgery
DX: K29.50 Unspecified chronic gastritis without bleeding (principal); R10.9 Unspecified abdominal pain; T18 Foreign body in alimentary tract; Z87.11 Personal history of peptic ulcer disease; Z45.89 Encounter for adjustment and management of other implanted devices; Z98.0 Intestinal bypass and anastomosis status; Z98.84 Bariatric surgery status; E03.9 Hypothyroidism, unspecified; I10 Essential (primary) hypertension; D64.9 Anemia, unspecified; K21.9 Gastro-esophageal reflux disease without esophagitis; Z79.890 Hormone replacement therapy
CPT/HCPCS: 96376; 96365; 96361; 96375; 99285; 36415; 88305; 80053; 82150; 83605; 83690; 85025; 85610; 85730; 81001; 81025; 80323; 74018; 74177; 43239; 43247; G0378 ×2; J3010; J0131 ×2; J2704; C9113; Q9967; J2001

== ENCOUNTER 2022-04-20 06:49 | Emergency (ER) | payer BC, OTHER ==
[2022-04-20] MEDS ORDERED: SODIUM CHLORIDE 0.9% 2,000 ML IV ONE (07:15)
[2022-04-20] MEDS ORDERED: BEBTELOVIMAB (EUA) 175 MG/2 ML VIAL IV ONE (07:45)
--- NOTE | 2022-04-20 07:45 | ED ---
URI HPI - General Chief Complaint: Upper Respiratory Infection Stated Complaint: Dehydration, Covid+ home test Time Seen by Provider: 04/20/22 06:56 Source: patient, RN notes reviewed Mode of arrival: ambulatory Limitations: no limitations - History of Present Illness Initial Comments: This a 32-year-old female presents emergency Department with chief complaint of COVID-19. Patient states she started symptoms 6 days ago. Patient states started fever chills bodies cough congestion nausea vomiting. Patient states she feels very dehydrated. Patient states that she hasn't vomited of recent but states she doesn't push fluids. Patient denies any chest pain no current headache or dizziness. Patient states she feels very weak lightheaded. Patient offers no other complaints. - Related Data Home Medications Medication Instructions Recorded Confirmed Belimumab [Benlysta] 200 mg SQ WE 03/30/20 02/23/22 acetaZOLAMIDE [Diamox] 500 mg PO DAILY 01/12/21 02/23/22 Ergocalciferol [Vitamin D2 (1250 1,250 mcg PO TU 07/23/21 02/23/22 Mcg = 14201 Iu)] Etonogestrel/Ethinyl Estradiol 1 vag ring VAGINAL Q28D 02/02/22 02/23/22 [Nuvaring Vaginal Ring] Cetirizine HCl [Zyrtec] 10 mg PO BID 02/23/22 02/23/22 HYDROcodone/APAP 10-325MG [[place] 1 tab PO DAILY PRN 02/23/22 02/23/22 10-325] Levothyroxine Sodium [Synthroid] 200 mcg PO DAILY 02/23/22 02/23/22 Olopatadine HCl [Patanol 0.1%] 1 applic BOTH EYES DAILY PRN 02/23/22 02/23/22 Previous Rx's Medication Instructions Recorded Dicyclomine [Bentyl] 10 mg PO QID #30 capsule 02/24/22 Allergies Allergy/AdvReac Type Severity Reaction Status Date / Time cobalt Allergy Unknown Verified 04/20/22 06:55 lidocaine Allergy Unknown Verified 04/20/22 06:55 neomycin Allergy Unknown Verified 04/20/22 06:55 codeine AdvReac Nausea & Verified 04/20/22 06:55 Vomiting. HEADACHES LINALOOL Allergy Unknown Uncoded 04/20/22 06:55 Review of Systems ROS Statement: Those systems with pertinent positive or pertinent negative responses have been documented in the HPI. ROS Other: All systems not noted in ROS Statement are negative. 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, AVASCULAR NECROSIS KARTHIK HIPS, arthritis, pseudotumur History of Any Multi-Drug Resistant Organisms: None Reported Past Surgical History: Bariatric Surgery, Cholecystectomy, Ear Surgery, Orthopedic Surgery Additional Past Surgical History / Comment(s): elbow, L foot surgery; eye surgery sleeve gastrectomy 01-18-21 Past Anesthesia/Blood Transfusion Reactions: No Reported Reaction Past Psychological History: Anxiety, Depression Smoking Status: Never smoker Past Alcohol Use History: None Reported Past Drug Use History: None Reported General Exam Limitations: no limitations General appearance: alert, in no apparent distress Head exam: Present: atraumatic, normocephalic, normal inspection Eye exam: Present: normal appearance, PERRL, EOMI. Absent: scleral icterus, conjunctival injection, periorbital swelling ENT exam: Present: normal exam, normal oropharynx, mucous membranes moist Neck exam: Present: normal inspection, full ROM. Absent: tenderness, meningismus, lymphadenopathy Respiratory exam: Present: normal lung sounds bilaterally. Absent: respiratory distress, wheezes, rales, rhonchi, stridor Cardiovascular Exam: Present: regular rate, normal rhythm, normal heart sounds. Absent: systolic murmur, diastolic murmur, rubs, gallop, clicks GI/Abdominal exam: Present: soft, normal bowel sounds. Absent: distended, tenderness, guarding, rebound, rigid Back exam: Absent: CVA tenderness (R), CVA tenderness (L) Neurological exam: Present: alert Skin exam: Present: warm, dry, intact, normal color. Absent: rash Course Vital Signs 04/20/22 06:51 Temperature 98.7 F Pulse Rate 69 Respiratory 16 Rate Blood Pressure 131/62 O2 Sat by Pulse 99 Oximetry Medical Decision Making - Medical Decision Making Patient is COVID-19 positive patient did receive monoclonal antibodies, hydrated will be discharged in stable condition return parameters were discussed. Disposition Clinical Impression: COVID-19 Disposition: HOME SELF-CARE Condition: Stable Instructions (If sedation given, give patient instructions): COVID-19 (Coronavi vasile Disease 2019) (ED) Additional Instructions: Please return to the Emergency Department if symptoms worsen or any other concerns. Is patient prescribed a controlled substance at d/c from ED?: No Referrals: Getachew Mar MD [Primary Care Provider] - 1-2 days Time of Disposition: 07:45
[2022-04-20 09:12] VITALS: BP 123/80; PULSE 57; RESP 18; TEMP 97.7
== END 2022-04-20 09:00 | disposition home or self-care (01) ==
LOC: EC 06:49
DX: U07.1 COVID-19 (principal); I10 Essential (primary) hypertension; G40.909 Epilepsy, unspecified, not intractable, without status epilepticus; F41.9 Anxiety disorder, unspecified; F32.A Depression, unspecified; Z88.9 Allergy status to unspecified drugs, medicaments and biological substances; Z88.1 Allergy status to other antibiotic agents; Z88.5 Allergy status to narcotic agent; Z88.4 Allergy status to anesthetic agent
CPT/HCPCS: 99283; 96360; Q0222

== ENCOUNTER 2022-05-15 14:50 | Emergency (ER) | payer BC, OTHER ==
[2022-05-15 14:53] VITALS: TEMP 98.5
[2022-05-15] MEDS ORDERED: SODIUM CHLORIDE 0.9% 1,000 ML IV STA ×2 (15:09)
[2022-05-15] MEDS ORDERED: ONDANSETRON 4 MG/2 ML VIAL IVP STA (15:09)
[2022-05-15] MEDS ORDERED: KETOROLAC 15 MG/ML 1 ML VIAL IVP STA (15:09)
[2022-05-15 15:54] LABS: Basophils % (A) 0 %; Eosinophils % (A) 0 %; HCT 37.5 % (34.0-46.0); HGB 12.2 gm/dL (11.4-16.0); Lymphocytes # (A) 1.6 k/uL (1.0-4.8); Lymphocytes % (A) 22 %; MCHC 32.6 g/dL (31.0-37.0); MCV 91.9 fL (80.0-100.0); Mean Platelet Volume 9.5; Monocytes # (A) 0.5 k/uL (0-1.0); Monocytes % (A) 7 %; Neutrophils % (A) 69 %; Platelet Count 156 k/uL (150-450); RBC 4.09 m/uL (3.80-5.40); RDW 12.4 % (11.5-15.5); WBC 7.3 k/uL (3.8-10.6)
[2022-05-15 16:03] LABS: ALT 13 U/L (4-34); AST 20 U/L (14-36); African American GFR (CKD) >90 (>60 ml/min/1.73 sqM); Albumin 3.4 g/dL (3.5-5.0); Alkaline Phosphatase 60 U/L (38-126); Anion Gap 9 mmol/L; Blood Urea Nitrogen 11 mg/dL (7-17); Calcium 8.8 mg/dL (8.4-10.2); Carbon Dioxide 23 mmol/L (22-30); Chloride 107 mmol/L (98-107); Glucose 76 mg/dL (74-99); Lipase 208 U/L (23-300); Non-African American GFR(CKD) >90 (>60 ml/min/1.73 sqM); Potassium 3.6 mmol/L (3.5-5.1); Sodium 139 mmol/L (137-145); Total Bilirubin 0.2 mg/dL (0.2-1.3); Total Protein 5.9 g/dL (6.3-8.2)
--- NOTE | 2022-05-15 17:35 | ED ---
Abdominal Pain HPI - General Chief Complaint: Abdominal Pain Stated Complaint: Pain in ABD Time Seen by Provider: 05/15/22 14:59 Source: patient Mode of arrival: ambulatory Limitations: no limitations - History of Present Illness Initial Comments: This 32-year-old female presents complaining of some abdominal pain. She states that it started 3 days ago. It is primarily into her bilateral lower abdomen as well as her left upper quadrant and midepigastric region. She was seen in the emergency department for similar 3 days ago but states that the pain was only in her lower abdomen at that time. She had a pelvic ultrasound and states that they told her she may have had a ovarian cyst. She states that the pain has persisted. She's also had some nausea and vomiting. She complains of some loose stools. There is no urinary symptoms. She states that she had a test 3 days ago which was negative. No other complaints or modifying factors. She does relate a history of previous gastric bypass surgery as well as cholecystectomy but denies any other abdominal surgeries. She states that the vaginal bleeding has significantly improved at this point. - Related Data Home Medications Medication Instructions Recorded Confirmed Belimumab [Benlysta] 200 mg SQ WE 03/30/20 02/23/22 acetaZOLAMIDE [Diamox] 500 mg PO DAILY 01/12/21 02/23/22 Ergocalciferol [Vitamin D2 (1250 1,250 mcg PO TU 07/23/21 02/23/22 Mcg = 45347 Iu)] Etonogestrel/Ethinyl Estradiol 1 vag ring VAGINAL Q28D 02/02/22 02/23/22 [Nuvaring Vaginal Ring] Cetirizine HCl [Zyrtec] 10 mg PO BID 02/23/22 02/23/22 HYDROcodone/APAP 10-325MG [[place] 1 tab PO DAILY PRN 02/23/22 02/23/22 10-325] Levothyroxine Sodium [Synthroid] 200 mcg PO DAILY 02/23/22 02/23/22 Olopatadine HCl [Patanol 0.1%] 1 applic BOTH EYES DAILY PRN 02/23/22 02/23/22 Previous Rx's Medication Instructions Recorded Dicyclomine [Bentyl] 10 mg PO QID #30 capsule 02/24/22 Dicyclomine [Bentyl] 20 mg PO QID PRN #20 tablet 05/15/22 Ondansetron Odt [Zofran Odt] 8 mg PO Q8HR PRN #10 tab 05/15/22 Allergies Allergy/AdvReac Type Severity Reaction Status Date / Time cobalt Allergy Unknown Verified 05/15/22 14:54 lidocaine Allergy Unknown Verified 05/15/22 14:54 neomycin Allergy Unknown Verified 05/15/22 14:54 codeine AdvReac Nausea & Verified 05/15/22 14:54 Vomiting. HEADACHES LINALOOL Allergy Unknown Uncoded 05/15/22 14:54 Review of Systems ROS Statement: Those systems with pertinent positive or pertinent negative responses have been documented in the HPI. ROS Other: All systems not noted in ROS Statement are negative. 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, AVASCULAR NECROSIS KARTHIK HIPS, arthritis, pseudotumur History of Any Multi-Drug Resistant Organisms: None Reported Past Surgical History: Bariatric Surgery, Cholecystectomy, Ear Surgery, Orthopedic Surgery Additional Past Surgical History / Comment(s): elbow, L foot surgery; eye surgery sleeve gastrectomy 01-18-21 Past Anesthesia/Blood Transfusion Reactions: No Reported Reaction Past Psychological History: Anxiety, Depression Smoking Status: Never smoker Past Alcohol Use History: None Reported Past Drug Use History: None Reported General Exam - General Exam Comments Initial Comments: GENERAL: The patient is well nourished and well hydrated. VITAL SIGNS: Heart rate, blood pressure, respiratory rate reviewed as recorded in nurse's notes. EYES: Pupils are round and reactive. Extraocular movements are intact. No conjunctival / lid redness or swelling. ENT: No external evidence of injury, swelling, or ecchymosis. Airway is patent. Throat is clear. NECK: Nontender. No swelling or evidence of injury. No subcutaneous emphysema. Trachea is midline. No thyroid mass. HEART: Regular rate and rhythm. Good peripheral pulses. LUNGS/CHEST: Breath sounds clear and equal bilaterally. No rales, rhonchi, or wheezes. No ecchymosis, subcutaneous emphysema, or tenderness. ABDOMEN: Abdomen soft with mild diffuse abdominal tenderness. No palpable masses or organomegaly. No peritoneal signs. No abdominal wall swelling or ecchymosis. EXTREMITIES: No extremity tenderness. Normal muscle tone and function. No thoracolumbar tenderness. NEUROLOGIC: Sensation is grossly intact. Cranial nerve exam reveals face is symmetrical, tongue is midline, speech is clear. SKIN: No abrasions or ecchymosis is noted. No induration or masses noted. PSYCHIATRIC: Alert and oriented. Appropriate behavior and judgment. Limitations: no limitations Course Vital Signs 05/15/22 14:51 Temperature 98.5 F Pulse Rate 56 L Respiratory 20 Rate Blood Pressure 141/92 O2 Sat by Pulse 99 Oximetry Medical Decision Making - Medical Decision Making The patient was seen and examined. All diagnostics were reviewed. Old records from 3 days ago also were reviewed. Laboratory is ordered and is all essentially within normal limits. Computed tomography scan of the abdomen and pelvis is also ordered. Patient receives some Toradol as well as Zofran. The computed tomography scan of the abdomen and pelvis does not show any acute abnormalities. The exact cause of her symptomatology is not definitively determined. She has had some abdominal pain, nausea, vomiting, and loose stools. The possibility of a gastroenteritis certainly is plausible. She will be prescribed some Zofran and Bentyl. It is felt as though she stable for discharge. She does request a work note. Return parameters are discussed. Close follow-up with primary care recommended. - Lab Data Result diagrams: 05/15/22 15:37 05/15/22 15:37 Lab Results 05/15/22 05/15/22 Range/Units 15:37 15:37 WBC 7.3 (3.8-10.6) k/uL RBC 4.09 (3.80-5.40) m/uL Hgb 12.2 (11.4-16.0) gm/dL Hct 37.5 (34.0-46.0) % MCV 91.9 (80.0-100.0) fL MCH 30.0 (25.0-35.0) pg MCHC 32.6 (31.0-37.0) g/dL RDW 12.4 (11.5-15.5) % Plt Count 156 (150-450) k/uL MPV 9.5 Neutrophils % 69 % Lymphocytes % 22 % Monocytes % 7 % Eosinophils % 0 % Basophils % 0 % Neutrophils # 5.0 (1.3-7.7) k/uL Lymphocytes # 1.6 (1.0-4.8) k/uL Monocytes # 0.5 (0-1.0) k/uL Eosinophils # 0.0 (0-0.7) k/uL Basophils # 0.0 (0-0.2) k/uL Sodium 139 (137-145) mmol/L Potassium 3.6 (3.5-5.1) mmol/L Chloride 107 (98-107) mmol/L Carbon Dioxide 23 (22-30) mmol/L Anion Gap 9 mmol/L BUN 11 (7-17) mg/dL Creatinine 0.65 (0.52-1.04) mg/dL Est GFR (CKD-EPI)AfAm >90 (>60 ml/min/1.73 sqM) Est GFR (CKD-EPI)NonAf >90 (>60 ml/min/1.73 sqM) Glucose 76 (74-99) mg/dL Calcium 8.8 (8.4-10.2) mg/dL Total Bilirubin 0.2 (0.2-1.3) mg/dL AST 20 (14-36) U/L ALT 13 (4-34) U/L Alkaline Phosphatase 60 (38-126) U/L Total Protein 5.9 L (6.3-8.2) g/dL Albumin 3.4 L (3.5-5.0) g/dL Lipase 208 (23-300) U/L Disposition Clinical Impression: Acute abdominal pain, Nausea and vomiting, Loose stools Disposition: HOME SELF-CARE Condition: Good Instructions (If sedation given, give patient instructions): Abdominal Pain (ED) Prescriptions: Dicyclomine [Bentyl] 20 mg PO QID PRN #20 tablet PRN Reason: Pain Ondansetron Odt [Zofran Odt] 8 mg PO Q8HR PRN #10 tab PRN Reason: Nausea Is patient prescribed a controlled substance at d/c from ED?: No Referrals: Getachew Mar MD [Primary Care Provider] - 1-2 days Time of Disposition: 19:05
--- NOTE | 2022-05-15 18:45 | CT ---
EXAMINATION TYPE: CT abdomen pelvis w con DATE OF EXAM: 05/15/2022 COMPARISON: 02/23/2022 HISTORY: Abdominal pain CT DLP: 726 mGycm Automated exposure control for dose reduction was used. CONTRAST: Performed with IV Contrast, patient injected with 100 mL of Isovue 300. The lung bases are clear. No pleural effusion. Heart size is normal. No pericardial effusion. There i s gastric bariatric surgery. There is 2 cm hypodensity in the anterior right lobe of the liver that c ould be a cyst. The bile ducts are not dilated. There are clips from cholecystectomy. Spleen is intac t. No pancreatic mass. There is no adrenal mass. Kidneys show satisfactory contrast opacification. There is no hydronephrosi s. Ureters are not dilated. The bladder distends smoothly. No inguinal hernia. No free fluid in the p thony. No pelvic mass. Uterus is anteverted. There is no mesenteric edema. No ascites or free air. No sign of a bowel obstruction. Appendix is pos terior adjacent to the cecum and appears normal. The lumbar vertebra appear intact. No compression fracture. Posterior elements are intact. Bony pelvi s is intact. The hip joints appear normal.. IMPRESSION: Negative CT scan abdomen and pelvis. No adverse change compared to old exam.
[2022-05-15 19:14] VITALS: BP 128/85; PULSE 83; RESP 16
== END 2022-05-15 19:16 | disposition home or self-care (01) ==
LOC: EC 14:50
DX: R10.12 Left upper quadrant pain (principal); R19.7 Diarrhea, unspecified; K21.9 Gastro-esophageal reflux disease without esophagitis; I10 Essential (primary) hypertension; E07.9 Disorder of thyroid, unspecified; F41.9 Anxiety disorder, unspecified; F32.A Depression, unspecified; Z91.048 Other nonmedicinal substance allergy status; Z88.4 Allergy status to anesthetic agent; Z88.1 Allergy status to other antibiotic agents; Z88.5 Allergy status to narcotic agent; Z88.8 Allergy status to other drugs, medicaments and biological substances; Z79.899 Other long term (current) drug therapy
CPT/HCPCS: 36415; 80053; 83690; 85025; 74177; 99284; 96374; 96375; 96361; J2405; J1885

== ENCOUNTER → 2022-06-28 | Outpatient (CLI) | payer BC, OTHER ==
--- NOTE | 2022-06-28 14:13 | XR ---
EXAMINATION TYPE: XR soft tissue neck DATE OF EXAM: 06/28/2022 COMPARISON: Soft tissue neck x-ray October 31, 2014 HISTORY: Left sided neck swelling when eating/drinking. Cervical adenopathy. TECHNIQUE: Two-view soft tissue neck. FINDINGS: Patent midline airway on frontal view without suspicious narrowing of the subglottic airway . No abnormal prevertebral soft tissue swelling. Region of epiglottis and vallecula appears within no rmal limits. Overlying soft tissue is unremarkable. IMPRESSION: Unremarkable study. No significant change from prior.
== END | disposition home or self-care (01) ==
LOC: RADXRMAIN 13:05
PROVIDERS: ATTEND Family Medicine
DX: R22.1 Localized swelling, mass and lump, neck (principal)
CPT/HCPCS: 70360

== ENCOUNTER → 2022-06-28 | Outpatient (CLI) | payer BC, OTHER ==
[2022-06-28 13:29] LABS: INR 0.9 (<1.2); Partial Thromboplastin Time 23.3 sec (22.0-30.0)
[2022-06-28 21:02] LABS: % Iron Saturation 16.62 (12.00-45.00); ALT 46 U/L (8-44); AST 45 U/L (13-35); African American GFR (CKD) 133.8 (60.0-200.0); Albumin 4.1 g/dL (3.8-4.9); Albumin/Globulin Ratio 1.46 (1.60-3.17); Alkaline Phosphatase 88 U/L (41-126); BUN/Creat Ratio 14.71 Ratio (12.00-20.00); Blood Urea Nitrogen 10.3 mg/dL (9.0-27.0); Calcium 9.3 mg/dL (8.7-10.3); Chloride 106 mmol/L (96-109); Globulin 2.8 g/dL (1.6-3.3); Glucose 98 mg/dL (70-110); Iron 63 ug/dL (50-170); Magnesium 1.9 mg/dL (1.5-2.4); Non-African American GFR(CKD) 115.4 (60.0-200.0); Phosphorus 1.8 mg/dL (2.4-5.1); Potassium 4.6 mmol/L (3.5-5.5); Sodium 140 mmol/L (135-145); Total Iron Binding Capacity 377 ug/dL (228-460); Total Protein 6.9 g/dL (6.2-8.2)
[2022-06-28 21:06] LABS: Chol/HDL Ratio 2.98 Ratio; LDL Cholesterol,Calculated 129.9 mg/dL (0.0-131.0); Prealbumin 23.2 mg/dL (18.0-42.0); VLDL Calculation 15.46 mg/dL (5.00-40.00)
[2022-06-28 21:17] LABS: Vitamin B12 <150.0 pg/mL (200.0-944.0)
[2022-06-28 21:40] LABS: HCT 45.1 % (37.2-46.3); HGB 14.3 g/dL (12.0-15.0); MCH 29.3 pg (27.0-32.0); MCHC 31.7 g/dL (32.0-37.0); MCV 92.4 fL (80.0-97.0); Mean Platelet Volume 13.2 fL (9.5-12.2); NRBC Per 100 WBC 0 /100 WBCS (0.0-0.0); Platelet Count 153 X 10*3/uL (140-440); RBC 4.88 X 10*6/uL (4.10-5.20); RDW 12.7 % (11.5-14.5); WBC 6.73 X 10*3/uL (4.50-10.00)
[2022-06-29 11:56] LABS: Zinc, Serum 70 ug/dL (60-130)
[2022-06-30 09:34] LABS: Vit B1(Thiamine) 80 ug/L (38-122)
== END | disposition home or self-care (01) ==
LOC: LABWHC1 12:41
PROVIDERS: ATTEND Surgery Plastic and Reconstructive Surgery
DX: E66.01 Morbid (severe) obesity due to excess calories (principal); E89.1 Postprocedural hypoinsulinemia; D50.8 Other iron deficiency anemias; K91.2 Postsurgical malabsorption, not elsewhere classified; E44.0 Moderate protein-calorie malnutrition; E55.9 Vitamin D deficiency, unspecified; K74.1 Hepatic sclerosis; N19 Unspecified kidney failure; T56.894A Toxic effect of other metals, undetermined, initial encounter; K50.90 Crohn's disease, unspecified, without complications
CPT/HCPCS: 36415; 80053; 80061; 82306; 82525; 82607; 82728; 82746; 83036; 83540; 83550; 83735; 83970; 84100; 84134; 84255; 84425; 84443; 84590; 84630; 85027; 85610; 85730

== ENCOUNTER → 2022-09-28 | Outpatient (CLI) | payer BC, OTHER ==
[2022-09-28 15:00] VITALS: BP 130/82; PULSE 86; TEMP 98.3; BMI 31.1
--- NOTE | 2022-09-28 15:36 | P.BASOAP ---
Subjective Progress Note Date: 09/28/22 She reports diarrhea and weight loss in 2 days for 4 pounds. She reports emesis and diarrhea. She has burger paige and had diarrhea. She took kaopectate without improvement of her symptoms. She reports watery stools of 4 to 5x daily and worse with eating. Plan for Cdiff check. Recommend fluids. May benefit from Flagyl prescribed. Objective - Vital Signs Vital signs: Vital Signs Temp 98.3 F 09/28/22 14:53 Pulse 86 09/28/22 14:53 Resp BP 130/82 09/28/22 14:53 Pulse Ox FiO2 Intake & Output 09/27/22 09/28/22 09/28/22 18:59 06:59 18:59 Weight 77.111 kg Assessment/Plan Plan: Date: 09/28/22 Initial Weight: 128.82 kg Initial BMI: 51.9 Current Weight: 77.111 kg Current BMI: 31.1 Type of Surgery: Total Volume in Band: Previous Volume: Volume Removed: Volume Added: Band Size:
== END ==
LOC: BARWHC3 14:22
PROVIDERS: ATTEND Surgery Plastic and Reconstructive Surgery
DX: E66.01 Morbid (severe) obesity due to excess calories (principal); Z68.31 Body mass index [BMI] 31.0-31.9, adult; Z88.1 Allergy status to other antibiotic agents; Z91.041 Radiographic dye allergy status; Z88.5 Allergy status to narcotic agent; Z91.048 Other nonmedicinal substance allergy status; Z88.4 Allergy status to anesthetic agent; Z88.6 Allergy status to analgesic agent
CPT/HCPCS: 99211

== ENCOUNTER → 2022-09-28 | Outpatient (CLI) | payer BC, OTHER ==
[2022-09-28 22:34] LABS: HCT 45.2 % (37.2-46.3); HGB 14.6 g/dL (12.0-15.0); MCH 29.7 pg (27.0-32.0); MCHC 32.3 g/dL (32.0-37.0); MCV 92.1 fL (80.0-97.0); Mean Platelet Volume 12.2 fL (9.5-12.2); NRBC Per 100 WBC 0 /100 WBCS (0.0-0.0); Platelet Count 142 X 10*3/uL (140-440); RBC 4.91 X 10*6/uL (4.10-5.20); RDW 12.4 % (11.5-14.5); WBC 6.04 X 10*3/uL (4.50-10.00)
[2022-09-28 22:47] LABS: African American GFR (CKD) 113.7 (60.0-200.0); Albumin 4.2 g/dL (3.8-4.9); Albumin/Globulin Ratio 1.64 (1.60-3.17); Anion Gap 9.7 mmol/L (10.00-18.00); BUN/Creat Ratio 16.98 Ratio (12.00-20.00); Blood Urea Nitrogen 13.6 mg/dL (9.0-27.0); Calcium 9.5 mg/dL (8.7-10.3); Carbon Dioxide 26.8 mmol/L (20.0-27.5); Globulin 2.5 g/dL (1.6-3.3); Non-African American GFR(CKD) 98.1 (60.0-200.0); Potassium 4.2 mmol/L (3.5-5.5); Total Bilirubin 0.2 mg/dL (0.30-1.20); Total Protein 6.7 g/dL (6.2-8.2)
== END | disposition home or self-care (01) ==
LOC: LABPAT 15:56
PROVIDERS: ATTEND Surgery Plastic and Reconstructive Surgery
DX: E66.01 Morbid (severe) obesity due to excess calories (principal); R19.7 Diarrhea, unspecified
CPT/HCPCS: 80053; 85027; 87324

== ENCOUNTER → 2022-10-01 | Outpatient (CLI) | payer BC, OTHER | END | disposition home or self-care (01) | LOC: LABWHC1 08:56 | PROVIDERS: ATTEND Surgery Plastic and Reconstructive Surgery | DX: E66.01 Morbid (severe) obesity due to excess calories (principal); R19.7 Diarrhea, unspecified ==

== ENCOUNTER → 2023-04-05 | Outpatient (CLI) | payer BC, OTHER | END | disposition home or self-care (01) | LOC: LABWHC1 08:12 | PROVIDERS: ATTEND Obstetrics & Gynecology | DX: O20.0 Threatened abortion (principal); Z3A.00 Weeks of gestation of pregnancy not specified | CPT/HCPCS: 36415; 84702; 86850; 86900; 86901 ==

== ENCOUNTER → 2023-04-07 | Outpatient (CLI) | payer BC, OTHER | END | disposition home or self-care (01) | LOC: LABWHC1 07:27 | PROVIDERS: ATTEND Obstetrics & Gynecology | DX: O20.0 Threatened abortion (principal); Z3A.00 Weeks of gestation of pregnancy not specified | CPT/HCPCS: 36415; 84702 ==

== ENCOUNTER 2023-04-11 20:54 | Emergency (ER) | payer BC, OTHER ==
--- NOTE | 2023-04-11 21:21 | ED ---
General Adult HPI - General Chief complaint: Vaginal Bleeding Stated complaint: Vaginal Bleeding/6wks Preg Time Seen by Provider: 04/11/23 21:06 Source: patient Mode of arrival: ambulatory Limitations: no limitations - History of Present Illness Initial comments: Dictation was produced using [employer] dictation software. please excuse any grammatical, word or spelling errors. Chief Complaint: 33-year-old who presents with vaginal bleeding and History of Present Illness: Is a 33-year-old female she has been 6 times. She has not carried any to full term. She is G6, P0. Her SUPERVISOR DRAWING is Dr. Dao. Patient reports that she is high risk due to history of lupus and thyroid disease. Patient states that she is 6 weeks based on last menstrual cycle. She's been working closely with Dr. Dao. Patient noticed some bleeding when wiping after having a urine movement. Patient complains of some very mild tightness in the pelvic area. She denies any cramping or abdominal pain. No other symptoms. The ROS documented in this emergency department record has been reviewed and confirmed by me. Those systems with pertinent positive or negative responses have been documented in the HPI. All other systems are other negative and/or noncontributory. - Related Data Home Medications Medication Instructions Recorded Confirmed Belimumab [Benlysta] 200 mg SQ WE 03/30/20 09/28/22 Ergocalciferol [Vitamin D2 (1250 1,250 mcg PO TU 07/23/21 09/28/22 Mcg = 83196 Iu)] Etonogestrel/Ethinyl Estradiol 1 vag ring VAGINAL Q28D 02/02/22 09/28/22 [Nuvaring Vaginal Ring] Cetirizine HCl [Zyrtec] 10 mg PO BID 02/23/22 09/28/22 HYDROcodone/APAP 10-325MG [[place] 1 tab PO DAILY PRN 02/23/22 09/28/22 10-325] Levothyroxine Sodium [Synthroid] 200 mcg PO DAILY 02/23/22 09/28/22 Olopatadine HCl [Patanol 0.1%] 1 applic BOTH EYES DAILY PRN 02/23/22 09/28/22 Previous Rx's Medication Instructions Recorded Acetaminophen Tab [Tylenol Tab] 1,000 mg PO Q6HR PRN #30 tablet 07/04/22 Simethicone [Gas-X] 125 mg PO AC-TID PRN #20 capsule 07/04/22 metroNIDAZOLE [Flagyl] 500 mg PO TID #30 tab 09/28/22 Allergies Allergy/AdvReac Type Severity Reaction Status Date / Time cobalt Allergy PER Verified 07/27/22 07:16 ALLERGY TEST lidocaine Allergy PER Verified 07/27/22 07:16 ALLERGY TEST neomycin Allergy PER Verified 07/27/22 07:16 ALLERGY TEST nickel Allergy Unknown Verified 07/27/22 07:16 codeine AdvReac Nausea & Verified 07/27/22 07:16 Vomiting. HEADACHES LINALOOL Allergy PER Uncoded 07/27/22 07:16 ALLERGY TEST Review of Systems ROS Statement: Those systems with pertinent positive or pertinent negative responses have been documented in the HPI. ROS Other: All systems not noted in ROS Statement are negative. 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 appendectomy and hernia repair Past Anesthesia/Blood Transfusion Reactions: No Reported Reaction Past Psychological History: Anxiety, Depression Smoking Status: Never smoker Past Alcohol Use History: None Reported Past Drug Use History: None Reported - Past Family History Mother Family Medical History: No Reported History General Exam - General Exam Comments Initial Comments: PHYSICAL EXAM: General Impression: Alert and oriented x3, not in acute distress HEENT: Normocephalic atraumatic, extra-ocular movements intact, pupils equal and reactive to light bilaterally, mucous membranes moist. Cardiovascular: Heart regular rate and rhythm Chest: Able to complete full sentences, no retractions, no tachypnea Abdomen: abdomen soft, non-tender, non-distended, no organomegaly Musculoskeletal: Pulses present and equal in all extremities, no peripheral edema Motor: no focal deficits noted Neurological: CN II-XII grossly intact, no focal motor or sensory deficits noted Skin: Intact with no visualized rashes Psych: Normal affect and mood Pelvic exam: Patient refused Limitations: no limitations Course Vital Signs 04/11/23 20:56 Temperature 98.6 F Pulse Rate 80 Respiratory 20 Rate Blood Pressure 138/91 O2 Sat by Pulse 98 Oximetry Medical Decision Making - Medical Decision Making Was pt. sent in by a medical professional or institution ([facility], [facility], urgent care, hospital, or half-way...) When possible be specific @ -No Did you speak to anyone other than the patient for history (EMS, parent, family, police, friend...)? What history was obtained from this source @ -No Did you review nursing and triage notes (agree or disagree)? Why? @ -I reviewed and agree with nursing and triage notes Were old charts reviewed (outside hosp., previous admission, EMS record, old EKG, old radiological studies, urgent care reports/EKG's, half-way records)? Report findings @ -No old charts were reviewed Differential Diagnosis (chest pain, altered mental status, abdominal pain women, abdominal pain men, vaginal bleeding, musculoskeletal, weakness, fever, dyspnea, syncope, headache, dizziness, GI bleed, back pain, seizure, CVA, palpatations, mental health)? @ -not applicable EKG interpreted by me (3pts min.). @ -None done X-rays interpreted by me (1pt min.). @ -None done CT interpreted by me (1pt min.). @ -None done U/S interpreted by me (1pt. min.). @ -Intrauterine What testing was considered but not performed or refused? (CT, X-rays, U/S, labs)? Why? @ -None What meds were considered but not given or refused? Why? @ -None Did you discuss the management of the patient with other professionals (professionals i.e. [facility], [facility], lab, RT, psych nurse, social sciences department chair, lithographic plate maker apprentice, teacher, alumni relations officer, vocational case manager)? Give summary @ -No Was smoking cessation discussed for >3mins.? @ -No Was critical care preformed (if so, how long)? @ -No Were there social determinants of health that impacted care today? How? (Homelessness, low income, unemployed, alcoholism, drug addiction, transportation, low edu. Level, literacy, decrease access to med. care, fdc, rehab)? @ -No Was there de-escalation of care discussed even if they declined (Discuss DNR or withdrawal of care, Hospice)? DNR status @ -No What co-morbidities impacted this encounter? (DM, HTN, Smoking, COPD, CAD, Cancer, CVA, ARF, Chemo, Hep., AIDS, mental health diagnosis, sleep apnea, morbid obesity)? @ -None Was patient admitted / discharged? Hospital course, mention meds given and route, prescriptions, significant lab abnormalities, going to OR and other pertinent info. @ -9-year-old female presents emergency bowel vaginal bleeding in . Vital signs stable. Laboratory evaluation obtained. CBC and metabolic panel urinalysis all within acceptable limits. OB ultrasound shows pole with heart tones at 195. HCG Quant is 3587. Patient is blood type A positive. Patient discharged advised follow-up with SUPERVISOR DRAWING Undiagnosed new problem with uncertain prognosis? @ -No Drug Therapy requiring intensive monitoring for toxicity (Heparin, Nitro, Insulin, Cardizem)? @ -No Were any procedures done? @ -No Diagnosis/symptom? Acute, or Chronic, or Acute on Chronic? Uncomplicated (without systemic symptoms) or Complicated (systemic symptoms)? @ -Vaginal bleeding in Side effects of treatment? @ -No Exacerbation, Progression, or Severe Exacerbation? @ -No Poses a threat to life or bodily function? How? (Chest pain, USA, CT, pneumonia, PE, COPD, DKA, ARF, appy, cholecystitis, CVA, Diverticulitis, Homicidal, Suicidal, threat to staff... and all critical care pts) @ -No - Lab Data Result diagrams: 04/11/23 21:50 04/11/23 21:50 Lab Results 04/11/23 04/11/23 04/11/23 Range/Units 21:50 21:50 21:50 WBC 6.0 (3.8-10.6) k/uL RBC 4.44 (3.80-5.40) m/uL Hgb 12.9 (11.4-16.0) gm/dL Hct 41.0 (34.0-46.0) % MCV 92.3 (80.0-100.0) fL MCH 29.0 (25.0-35.0) pg MCHC 31.5 (31.0-37.0) g/dL RDW 12.0 (11.5-15.5) % Plt Count 158 (150-450) k/uL MPV 9.2 Neutrophils % 58 % Lymphocytes % 32 % Monocytes % 8 % Eosinophils % 1 % Basophils % 0 % Neutrophils # 3.5 (1.3-7.7) k/uL Lymphocytes # 1.9 (1.0-4.8) k/uL Monocytes # 0.5 (0-1.0) k/uL Eosinophils # 0.0 (0-0.7) k/uL Basophils # 0.0 (0-0.2) k/uL PT 9.5 (9.0-12.0) sec INR 0.9 (<1.2) APTT 19.8 L (22.0-30.0) sec Sodium (137-145) mmol/L Potassium (3.5-5.1) mmol/L Chloride (98-107) mmol/L Carbon Dioxide (22-30) mmol/L Anion Gap mmol/L BUN (7-17) mg/dL Creatinine (0.52-1.04) mg/dL Est GFR (CKD-EPI)AfAm (>60 ml/min/1.73 sqM) Est GFR (CKD-EPI)NonAf (>60 ml/min/1.73 sqM) Glucose (74-99) mg/dL Calcium (8.4-10.2) mg/dL Total Bilirubin (0.2-1.3) mg/dL AST (14-36) U/L ALT (4-34) U/L Alkaline Phosphatase (38-126) U/L Total Protein (6.3-8.2) g/dL Albumin (3.5-5.0) g/dL HCG, Quant mIU/mL Urine Color Yellow Urine Appearance Clear (Clear) Urine pH 6.0 (5.0-8.0) Ur Specific [place] 1.028 (1.001-1.035) Urine Protein Trace H (Negative) Urine Glucose (UA) Negative (Negative) Urine Ketones Negative (Negative) Urine Blood Negative (Negative) Urine Nitrite Negative (Negative) Urine Bilirubin Negative (Negative) Urine Urobilinogen 2.0 (<2.0) mg/dL Ur Leukocyte Esterase Small H (Negative) Urine RBC 1 (0-5) /hpf Urine WBC 2 (0-5) /hpf Ur Squamous Epith Cells 6 H (0-4) /hpf Urine Mucus Few H (None) /hpf Blood Type Blood Type Recheck Bld Type Recheck Status Antibody Screen Spec Expiration Date 04/11/23 04/11/23 Range/Units 21:50 21:55 WBC (3.8-10.6) k/uL RBC (3.80-5.40) m/uL Hgb (11.4-16.0) gm/dL Hct (34.0-46.0) % MCV (80.0-100.0) fL MCH (25.0-35.0) pg MCHC (31.0-37.0) g/dL RDW (11.5-15.5) % Plt Count (150-450) k/uL MPV Neutrophils % % Lymphocytes % % Monocytes % % Eosinophils % % Basophils % % Neutrophils # (1.3-7.7) k/uL Lymphocytes # (1.0-4.8) k/uL Monocytes # (0-1.0) k/uL Eosinophils # (0-0.7) k/uL Basophils # (0-0.2) k/uL PT (9.0-12.0) sec INR (<1.2) APTT (22.0-30.0) sec Sodium 136 L (137-145) mmol/L Potassium 4.0 (3.5-5.1) mmol/L Chloride 106 (98-107) mmol/L Carbon Dioxide 22 (22-30) mmol/L Anion Gap 8 mmol/L BUN 11 (7-17) mg/dL Creatinine 0.67 (0.52-1.04) mg/dL Est GFR (CKD-EPI)AfAm >90 (>60 ml/min/1.73 sqM) Est GFR (CKD-EPI)NonAf >90 (>60 ml/min/1.73 sqM) Glucose 77 (74-99) mg/dL Calcium 8.8 (8.4-10.2) mg/dL Total Bilirubin 0.4 (0.2-1.3) mg/dL AST 28 (14-36) U/L ALT 17 (4-34) U/L Alkaline Phosphatase 67 (38-126) U/L Total Protein 7.2 (6.3-8.2) g/dL Albumin 3.8 (3.5-5.0) g/dL HCG, Quant 3587.1 mIU/mL Urine Color Urine Appearance (Clear) Urine pH (5.0-8.0) Ur Specific [place] (1.001-1.035) Urine Protein (Negative) Urine Glucose (UA) (Negative) Urine Ketones (Negative) Urine Blood (Negative) Urine Nitrite (Negative) Urine Bilirubin (Negative) Urine Urobilinogen (<2.0) mg/dL Ur Leukocyte Esterase (Negative) Urine RBC (0-5) /hpf Urine WBC (0-5) /hpf Ur Squamous Epith Cells (0-4) /hpf Urine Mucus (None) /hpf Blood Type A Positive Blood Type Recheck A Pos Bld Type Recheck Status No Antibody Screen NEGATIVE Spec Expiration Date 04/14/20232349 Disposition Clinical Impression: Vaginal bleeding during Disposition: HOME SELF-CARE Condition: Good Instructions (If sedation given, give patient instructions): Non-Threatening First Trimester Vaginal Bleed (ED) Is patient prescribed a controlled substance at d/c from ED?: No Referrals: Getachew Mar MD [Primary Care Provider] - 1-2 days Time of Disposition: 00:13
[2023-04-11 22:07] LABS: Basophils % (A) 0 %; Eosinophils % (A) 1 %; HGB 12.9 gm/dL (11.4-16.0); Lymphocytes # (A) 1.9 k/uL (1.0-4.8); Lymphocytes % (A) 32 %; MCHC 31.5 g/dL (31.0-37.0); MCV 92.3 fL (80.0-100.0); Mean Platelet Volume 9.2; Monocytes # (A) 0.5 k/uL (0-1.0); Monocytes % (A) 8 %; Neutrophils # (A) 3.5 k/uL (1.3-7.7); Neutrophils % (A) 58 %; Platelet Count 158 k/uL (150-450); RBC 4.44 m/uL (3.80-5.40)
[2023-04-11 22:16] LABS: ALT 17 U/L (4-34); AST 28 U/L (14-36); African American GFR (CKD) >90 (>60 ml/min/1.73 sqM); Albumin 3.8 g/dL (3.5-5.0); Alkaline Phosphatase 67 U/L (38-126); Anion Gap 8 mmol/L; Blood Urea Nitrogen 11 mg/dL (7-17); Calcium 8.8 mg/dL (8.4-10.2); Carbon Dioxide 22 mmol/L (22-30); Chloride 106 mmol/L (98-107); Glucose 77 mg/dL (74-99); Non-African American GFR(CKD) >90 (>60 ml/min/1.73 sqM); Sodium 136 mmol/L (137-145); Total Bilirubin 0.4 mg/dL (0.2-1.3); Total Protein 7.2 g/dL (6.3-8.2)
[2023-04-11 22:20] LABS: Appearance,Urine Clear (Clear); Bilirubin,Urine Negative (Negative); Blood,Urine Negative (Negative); Color,Urine Yellow; Glucose,Urine (UA) Negative (Negative); Ketones,Urine Negative (Negative); Leukocyte Esterase,Urine Small (Negative); Mucus,Urine Few /hpf; Nitrite,Urine Negative (Negative); Protein,Urine Trace (Negative); RBC,Urine 1 /hpf (0-5); Specific Gravity,Urine 1.028 (1.001-1.035); Squamous Epithelial Cell,Urine 6 /hpf (0-4); WBC,Urine 2 /hpf (0-5)
[2023-04-11 22:32] LABS: HCG,Quantitative Serum 3587.1 mIU/mL; INR 0.9 (<1.2); Prothrombin Time 9.5 sec (9.0-12.0)
[2023-04-11 22:41] LABS: Partial Thromboplastin Time 19.8 sec (22.0-30.0)
--- NOTE | 2023-04-12 00:01 | US ---
EXAM: US Pelvis Transabdominal and Transvaginal, Complete CLINICAL HISTORY: ITS.REASON US Reason: pelvic pain TECHNIQUE: Real-time complete transabdominal and transvaginal pelvic ultrasound with image documentation. Transvaginal imaging was used for better evaluation of the endometrium and adnexa. COMPARISON: No relevant prior studies available. FINDINGS: Gestational sac and yolk sac identified. Suspected pole measures 2 mm, which is too small for dating. heart tones were detected at 195 bpm. The uterus and ovaries are within normal limits. IMPRESSION: Suspected pole measures 2 mm, which is too small for dating. heart tones were detected at 195 bpm. Overall, these findings are limited due to early gestational age. Repeat ultrasound recommended in 1 week.
[2023-04-12 00:29] VITALS: BP 124/78; PULSE 74; RESP 18; TEMP 98.1
== END 2023-04-12 00:29 | disposition home or self-care (01) ==
LOC: EC 20:54
DX: O20.9 Hemorrhage in early pregnancy, unspecified (principal); O99.281 Endocrine, nutritional and metabolic diseases complicating pregnancy, first trimester; E07.9 Disorder of thyroid, unspecified; O16.1 Unspecified maternal hypertension, first trimester; O99.341 Other mental disorders complicating pregnancy, first trimester; F41.9 Anxiety disorder, unspecified; F32.A Depression, unspecified; Z88.5 Allergy status to narcotic agent; Z88.8 Allergy status to other drugs, medicaments and biological substances; Z79.890 Hormone replacement therapy; Z79.899 Other long term (current) drug therapy; Z3A.01 Less than 8 weeks gestation of pregnancy
CPT/HCPCS: 36415; 76801; 76817; 80053; 81001; 84702; 85025; 85610; 85730; 86850; 86900; 86901; 93005; 99284

== ENCOUNTER 2023-05-25 19:58 | Emergency (ER) | payer BC, OTHER ==
[2023-05-25] MEDS ORDERED: ACETAMINOPHEN TAB 500 MG TAB PO STA (20:27)
[2023-05-25 21:13] LABS: Appearance,Urine Cloudy (Clear); Bilirubin,Urine Negative (Negative); Blood,Urine Negative (Negative); Color,Urine Light Yellow; Glucose,Urine (UA) Negative (Negative); Ketones,Urine 1+ (Negative); Leukocyte Esterase,Urine Moderate (Negative); Mucus,Urine Few /hpf; Nitrite,Urine Negative (Negative); PH, Urine 5.5 (5.0-8.0); Protein,Urine 2+ (Negative); RBC,Urine 2 /hpf (0-5); Specific Gravity,Urine 1.028 (1.001-1.035); Squamous Epithelial Cell,Urine 8 /hpf (0-4); Urobilinogen,Urine <2.0 mg/dL (<2.0); WBC,Urine 5 /hpf (0-5)
--- NOTE | 2023-05-25 21:13 | ED ---
Fall HPI - General Chief Complaint: Fall Stated Complaint: fall, High Risk Time Seen by Provider: 05/25/23 20:24 Source: patient Mode of arrival: ambulatory - History of Present Illness Initial Comments: 33-year-old female currently 12 weeks presenting with chief complaint of right wrist and ankle pain. Patient states that her dog got in a fight with another dog and she was knocked down and scratched. She states she was not bitten by a dog. She is having no pelvic pain or vaginal bleeding. She does admit to some lower back pain after falling. She is unsure if she hit her head. No loss of consciousness or blood thinners. No dizziness or lightheadedness. No nausea or vomiting. No numbness or tingling. - Related Data Home Medications Medication Instructions Recorded Confirmed Belimumab [Benlysta] 200 mg SQ WE 03/30/20 09/28/22 Ergocalciferol [Vitamin D2 (1250 1,250 mcg PO TU 07/23/21 09/28/22 Mcg = 48075 Iu)] Etonogestrel/Ethinyl Estradiol 1 vag ring VAGINAL Q28D 02/02/22 09/28/22 [Nuvaring Vaginal Ring] Cetirizine HCl [Zyrtec] 10 mg PO BID 02/23/22 09/28/22 HYDROcodone/APAP 10-325MG [[place] 1 tab PO DAILY PRN 02/23/22 09/28/22 10-325] Levothyroxine Sodium [Synthroid] 200 mcg PO DAILY 02/23/22 09/28/22 Olopatadine HCl [Patanol 0.1%] 1 applic BOTH EYES DAILY PRN 02/23/22 09/28/22 Previous Rx's Medication Instructions Recorded Acetaminophen Tab [Tylenol Tab] 1,000 mg PO Q6HR PRN #30 tablet 07/04/22 Simethicone [Gas-X] 125 mg PO AC-TID PRN #20 capsule 07/04/22 metroNIDAZOLE [Flagyl] 500 mg PO TID #30 tab 09/28/22 Allergies Allergy/AdvReac Type Severity Reaction Status Date / Time cobalt Allergy PER Verified 05/25/23 20:21 ALLERGY TEST lidocaine Allergy PER Verified 05/25/23 20:21 ALLERGY TEST neomycin Allergy PER Verified 05/25/23 20:21 ALLERGY TEST nickel Allergy Unknown Verified 05/25/23 20:21 codeine AdvReac Nausea & Verified 05/25/23 20:21 Vomiting. HEADACHES LINALOOL Allergy PER Uncoded 05/25/23 20:21 ALLERGY TEST Review of Systems ROS Statement: Those systems with pertinent positive or pertinent negative responses have been documented in the HPI. ROS Other: All systems not noted in ROS Statement are negative. 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 appendectomy and hernia repair 1009- Past Anesthesia/Blood Transfusion Reactions: No Reported Reaction Past Psychological History: Anxiety, Depression Smoking Status: Never smoker Past Alcohol Use History: None Reported Past Drug Use History: None Reported - Past Family History Mother Family Medical History: No Reported History General Exam Limitations: no limitations General appearance: alert, in no apparent distress Head exam: Present: atraumatic, normocephalic, normal inspection Eye exam: Present: normal appearance, EOMI. Absent: scleral icterus, periorbital swelling Neck exam: Present: normal inspection, full ROM Respiratory exam: Present: normal lung sounds bilaterally. Absent: respiratory distress, wheezes, rales, rhonchi, stridor Cardiovascular Exam: Present: regular rate, normal rhythm, normal heart sounds. Absent: systolic murmur, diastolic murmur, rubs, gallop, clicks GI/Abdominal exam: Present: soft. Absent: distended, tenderness, guarding, rebound, rigid Right Forearm Wrist exam: Absent: tenderness over anatomical snuff box Hand Wrist exam: Present: normal inspection, full ROM, tenderness. Absent: swelling, deformity Right Ankle exam: Present: normal inspection, full ROM, tenderness. Absent: swelling, ecchymosis, deformity Neurological exam: Present: alert, oriented X3, CN II-XII intact Psychiatric exam: Present: normal affect, normal mood Skin exam: Present: warm, dry, intact, normal color. Absent: rash Course Vital Signs 05/25/23 05/25/23 05/25/23 20:16 22:24 22:56 Temperature 98.6 F 98.4 F Pulse Rate 86 69 Respiratory 20 18 Rate Blood Pressure 131/93 118/82 O2 Sat by Pulse 98 98 Oximetry - Reevaluation(s) Reevaluation #1: Patient initially denied pelvic pain when obtaining the history. On reasse ssment patient reports that she has developed some mild pelvic cramping and is requesting an ultrasound 05/25/23 21:44 Medical Decision Making - Medical Decision Making Was pt. sent in by a medical professional or institution (, PA, SERVICE CENTER ASSISTANT, urgent care, hospital, or fdc...) When possible be specific @ -No Did you speak to anyone other than the patient for history (EMS, parent, family, police, friend...)? What history was obtained from this source @ -No Did you review nursing and triage notes (agree or disagree)? Why? @ -I reviewed and agree with nursing and triage notes Were old charts reviewed (outside hosp., previous admission, EMS record, old EKG, old radiological studies, urgent care reports/EKG's, fdc records)? Report findings @ -No old charts were reviewed Differential Diagnosis (chest pain, altered mental status, abdominal pain women, abdominal pain men, vaginal bleeding, weakness, fever, dyspnea, syncope, headache, dizziness, GI bleed, back pain, seizure, CVA, palpatations, mental health, musculoskeletal)? @ -Differential Musculoskeletal Muscular strain, contusion, ligament sprain, fracture, arthritis, septic arthritis, bursitis, cellulitis, muscle spasm, nerve compression, DVT, arterial occlusion, herpes zoster, electrolyte abnormality, tumor.... This is not meant to be in all inclusive list EKG interpreted by me (3pts min.). @ -As above X-rays interpreted by me (1pt min.). @ -Negative x-ray of the ankle and wrist CT interpreted by me (1pt min.). @ -None done U/S interpreted by me (1pt. min.). @ -Single live intrauterine with a gestational age of 11 weeks 6 days based on this ultrasound. No evidence of ovarian torsion or adnexal mass on the left side. The right ovary was not seen. What testing was considered but not performed or refused? (CT, X-rays, U/S, labs)? Why? @ -None What meds were considered but not given or refused? Why? @ -None Did you discuss the management of the patient with other professionals (professionals i.e. , PA, SERVICE CENTER ASSISTANT, lab, RT, psych nurse, psychotherapist social worker, bus assistant, teacher, chief sustainability officer, shoe caser)? Give summary @ -No Was smoking cessation discussed for >3mins.? @ -No Was critical care preformed (if so, how long)? @ -No Were there social determinants of health that impacted care today? How? (Homelessness, low income, unemployed, alcoholism, drug addiction, transportation, low edu. Level, literacy, decrease access to med. care, [facility], rehab)? @ -No Was there de-escalation of care discussed even if they declined (Discuss DNR or withdrawal of care, Hospice)? DNR status @ -No What co-morbidities impacted this encounter? (DM, HTN, Smoking, COPD, CAD, Cancer, CVA, ARF, Chemo, Hep., AIDS, mental health diagnosis, sleep apnea, morbid obesity)? @ -None Was patient admitted / discharged? Hospital course, mention meds given and route, prescriptions, significant lab abnormalities, going to OR and other pertinent info. @ -33-year-old female presented for evaluation after she was knocked over by her dog. She denies any dog bites. She is 12 weeks . On initial examination she admits to right ankle and wrist pain and denies any pelvic pain or bleeding. Patient is informed of her negative x-rays and states that she has developed some pelvic cramping. Ultrasound shows single live intrauterine measuring 11 weeks and 6 days. Urine shows signs of contamination, will be sent for culture. Patient is educated on today's findings on supportive management at home. Take Tylenol as needed. Follow-up with PCP. Report back to ER with any new or worsening symptoms. Discussed return parameters and answered all questions. Patient conveyed verbal understanding and agreed to the plan. I discussed this case in detail with my attending Dr. Del Valle Undiagnosed new problem with uncertain prognosis? @ -No Drug Therapy requiring intensive monitoring for toxicity (Heparin, Nitro, Insulin, Cardizem)? @ -No Were any procedures done? @ -No Diagnosis/symptom? @ -Threatened miscarriage, ankle sprain Acute, or Chronic, or Acute on Chronic? @ -Acute Uncomplicated (without systemic symptoms) or Complicated (systemic symptoms)? @ -Uncomplicated Side effects of treatment? @ -No Exacerbation, Progression, or Severe Exacerbation? @ -No Poses a threat to life or bodily function? How? (Chest pain, [place], [place], pneumonia, PE, COPD, DKA, ARF, appy, cholecystitis, CVA, Diverticulitis, Homicidal, Suicidal, threat to staff... and all critical care pts) @ -No - Lab Data Lab Results 05/25/23 Range/Units 20:27 Urine Color Light Yellow Urine Appearance Cloudy H (Clear) Urine pH 5.5 (5.0-8.0) Ur Specific [place] 1.028 (1.001-1.035) Urine Protein 2+ H (Negative) Urine Glucose (UA) Negative (Negative) Urine Ketones 1+ H (Negative) Urine Blood Negative (Negative) Urine Nitrite Negative (Negative) Urine Bilirubin Negative (Negative) Urine Urobilinogen <2.0 (<2.0) mg/dL Ur Leukocyte Esterase Moderate H (Negative) Urine RBC 2 (0-5) /hpf Urine WBC 5 (0-5) /hpf Ur Squamous Epith Cells 8 H (0-4) /hpf Urine Mucus Few H (None) /hpf Disposition Clinical Impression: Threatened miscarriage, Ankle sprain Disposition: HOME SELF-CARE Condition: Good Instructions (If sedation given, give patient instructions): Threatened Miscarriage (ED), Ankle Sprain (ED) Additional Instructions: Follow-up with [facility]. Report back to ER with any new or worsening symptoms. Is patient prescribed a controlled substance at d/c from ED?: No Referrals: Getachew Mar [Primary Care Provider] - 1-2 days Delgado Dao MD [STAFF PHYSICIAN] - 1-2 days Time of Disposition: 22:51
--- NOTE | 2023-05-25 21:22 | XR ---
EXAMINATION TYPE: XR wrist complete RT DATE OF EXAM: 05/25/2023 9:15 PM INDICATION: Patient age:Female; 33 years old; Reason for study: fall; [facility]. COMPARISON: Right hand radiograph 03/30/2015 TECHNIQUE: 4 views of the right wrist. Frontal, navicular, lateral, and oblique. FINDINGS: No acute osseous pathology, joint dislocation, or joint effusion. Negative ulnar variance. No evidence of any soft tissue swelling is seen. IMPRESSION: No acute osseous pathology.
--- NOTE | 2023-05-25 21:23 | XR ---
EXAMINATION TYPE: XR ankle complete RT DATE OF EXAM: 05/25/2023 COMPARISON: Right ankle radiograph 08/27/2016 HISTORY: Fall, pain TECHNIQUE: Frontal, lateral and oblique images of the right ankle are obtained. FINDINGS: There is no acute fracture/dislocation evident. The joint spaces appear within normal castro its. Small plantar calcaneal enthesophyte. Mild soft tissue swelling of the ankle. IMPRESSION: 1. No acute fracture or dislocation. 2. Mild soft tissue swelling of the ankle.
[2023-05-25 22:28] VITALS: BP 118/82; PULSE 69; RESP 18
--- NOTE | 2023-05-25 22:34 | US ---
EXAMINATION TYPE: Transabdominal DATE OF EXAM: 05/25/2023 10:20 PM COMPARISON: 04/11/23 CLINICAL INDICATION: Female, 33 years old with history of cramping, no bleeding; Pt fell today. Mild cramping EXAM PERFORMED: Transabdominal (TA) EXAM MEASUREMENTS: GESTATIONAL AGE / DATING Physician Established: (12 weeks/3 days) EDC: 12/04/23 Dates by First Scan: Unable to date on previous Dates by Current Scan for: (11 weeks/6 days) EDC: 12/08/23 MATERNAL ANATOMY Uterus: 11.5 x 8.7 x 6.2cm Right Ovary: Not seen Left Ovary: 3.1 x 2.7 x 2.2cm Post CDS / Adnexa: wnl Presence of free fluid: No Presence of corpus luteal cyst: Yes in lt ovary measuring 1.7 x 1.8 x 1.4cm Presence of subchorionic bleed: No GESTATION / SURVEY CRL: 5.22cm (11 weeks/3 days) MSD: Not measured Yolk Sac (normal less than 6mm): 3.7 Heart Rate: 174 bpm Rhythm: Normal IUP: Viable IUP Date of LMP: unknown Beta HcG (if available): N/A IMPRESSION: 1. Single live intrauterine with a gestational age of 11 weeks 6 days based on this ultraso und. 2. No evidence of ovarian torsion or adnexal mass on the left side. The right ovary was not seen.
[2023-05-25 23:00] VITALS: TEMP 98.4
== END 2023-05-25 23:00 | disposition home or self-care (01) ==
LOC: EC 19:58
DX: O9A.211 Injury, poisoning and certain other consequences of external causes complicating pregnancy, first trimester (principal); S93.401A Sprain of unspecified ligament of right ankle, initial encounter; M25.531 Pain in right wrist; O20.0 Threatened abortion; O10.911 Unspecified pre-existing hypertension complicating pregnancy, first trimester; O99.281 Endocrine, nutritional and metabolic diseases complicating pregnancy, first trimester; E07.9 Disorder of thyroid, unspecified; Z3A.12 12 weeks gestation of pregnancy; Z79.890 Hormone replacement therapy; Z79.899 Other long term (current) drug therapy; Z88.5 Allergy status to narcotic agent; Z88.8 Allergy status to other drugs, medicaments and biological substances; Z91.09 Other allergy status, other than to drugs and biological substances; W18.30XA Fall on same level, unspecified, initial encounter; W54.1XXA Struck by dog, initial encounter
CPT/HCPCS: 76801; 81001; 99285

== ENCOUNTER 2023-06-11 18:13 | Emergency (ER) | payer OTHER ==
[2023-06-11 18:22] VITALS: RESP 16; TEMP 98.5
[2023-06-11] MEDS ORDERED: SODIUM CHLORIDE 0.9% 1,000 ML IV STA (20:38)
--- NOTE | 2023-06-11 21:09 | XR ---
EXAMINATION TYPE: XR chest 1V portable DATE OF EXAM: 06/11/2023 8:57 PM CLINICAL INDICATION:Female, 33 years old with history of dizziness; COMPARISON: Chest radiographs from TECHNIQUE: XR chest 1V portable Frontal view of the chest. FINDINGS: Lungs/Pleura: There is no evidence of pleural effusion, focal consolidation, or pneumothorax. Pulmonary vascularity: Unremarkable. Heart/mediastinum: Cardiomediastinal silhouette is unremarkable. Musculoskeletal: No acute osseous pathology. IMPRESSION: No acute cardiopulmonary disease/process.
[2023-06-11 21:37] LABS: Basophils % (A) 0 %; Eosinophils # (A) 0.1 k/uL (0-0.7); Eosinophils % (A) 1 %; HCT 39.7 % (34.0-46.0); Lymphocytes % (A) 26 %; MCH 29.4 pg (25.0-35.0); MCHC 32.8 g/dL (31.0-37.0); MCV 89.6 fL (80.0-100.0); Mean Platelet Volume 9.2; Monocytes # (A) 0.4 k/uL (0-1.0); Monocytes % (A) 5 %; Neutrophils # (A) 4.9 k/uL (1.3-7.7); Neutrophils % (A) 65 %; Platelet Count 179 k/uL (150-450); RBC 4.43 m/uL (3.80-5.40); RDW 12.4 % (11.5-15.5); WBC 7.6 k/uL (3.8-10.6)
[2023-06-11 21:39] LABS: Appearance,Urine Cloudy (Clear); Bacteria,Urine Rare /hpf; Bilirubin,Urine Negative (Negative); Blood,Urine Negative (Negative); Color,Urine Yellow; Glucose,Urine (UA) Negative (Negative); Ketones,Urine Trace (Negative); Leukocyte Esterase,Urine Trace (Negative); Mucus,Urine Rare /hpf; Nitrite,Urine Negative (Negative); Protein,Urine Trace (Negative); RBC,Urine 2 /hpf (0-5); Specific Gravity,Urine 1.025 (1.001-1.035); Squamous Epithelial Cell,Urine 4 /hpf (0-4); Urobilinogen,Urine <2.0 mg/dL (<2.0); WBC,Urine 3 /hpf (0-5)
[2023-06-11 21:49] LABS: ALT 16 U/L (4-34); AST 24 U/L (14-36); African American GFR (CKD) >90 (>60 ml/min/1.73 sqM); Albumin 3.8 g/dL (3.5-5.0); Alkaline Phosphatase 64 U/L (38-126); Anion Gap 8 mmol/L; Blood Urea Nitrogen 7 mg/dL (7-17); Calcium 9.3 mg/dL (8.4-10.2); Carbon Dioxide 22 mmol/L (22-30); Chloride 105 mmol/L (98-107); Glucose 81 mg/dL (74-99); Non-African American GFR(CKD) >90 (>60 ml/min/1.73 sqM); Potassium 4.3 mmol/L (3.5-5.1); Sodium 135 mmol/L (137-145); Total Bilirubin 0.3 mg/dL (0.2-1.3)
--- NOTE | 2023-06-11 22:26 | ED ---
Dizziness HPI - General Chief Complaint: Dizziness Stated Complaint: headache/14 weeks prg Time Seen by Provider: 06/11/23 20:11 Source: patient Mode of arrival: ambulatory Limitations: no limitations - History of Present Illness Initial Comments: 33-year-old female currently 15 weeks presenting with chief complaint of lightheadedness. Lightheadedness comes and goes. Patient also states that she struggles to breathe while eating. No chest pain. No abdominal pain/cramping or spotting. States that this has been ongoing for the last 2-3 weeks. No lower extremity swelling. No palpitations. No numbness, tingling, weakness. No nausea, vomiting, diarrhea. - Related Data Home Medications Medication Instructions Recorded Confirmed Belimumab [Benlysta] 200 mg SQ WE 03/30/20 09/28/22 Ergocalciferol [Vitamin D2 (1250 1,250 mcg PO TU 07/23/21 09/28/22 Mcg = [id number] Iu)] Etonogestrel/Ethinyl Estradiol 1 vag ring VAGINAL Q28D 02/02/22 09/28/22 [Nuvaring Vaginal Ring] Cetirizine HCl [Zyrtec] 10 mg PO BID 02/23/22 09/28/22 HYDROcodone/APAP 10-325MG [[place] 1 tab PO DAILY PRN 02/23/22 09/28/22 10-325] Levothyroxine Sodium [Synthroid] 200 mcg PO DAILY 02/23/22 09/28/22 Olopatadine HCl [Patanol 0.1%] 1 applic BOTH EYES DAILY PRN 02/23/22 09/28/22 Previous Rx's Medication Instructions Recorded Acetaminophen Tab [Tylenol Tab] 1,000 mg PO Q6HR PRN #30 tablet 07/04/22 Simethicone [Gas-X] 125 mg PO AC-TID PRN #20 capsule 07/04/22 metroNIDAZOLE [Flagyl] 500 mg PO TID #30 tab 09/28/22 Allergies Allergy/AdvReac Type Severity Reaction Status Date / Time cobalt Allergy PER Verified 06/11/23 18:22 ALLERGY TEST lidocaine Allergy PER Verified 06/11/23 18:22 ALLERGY TEST neomycin Allergy PER Verified 06/11/23 18:22 ALLERGY TEST nickel Allergy Unknown Verified 06/11/23 18:22 codeine AdvReac Nausea & Verified 06/11/23 18:22 Vomiting. HEADACHES LINALOOL Allergy PER Uncoded 06/11/23 18:22 ALLERGY TEST Review of Systems ROS Statement: Those systems with pertinent positive or pertinent negative responses have been documented in the HPI. ROS Other: All systems not noted in ROS Statement are negative. 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 appendectomy and hernia repair Past Anesthesia/Blood Transfusion Reactions: No Reported Reaction Past Psychological History: Anxiety, Depression Smoking Status: Never smoker Past Alcohol Use History: None Reported Past Drug Use History: None Reported - Past Family History Mother Family Medical History: No Reported History General Exam Limitations: no limitations General appearance: alert, in no apparent distress Head exam: Present: atraumatic, normocephalic, normal inspection Eye exam: Present: normal appearance, PERRL, EOMI Neck exam: Present: normal inspection, full ROM Respiratory exam: Present: normal lung sounds bilaterally. Absent: respiratory distress, wheezes, rales, rhonchi, stridor Cardiovascular Exam: Present: regular rate, normal rhythm, normal heart sounds. Absent: systolic murmur, diastolic murmur, rubs, gallop, clicks Neurological exam: Present: alert, oriented X3, CN II-XII intact Psychiatric exam: Present: normal affect, normal mood Skin exam: Present: warm, dry, intact, normal color. Absent: rash Course Vital Signs 06/11/23 06/11/23 18:17 22:34 Temperature 98.5 F Pulse Rate 65 67 Respiratory 16 16 Rate Blood Pressure 134/96 128/60 O2 Sat by Pulse 98 99 Oximetry EKG Findings - EKG Comments: EKG Findings:: Sinus rhythm ventricular rate 62. IN interval 165. QRS 88. QT 387. QTC 392. No ischemic changes. Medical Decision Making - Medical Decision Making Was pt. sent in by a medical professional or institution (DIMITRIOS Lee, ONCOLOGY PATIENT NAVIGATOR, urgent care, hospital, or shelter...) When possible be specific @ -No Did you speak to anyone other than the patient for history (EMS, parent, family, police, friend...)? What history was obtained from this source @ -No Did you review nursing and triage notes (agree or disagree)? Why? @ -I reviewed and agree with nursing and triage notes Were old charts reviewed (outside hosp., previous admission, EMS record, old EKG, old radiological studies, urgent care reports/EKG's, shelter records)? Report findings @ -No old charts were reviewed Differential Diagnosis (chest pain, altered mental status, abdominal pain women, abdominal pain men, vaginal bleeding, weakness, fever, dyspnea, syncope, headache, dizziness, GI bleed, back pain, seizure, CVA, palpatations, mental health, musculoskeletal)? @ -MDM Differential Dizziness: Benign paroxysmal positional Vertigo, Menieres disease, otitis media, acoustic neuroma, vertebrobasilar insufficiency, cerebellar stroke, encephalitis, hypovolemic, arrhythmia, coronary artery syndrome, anemia this is not meant to be an all-inclusive list EKG interpreted by me (3pts min.). @ -As above X-rays interpreted by me (1pt min.). @ -Chest x-ray shows no acute process CT interpreted by me (1pt min.). @ -None done U/S interpreted by me (1pt. min.). @ -None done What testing was considered but not performed or refused? (CT, X-rays, U/S, labs)? Why? @ -None What meds were considered but not given or refused? Why? @ -None Did you discuss the management of the patient with other professionals (professionals i.e. DIMITRIOS Lee, ONCOLOGY PATIENT NAVIGATOR, lab, RT, psych nurse, social and human services assistant, criminal justice lawyer, teacher, chief learning officer, field nurse case manager)? Give summary @ -No Was smoking cessation discussed for >3mins.? @ -No Was critical care preformed (if so, how long)? @ -No Were there social determinants of health that impacted care today? How? (Homelessness, low income, unemployed, alcoholism, drug addiction, transportation, low edu. Level, literacy, decrease access to med. care, [facility], rehab)? @ -No Was there de-escalation of care discussed even if they declined (Discuss DNR or withdrawal of care, Hospice)? DNR status @ -No What co-morbidities impacted this encounter? (DM, HTN, Smoking, COPD, CAD, Cancer, CVA, ARF, Chemo, Hep., AIDS, mental health diagnosis, sleep apnea, morbid obesity)? @ -None Was patient admitted / discharged? Hospital course, mention meds given and route, prescriptions, significant lab abnormalities, going to OR and other pertinent info. @ -33-year-old female presenting with chief complaint of lightheadedness. She is currently 15 weeks . Intermittent. She also admits to shortness of breath with eating. No abdominal pain or vaginal bleeding. Physical examination is conducted. Lab work is essentially unremarkable. Urine shows trace leukocytes, she is currently being treated for UTI. Negative chest x-ray. EKG shows sinus rhythm. Patient is resting comfortably. She'll be discharged home in stable condition instructed to follow-up with MEDICAL SALES SPECIALIST. Follow-up with P LUC[facility]A. Report back to ER with any new or worsening symptoms. Discussed return parameters and answered all questions. Patient conveyed verbal understanding and agreed to the plan. I discussed this case in detail with my attending Dr. Abarca Undiagnosed new problem with uncertain prognosis? @ -No Drug Therapy requiring intensive monitoring for toxicity (Heparin, Nitro, Insulin, Cardizem)? @ -No Were any procedures done? @ -No Diagnosis/symptom? @ -Fatigue in Acute, or Chronic, or Acute on Chronic? @ -acute Uncomplicated (without systemic symptoms) or Complicated (systemic symptoms)? @ -Uncomplicated Side effects of treatment? @ -No Exacerbation, Progression, or Severe Exacerbation? @ -No Poses a threat to life or bodily function? How? (Chest pain, [place], [place], pneumonia, PE, COPD, DKA, ARF, appy, cholecystitis, CVA, Diverticulitis, Homicidal, Suicidal, threat to staff... and all critical care pts) @ -No - Lab Data Result diagrams: 06/11/23 21:20 06/11/23 21:20 Lab Results 06/11/23 06/11/23 06/11/23 Range/Units 21:07 21:20 21:20 WBC 7.6 (3.8-10.6) k/uL RBC 4.43 (3.80-5.40) m/uL Hgb 13.0 (11.4-16.0) gm/dL Hct 39.7 (34.0-46.0) % MCV 89.6 (80.0-100.0) fL MCH 29.4 (25.0-35.0) pg MCHC 32.8 (31.0-37.0) g/dL RDW 12.4 (11.5-15.5) % Plt Count 179 (150-450) k/uL MPV 9.2 Neutrophils % 65 % Lymphocytes % 26 % Monocytes % 5 % Eosinophils % 1 % Basophils % 0 % Neutrophils # 4.9 (1.3-7.7) k/uL Lymphocytes # 2.0 (1.0-4.8) k/uL Monocytes # 0.4 (0-1.0) k/uL Eosinophils # 0.1 (0-0.7) k/uL Basophils # 0.0 (0-0.2) k/uL Sodium 135 L (137-145) mmol/L Potassium 4.3 (3.5-5.1) mmol/L Chloride 105 (98-107) mmol/L Carbon Dioxide 22 (22-30) mmol/L Anion Gap 8 mmol/L BUN 7 (7-17) mg/dL Creatinine 0.49 L (0.52-1.04) mg/dL Est GFR (CKD-EPI)AfAm >90 (>60 ml/min/1.73 sqM) Est GFR (CKD-EPI)NonAf >90 (>60 ml/min/1.73 sqM) Glucose 81 (74-99) mg/dL Calcium 9.3 (8.4-10.2) mg/dL Total Bilirubin 0.3 (0.2-1.3) mg/dL AST 24 (14-36) U/L ALT 16 (4-34) U/L Alkaline Phosphatase 64 (38-126) U/L Troponin I (0.000-0.034) ng/mL Total Protein 7.0 (6.3-8.2) g/dL Albumin 3.8 (3.5-5.0) g/dL Urine Color Yellow Urine Appearance Cloudy H (Clear) Urine pH 6.0 (5.0-8.0) Ur Specific [place] 1.025 (1.001-1.035) Urine Protein Trace H (Negative) Urine Glucose (UA) Negative (Negative) Urine Ketones Trace H (Negative) Urine Blood Negative (Negative) Urine Nitrite Negative (Negative) Urine Bilirubin Negative (Negative) Urine Urobilinogen <2.0 (<2.0) mg/dL Ur Leukocyte Esterase Trace H (Negative) Urine RBC 2 (0-5) /hpf Urine WBC 3 (0-5) /hpf Ur Squamous Epith Cells 4 (0-4) /hpf Urine Bacteria Rare H (None) /hpf Urine Mucus Rare H (None) /hpf 06/11/23 Range/Units 21:20 WBC (3.8-10.6) k/uL RBC (3.80-5.40) m/uL Hgb (11.4-16.0) gm/dL Hct (34.0-46.0) % MCV (80.0-100.0) fL MCH (25.0-35.0) pg MCHC (31.0-37.0) g/dL RDW (11.5-15.5) % Plt Count (150-450) k/uL MPV Neutrophils % % Lymphocytes % % Monocytes % % Eosinophils % % Basophils % % Neutrophils # (1.3-7.7) k/uL Lymphocytes # (1.0-4.8) k/uL Monocytes # (0-1.0) k/uL Eosinophils # (0-0.7) k/uL Basophils # (0-0.2) k/uL Sodium (137-145) mmol/L Potassium (3.5-5.1) mmol/L Chloride (98-107) mmol/L Carbon Dioxide (22-30) mmol/L Anion Gap mmol/L BUN (7-17) mg/dL Creatinine (0.52-1.04) mg/dL Est GFR (CKD-EPI)AfAm (>60 ml/min/1.73 sqM) Est GFR (CKD-EPI)NonAf (>60 ml/min/1.73 sqM) Glucose (74-99) mg/dL Calcium (8.4-10.2) mg/dL Total Bilirubin (0.2-1.3) mg/dL AST (14-36) U/L ALT (4-34) U/L Alkaline Phosphatase (38-126) U/L Troponin I <0.012 (0.000-0.034) ng/mL Total Protein (6.3-8.2) g/dL Albumin (3.5-5.0) g/dL Urine Color Urine Appearance (Clear) Urine pH (5.0-8.0) Ur Specific [place] (1.001-1.035) Urine Protein (Negative) Urine Glucose (UA) (Negative) Urine Ketones (Negative) Urine Blood (Negative) Urine Nitrite (Negative) Urine Bilirubin (Negative) Urine Urobilinogen (<2.0) mg/dL Ur Leukocyte Esterase (Negative) Urine RBC (0-5) /hpf Urine WBC (0-5) /hpf Ur Squamous Epith Cells (0-4) /hpf Urine Bacteria (None) /hpf Urine Mucus (None) /hpf Disposition Clinical Impression: Fatigue during Disposition: HOME SELF-CARE Condition: Good Instructions (If sedation given, give patient instructions): Fatigue (ED), Pre gnancy at 15 to 18 Weeks (ED) Additional Instructions: Follow-up with MEDICAL SALES SPECIALIST. Report back to ER with any new or worsening symptoms. Is patient prescribed a controlled substance at d/c from ED?: No Referrals: Getachew Mar [Primary Care Provider] - 1-2 days Delgado Dao MD [STAFF PHYSICIAN] - 1-2 days Time of Disposition: 22:25
[2023-06-11 22:36] VITALS: BP 128/60; PULSE 67
== END 2023-06-11 22:34 | disposition home or self-care (01) ==
LOC: EC 18:13
DX: O26.812 Pregnancy related exhaustion and fatigue, second trimester (principal); O26.892 Other specified pregnancy related conditions, second trimester; I10 Essential (primary) hypertension; O99.612 Diseases of the digestive system complicating pregnancy, second trimester; E07.9 Disorder of thyroid, unspecified; Z86.59 Personal history of other mental and behavioral disorders; Z88.5 Allergy status to narcotic agent; Z88.6 Allergy status to analgesic agent; Z88.1 Allergy status to other antibiotic agents; Z79.890 Hormone replacement therapy; Z88.8 Allergy status to other drugs, medicaments and biological substances; Z90.49 Acquired absence of other specified parts of digestive tract; Z3A.15 15 weeks gestation of pregnancy
CPT/HCPCS: 36415; 71045; 80053; 81001; 84484; 85025; 93005; 96360; 99284

== ENCOUNTER → 2023-07-12 | Outpatient (CLI) | payer OTHER ==
[2023-07-12 13:26] VITALS: BP 113/77; PULSE 84; TEMP 98.2; BMI 38.4
--- NOTE | 2023-07-12 19:01 | P.BASOAP ---
Subjective Progress Note Date: 07/12/23 Patient presents 19 weeks . Patient advised to take aspirin due to high-risk preeclampsia during prior pregnancies. High risk for recurrent gastric ulcers and perforation. Omeprazole 40 mg daily prescribed. Patient has risks appropriate preeclampsia without taking aspirin. Recommend vitamin twice daily. Additionally, bariatric labs advised with immediate correction with the first 2 trimesters. Anticipated follow-up in 2 weeks until third trimester which time she may follow-up with plug and mold finisher. Normal to have limited weight gain after gastric bypass however usually have held. Baby. Recommend increased protein intake 65-90 g daily for optimal nutrition. Iron advised including omeprazole prescribed. Vitamin D is low and also a prescription given Objective - Vital Signs Vital signs: Vital Signs Temp 98.2 F 07/12/23 13:15 Pulse 84 07/12/23 13:15 Resp BP 113/77 07/12/23 13:15 Pulse Ox FiO2 Intake & Output 07/11/23 07/12/23 07/12/23 18:59 06:59 18:59 Weight 95.254 kg Assessment/Plan Plan: Date: 07/12/23 Initial Weight: 128.82 kg Initial BMI: 51.9 Current Weight: 95.254 kg Current BMI: 38.4 Type of Surgery: Total Volume in Band: Previous Volume: Volume Removed: Volume Added: Band Size:
== END ==
LOC: BARWHC3 13:01
PROVIDERS: ATTEND Surgery Plastic and Reconstructive Surgery
DX: Z53.9 Procedure and treatment not carried out, unspecified reason (principal)
CPT/HCPCS: 99211

== ENCOUNTER → 2023-07-14 | Outpatient (CLI) | payer OTHER ==
[~2023-07-14] MED LIST changes: +CYANOCOBALAMIN 1,000 MCG/ML 1 ML VIAL IM NR; -cefTRIAXone 1,000 MG VIAL (IM USE) IM NR
[2023-07-14 11:04] VITALS: BP 108/71; PULSE 87; RESP 16; TEMP 98.8
== END ==
LOC: PROCWHC3 09:49
PROVIDERS: ATTEND Surgery Plastic and Reconstructive Surgery
DX: D51.9 Vitamin B12 deficiency anemia, unspecified (principal)
CPT/HCPCS: 96372; J3420

== ENCOUNTER 2023-08-07 18:06 | Outpatient (CLI) | payer OTHER ==
[2023-08-07 20:55] LABS: Appearance,Urine Clear (Clear); Bilirubin,Urine Negative (Negative); Blood,Urine Negative (Negative); Color,Urine Light Yellow; Glucose,Urine (UA) Negative (Negative); Ketones,Urine Negative (Negative); Leukocyte Esterase,Urine Small (Negative); Mucus,Urine Rare /hpf; Nitrite,Urine Negative (Negative); Protein,Urine Negative (Negative); RBC,Urine <1 /hpf (0-5); Squamous Epithelial Cell,Urine 2 /hpf (0-4); Urobilinogen,Urine <2.0 mg/dL (<2.0); WBC,Urine 6 /hpf (0-5)
[2023-08-07 21:51] VITALS: BP 124/79; PULSE 68; RESP 16; TEMP 96.9
--- NOTE | 2023-08-20 11:02 | P.MSEPDOC ---
Presenting Problems - Arrival Data Date of Arrival on Unit: 08/07/23 Time of Arrival on Unit: 18:06 Mode of Transport: Ambulatory - Complaint OB-Reason for Admission/Chief Complaint: Other Comment: Constant lower abdominal cramping and tightening since 02003/04, Hx of 21 week delivery due to HELLP syndrome Medical History - Information : 6 Para: 1 Term: 0 : 1 Abortions: Spontaneous or Elective: 4 Number of Living Children: 0 - Gestational Age Gestational Age by OSITO (wks/days): 23 Weeks and 0 Days - History Complications: Other Comment: Hx 21 week delivery due to HELLP syndrome Review of Systems - Review of Systems Constitutional: No problems Breast: No problems ENT: No problems Cardiovascular: No problems Respiratory: No problems Gastrointestinal: No problems Genitourinary: No problems Musculoskeletal: No problems Neurological: No problems Skin: No problems Vital Signs - Temperature Temperature: 96.9 F Temperature Source: Temporal Artery Scan - Pulse Pulse Oximetery Pulse Rate: 68 Pulse Assessment Method: Pulse Oximetry - Respirations Respiratory Rate: 16 Oxygen Delivery Method: Room Air O2 Sat by Pulse Oximetry: 96 - Blood Pressure Right Arm Blood Pressure: 124/79 Blood Pressure Mean: 94 Blood Pressure Source: Automatic Cuff Medical Screen Scoring - Cervical Exam Dilation (cm): 0 - Uterine Contractions Resting: Soft to palpation Physician Notification - Physician Notified Physician Notified Date: 08/07/23 Physician Notified Time: 19:05 Physician: Delgado Dao Order Received: Yes - Notification Comment Comment: Dr Dao in unit, familiar with patient and patients history of Hellp syndrome at 21 weeks. states to send pt urinalysis to lab.Order to check patients cervix due to contractions Maternal Triage Index - Maternal Triage Index Presenting for scheduled procedure w/no complaint: No - Stat/Priority 1 Stat Priority 1: No - Urgent/Priority 2 Urgent Priority 2: No - Prompt/Priority 3 Prompt Priority 3: No - Non-Urgent/Priority 4 Non-Urgent Priority 4: Yes Criteria Met for Priority 4: Pt arrives today with concerns of lower abdominal cramps and tightening that is constant and states it started at 2 am. Pt has a history of a 21 week delivery due to HELLP syndrome. Disposition - Disposition OB Disposition: Discharge to home Discharge Date: 08/07/23 Discharge Time: 21:10 I agree with the RN Medical Screening Exam: Yes Physician's MSE Comment: I have neither seen nor examined the patient. Case reviewed; plan agreed upon as documented in EMR&OBIX.: Yes Diagnosis: RELATED CONDITIONS, UNSPECIFIED, SECOND TRIMESTER
== END 2023-08-07 21:10 | disposition home or self-care (01) ==
LOC: FBPOP 18:06
PROVIDERS: ATTEND Surgery Plastic and Reconstructive Surgery
DX: O26.92 Pregnancy related conditions, unspecified, second trimester (principal); Z3A.23 23 weeks gestation of pregnancy; Z91.048 Other nonmedicinal substance allergy status; Z88.5 Allergy status to narcotic agent; Z88.8 Allergy status to other drugs, medicaments and biological substances; Z88.1 Allergy status to other antibiotic agents
CPT/HCPCS: 81001; G0463; 99213; 99215

== ENCOUNTER 2023-08-09 13:30 | Outpatient (CLI) | payer OTHER ==
[2023-08-09 15:10] VITALS: BP 113/73; PULSE 63; RESP 18; TEMP 97.8
--- NOTE | 2023-08-20 11:04 | P.MSEPDOC ---
Presenting Problems - Arrival Data Date of Arrival on Unit: 08/09/23 Time of Arrival on Unit: 13:30 Mode of Transport: Wheelchair - Complaint OB-Reason for Admission/Chief Complaint: Possible Onset of Labor Comment: patient of Dr Dao. Patient presents to L&D with c/o magdy that has become stronger since monday. Patient denies bleeding or loss of fluid. Patient states she feels baby moving. Medical History - Information : 6 Para: 1 Term: 0 : 1 Abortions: Spontaneous or Elective: 4 Number of Living Children: 0 - Gestational Age Gestational Age by OSITO (wks/days): 23 Weeks and 2 Days Review of Systems - Review of Systems Constitutional: No problems Breast: No problems ENT: No problems Cardiovascular: No problems Respiratory: No problems Gastrointestinal: No problems Genitourinary: No problems Musculoskeletal: No problems Neurological: No problems Skin: No problems Vital Signs - Temperature Temperature: 97.8 F Temperature Source: Oral - Pulse Pulse Oximetery Pulse Rate: 63 Pulse Assessment Method: Automatic Cuff - Respirations Respiratory Rate: 18 Oxygen Delivery Method: Room Air - Blood Pressure Left Arm Blood Pressure: 113/73 Blood Pressure Mean: 86 Blood Pressure Source: Automatic Cuff Medical Screen Scoring - Cervical Exam Dilation (cm): 0 Effacement (%): 0 Station: -3 Membranes: Intact - Assessment - Baby A Baseline FHR: 140 Physician Notification - Physician Notified Physician Notified Date: 08/09/23 Physician Notified Time: 13:50 Physician: Delgado Dao Order Received: Yes - Notification Comment Comment: Report of patient c/o contractions. No bleeding or loss of fluid, + movement. No contractions noted on the monitor. Orders received to check cervix, if closed and thick, continue to monitor for about an hour and then patient may be discharged. Maternal Triage Index - Maternal Triage Index Presenting for scheduled procedure w/no complaint: No - Stat/Priority 1 Stat Priority 1: No - Urgent/Priority 2 Urgent Priority 2: No - Prompt/Priority 3 Prompt Priority 3: Yes Criteria Met for Priority 3: patient of Dr Doa. Patient presents to L&D with c/o magdy that has become stronger since monday. Patient denies bleeding or loss of fluid. Patient states she feels baby moving. Disposition - Disposition OB Disposition: Discharge to home Discharge Date: 08/09/23 Discharge Time: 14:35 I agree with the RN Medical Screening Exam: Yes Physician's MSE Comment: I have neither C nor examined the patient. Case reviewed; plan agreed upon as documented in EMR&OBIX.: Yes Diagnosis: RELATED CONDITIONS, UNSPECIFIED, SECOND TRIMESTER
== END 2023-08-09 14:35 | disposition home or self-care (01) ==
LOC: FBPOP 13:30
PROVIDERS: ATTEND Obstetrics & Gynecology
DX: O47.02 False labor before 37 completed weeks of gestation, second trimester (principal); Z3A.23 23 weeks gestation of pregnancy; Z91.048 Other nonmedicinal substance allergy status; Z88.5 Allergy status to narcotic agent; Z88.8 Allergy status to other drugs, medicaments and biological substances; Z88.1 Allergy status to other antibiotic agents
CPT/HCPCS: 99213

== ENCOUNTER 2023-08-29 18:07 | Outpatient (CLI) | payer OTHER ==
[2023-08-29] MEDS ORDERED: ACETAMINOPHEN IV (For NPO) 1,000 MG in EMPTY BAG 1 BAG IVPB ONE (18:32)
[2023-08-29] MEDS ORDERED: ONDANSETRON 4 MG/2 ML VIAL IVP STA (18:32)
[2023-08-29] MEDS ORDERED: LACTATED RINGERS 1,000 ML IV SCH (18:45)
[2023-08-29 20:06] VITALS: BP 118/78; PULSE 76; RESP 18; TEMP 96.7
--- NOTE | 2023-10-16 16:18 | P.MSEPDOC ---
Presenting Problems - Arrival Data Date of Arrival on Unit: 08/29/23 Time of Arrival on Unit: 18:07 Mode of Transport: Ambulatory - Complaint OB-Reason for Admission/Chief Complaint: Acute Nausea/Vomiting Comment: Pt presents c\N/V/D x 24hrs, started yesterday after glucola test. Pt also reports feeling chills, congestions and a cough. 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 Medical History - Information : 6 Para: 1 Term: 0 : 1 Abortions: Spontaneous or Elective: 4 Number of Living Children: 0 - Gestational Age Gestational Age by OSITO (wks/days): 26 Weeks and 1 Days - History Complications: Prior Comment: Pt delivered last baby at 22wks, demise Review of Systems - Review of Systems Constitutional: No problems Breast: No problems ENT: Cough, Nasal congestion Cardiovascular: No problems Respiratory: No problems Gastrointestinal: Diarrhea Genitourinary: No problems Musculoskeletal: No problems Neurological: No problems Skin: No problems Vital Signs - Temperature Temperature: 96.7 F Temperature Source: Temporal Artery Scan - Pulse Right Sitting Brachial Pulse Rate: 76 Pulse Assessment Method: Automatic Cuff - Respirations Respiratory Rate: 18 Oxygen Delivery Method: Room Air O2 Sat by Pulse Oximetry: 97 - Blood Pressure Right Arm Sitting Blood Pressure: 118/78 Blood Pressure Mean: 91 Blood Pressure Source: Automatic Cuff Medical Screen Scoring - Assessment - Baby A NST: Reactive Physician Notification - Physician Notified Physician Notified Date: 08/29/23 Physician Notified Time: 18:25 Physician: Ashley St New Order Received: Yes - Notification Comment Comment: 1824: Spk c\Dr. St, advsd pt of Dr. Dao, , 26 10/01, c/o N/V/D x 24hrs, congestion, cough and chills. Afebrile. Cat 1 FHT. No Contrx. Order rec'd to provide 1L LR, Zofran 4mg IVP once, Ofirmev 1000mg IVP. Swab for COVID/Influenza and send urine for ketones. 1934: Spk c\Dr. St, advsd of negative COVID/Influenza swab, UA +1 ketones, pt states feeling better following LR and Zofran, declined Ofirmev. Order rec'd for d/c home, follow up as scheduled. Maternal Triage Index - Maternal Triage Index Presenting for scheduled procedure w/no complaint: No - Stat/Priority 1 Stat Priority 1: No - Urgent/Priority 2 Urgent Priority 2: No - Prompt/Priority 3 Prompt Priority 3: No - Non-Urgent/Priority 4 Non-Urgent Priority 4: Yes Criteria Met for Priority 4: N/V/D Disposition - Disposition OB Disposition: Discharge to home, Written follow up instructions reviewed Discharge Date: 08/29/23 Discharge Time: 19:50 I agree with the RN Medical Screening Exam: Yes Case reviewed; plan agreed upon as documented in EMR&OBIX.: Yes Diagnosis: DEHYDRATION
== END 2023-08-29 19:50 | disposition home or self-care (01) ==
LOC: FBPOP 18:07
PROVIDERS: ATTEND Obstetrics & Gynecology Obstetrics
DX: O21.1 Hyperemesis gravidarum with metabolic disturbance (principal); Z3A.26 26 weeks gestation of pregnancy; Z91.09 Other allergy status, other than to drugs and biological substances; Z88.5 Allergy status to narcotic agent; Z88.1 Allergy status to other antibiotic agents; Z91.048 Other nonmedicinal substance allergy status; Z88.8 Allergy status to other drugs, medicaments and biological substances
CPT/HCPCS: 96361; 96374; 81003; 87636; G0463; J2405; 99214

== ENCOUNTER → 2023-09-13 | Outpatient (CLI) | payer OTHER ==
[2023-09-13 13:42] VITALS: BP 127/83; PULSE 85; TEMP 98.2; BMI 40.2
--- NOTE | 2023-09-13 13:49 | P.BASOAP ---
Subjective Progress Note Date: 09/13/23 DATE OF SERVICE: 09/13/23 CHIEF COMPLAINT: Status post gastric bypass HISTORY OF PRESENT ILLNESS: Breonna Garcia is a 33-year-old female status post gastric bypass, 01/18/21. She is 2 years postop. She has gained 60 pounds in 1 year. She did not do labs. She is in her 3rd trimester. Denies gastro esophageal reflux disease. At height of 5 feet 2 inches, her ideal body weight is 135 pounds. Her highest weight is 282 pounds, body mass index 51.7. She comes in 220 pounds from 155 pounds, 1 year ago. She has gained 65 pounds in 1 year. Her body mass index is 40.2. Lifetime weight loss is 62 pounds. She is 85 pounds overweight. Lifetime percent excess weight loss is 42 %. PHYSICAL EXAM: VITAL SIGNS: Height 5 foot 2 inches, weight 220 pounds. BMI 40.2 Vital Signs Temp 98.2 F 09/13/23 13:27 Pulse 85 09/13/23 13:27 Resp BP 127/83 09/13/23 13:27 Pulse Ox FiO2 GENERAL: Well-developed in no acute distress. HEENT: No scleral icterus. Extraocular movements grossly intact. Hears conversational speech. No nasal drainage. NECK: Supple without lymphadenopathy. CHEST: Nonlabored respirations with equal bilateral excursions. CARDIOVASCULAR: Regular rate and rhythm. Distal 2+ pulses. ABDOMEN: No peritonitis. MUSCULOSKELETAL: No clubbing, cyanosis. NEURO: No focal or lateralizing signs. Cranial nerves 2 through 12 grossly within normal limits. PSYCH: Appropriate affect. Alert and oriented to person, place and time. SKIN: Good skin turgor. Well perfused. ASSESSMENT: 1. Morbid obesity due to excess calories 2. Body mass index, 51.9 now 40.2 3. Lupus 4. Pseudotumor cerebri 5. Hypertensive heart disease 6. History of kidney nodule 7. Hypothyroidism, poorly controlled 8. Depressive disorder 9. Seizure disorder 10. Avascular necrosis hips 11. Scoliosis of the spine 12. History of HELLP syndrome 13. Osteoarthritis knee 14. Osteoarthritis of the hips 15. Status post gastric bypass 16. Thrombosed hemorrhoids 17. Vitamin D deficiency 18. Iron deficiency 19. Adverse reaction to artificial sweeteners. 20. Hypokalemia 21. Vitamin A deficiency 22. Vitamin B1 deficiency 23. Folate deficiency PLAN: 1. With her current , recommend full bariatric labs. 2. She is elevated risk for preeclampsia with aspirin 81 mg advised. Continue ASA 81 mg 3. Continue omeprazole Objective - Vital Signs Vital signs: Vital Signs Temp 98.2 F 09/13/23 13:27 Pulse 85 09/13/23 13:27 Resp BP 127/83 09/13/23 13:27 Pulse Ox FiO2 Intake & Output 09/12/23 09/13/23 09/13/23 18:59 06:59 18:59 Weight 99.79 kg Assessment/Plan Plan: Date: 09/13/23 Initial Weight: 128.82 kg Initial BMI: 51.9 Current Weight: 99.79 kg Current BMI: 40.2 Type of Surgery: Total Volume in Band: Previous Volume: Volume Removed: Volume Added: Band Size:
== END ==
LOC: BARWHC3 13:04
PROVIDERS: ATTEND Surgery Plastic and Reconstructive Surgery
DX: E66.01 Morbid (severe) obesity due to excess calories (principal); Z68.43 Body mass index [BMI] 50.0-59.9, adult; M32.9 Systemic lupus erythematosus, unspecified; G93.2 Benign intracranial hypertension; I11.0 Hypertensive heart disease with heart failure; Z85.528 Personal history of other malignant neoplasm of kidney; E03.9 Hypothyroidism, unspecified; F32.A Depression, unspecified; R56.9 Unspecified convulsions; M87.9 Osteonecrosis, unspecified; M41.9 Scoliosis, unspecified; Z87.59 Personal history of other complications of pregnancy, childbirth and the puerperium; M17.9 Osteoarthritis of knee, unspecified; M16.0 Bilateral primary osteoarthritis of hip; Z98.84 Bariatric surgery status; K64.9 Unspecified hemorrhoids; E55.9 Vitamin D deficiency, unspecified; E87.6 Hypokalemia; E50.9 Vitamin A deficiency, unspecified; E51.9 Thiamine deficiency, unspecified; D52.9 Folate deficiency anemia, unspecified; Z91.048 Other nonmedicinal substance allergy status; Z88.5 Allergy status to narcotic agent; Z91.09 Other allergy status, other than to drugs and biological substances; Z88.3 Allergy status to other anti-infective agents; Z88.1 Allergy status to other antibiotic agents; Z88.4 Allergy status to anesthetic agent; Z79.890 Hormone replacement therapy
CPT/HCPCS: 99211

== ENCOUNTER 2023-09-24 09:34 | Emergency (ER) | payer OTHER ==
[2023-09-24 09:50] VITALS: RESP 18
--- NOTE | 2023-09-24 10:08 | ED ---
URI HPI - General Chief Complaint: Upper Respiratory Infection Stated Complaint: Ear Pain, Neck Pain Time Seen by Provider: 09/24/23 09:51 Source: patient, RN notes reviewed Mode of arrival: ambulatory Limitations: no limitations - History of Present Illness Initial Comments: 33-year-old female presents emergency Department chief complaint of nasal conge stion, right ear pain, sore throat. Patient states that she has sudden onset of congestion yesterday reported fever minimal cough. Patient states that she does have mild headache she states her ears worse started this morning. She is not taking for symptoms. - Related Data Home Medications Medication Instructions Recorded Confirmed Levothyroxine Sodium [Synthroid] 137 mcg PO BID 02/23/22 09/13/23 Hydroxychloroquine Sulfate 500 mg PO BID 07/12/23 09/13/23 [Plaquenil] Vit No.179/Iron/Folic 1 each PO DAILY 07/12/23 09/13/23 [ Tablet] Previous Rx's Medication Instructions Recorded Acetaminophen Tab [Tylenol Tab] 1,000 mg PO Q6HR PRN #30 tablet 07/04/22 Cyanocobalamin [Vitamin B-12] 1,000 mcg PO DAILY@1200 #60 tablet 07/12/23 Ergocalciferol [Vitamin D2 (1250 1,250 mcg PO WEEKLY #20 cap 07/12/23 Mcg = 67861 Iu)] Omeprazole [PriLOSEC] 40 mg PO DAILY #30 cap 07/12/23 Amoxic-Pot Clav 875-125Mg 1 tab PO Q12HR #20 tab 09/24/23 [Augmentin 875-125] Allergies Allergy/AdvReac Type Severity Reaction Status Date / Time cobalt Allergy PER Verified 09/24/23 09:44 ALLERGY TEST lidocaine Allergy PER Verified 09/24/23 09:44 ALLERGY TEST neomycin Allergy PER Verified 09/24/23 09:44 ALLERGY TEST nickel Allergy Unknown Verified 09/24/23 09:44 codeine AdvReac Nausea & Verified 09/24/23 09:44 Vomiting. HEADACHES LINALOOL Allergy PER Uncoded 09/24/23 09:44 ALLERGY TEST Review of Systems ROS Statement: Those systems with pertinent positive or pertinent negative responses have been documented in the HPI. ROS Other: All systems not noted in ROS Statement are negative. 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 appendectomy and hernia repair Past Anesthesia/Blood Transfusion Reactions: No Reported Reaction Past Psychological History: Anxiety, Depression Smoking Status: Never smoker Past Alcohol Use History: None Reported Past Drug Use History: None Reported - Past Family History Mother Family Medical History: No Reported History General Exam Limitations: no limitations General appearance: alert, in no apparent distress Head exam: Present: atraumatic, normocephalic, normal inspection Eye exam: Present: normal appearance, PERRL, EOMI. Absent: scleral icterus, conjunctival injection, periorbital swelling ENT exam: Present: normal exam, normal oropharynx, mucous membranes moist Neck exam: Present: normal inspection, full ROM. Absent: tenderness, meningismus, lymphadenopathy Respiratory exam: Present: normal lung sounds bilaterally. Absent: respiratory distress, wheezes, rales, rhonchi, stridor Cardiovascular Exam: Present: regular rate, normal rhythm, normal heart sounds. Absent: systolic murmur, diastolic murmur, rubs, gallop, clicks Course Vital Signs 09/24/23 09:42 Temperature 97.7 F Pulse Rate 85 Respiratory 18 Rate Blood Pressure 129/92 O2 Sat by Pulse 99 Oximetry Medical Decision Making - Medical Decision Making Was pt. sent in by a medical professional or institution (, PA, SKEIN BANDER, urgent care, hospital, or half-way...) When possible be specific @ -No Did you speak to anyone other than the patient for history (EMS, parent, family, police, friend...)? What history was obtained from this source @ -No Did you review nursing and triage notes (agree or disagree)? Why? @ -I reviewed and agree with nursing and triage notes Were old charts reviewed (outside hosp., previous admission, EMS record, old EKG, old radiological studies, urgent care reports/EKG's, half-way records)? Report findings @ -No old charts were reviewed Differential Diagnosis (chest pain, altered mental status, abdominal pain women, abdominal pain men, vaginal bleeding, weakness, fever, dyspnea, syncope, headache, dizziness, GI bleed, back pain, seizure, CVA, palpatations, mental health, musculoskeletal)? @ -nCOVID 19, RSV, influenza, pneumonia, acute bronchitis, URI, this list is not all inclusive EKG interpreted by me (3pts min.). @ -[None X-rays interpreted by me (1pt min.). @ -None done CT interpreted by me (1pt min.). @ -None done U/S interpreted by me (1pt. min.). @ -None done What testing was considered but not performed or refused? (CT, X-rays, U/S, labs)? Why? @ -None What meds were considered but not given or refused? Why? @ -None Did you discuss the management of the patient with other professionals (professionals i.e. , PA, SKEIN BANDER, lab, RT, psych nurse, social media marketer, electrical technology instructor, teacher, correction officer penitentiary, employment evaluator/case manager)? Give summary @ -No Was smoking cessation discussed for >3mins.? @ -No Was critical care preformed (if so, how long)? @ -No Were there social determinants of health that impacted care today? How? (Homelessness, low income, unemployed, alcoholism, drug addiction, transportation, low edu. Level, literacy, decrease access to med. care, intermediate, rehab)? @ -No Was there de-escalation of care discussed even if they declined (Discuss DNR or withdrawal of care, Hospice)? DNR status @ -No What co-morbidities impacted this encounter? (DM, HTN, Smoking, COPD, CAD, Cancer, CVA, ARF, Chemo, Hep., AIDS, mental health diagnosis, sleep apnea, morbid obesity)? @ -None Was patient admitted / discharged? Hospital course, mention meds given and route, prescriptions, significant lab abnormalities, going to OR and other pertinent info. @ -Discharge patient is going 19 positive. Patient does have significant right otitis media. Patient was started on Timentin discuss possibly a viral ear infection. Patient will be discharged in stable condition with Tylenol for fever, pain control. Undiagnosed new problem with uncertain prognosis? @ -No Drug Therapy requiring intensive monitoring for toxicity (Heparin, Nitro, Insulin, Cardizem)? @ -No Were any procedures done? @ -No Diagnosis/symptom? @ -[COVID 19, otitis media Acute, or Chronic, or Acute on Chronic? @ -[acute Uncomplicated (without systemic symptoms) or Complicated (systemic symptoms)? @ -[uncomplicated Side effects of treatment? @ -No Exacerbation, Progression, or Severe Exacerbation? @ -No Poses a threat to life or bodily function? How? (Chest pain, USA, OR, pneumonia, PE, COPD, DKA, ARF, appy, cholecystitis, CVA, Diverticulitis, Homicidal, Suicidal, threat to staff... and all critical care pts) @ -No - Lab Data Lab Results 09/24/23 09/24/23 Range/Units 09:50 10:36 Influenza Type A (PCR) Not Detected (Not Detectd) Influenza Type B (PCR) Not Detected (Not Detectd) RSV (PCR) Not Detected (Not Detectd) SARS-CoV-2 (PCR) Detected A (Not Detectd) Group A Strep (PCR) NOT DETECTED (Not Detectd) Disposition Clinical Impression: COVID-19, Otitis media Disposition: HOME SELF-CARE Condition: Stable Instructions (If sedation given, give patient instructions): COVID-19 (Coronavirus Disease 2019) (ED) Additional Instructions: Please return to the Emergency Department if symptoms worsen or any other concerns. Prescriptions: Amoxic-Pot Clav 875-125Mg [Augmentin 875-125] 1 tab PO Q12HR #20 tab Is patient prescribed a controlled substance at d/c from ED?: No Referrals: Getachew Mar [Primary Care Provider] - 1-2 days Time of Disposition: 11:14
[2023-09-24] MEDS ORDERED: ACETAMINOPHEN TAB 325 MG TAB PO STA (10:53)
[2023-09-24] MEDS ORDERED: AMOXIC-POT CLAV 875-125MG 1 EACH TAB PO STA (10:53)
[2023-09-24 12:05] VITALS: BP 122/82; PULSE 89; TEMP 98.6
== END 2023-09-24 11:57 | disposition home or self-care (01) ==
LOC: EC 09:34
DX: U07.1 COVID-19 (principal); H66.91 Otitis media, unspecified, right ear; I10 Essential (primary) hypertension; E07.9 Disorder of thyroid, unspecified; Z86.59 Personal history of other mental and behavioral disorders; Z79.890 Hormone replacement therapy
CPT/HCPCS: 87636; 87651; 99283

== ENCOUNTER 2023-10-19 18:19 | Observation (INO) | payer OTHER ==
[2023-10-19] MEDS ORDERED: LACTATED RINGERS 1,000 ML IV SCH ×2 (19:30→21:30)
[2023-10-19 19:38] LABS: Appearance,Urine Clear (Clear); Bilirubin,Urine Negative (Negative); Blood,Urine Negative (Negative); Color,Urine Yellow; Glucose,Urine (UA) Negative (Negative); Ketones,Urine Negative (Negative); Leukocyte Esterase,Urine Negative (Negative); Nitrite,Urine Negative (Negative); PH, Urine 6.5 (5.0-8.0); Protein,Urine Trace (Negative); Specific Gravity,Urine 1.029 (1.001-1.035); Urobilinogen,Urine <2.0 mg/dL (<2.0)
[2023-10-19 20:03] LABS: Basophils % (A) 0 %; Eosinophils # (A) 0.1 k/uL (0-0.7); Eosinophils % (A) 1 %; Lymphocytes # (A) 1.8 k/uL (1.0-4.8); Lymphocytes % (A) 28 %; MCH 30.1 pg (25.0-35.0); MCHC 33.3 g/dL (31.0-37.0); MCV 90.4 fL (80.0-100.0); Mean Platelet Volume 9.9; Monocytes # (A) 0.3 k/uL (0-1.0); Monocytes % (A) 5 %; Neutrophils # (A) 4.1 k/uL (1.3-7.7); Neutrophils % (A) 64 %; Platelet Count 171 k/uL (150-450); RBC 4.32 m/uL (3.80-5.40); RDW 13.9 % (11.5-15.5); WBC 6.4 k/uL (3.8-10.6)
[2023-10-19] MEDS: BETAMET ACET-BETAMETH SOD PHOS 6 MG/ML MDV IM SCH (20:28)
[2023-10-19] MEDS ORDERED: ACETAMINOPHEN TAB 325 MG TAB PO PRN (23:07)
[2023-10-19] MEDS ORDERED: CALCIUM CARBONATE 500 MG CHEWABLE PO PRN (23:08)
[2023-10-19 23:18] VITALS: RESP 16
[2023-10-20] MEDS ORDERED: LEVOTHYROXINE 137 MCG TAB PO SCH (06:30)
[2023-10-20] MEDS ORDERED: PANTOPRAZOLE 40 MG TABLET PO SCH (07:30)
[2023-10-20] MEDS ORDERED: HYDROXYCHLOROQUINE SULFATE 200 MG TAB PO SCH (09:00)
[2023-10-20] MEDS ORDERED: PRENATAL VIT-IRON-FOLIC ACID 1 EACH TABLET PO SCH (09:00)
[2023-10-20] MEDS ORDERED: BETAMET ACET-BETAMETH SOD PHOS 6 MG/ML MDV IM SCH (09:00)
[2023-10-20] MEDS: BETAMET ACET-BETAMETH SOD PHOS 6 MG/ML MDV IM SCH (09:13)
[2023-10-20 09:35] VITALS: BP 118/65; PULSE 66; TEMP 97.3
--- NOTE | 2023-10-20 12:38 | P.HPOB ---
History of Present Illness H&P Date: 10/20/23 Chief Complaint: 33+ weeks, contractions with upper abdominal pain The patient is a 33-year-old patient at 33+ weeks by good dating parameters who presents to labor and delivery in triage with complaints of significant upper abdominal pain radiating to her back. She was noted to be magdy upon admission and the decision was ultimately made to admit her for 23 hour ob servation and IV hydration. She was given Tylenol which relieved a good portion of her pain and IV hydration ultimately caused her contraction pattern to stop. Cervical examination demonstrated her cervix to be 1 cm dilated, thick, with the vertex in presentation at a high station. No cervical change was made. Her is complicated by multiple losses and a history of severe pr eeclampsia at approximate 20-21 weeks of . She additionally is known to have systemic lupus erythematosus. She has had close follow-up through maternal medicine throughout her . testing has been reassuring and she has a category 1 heart rate tracing on labor and delivery. Obstetrical history: The record is not present at this time with the patient has had multiple losses with severe preeclampsia occurring at approximately 21 weeks of and 1 of her pregnancies leading to delivery and the did not survive. Her other losses were early. Current statistics are listed above. Gynecologic history: Unremarkable with no history of any infections to include STDs. Review of Systems Review of systems is confined to history of present illness. 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 appendectomy and hernia repair 1009- Past Anesthesia/Blood Transfusion Reactions: No Reported Reaction Past Psychological History: Anxiety, Depression Smoking Status: Never smoker Past Alcohol Use History: None Reported Past Drug Use History: None Reported - Past Family History Mother Family Medical History: No Reported History Medications and Allergies Home Medications Medication Instructions Recorded Confirmed Type Levothyroxine Sodium [Synthroid] 137 mcg PO BID 02/23/22 10/19/23 History Acetaminophen Tab [Tylenol Tab] 1,000 mg PO Q6HR PRN #30 tablet 07/04/22 10/19/23 Rx Cyanocobalamin [Vitamin B-12] 1,000 mcg PO DAILY@1200 #60 tablet 07/12/23 10/19/23 Rx Ergocalciferol [Vitamin D2 (1250 1,250 mcg PO WEEKLY #20 cap 07/12/23 10/19/23 Rx Mcg = 49437 Iu)] Hydroxychloroquine Sulfate 500 mg PO BID 07/12/23 10/19/23 History [Plaquenil] Omeprazole [PriLOSEC] 40 mg PO DAILY #30 cap 07/12/23 10/19/23 Rx Vit No.179/Iron/Folic 1 each PO DAILY 07/12/23 10/19/23 History [ Tablet] Amoxic-Pot Clav 875-125Mg 1 tab PO Q12HR #20 tab 09/24/23 10/19/23 Rx [Augmentin 875-125] Allergies Allergy/AdvReac Type Severity Reaction Status Date / Time cobalt Allergy PER Verified 10/19/23 19:18 ALLERGY TEST lidocaine Allergy PER Verified 10/19/23 19:18 ALLERGY TEST neomycin Allergy PER Verified 10/19/23 19:18 ALLERGY TEST nickel Allergy Unknown Verified 10/19/23 19:18 codeine AdvReac Nausea & Verified 10/19/23 19:18 Vomiting. HEADACHES LINALOOL Allergy PER Uncoded 10/19/23 19:18 ALLERGY TEST Exam Vital Signs Temp Pulse Resp BP Pulse Ox 10/20/23 08:00 97.3 F L 66 16 118/65 10/19/23 21:41 97.1 F L 59 L 16 119/86 98 10/19/23 19:18 97.1 F L 59 L 16 119/86 98 Intake and Output 10/19/23 10/20/23 10/20/23 22:59 06:59 14:59 Other: # Voids 2 1 Weight 100.244 kg Is well-developed well-nourished female in no acute distress. Her heart has a regular rhythm and rate without murmur. Her lungs clear to a uscultation bilaterally in all knight. Her abdomen is gravid, nondistended, has normal active bowel sounds, soft, nontender, without any palpable masses aside from uterine fundus. Her extremities without any cyanosis, clubbing, or edema and are nontender to palpation bilaterally. Digital cervical examination was performed by the nurses and demonstrated her cervix to be 1 cm dilated, thick, with the vertex in presentation at a high station. Results Result Diagrams: 10/19/23 19:12 Abnormal Lab Results - Last 24 Hours (Table) 10/19/23 Range/Units 19:12 Urine Protein Trace H (Negative) Assessment and Plan (1) Upper abdominal pain Current Visit: Yes Status: Acute Code(s): R10.10 - UPPER ABDOMINAL PAIN, UNSPECIFIED SNOMED Code(s): 69570204 (2) contractions Current Visit: Yes Status: Acute Code(s): O47.00 - FALSE LABOR BEFORE 37 COMPLETED WEEKS OF GEST, UNSP TRI SNOMED Code(s): 687342771 (3) 33 weeks gestation of Current Visit: Yes Status: Acute Code(s): Z3A.33 - 33 WEEKS GESTATION OF SNOMED Code(s): 92605232 Plan: The patient was admitted for IV hydration and observation. She was given a dose of Celestone to be repeated in 12-24 hours.
--- NOTE | 2023-10-20 12:42 | P.DS ---
Providers Date of admission: 10/19/23 21:31 Expected date of discharge: 10/20/23 Attending physician: Mary Figueroa Primary care physician: Delgado Dao - Discharge Diagnosis(es) (1) Upper abdominal pain Current Visit: Yes Status: Acute (2) contractions Current Visit: Yes Status: Acute (3) 33 weeks gestation of Current Visit: Yes Status: Acute Hospital Course: The patient is a 33-year-old multiparous patient with multiple losses including a loss secondary to preeclampsia approximate 21 weeks of . This has thus far been uncomplicated and c omanagement with maternal- medicine. She carries a secondary diagnosis of lupus. She presented to the hospital with a moderate to significant upper abdominal pain and was found to be magdy. She was ultimately admitted for IV hydration and observation. With IV hydration, her contractions abated and her pain relented with oral Tylenol own. heart tones remained category 1 throughout. She was deemed stable for discharge on on the morning of hospital day #2 after approximately 18 hours of admission. She was discharged home to follow-up in the office this week as previously scheduled. Instructions were to call for any increasing problems of any kind. She understood her instructions and agrees to follow up as noted above. Discharge medications included only normal home medications as well as [id number] analgesic pain medications. Procedures: #1. IV hydration #2. Observation Patient Condition at Discharge: Stable Plan - Discharge Summary New Discharge Prescriptions: No Action Hydroxychloroquine Sulfate [Plaquenil] 500 mg PO BID Omeprazole [PriLOSEC] 40 mg PO DAILY #30 cap Ergocalciferol [Vitamin D2 (1250 Mcg = 49327 Iu)] 1,250 mcg PO WEEKLY #20 cap Levothyroxine Sodium [Synthroid] 137 mcg PO BID Acetaminophen Tab [Tylenol Tab] 1,000 mg PO Q6HR PRN #30 tablet PRN Reason: Pain Vit No.179/Iron/Folic [ Tablet] 1 each PO DAILY Cyanocobalamin [Vitamin B-12] 1,000 mcg PO DAILY@1200 #60 tablet Amoxic-Pot Clav 875-125Mg [Augmentin 875-125] 1 tab PO Q12HR #20 tab Discharge Medication List Levothyroxine Sodium [Synthroid] 137 mcg PO BID 02/23/22 [History] Acetaminophen Tab [Tylenol Tab] 1,000 mg PO Q6HR PRN #30 tablet 07/04/22 [Rx] Cyanocobalamin [Vitamin B-12] 1,000 mcg PO DAILY@1200 #60 tablet 07/12/23 [Rx] Ergocalciferol [Vitamin D2 (1250 Mcg = 25252 Iu)] 1,250 mcg PO WEEKLY #20 cap [Rx] Hydroxychloroquine Sulfate [Plaquenil] 500 mg PO BID 07/12/23 [History] Omeprazole [PriLOSEC] 40 mg PO DAILY #30 cap 07/12/23 [Rx] Vit No.179/Iron/Folic [ Tablet] 1 each PO DAILY 07/12/23 [History] Amoxic-Pot Clav 875-125Mg [Augmentin 875-125] 1 tab PO Q12HR #20 tab 09/24/23 [Rx] Follow up Appointment(s)/Referral(s): Delgado Dao MD [Primary Care Provider] - 10/24/23 Discharge Disposition: HOME SELF-CARE
[2023-10-26] MEDS ORDERED: ERGOCALCIFEROL 1,250 MCG (50,000 IU) CAPSULE PO SCH (09:00)
== END 2023-10-20 13:30 | disposition home or self-care (01) ==
LOC: FBPOP 18:19 → 4FBP 21:31
PROVIDERS: ADMIT Obstetrics & Gynecology; ATTEND Obstetrics & Gynecology
DX: O60.03 Preterm labor without delivery, third trimester (principal); O99.891 Other specified diseases and conditions complicating pregnancy; M32.9 Systemic lupus erythematosus, unspecified; O99.613 Diseases of the digestive system complicating pregnancy, third trimester; K21.9 Gastro-esophageal reflux disease without esophagitis; O99.343 Other mental disorders complicating pregnancy, third trimester; F32.A Depression, unspecified; F41.9 Anxiety disorder, unspecified; O99.283 Endocrine, nutritional and metabolic diseases complicating pregnancy, third trimester; E07.9 Disorder of thyroid, unspecified; Z3A.33 33 weeks gestation of pregnancy; Z79.890 Hormone replacement therapy; Z79.899 Other long term (current) drug therapy; Z88.1 Allergy status to other antibiotic agents; Z88.5 Allergy status to narcotic agent
CPT/HCPCS: 59025; 96372 ×2; 36415; 85025; 81003; G0378 ×2; G0463; S0197; J0702 ×2; 96361; 99213

== ENCOUNTER 2023-10-21 11:47 | Outpatient (CLI) | payer OTHER ==
[2023-10-21] MEDS: LACTATED RINGERS 1,000 ML IV ONE (12:19)
[2023-10-21 12:47] LABS: Appearance,Urine Clear (Clear); Bilirubin,Urine Negative (Negative); Blood,Urine Negative (Negative); Color,Urine Yellow; Glucose,Urine (UA) Negative (Negative); Ketones,Urine 1+ (Negative); Leukocyte Esterase,Urine Negative (Negative); Nitrite,Urine Negative (Negative); PH, Urine 6.5 (5.0-8.0); Protein,Urine Trace (Negative); Specific Gravity,Urine 1.032 (1.001-1.035)
[2023-10-21] MEDS: LACTATED RINGERS 1,000 ML IV SCH (13:33)
[2023-10-21] MEDS: ACETAMINOPHEN IV (For NPO) 1,000 MG in EMPTY BAG 1 BAG IVPB STA (13:34)
[2023-10-21 14:47] VITALS: BP 123/75; PULSE 62; RESP 16; TEMP 98.5
--- NOTE | 2023-11-01 13:59 | P.MSEPDOC ---
Presenting Problems - Arrival Data Date of Arrival on Unit: 10/21/23 Time of Arrival on Unit: 11:47 Mode of Transport: Ambulatory - Complaint OB-Reason for Admission/Chief Complaint: Pain Comment: contractions per pt with low back pain Medical History - Information : 6 Para: 0 Number of Living Children: 0 - Gestational Age Gestational Age by OSITO (wks/days): 33 Weeks and 5 Days Review of Systems - Review of Systems Constitutional: No problems Breast: No problems ENT: No problems Cardiovascular: No problems Respiratory: No problems Gastrointestinal: No problems Genitourinary: No problems Musculoskeletal: No problems Neurological: No problems Skin: No problems Vital Signs - Temperature Temperature: 98.5 F Temperature Source: Temporal Artery Scan - Pulse Right Sitting Brachial Pulse Rate: 62 Pulse Assessment Method: Automatic Cuff - Respirations Respiratory Rate: 16 Oxygen Delivery Method: Room Air O2 Sat by Pulse Oximetry: 99 - Blood Pressure Right Arm Sitting Blood Pressure: 123/75 Blood Pressure Mean: 91 Blood Pressure Source: Automatic Cuff Medical Screen Scoring - Cervical Exam Dilation (cm): 0 Effacement (%): 0 - Uterine Contractions Frequency From (mins): 0 Frequency To (mins): 0 Duration From (seconds): 0 Duration To (seconds): 0 Resting: Soft to palpation - Assessment - Baby A Baseline FHR: 125 Heart Rate - NICHD Category: Category I (Normal) NST: Reactive Physician Notification - Physician Notified Physician Notified Date: 10/21/23 Physician Notified Time: 14:25 Physician: Ashley St New Order Received: Yes - Notification Comment Comment: discharge Maternal Triage Index - Maternal Triage Index Presenting for scheduled procedure w/no complaint: No - Stat/Priority 1 Stat Priority 1: No - Urgent/Priority 2 Urgent Priority 2: Yes Provider Notified: Ashley St Provider Notified Time: 12:00 Criteria Met for Priority 2: intense pain less that 34wks gestation Disposition - Disposition OB Disposition: Discharge to home Discharge Date: 10/21/23 Discharge Time: 14:25 I agree with the RN Medical Screening Exam: Yes Case reviewed; plan agreed upon as documented in EMR&OBIX.: Yes Diagnosis: FALSE LABOR BEFORE 37 COMPLETED WEEKS OF GEST, THIRD TRI
== END 2023-10-21 14:25 | disposition home or self-care (01) ==
LOC: FBPOP 11:47
PROVIDERS: ATTEND Obstetrics & Gynecology Obstetrics
DX: O47.03 False labor before 37 completed weeks of gestation, third trimester (principal); Z3A.33 33 weeks gestation of pregnancy; Z88.1 Allergy status to other antibiotic agents; Z91.09 Other allergy status, other than to drugs and biological substances; Z88.5 Allergy status to narcotic agent; Z88.8 Allergy status to other drugs, medicaments and biological substances; Z91.048 Other nonmedicinal substance allergy status
CPT/HCPCS: 59025; 96361; 96365; 81003; G0463; J0131; 96360; 96367; 99214

== ENCOUNTER 2023-11-12 05:59 | Inpatient (IN) | payer OTHER ==
[2023-11-12] MEDS: LACTATED RINGERS 1,000 ML IV SCH (06:40)
[2023-11-12 06:45] LABS: Creatinine,Urine Random 99.4 mg/dL; Protein/Creatinine Ratio,Urine 1.59
[2023-11-12] MEDS: LABETALOL 5 MG/ML VIAL MDV IVP STA (06:45)
[2023-11-12 06:55] LABS: Basophils % (A) 0 %; Eosinophils % (A) 0 %; HCT 38.7 % (34.0-46.0); HGB 13.1 gm/dL (11.4-16.0); Lymphocytes # (A) 1.8 k/uL (1.0-4.8); Lymphocytes % (A) 28 %; MCH 30.2 pg (25.0-35.0); MCHC 33.8 g/dL (31.0-37.0); MCV 89.5 fL (80.0-100.0); Mean Platelet Volume 10.4; Monocytes # (A) 0.3 k/uL (0-1.0); Monocytes % (A) 5 %; Neutrophils # (A) 4.2 k/uL (1.3-7.7); Neutrophils % (A) 65 %; Platelet Count 152 k/uL (150-450); RBC 4.32 m/uL (3.80-5.40); RDW 13.9 % (11.5-15.5); WBC 6.4 k/uL (3.8-10.6)
[2023-11-12 07:03] LABS: ALT 14 U/L (4-34); AST 26 U/L (14-36); African American GFR (CKD) >90 (>60 ml/min/1.73 sqM); Blood Urea Nitrogen 7 mg/dL (7-17); LDH 234 U/L (120-246); Non-African American GFR(CKD) >90 (>60 ml/min/1.73 sqM); Uric Acid 5.3 mg/dL (3.7-7.4)
[2023-11-12 07:20] LABS: Appearance,Urine Clear (Clear); Bacteria,Urine Occasional /hpf; Bilirubin,Urine Negative (Negative); Blood,Urine Negative (Negative); Color,Urine Colorless; Glucose,Urine (UA) Negative (Negative); Ketones,Urine Negative (Negative); Leukocyte Esterase,Urine Negative (Negative); Mucus,Urine Rare /hpf; Nitrite,Urine Negative (Negative); PH, Urine 6.5 (5.0-8.0); Protein,Urine 1+ (Negative); RBC,Urine <1 /hpf (0-5); Specific Gravity,Urine 1.013 (1.001-1.035); Squamous Epithelial Cell,Urine 9 /hpf (0-4); Urobilinogen,Urine <2.0 mg/dL (<2.0); WBC,Urine 2 /hpf (0-5)
[2023-11-12] MEDS ORDERED: hydrALAZINE HCL 20 MG/ML 1 ML VIAL IVP PRN (07:23)
[2023-11-12] MEDS ORDERED: LABETALOL 5 MG/ML VIAL MDV IVP PRN ×2 (07:23)
[2023-11-12] MEDS: LABETALOL 5 MG/ML VIAL MDV IVP PRN (07:30)
[2023-11-12] MEDS ORDERED: CARBOPROST TROMETHAMINE 250 MCG/ML 1 ML AMP IM PRN (07:52)
[2023-11-12] MEDS ORDERED: TRANEXAMIC 1,000 MG/100ML-NACL 1,000 MG in EMPTY BAG 1 BAG IV PRN (07:52)
[2023-11-12] MEDS ORDERED: OXYTOCIN 10 UNIT/ML 1 ML VIAL IM PRN (07:52)
[2023-11-12] MEDS ORDERED: miSOPROStoL 200 MCG TAB PO PRN (07:52)
[2023-11-12] MEDS ORDERED: TERBUTALINE 1 MG/ML VIAL SQ PRN (07:52)
[2023-11-12] MEDS ORDERED: METHYLERGONOVINE 0.2 MG/ML 1 ML AMP IM PRN (07:52)
[2023-11-12 08:59] LABS: INR 0.8 (<1.2); Partial Thromboplastin Time 25.1 sec (22.0-30.0); Prothrombin Time 9.3 sec (10.0-12.5)
[2023-11-12] MEDS: DINOPROSTONE 10 MG INSERT.ER VAGINAL ONE (09:20)
--- NOTE | 2023-11-12 09:26 | P.HPOB ---
History of Present Illness H&P Date: 11/12/23 Chief Complaint: Lower extremity swelling This is a 33 year old 3 para 0110 woman with an estimated due date of 12/04/2023 based on LMP consistent with first trimester ultrasound. She presents at 36-6/7 weeks' gestation with increasing lower extremity swelling, 11 pound weight gain in one week and elevation of home blood pressures. Her has been closely monitored for maternal history of lupus, history of preeclampsia and help syndrome at 23 weeks gestation in a previous and current severe IUGR. Recent ultrasound at maternal medicine was remarkable for an estimated weight of the 9th percentile with abdominal circumference at the 2nd percentile. testing with NSTs and Dopplers have been reassuring. Upon initial evaluation in labor and delivery triage she was found to be hypertensive with initial blood pressure of 168/104. Repeat blood pressures were in the 150s over 90s and 100s. She denies headaches, visual changes, abdominal pain, shortness of breath or chest pain. She reports good movement and denies contractions, leakage of fluids or vaginal bleeding. Laboratory data is remarkable for protein creatinine ratio of 1.5. AST and ALT, platelets are normal. heart tones are category 1. She is admitted for induction of labor for preeclampsia. labs: Blood type positive, antibody screen negative, rubella immune, RPR nonreactive, HIV nonreactive, hepatitis B surface antigen negative, hepatitis C antibody nonreactive, glucose tolerance testing within normal limits, gonorrhea and clinically cultures negative, group B strep negative Obstetric history: 2015 23 week or preeclampsia with help syndrome. Spontaneous vaginal delivery and the infant 1 hour post delivery. 2016 she had an 8 week medical management of missed AB. 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 Father with hypertension. Review of Systems All systems: negative 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, AVASCULAR NECROSIS KARTHIK HIPS, arthritis, pseudotumur History of Any Multi-Drug Resistant Organisms: None Reported Past Surgical History: Appendectomy, Bariatric Surgery, Cholecystectomy, Ear Surgery, Hernia Repair, Orthopedic Surgery Additional Past Surgical History / Comment(s): BILAT elbow, L foot surgery; BILAT eye surgery, RYGB 01-18-21, EGD. appendectomy and hernia repair 1009- Past Anesthesia/Blood Transfusion Reactions: No Reported Reaction Past Psychological History: Anxiety, Depression Smoking Status: Never smoker - Past Family History Mother Family Medical History: No Reported History Medications and Allergies Home Medications Medication Instructions Recorded Confirmed Type Levothyroxine Sodium [Synthroid] 137 mcg PO BID 02/23/22 11/12/23 History Acetaminophen Tab [Tylenol Tab] 1,000 mg PO Q6HR PRN #30 tablet 07/04/22 11/12/23 Rx Cyanocobalamin [Vitamin B-12] 1,000 mcg PO DAILY@1200 #60 tablet 07/12/23 11/12/23 Rx Ergocalciferol [Vitamin D2 (1250 1,250 mcg PO WEEKLY #20 cap 07/12/23 11/12/23 Rx Mcg = 21873 Iu)] Hydroxychloroquine Sulfate 500 mg PO BID 07/12/23 11/12/23 History [Plaquenil] Omeprazole [PriLOSEC] 40 mg PO DAILY #30 cap 07/12/23 11/12/23 Rx Vit No.179/Iron/Folic 1 each PO DAILY 07/12/23 11/12/23 History [ Tablet] Allergies Allergy/AdvReac Type Severity Reaction Status Date / Time cobalt Allergy PER Verified 10/21/23 11:57 ALLERGY TEST lidocaine Allergy PER Verified 10/21/23 11:57 ALLERGY TEST neomycin Allergy PER Verified 10/21/23 11:57 ALLERGY TEST nickel Allergy Unknown Verified 10/21/23 11:57 codeine AdvReac Nausea & Verified 10/21/23 11:57 Vomiting. HEADACHES LINALOOL Allergy PER Uncoded 10/21/23 11:57 ALLERGY TEST Exam Vital Signs Temp Pulse Resp BP Pulse Ox 11/12/23 06:04 98 F 52 L 16 168/104 98 Intake and Output 11/11/23 11/12/23 11/12/23 22:59 06:59 14:59 Other: Weight 100.244 kg This is a comfortable, visibly gravid -Swedish female in no acute distress. HEENT exam is unremarkable. Her breathing is unlabored and her heart rate is regular. Abdomen is obese, gravid, soft and nontender. She has 1+ bilateral lower extremity edema. No clonus. 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 heart tones are category 1 and she has not regularly magdy. Results Result Diagrams: 11/12/23 06:35 11/12/23 06:35 Abnormal Lab Results - Last 24 Hours (Table) 11/12/23 11/12/23 11/12/23 Range/Units 06:30 06:35 08:24 PT 9.3 L (10.0-12.5) sec Creatinine 0.46 L (0.52-1.04) mg/dL Urine Protein 1+ H (Negative) Ur Squamous Epith Cells 9 H (0-4) /hpf Urine Bacteria Occasional H (None) /hpf Urine Mucus Rare H (None) /hpf Assessment and Plan (1) Preeclampsia Current Visit: Yes Status: Acute Code(s): O14.90 - UNSPECIFIED PRE- ECLAMPSIA, UNSPECIFIED TRIMESTER SNOMED Code(s): 107219855 (2) Lupus Current Visit: Yes Status: Acute Code(s): M32.9 - SYSTEMIC LUPUS ERYTHEMATOSUS, UNSPECIFIED SNOMED Code(s): 463653216 (3) IUGR (intrauterine growth restriction) Current Visit: Yes Status: Acute Code(s): FGI9684 - SNOMED Code(s): 79676640 (4) Hypothyroid Current Visit: Yes Status: Acute Code(s): E03.9 - HYPOTHYROIDISM, UNSPECIFIED SNOMED Code(s): 16402878 Plan: 33-year-old 3 para 0110 woman admitted at 36-6/7 weeks' gestation with preeclampsia and IUGR. Cervix is currently unfavorable and Cervidil cervical ripening will be placed. She has received labetalol IV 2 with appropriate decrease in her blood pressures. Magnesium sulfate will be started in active labor. status is currently reassuring by external monitoring. Current diagnosis and recommendations for care have been discussed with the p atient and her partner in detail and all questions are answered. She is group B strep negative and Rh+.
--- NOTE | 2023-11-12 20:19 | P.PN ---
Progress Note - Text Progress Note Date: 11/12/23 Uncomfortable with cramping. Contractions occurring approximately every 2-4 minutes. She denies headaches, visual changes, nausea, vomiting, shortness of breath or chest pain. Blood pressures 130-150's/80s heart tones category 1 Cervidil removed. Cervix is 1 cm, 80% effaced, vertex very high and not well applied. Vertex presentation is confirmed by bedside ultrasound. Unable to artificially rupture membranes secondary to high station and maternal discomfort. She has a tight pubic arch. Plan: Patient can get up and shower now then return to the bed with continuous monitoring. Depending on contraction activity and cervical change Pitocin augmentation may be initiated. Magnesium sulfate in active labor.
[2023-11-12] MEDS ORDERED: NALBUPHINE 10 MG/ML (10 ML MDV) IV PRN (22:40)
[2023-11-13] MEDS: LABETALOL 5 MG/ML VIAL MDV IVP STA ×2 (00:08→07:18)
[2023-11-13] MEDS: MAGNESIUM SULFATE-WATER PMX 4 GM in WATER FOR INJECTION 1 100ML.BAG IVPB ONE (00:18)
[2023-11-13] MEDS: MAGNESIUM SULFATE-WATER PMX 20 GM in WATER FOR INJECTION 1 500ML.BAG IV SCH (00:38)
[2023-11-13] MEDS: OXYTOCIN 30 UNITS/500 ML NS 30 UNIT in SALINE 1 500ML.BAG IV SCH (07:05)
[2023-11-13] MEDS ORDERED: LABETALOL 5 MG/ML VIAL MDV IVP PRN (10:37)
[2023-11-13] MEDS ORDERED: miSOPROStoL 200 MCG TAB PO PRN (12:41)
[2023-11-13] MEDS ORDERED: TRANEXAMIC 1,000 MG/100ML-NACL 1,000 MG in EMPTY BAG 1 BAG IV PRN (12:41)
[2023-11-13] MEDS ORDERED: CARBOPROST TROMETHAMINE 250 MCG/ML 1 ML AMP IM PRN (12:41)
[2023-11-13] MEDS ORDERED: METHYLERGONOVINE 0.2 MG/ML 1 ML AMP IM PRN (12:41)
[2023-11-13] MEDS ORDERED: OXYTOCIN 10 UNIT/ML 1 ML VIAL IM PRN (12:41)
[2023-11-13] MEDS ORDERED: ONDANSETRON 4 MG/2 ML VIAL IVP PRN (13:40)
[2023-11-13] MEDS ORDERED: NALOXONE 0.4 MG/ML 1 ML VIAL IV PRN (13:40)
[2023-11-13] MEDS ORDERED: ZOLPIDEM 5 MG TAB PO PRN (14:01)
[2023-11-13] MEDS ORDERED: diphenhydrAMINE 25 MG CAP PO PRN (14:01)
[2023-11-13] MEDS ORDERED: diphenhydrAMINE 50 MG/ML 1 ML VIAL IVP PRN (14:01)
[2023-11-13] MEDS ORDERED: METOCLOPRAMIDE 5 MG/ML 2 ML VIAL IVP PRN (14:01)
[2023-11-13] MEDS ORDERED: LANOLIN CREAM 1 GM TUBE TOPICAL PRN (14:01)
[2023-11-13] MEDS ORDERED: diphenhydrAMINE 50 MG CAP PO PRN (14:01)
--- NOTE | 2023-11-13 14:12 | P.OP ---
Date of Procedure: 11/13/23 Preoperative Diagnosis: #1. 37-0/7 weeks, preeclampsia was severe features #2. Intrauterine growth restriction #3. Systemic lupus erythematosus #4. Maternal intolerance of labor remote from delivery Postoperative Diagnosis: Same Procedure(s) Performed: #1. Primary low-transverse section Anesthesia: spinal Surgeon: Delgado Dao Temporary Staff Accountant #1: Mary Figueroa Estimated Blood Loss (ml): 660 IV fluids (ml): 800 Urine output (ml): 400 Pathology: other (Placenta) Condition: stable Disposition: floor Operative Findings: Preoperatively, the patient had been in labor with ruptured membranes for approximately 4 hours and initially made change from 1 cm to approximately 3 cm with no further dilation or descent. As the patient has a lidocaine ALLERGY, anesthesia declined to allow an epidural catheter. She had alternative analgesic medications tried which failed to make her labor tolerable and she requested to proceed to primary low transverse section. heart tones remained stable throughout with a category 1 heart rate tracing. She was taken the operating room where she was delivered of a viable 4 lbs. 15 oz. baby boy with Apgars of 8 at 1 minute and 9 at 5 minutes in the occiput anterior position. The placenta was delivered manually, intact, and grossly normal with a grossly normal three-vessel cord. Uterus, tubes, and ovaries were entirely normal to inspection. There was a laceration of the uterine incision at the left angle towards the cervix which was incorporated into the closure of the uterus to control hemostasis. Description of Procedure: The patient was prepped and draped in usual fashion after spinal anesthesia was administered by the anesthesiologist. A Pfannenstiel incision was made and extended into the abdominal cavity without difficulty. The bladder peritoneum was significantly distal to the intended site of incision was left intact. A 2 cm incision was made in the transverse plane of the lower uterine segment to enter the uterus at which time clear fluid was again noted. The incision was extended in both directions using the bandage scissors. The head was encountered in the field and was delivered up and through the incision where the nose and mouth were thoroughly suctioned. The remainder of the was delivered onto the field where the cord was doubly clamped, cut, and the infant passed for resuscitative measures with weight and Apgars as noted above. A segment of cord was doubly clamped, cut, and set aside should cord gases become necessary. The placenta was delivered annually and intact as noted above. The uterus was exteriorized and the interior cavity of the uterus swept of any remaining placental or membranous fragments. The margins of the uterine incision were grasped with Longoria clamps and there was noted to be a relatively deep laceration at the left angle of the incision towards the cervix. The incision was closed starting at the deepest portion of the left laceration towards the cervix and was closed in 2 layers. The first layer was a running locking stitch of 0 chromic catgut followed by a running imbricating stitch of 0 chromic catgut, each from margin to margin. There was still noted to be some ongoing bleeding at the left angle and this was made hemostatic by several [id number] stitches of 0 chromic catgut. Ultimately hemostasis was achieved well. Urine remained clear throughout the entire case. The posterior cul-de-sac was suctioned with a guard and the uterine and ovarian findings were normal as noted above. The uterus was replaced within the abdominal cavity after suctioning the posterior cul-de-sac with a guard and following that with a laparotomy sponge. The gutters were swept of any remaining blood, fluid, or clot. The incision at that time was noted to be hemostatic with some mild oozing as a general rule which was then managed with surgical powder. After ensuring hemostasis, the parietal peritoneum was loosely reapproximated in the layer of muscles examined and found to be hemostatic. The fascia was closed with a single running stitch of 0 Vicryl from margin to margin. The subcutaneous tissues were irrigated, made hemostatic with the Bovie, and reapproximated with a running stitch of 30 plain catgut. The skin was reapproximated with a running subcuticular stitch of 4-0 Vicryl from margin to margin. The incision was then covered by half-inch Steri-Strips placed with Mastisol. Quantitative blood loss for the case was 660 mL. There were no complications aside from the laceration at the left angle which was managed intraoperatively. All sponge, instrument, needle counts were correct. The patient tolerated the procedure well and proceeded to the recovery room in stable condition. Both mother and infant are resting comfortably in recovery.
[2023-11-13] MEDS ORDERED: OXYTOCIN 30 UNITS/500 ML NS 30 UNIT in SALINE 1 500ML.BAG IV SCH (14:15)
[2023-11-13] MEDS: ACETAMINOPHEN TAB 500 MG TAB PO SCH (17:46)
[2023-11-13] MEDS: CITRIC ACID-SODIUM CITRATE 15 ML CUP PO ONE (19:42)
[2023-11-13] MEDS: LACTATED RINGERS 1,000 ML IV SCH (19:43)
[2023-11-13] MEDS: KETOROLAC 15 MG/ML 1 ML VIAL IVP PRN (20:05)
[2023-11-13] MEDS: IBUPROFEN 600 MG TAB PO SCH (20:25)
[2023-11-13] MEDS: SENNOSIDES-DOCUSATE SODIUM 1 EACH TAB PO SCH (20:25)
[2023-11-14] MEDS: diphenhydrAMINE 50 MG/ML 1 ML VIAL IVP PRN (02:14)
[2023-11-14 03:55] LABS: Basophils % (A) 0 %; Eosinophils % (A) 0 %; HCT 34.4 % (34.0-46.0); HGB 11.6 gm/dL (11.4-16.0); Lymphocytes % (A) 9 %; MCH 30.3 pg (25.0-35.0); MCHC 33.6 g/dL (31.0-37.0); MCV 90.2 fL (80.0-100.0); Mean Platelet Volume 10.4; Monocytes # (A) 0.5 k/uL (0-1.0); Monocytes % (A) 5 %; Neutrophils % (A) 86 %; Platelet Count 143 k/uL (150-450); RBC 3.82 m/uL (3.80-5.40); RDW 13.8 % (11.5-15.5); WBC 11.7 k/uL (3.8-10.6)
--- NOTE | 2023-11-14 08:29 | P.PNOBGPC ---
Subjective - Subjective Patient reports: Reports appetite normal, Reports voiding normally, Reports pain well controlled, Reports ambulating normally : doing well, in NICU (Due to temperature regulation concerns.) Objective - Vital Signs Latest vital signs: Vital Signs Temp Pulse Resp BP Pulse Ox 11/14/23 08:00 98.5 F 67 16 124/81 94 L 11/14/23 07:00 63 16 137/65 94 L 11/14/23 06:00 68 16 132/86 95 11/14/23 05:00 67 16 121/65 96 11/14/23 04:00 60 16 124/66 94 L 11/14/23 03:00 62 16 132/71 95 11/14/23 02:00 65 16 136/79 94 L 11/14/23 01:00 64 16 128/76 95 11/14/23 00:00 61 16 116/76 94 L 11/13/23 23:00 77 16 120/77 94 L 11/13/23 22:00 59 L 16 126/67 94 L 11/13/23 21:00 66 16 120/76 96 11/13/23 20:00 58 L 16 135/82 95 11/13/23 19:00 72 16 127/81 97 11/13/23 18:40 97 11/13/23 18:03 67 16 144/85 98 11/13/23 17:56 67 16 98 11/13/23 17:31 70 16 147/87 100 11/13/23 16:40 63 97 11/13/23 16:02 96.9 F L 63 16 140/93 11/13/23 15:48 64 16 145/94 98 11/13/23 15:33 50 L 16 120/65 97 11/13/23 15:18 96.6 F L 55 L 16 145/68 97 11/13/23 15:03 48 L 16 147/72 96 11/13/23 14:48 49 L 16 137/65 95 11/13/23 14:40 49 L 16 137/65 95 11/13/23 14:33 56 L 16 145/70 11/13/23 14:18 68 16 116/75 97 11/13/23 14:03 96.2 F L 73 16 118/72 97 Intake and Output 11/13/23 11/14/23 11/14/23 22:59 06:59 14:59 Intake Total 500 500 Output Total 468 600 525 Balance 32 -600 -25 Intake: Intake, IV Titration 500 500 Amount Magnesium Sulfate-Water 500 500 Pmx 20 gm In Water For Injection 1 500ml.bag @ 2 GM/HR 50 mls/hr IV .Q10H [facility] Rx#:[id number] Output: Urine 400 600 525 Output, Quantitative 68 Blood Loss Other: Voiding Method Indwelling Catheter - Exam Extremities: Present: normal Abdomen: Present: normal appearance, soft. Absent: distention, tenderness Incision: Present: normal, dry, intact Uterus: Present: normal, firm (The uterine fundus is tonic and minimally tender just below the umbilicus.) - Labs Labs: Abnormal Lab Results - Last 24 Hours (Table) 11/14/23 Range/Units 03:37 WBC 11.7 H (3.8-10.6) k/uL Plt Count 143 L (150-450) k/uL Neutrophils # 10.0 H (1.3-7.7) k/uL Assessment and Plan (1) Preeclampsia Current Visit: Yes Status: Acute Code(s): O14.90 - UNSPECIFIED PRE- ECLAMPSIA, UNSPECIFIED TRIMESTER SNOMED Code(s): 196124263 (2) S/P section Current Visit: Yes Status: Acute Code(s): Z98.891 - HISTORY OF UTERINE SCAR FROM PREVIOUS SURGERY SNOMED Code(s): 067897839 Plan: Magnesium sulfate is to continue for 24 hours, discontinued approximately 1:30 this afternoon. The Belcher catheter will remain in place until magnesium is discontinued. Otherwise the patient is to ambulate in the hallways routinely today. Blood pressures have been stable thus far and will continue to be monitored. The infant remains in the nursery for temperature regulatory issues. Continue routine and postoperative care.
[2023-11-14] MEDS: ceFAZolin 3 GM in SODIUM CHLORIDE 0.9% 100 ML IVPB ONE (08:42)
--- NOTE | 2023-11-14 10:33 | P.PN ---
Progress Note - Text Progress Note Date: 11/14/23 Postoperative day 1 status post section under spinal anesthesia, and intrathecal morphine given for postoperative analgesia, patient doing well, there is no anesthesia related complications, Patient had no headache, vital signs stable , Assessment and plan= postop day 1 status post , doing well there is no anesthesia related complication.
[2023-11-14] MEDS: NIFEdipine 10 MG CAP PO SCH (18:31)
[2023-11-14] MEDS: SIMETHICONE 80 MG CHEWABLE PO PRN (23:41)
--- NOTE | 2023-11-15 08:42 | P.PNOBGPC ---
Subjective - Subjective Patient reports: Reports appetite normal, Reports voiding normally, Reports pain well controlled, Reports ambulating normally : doing well, in NICU Objective - Vital Signs Latest vital signs: Vital Signs Temp Pulse Resp BP Pulse Ox 11/15/23 04:00 81 16 124/86 95 11/14/23 23:57 76 16 125/81 96 11/14/23 19:52 97.7 F 100 18 105/63 100 11/14/23 17:57 69 18 146/94 96 11/14/23 16:00 98.4 F 83 18 147/96 97 11/14/23 14:00 18 97 11/14/23 13:00 98.4 F 75 16 131/82 96 11/14/23 11:49 18 97 11/14/23 11:48 97.4 F L 92 18 133/86 97 11/14/23 11:05 97.9 F 75 16 123/72 95 11/14/23 10:00 97.5 F L 70 16 126/75 96 11/14/23 09:00 96.8 F L 76 16 133/87 96 Intake and Output 11/14/23 11/15/23 11/15/23 22:59 06:59 14:59 Output Total 125 Balance -125 Output: Urine 125 Other: # Voids 1 1 - Exam Extremities: Present: normal Abdomen: Present: normal appearance, soft. Absent: distention, tenderness Incision: Present: normal, dry, intact Uterus: Present: normal, firm (The uterine fundus is tonic and minimally tender below the umbilicus.) Assessment and Plan (1) Preeclampsia Current Visit: Yes Status: Acute Code(s): O14.90 - UNSPECIFIED PRE- ECLAMPSIA, UNSPECIFIED TRIMESTER SNOMED Code(s): 305544993 (2) S/P section Current Visit: Yes Status: Acute Code(s): Z98.891 - HISTORY OF UTERINE SCAR FROM PREVIOUS SURGERY SNOMED Code(s): 564678251 Plan: The remains and special care nursery for growth and inability to regulate temperatures. As result, the patient will continue to remain in the hospital for as long as she can unless the is discharged. Continue routine and postoperative care. I have again encouraged the patient ambulatory the hallways routinely which she has been doing.
[2023-11-15] MEDS: HYDROXYCHLOROQUINE SULFATE 200 MG TAB PO SCH (13:18)
[2023-11-16] MEDS: LEVOTHYROXINE 137 MCG TAB PO SCH (05:31)
--- NOTE | 2023-11-16 08:41 | P.PNOBGPC ---
Subjective - Subjective Patient reports: Reports appetite normal, Reports voiding normally, Reports pain well controlled, Reports ambulating normally : doing well, in NICU Objective - Vital Signs Latest vital signs: Vital Signs Temp Pulse Resp BP Pulse Ox 11/16/23 08:00 98.4 F 77 16 130/90 11/16/23 04:00 99.0 F 70 16 131/82 97 11/16/23 03:00 70 16 11/16/23 00:00 98.8 F 53 L 16 152/92 97 11/15/23 19:56 99.1 F 71 16 132/82 96 11/15/23 16:00 98.5 F 75 16 142/87 98 Intake and Output 11/15/23 11/16/23 11/16/23 22:59 06:59 14:59 Other: Voiding Method Indwelling Catheter # Voids 1 - Exam Extremities: Present: normal Abdomen: Present: normal appearance, soft. Absent: distention, tenderness Incision: Present: normal, dry, intact Uterus: Present: normal, firm Assessment and Plan (1) Preeclampsia Current Visit: Yes Status: Acute Code(s): O14.90 - UNSPECIFIED PRE- ECLAMPSIA, UNSPECIFIED TRIMESTER SNOMED Code(s): 461844909 (2) S/P section Current Visit: Yes Status: Acute Code(s): Z98.891 - HISTORY OF UTERINE SCAR FROM PREVIOUS SURGERY SNOMED Code(s): 631030856 Plan: The infant remains and special care for issues of temperature control primarily. Continue routine and postoperative care. I would anticipate discharge home tomorrow as it will be and postoperative day #4. John sarabia is otherwise medically stable and I have continued to encourage her to ambulate routinely.
--- NOTE | 2023-11-17 09:12 | P.DS ---
Providers Date of admission: 11/12/23 07:20 Expected date of discharge: 11/17/23 Attending physician: Delgado Dao Primary care physician: Stated None - Discharge Diagnosis(es) (1) Preeclampsia Current Visit: Yes Status: Acute (2) S/P section Current Visit: Yes Status: Acute Hospital Course: The patient is a 33-year-old 3 para 0110 who presented at 36-6/7 weeks with increasing edema with elevated home blood pressures. She carries a history of previous severe preeclampsia at 23 weeks of gestation leading to loss of the . This has been co-managed with maternal medicine and the patient has had reassuring testing beginning at 28 weeks twice weekly with no evidence of preeclampsia until her presentation to triage. She was found to have significantly elevated blood pressures and laboratory workup demonstrated a significantly elevated protein creatinine ratio. She additionally complained of headache and was ultimately diagnosed with preeclampsia with severe features. Magnesium sulfate was started as was Pitocin augmentation. She underwent artificial rupture of membranes for clear fluid. She made progress to approximate 5 cm but was unable to have an epidural catheter secondary to a lidocaine ALLERGY. She, as a result did not tolerate labor and requested to proceed to primary low transverse section. She was taken the operating room where she was delivered of a viable 4 lbs. 15 oz. baby boy with Apgars of 8 at 1 minute and 9 at 5 minutes. Her course has been essentially unremarkable with vital signs being stable and her temperature was afebrile throughout. She remained in the hospital as the infant has stayed in the special care secondary to inability to control temperatures and he recently additionally had some oxygen desaturation. The patient was deemed stable for discharge on post and postoperative day #4 was discharged home to follow-up in the office in 2 weeks for an incision check and 6 weeks routinely. Discharge instructions included calling for any significantly increased bleeding or foul-smelling lochia, significantly increased fever abdominal pain, perineal complaints, breast complaints, incisional complaints, or anything else that concerned her. She is additionally instructed to abstain from anything in the vagina for at least 6 weeks time to include intercourse as well as to abstain from heavy lifting over the same period of time. She was less instructed to do no driving until off of all pain medications or 2 weeks' time, whichever came first. She understood her instructions and agrees to follow up as noted above. Discharge medications included any normal home medications as well as continued [id number] analgesic pain medications. She was provided with a prescription for Tignall 5/325 mg, 1-2 by mouth every 6 hours when necessary pain, #20 dispensed with no refills. Maternal blood type is Rh+ and rubella status is immune. Discharge hemoglobin and hematocrit were 11.6 and 34.4 respectively. Procedures: #1. Magnesium sulfate seizure prophylaxis #2. Pitocin induction #3. Artificial rupture of membranes #4. Primary low-transverse section Patient Condition at Discharge: Stable Plan - Discharge Summary New Discharge Prescriptions: No Action Hydroxychloroquine Sulfate [Plaquenil] 200 mg PO BID Omeprazole [PriLOSEC] 40 mg PO DAILY #30 cap Ergocalciferol [Vitamin D2 (1250 Mcg = 24170 Iu)] 1,250 mcg PO WEEKLY #20 cap Levothyroxine Sodium [Synthroid] 137 mcg PO BID Acetaminophen Tab [Tylenol Tab] 1,000 mg PO Q6HR PRN #30 tablet PRN Reason: Pain Vit No.179/Iron/Folic [ Tablet] 1 each PO DAILY Cyanocobalamin [Vitamin B-12] 1,000 mcg PO DAILY@1200 #60 tablet Discharge Medication List Levothyroxine Sodium [Synthroid] 137 mcg PO BID 02/23/22 [History] Acetaminophen Tab [Tylenol Tab] 1,000 mg PO Q6HR PRN #30 tablet 07/04/22 [Rx] Cyanocobalamin [Vitamin B-12] 1,000 mcg PO DAILY@1200 #60 tablet 07/12/23 [Rx] Ergocalciferol [Vitamin D2 (1250 Mcg = 77618 Iu)] 1,250 mcg PO WEEKLY #20 cap 07/12/23 [Rx] Hydroxychloroquine Sulfate [Plaquenil] 200 mg PO BID 07/12/23 [History] Omeprazole [PriLOSEC] 40 mg PO DAILY #30 cap 07/12/23 [Rx] Vit No.179/Iron/Folic [ Tablet] 1 each PO DAILY 07/12/23 [History] Follow up Appointment(s)/Referral(s): Delgado Dao MD [STAFF PHYSICIAN] - 2 Weeks Discharge Disposition: HOME SELF-CARE
[2023-11-17 09:25] VITALS: RESP 16; TEMP 97.9
[2023-11-17 15:13] VITALS: BP 103/65; PULSE 109
== END 2023-11-17 15:00 | disposition home or self-care (01) | DRG 540 ==
LOC: FBPOP 05:59 → 4FBP 07:20
PROVIDERS: ADMIT Obstetrics & Gynecology; ATTEND Obstetrics & Gynecology
PROC: 10907ZC Drainage of Amniotic Fluid, Therapeutic from Products of Conception, Via Natural or Artificial Opening (ICD-10-PCS; 2023-11-13)
PROC: 3E033VJ Introduction of Other Hormone into Peripheral Vein, Percutaneous Approach (ICD-10-PCS; 2023-11-13)
PROC: 10D00Z1 Extraction of Products of Conception, Low, Open Approach (ICD-10-PCS; principal; 2023-11-13 13:00)
DX: O36.5930 Maternal care for other known or suspected poor fetal growth, third trimester, not applicable or unspecified (principal); O14.14 Severe pre-eclampsia complicating childbirth; O15.1 Eclampsia complicating labor; O71.3 Obstetric laceration of cervix; O99.354 Diseases of the nervous system complicating childbirth; M32.9 Systemic lupus erythematosus, unspecified; E03.9 Hypothyroidism, unspecified; O75.0 Maternal distress during labor and delivery; G40.909 Epilepsy, unspecified, not intractable, without status epilepticus; O99.892 Other specified diseases and conditions complicating childbirth; O99.284 Endocrine, nutritional and metabolic diseases complicating childbirth; O99.844 Bariatric surgery status complicating childbirth; Z3A.36 36 weeks gestation of pregnancy; Z37.0 Single live birth; Z88.8 Allergy status to other drugs, medicaments and biological substances; Z87.59 Personal history of other complications of pregnancy, childbirth and the puerperium; Z82.49 Family history of ischemic heart disease and other diseases of the circulatory system; Z90.49 Acquired absence of other specified parts of digestive tract; Z87.39 Personal history of other diseases of the musculoskeletal system and connective tissue; Z79.890 Hormone replacement therapy; Z79.899 Other long term (current) drug therapy; Z91.048 Other nonmedicinal substance allergy status; Z88.1 Allergy status to other antibiotic agents; Z88.5 Allergy status to narcotic agent
CPT/HCPCS: 59025; 81001; 82565; 82570; 83615; 84156; 84450; 84460; 84520; 84550; 85025; 85610; 85730; 86850; 86900; 86901; 88307; 96374; 99215

== ENCOUNTER → 2024-01-16 | Outpatient (CLI) | payer OTHER ==
--- NOTE | 2024-01-16 14:28 | XR ---
EXAMINATION TYPE: XR foot complete LT DATE OF EXAM: 01/16/2024 CLINICAL HISTORY: pain TECHNIQUE: Frontal, lateral and oblique images of the left foot are obtained. COMPARISON: None. FINDINGS: There is no acute fracture/dislocation evident. The joint spaces appear within normal castro its. The overlying soft tissue appears unremarkable. IMPRESSION: There is no acute fracture or dislocation. ICD 10 NO FRACTURE, INITIAL EVALUATION
--- NOTE | 2024-01-16 14:29 | XR ---
EXAMINATION TYPE: XR tibia fibula LT DATE OF EXAM: 01/16/2024 CLINICAL HISTORY: pain TECHNIQUE: AP and lateral images of the left tibia and fibula are obtained. COMPARISON: None. FINDINGS: There is no acute fracture/dislocation evident. The joint spaces appear within normal castro its. The overlying soft tissue appears unremarkable. IMPRESSION: There is no acute fracture or dislocation seen. ICD 10 NO FRACTURE, INITIAL EVALUATION
== END | disposition home or self-care (01) ==
LOC: RADXRMAIN 13:43
PROVIDERS: ATTEND Emergency Medicine
DX: S93.402A Sprain of unspecified ligament of left ankle, initial encounter (principal); S93.602A Unspecified sprain of left foot, initial encounter; S86.112A Strain of other muscle(s) and tendon(s) of posterior muscle group at lower leg level, left leg, initial encounter; X58.XXXA Exposure to other specified factors, initial encounter

== ENCOUNTER → 2024-01-24 | Outpatient (CLI) | payer OTHER ==
--- NOTE | 2024-01-24 10:30 | XR ---
EXAMINATION TYPE: XR ankle complete LT DATE OF EXAM: 01/24/2024 10:20 AM CLINICAL INDICATION:Female, 33 years old with history of S93.402D SPRAIN OF UNSPECIFIED LIGAMENT OF L EFT AN; PHH COMPARISON: None TECHNIQUE: XR ankle complete LT; ankle is imaged in frontal, lateral and oblique projections. FINDINGS: There is no evidence of acute osseous pathology. The joint spaces are well-preserved without evidenc e of subluxation or dislocation. Kager's fat pad is intact. Mild soft tissue swelling around the ankl e. No radiopaque foreign bodies are identified. Calcaneal plantar spurring. IMPRESSION: 1. No evidence of acute fracture. 2. Subcutaneous swelling around the ankle likely secondary to underlying soft tissue injury.
== END | disposition home or self-care (01) ==
LOC: RADXRMAIN 10:04
PROVIDERS: ATTEND Emergency Medicine
DX: M25.472 Effusion, left ankle (principal); S93.402D Sprain of unspecified ligament of left ankle, subsequent encounter; X58.XXXD Exposure to other specified factors, subsequent encounter

== ENCOUNTER → 2024-02-22 | Outpatient (CLI) | payer OTHER ==
--- NOTE | 2024-02-29 08:29 | MR ---
EXAMINATION TYPE: MR ankle LT wo con DATE OF EXAM: 02/22/2024 COMPARISON: Radiograph 01/24/2024 CLINICAL INDICATION: Female, 33 years old with history of S93.602D UNSPECIFIED SPRAIN OF LEFT FOOT, S UBSEQUE; injury 6 weeks ago. TECHNIQUE: Multiplanar, multisequence images of the left ankle are obtained without IV contrast. FINDINGS: No acute or healing fracture. Talar dome is intact. Subtalar joint align. Physiologic ankle joint flu id. There is a small 7 mm ganglion cyst along the dorsal aspect of the navicular medial cuneiform yevgeniy nt directly underlying the tibialis anterior. Scattered mild subcutaneous soft tissue swelling especi ally along the medial and lateral aspects of the distal leg and hindfoot. There is heterogeneous intramedullary lesion distal tibial metadiaphysis measuring 2.8 x 1.3 cm that shows double line sign and central fat signal. A similar but smaller bilobed lesion measuring 1.1 cm is present in the posterior calcaneus. Findings suggest areas of bone infarct. Otherwise, no other ab normal marrow edema is seen. The syndesmosis and anterior extensor tendons are satisfactory. The deltoid spring ligament complex is intact. Mild tenosynovial fluid along the posterior tibial ten don. There may be a small 5 mm tear at the navicular insertion. Medial flexor tendons otherwise appea r intact. ATFL, PTFL, and CFL are intact. Mild tenosynovial fluid along the inframalleolar peroneal tendons whi ch are otherwise intact. Preserved fatty signal within the sinus tarsi. Tarsal tunnel is clear. Smooth delineation to the Achilles tendon. Small plantar heel spur. Origin of the plantar fascia measures up to 4.5 mm and shows no evidence for tear. IMPRESSION: 1. Intramedullary lesion measuring 2.8 x 1.3 cm within the distal tibial metadiaphysis. Similar but s maller lesion measuring 1.1 cm in the posterior calcaneus. Findings suggest areas of bone infarct. Co rrelate for any risk factors in this patient such as chronic steroid use, sickle cell disease, alcoho l use, etc. 2. No acute or healing fracture is seen. 3. Mild posterior tibial tenosynovitis with a possible small 5 mm tear at the navicular insertion. Co rrelate for any focal pain here. 4. Additional scattered mild fluid along the peroneal tendons which may be physiologic or could repre sent mild tenosynovitis.
== END | disposition home or self-care (01) ==
LOC: RADMRIMAIN 06:59
PROVIDERS: ATTEND Emergency Medicine
DX: S86.112D Strain of other muscle(s) and tendon(s) of posterior muscle group at lower leg level, left leg, subsequent encounter (principal); S93.402D Sprain of unspecified ligament of left ankle, subsequent encounter; M65.872 Other synovitis and tenosynovitis, left ankle and foot

== ENCOUNTER → 2024-06-04 | Outpatient (CLI) | payer OTHER ==
--- NOTE | 2024-06-04 12:36 | XR ---
EXAMINATION TYPE: XR hand complete RT DATE OF EXAM: 06/04/2024 CLINICAL HISTORY: pain TECHNIQUE: Frontal, lateral and oblique images of the right hand are obtained. COMPARISON: None. FINDINGS: There is no acute fracture/dislocation evident. The joint spaces appear within normal limi ts. The overlying soft tissue appears unremarkable. IMPRESSION: There is no acute fracture or dislocation ICD 10 NO FRACTURE, INITIAL EVALUATION
--- NOTE | 2024-06-04 12:36 | XR ---
EXAMINATION TYPE: XR wrist complete RT DATE OF EXAM: 06/04/2024 CLINICAL HISTORY: pain TECHNIQUE: Frontal, lateral and oblique images of the right wrist are obtained. COMPARISON: None. FINDINGS: There is no acute fracture/dislocation evident. The joint spaces appear within normal limits. The o verlying soft tissue appears unremarkable. IMPRESSION: There is no acute fracture or dislocation seen. ICD 10 NO FRACTURE, INITIAL EVALUATION
--- NOTE | 2024-06-04 12:37 | XR ---
EXAMINATION TYPE: XR forearm RT DATE OF EXAM: 06/04/2024 CLINICAL HISTORY: pain TECHNIQUE: Frontal and lateral images of the right forearm are obtained. COMPARISON: None. FINDINGS: There is no acute fracture/dislocation evident. The joint spaces appear within normal limi ts. The overlying soft tissue appears unremarkable. IMPRESSION: There is no acute fracture or dislocation. ICD 10 NO FRACTURE, INITIAL EVALUATION
== END | disposition home or self-care (01) ==
LOC: RADXRMAIN 11:43
PROVIDERS: ATTEND Emergency Medicine
DX: S60.221A Contusion of right hand, initial encounter

== ENCOUNTER → 2024-06-12 | Outpatient (CLI) | payer OTHER ==
--- NOTE | 2024-06-12 10:51 | XR ---
EXAMINATION TYPE: XR hand complete RT DATE OF EXAM: 06/12/2024 COMPARISON: None HISTORY: Hit by chair, pain medial wrist TECHNIQUE: 3 view right hand FINDINGS: No acute fracture or dislocation is evident. Joint spaces are preserved. Soft tissues are n ormal. Follow-up can be performed as clinically indicated. IMPRESSION: 1. No acute osseous abnormality right hand [facility] Eric Galindo, , 06/12/2024 10:49 AM
--- NOTE | 2024-06-12 10:53 | XR ---
EXAMINATION TYPE: XR wrist complete RT DATE OF EXAM: 06/12/2024 COMPARISON: None HISTORY: Pain medial wrist TECHNIQUE: 4 view right wrist FINDINGS: No acute fracture or dislocation evident. Joint spaces are preserved. Alignment is preserve d. Soft tissues are unremarkable. If there is pain at the anatomic snuff box, nuclear medicine bone scan could be performed. Follow up exams can be performed 7-10 days from acute trauma for continued pain. IMPRESSION: 1. No acute osseous abnormality right wrist [facility] Eric Galindo, , 06/12/2024 10:51 AM
== END | disposition home or self-care (01) ==
LOC: RADXRMAIN 10:28
PROVIDERS: ATTEND Emergency Medicine
DX: S60.221D Contusion of right hand, subsequent encounter (principal); S60.211D Contusion of right wrist, subsequent encounter; X58.XXXD Exposure to other specified factors, subsequent encounter

== ENCOUNTER 2024-06-24 09:04 | Day surgery (SDC) | payer OTHER ==
--- NOTE | 2024-06-24 05:38 | P.GSHP ---
History of Present Illness H&P Date: 06/24/24 CHIEF COMPLAINT: GERD and change in bowel habits. HISTORY OF PRESENT ILLNESS: The patient is a 34-year-old female who presents epigastric abdominal pain including nausea and vomiting. Separately she reports change in bowel habits. Upper and lower endoscopy was offered for further evaluation and management. PAST MEDICAL HISTORY: Please see list. PAST SURGICAL HISTORY: Please see list. MEDICATIONS: Please see list. ALLERGIES: Please see list. SOCIAL HISTORY: No illicit drug use FAMILY HISTORY: No reports of Crohn disease or ulcerative colitis. REVIEW OF ORGAN SYSTEMS: CONSTITUTIONAL: No reports of fevers or chills. PHYSICAL EXAM: VITAL SIGNS: Stable GENERAL: Well-developed pleasant female in no acute distress. HEENT: No scleral icterus. Extraocular movements grossly intact. Moist buccal mucosa. NECK: Supple without lymphadenopathy. CHEST: Unlabored respirations. Equal bilateral excursions. CARDIOVASCULAR: Regular rate and rhythm. Distal 2+ pulses. ABDOMEN: Soft, nontender, nondistended. MUSCULOSKELETAL: No clubbing, cyanosis, or edema. ASSESSMENT: 1. Gastroesophageal reflux disease. 2. Change in bowel habits with diarrhea. PLAN: 1. 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 issues with eating - either vomiting or diarrhea History of Any Multi-Drug Resistant Organisms: None Reported Past Surgical History: Appendectomy, Bariatric Surgery, Section, Cholecystectomy, Ear Surgery, Hernia Repair, Orthopedic Surgery Additional Past Surgical History / Comment(s): BILAT elbow, L foot surgery; BILAT eye surgery, RYGB 01-18-21, EGD. appendectomy and hernia repair 101-22. BMT Past Anesthesia/Blood Transfusion Reactions: No Reported Reaction Additional Past Anesthesia/Blood Transfusion Reaction / Comment(s): post hernia repair - pt started to break out and had itching (both arms and face) ,pt thinks she was given lidocaine. Smoking Status: Never smoker - Past Family History Mother Family Medical History: No Reported History Medications and Allergies Home Medications Medication Instructions Recorded Confirmed Type RX: Levothyroxine Sodium 137 mcg PO BID 02/23/22 06/20/24 History [Synthroid] Acetaminophen Tab [Tylenol Tab] 1,000 mg PO Q6HR PRN #30 tablet 07/04/22 06/20/24 Rx Cyanocobalamin [Vitamin B-12] 1,000 mcg PO DAILY@1200 #60 tablet 07/12/23 06/20/24 Rx Hydroxychloroquine Sulfate 200 mg PO BID 07/12/23 06/20/24 History [Plaquenil] Vit No.179/Iron/Folic 1 each PO DAILY 07/12/23 06/20/24 History [ Tablet] RX: Omeprazole [PriLOSEC] 40 mg PO DAILY #30 cap 07/12/23 06/20/24 Rx Sertraline [Zoloft] 50 mg PO HS 06/05/24 06/20/24 History Ergocalciferol [Vitamin D2 (1250 1,250 mcg PO BOURGEOIS 06/20/24 06/20/24 History Mcg = 47386 Iu)] Allergies Allergy/AdvReac Type Severity Reaction Status Date / Time cobalt Allergy PER Verified 06/20/24 10:46 ALLERGY TEST lidocaine Allergy PER Verified 06/20/24 10:46 ALLERGY TEST neomycin Allergy PER Verified 06/20/24 10:46 ALLERGY TEST nickel Allergy Itching Verified 06/20/24 10:46 codeine AdvReac Nausea & Verified 06/20/24 10:46 Vomiting. HEADACHES LINALOOL Allergy PER Uncoded 06/20/24 10:46 ALLERGY TEST
[2024-06-24] MEDS ORDERED: SCOPOLAMINE 1 MG/72 HR PATCH TRANSDERM ONE (09:12)
[2024-06-24] MEDS ORDERED: HYDROmorphone 0.5 MG/0.5 ML SYRINGE IVP PRN (09:12)
[2024-06-24] MEDS ORDERED: ONDANSETRON 4 MG/2 ML VIAL IVP PRN (09:12)
[2024-06-24] MEDS ORDERED: droPERidol 5 MG/2 ML VIAL IVP ONE (09:12)
[2024-06-24] MEDS ORDERED: DEXAMETHASONE SOD PHOSPHATE 4 MG/ML 1 ML VIAL IV ONE (09:12)
[2024-06-24] MEDS: IV FLUID CONTINUATION 1,000 ML IV ONE (09:22)
[2024-06-24 09:27] VITALS: RESP 16; TEMP 96.9
[2024-06-24] MEDS: LACTATED RINGERS 1,000 ML IV SCH (09:31)
[2024-06-24] MEDS ORDERED: PROPOFOL 10 MG/ML 20 ML VIAL IV ONE (11:21)
[2024-06-24 12:13] VITALS: BP 135/83; PULSE 98
--- NOTE | 2024-06-24 12:22 | P.PCN ---
Date of Procedure: 06/24/24 Description of Procedure: PREOPERATIVE DIAGNOSIS: Abnormal stool function Change in bowel habits POSTOPERATIVE DIAGNOSIS: Microscopic colitis OPERATION: Colonoscopy to the cecum, ileocecal valve and appendiceal orifice. Colonoscopy with random cold forceps biopsies for microscopic colitis SURGEON: Darya Martinez MD. ANESTHESIA: MAC. INDICATIONS: The patient is a 34-year-old female who presents with altered stools including change in bowel habits. Benefits and risks were described and informed consent was obtained. DESCRIPTION OF PROCEDURE: The patient had undergone GoLytely prep. The patient had been brought into the operating room and laid in the left lateral decubitus position. After adequate intravenous sedation, the rectum was examined with 2% lidocaine jelly. No external hemorrhoids were encountered. The rectal tone was within normal limits. No lesions were palpated in the rectal vault. An Olympus colonoscope was advanced until the cecum, ileocecal valve and appendiceal orifice were clearly viewed. The prep was excellent. No scattered diverticulosis was encountered. No colonic polyps were found. Cold forceps biopsies randomly were obtained for microscopic colitis. Retroflexion of the scope demonstrated grade 1 internal hemorrhoids without active bleeding or inflammation. The colon was desufflated. The patient had tolerated the procedure well. Withdrawal time was over 6 minutes. FINDINGS: Aronchick preparation quality scale 1 (1-5) Internal hemorrhoids, grade 1 No external prolapsed hemorrhoids. No arteriovenous malformations. No adenomatous polyps. Cold forceps biopsies obtained for microscopic colitis RECOMMENDATIONS: Lower endoscopy as needed Plan - Discharge Summary Discharge Rx Participant: No New Discharge Prescriptions: Continue Hydroxychloroquine Sulfate [Plaquenil] 200 mg PO BID Omeprazole [PriLOSEC] 40 mg PO DAILY #30 cap Sertraline [Zoloft] 50 mg PO HS Levothyroxine Sodium [Synthroid] 137 mcg PO BID Acetaminophen Tab [Tylenol] 1,000 mg PO Q6HR PRN #30 tablet PRN Reason: Pain Vit No.179/Iron/Folic [ Tablet] 1 each PO DAILY Cyanocobalamin [Vitamin B-12] 1,000 mcg PO DAILY@1200 #60 tablet Ergocalciferol [Vitamin D2 (1250 Mcg = 65846 Iu)] 1,250 mcg PO BOURGEOIS Discharge Medication List Levothyroxine Sodium [Synthroid] 137 mcg PO BID 02/23/22 [History] Acetaminophen Tab [Tylenol] 1,000 mg PO Q6HR PRN #30 tablet 07/04/22 [Rx] Cyanocobalamin [Vitamin B-12] 1,000 mcg PO DAILY@1200 #60 tablet 07/12/23 [Rx] Hydroxychloroquine Sulfate [Plaquenil] 200 mg PO BID 07/12/23 [History] Omeprazole [PriLOSEC] 40 mg PO DAILY #30 cap 07/12/23 [Rx] Vit No.179/Iron/Folic [ Tablet] 1 each PO DAILY 07/12/23 [History] Sertraline [Zoloft] 50 mg PO HS 06/05/24 [History] Ergocalciferol [Vitamin D2 (1250 Mcg = 01612 Iu)] 1,250 mcg PO BOURGEOIS 06/20/24 [History] Follow up [facility]ment(s[facility]Ref[facility] [place] [facility] - 07/10/24 3:00 pm Patient Instructions/Handouts: Microscopic Colitis (GEN) Discharge Disposition: HOME SELF-CARE
--- NOTE | 2024-06-24 12:23 | P.PCN ---
Date of Procedure: 06/24/24 Description of Procedure: PREOPERATIVE DIAGNOSES: 1. Epigastric abdominal pain. 2. Nausea and vomiting. 3. History of gastric bypass. 4. History of gastric ulcers. POSTOPERATIVE DIAGNOSES: 1. Epigastric abdominal pain. 2. Nausea and vomiting. 3. History of gastric bypass. 4. History of gastric ulcers. PROCEDURE PERFORMED: Esophagogastrojejunoscopy. SURGEON: Darya Martinez MD ANESTHESIA: MAC. INDICATIONS: The patient is a 34-year-old male with prior history of Bharathi-en-Y gastric bypass approximately 2 years ago. In the last several weeks, she has had intermittent nausea and vomiting, particularly of the epigastric abdominal pain. With history of Bharathi-en-Y gastric bypass, upper endoscopy was offered for further evaluation and management. DESCRIPTION: Patient was brought to the endoscopy suite and laid in the left lateral decubitus position. After adequate IV sedation, a bite block was placed. An Olympus gastroscope was passed along the posterior oropharynx down to the distal esophagus where the squamocolumnar junction was found at approximately 35 cm from the incisors. His anastomosis was found at 40 cm, consistent with approximately 7 cm gastric pouch. The scope was advanced 60 cm from the incisors. No evidence of foreign body was found. No evidence of active gastrojejunal ulcerations were encountered. The GI tract was desufflated. The patient tolerated the procedure well. FINDINGS: 1. No acute gastrojejunal ulceration. 2. No foreign body found along the anastomosis. 3. Gastric pouch 5 cm PLAN: 1. Recommend upper endoscopy as needed.
== END 2024-06-24 12:52 | disposition home or self-care (01) ==
LOC: ORWHC2ENDO 09:04
PROVIDERS: ATTEND Surgery Plastic and Reconstructive Surgery
DX: K21.00 Gastro-esophageal reflux disease with esophagitis, without bleeding (principal); K52.839 Microscopic colitis, unspecified; K64.0 First degree hemorrhoids; Z98.84 Bariatric surgery status; Z98.0 Intestinal bypass and anastomosis status; Z87.19 Personal history of other diseases of the digestive system; M06.9 Rheumatoid arthritis, unspecified; E07.9 Disorder of thyroid, unspecified; Z79.890 Hormone replacement therapy; Z79.899 Other long term (current) drug therapy; Z88.4 Allergy status to anesthetic agent; Z88.1 Allergy status to other antibiotic agents; Z88.5 Allergy status to narcotic agent; Z88.8 Allergy status to other drugs, medicaments and biological substances
CPT/HCPCS: 43235; 45380; 81025; 88305

== ENCOUNTER 2024-07-01 08:06 | Observation (INO) | payer OTHER ==
[2024-07-01] MEDS ORDERED: IOPAMIDOL CONTRAST (ORAL USE) VIAL PO PRN (08:34)
--- NOTE | 2024-07-01 08:51 | ED ---
Abdominal Pain HPI - General Chief Complaint: Abdominal Pain Stated Complaint: Abd pain Time Seen by Provider: 07/01/24 08:30 Source: patient, RN notes reviewed Mode of arrival: ambulatory Limitations: no limitations - History of Present Illness Initial Comments: This is a 34-year-old female who presents to the emergency department for abdominal pain. Reports pain in the epigastric region for the last 3 days. Denies any nausea/vomiting or changes in bowel or bladder habits. Pain does not radiate anywhere. She called Dr. Martinez regarding her symptoms. States that she advised she go to the emergency department for further evaluation with a CT scan if symptoms did not improve. MD Complaint: abdominal pain - Related Data Home Medications Medication Instructions Recorded Confirmed Hydroxychloroquine Sulfate 200 mg PO BID 07/12/23 07/01/24 [Plaquenil] Sertraline [Zoloft] 50 mg PO HS 06/05/24 07/01/24 Ergocalciferol [Vitamin D2 (1250 1,250 mcg PO BOURGEOIS 06/20/24 07/01/24 Mcg = 19008 Iu)] Cyanocobalamin [Vitamin B-12] 1,000 mcg PO DAILY 07/01/24 07/01/24 Furosemide [Lasix] 40 mg PO DAILY 07/01/24 07/01/24 Levothyroxine Sodium [Synthroid] 274 mcg PO DAILY 07/01/24 07/01/24 Norethindrone [Lucy] 0.35 mg PO DAILY 07/01/24 07/01/24 Vitamin C(Unknown Dose) 1 tab PO DAILY 07/01/24 07/01/24 Previous Rx's Medication Instructions Recorded Omeprazole [PriLOSEC] 40 mg PO DAILY #30 cap 07/12/23 Allergies Allergy/AdvReac Type Severity Reaction Status Date / Time cobalt Allergy PER Verified 07/01/24 12:43 ALLERGY TEST lidocaine Allergy PER Verified 07/01/24 12:43 ALLERGY TEST neomycin Allergy PER Verified 07/01/24 12:43 ALLERGY TEST nickel Allergy Itching Verified 07/01/24 12:43 codeine AdvReac Nausea & Verified 07/01/24 12:43 Vomiting. HEADACHES LINALOOL Allergy PER Uncoded 07/01/24 12:43 ALLERGY TEST Review of Systems ROS Statement: Those systems with pertinent positive or pertinent negative responses have been documented in the HPI. ROS Other: All systems not noted in ROS Statement are negative. 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 issues with eating - either vomiting or diarrhea History of Any Multi-Drug Resistant Organisms: None Reported Past Surgical History: Appendectomy, Bariatric Surgery, Section, Cholecystectomy, Ear Surgery, Hernia Repair, Orthopedic Surgery Additional Past Surgical History / Comment(s): BILAT elbow, L foot surgery; KARTHIK AT eye surgery, RYGB 01-18-21, EGD. appendectomy and hernia repair . BMT Past Anesthesia/Blood Transfusion Reactions: No Reported Reaction Additional Past Anesthesia/Blood Transfusion Reaction / Comment(s): post hernia repair - pt started to break out and had itching (both arms and face) ,pt thinks she was given lidocaine. Past Psychological History: Anxiety, Depression Smoking Status: Never smoker Past Alcohol Use History: None Reported Past Drug Use History: None Reported - Past Family History Mother Family Medical History: No Reported History General Exam Limitations: no limitations General appearance: alert, in no apparent distress Head exam: Present: atraumatic, normocephalic, normal inspection Respiratory exam: Present: normal lung sounds bilaterally. Absent: respiratory distress, wheezes, rales, rhonchi, stridor Cardiovascular Exam: Present: regular rate, normal rhythm, normal heart sounds. Absent: systolic murmur, diastolic murmur, rubs, gallop, clicks GI/Abdominal exam: Present: soft, tenderness (Epigastric), normal bowel sounds. Absent: distended Neurological exam: Present: alert, oriented X3, CN II-XII intact Psychiatric exam: Present: normal affect, normal mood Skin exam: Present: warm, dry, intact, normal color. Absent: rash Course Vital Signs 07/01/24 07/01/24 07/01/24 08:16 11:35 13:39 Temperature 98 F 97.8 F 97.9 F Pulse Rate 62 59 L 57 L Respiratory 20 16 17 Rate Blood Pressure 138/67 134/88 138/89 O2 Sat by Pulse 99 97 99 Oximetry 07/01/24 14:47 Temperature 98.3 F Pulse Rate 61 Respiratory 16 Rate Blood Pressure 133/91 O2 Sat by Pulse 98 Oximetry Medical Decision Making - Medical Decision Making This is a 34-year-old female who presents to the emergency department for abdominal pain. Was pt. sent in by a medical professional or institution? @ -No Did you speak to anyone other than the patient for history? @ -No Did you review nursing and triage notes? @ -Yes, and I agree, it is accurate with regards to the patient's symptoms. Were old charts reviewed? @ -No Differential Diagnosis? @ -Differential Abdominal Pain Women: Appendicitis, Cholecystitis, diverticulosis, ischemic bowel, pancreatitis, hepatitis, UTI, gastroenteritis, AAA, incarcerated hernia, bowel obstruction, constipation, inflammatory bowel, hepatitis, peptic ulcer disease, splenic infarction, perforated viscus, vulvitis, ovarian torsion, PID, kidney stone, placenta abruption, this is not meant to be an all-inclusive list EKG interpreted by me (3pts min.)? @ -Not obtained X-rays interpreted by me (1pt min.)? @ -Not obtained CT interpreted by me (1pt min.)? @ -CT scan of the abdomen and pelvis obtained. My interpretation identifies no dilation of the large or small bowel loops. U/S interpreted by me (1pt. min.)? @ -Not obtained What testing was considered but not performed? (CT, X-rays, U/S, labs)? Why? @ -None What meds were considered but not given? Why? @ -None Did you discuss the management of the patient with other professionals? @ -Yes, Dr. Martinez, general surgery, who advised admission to herself. Did you reconcile home meds? @ -Yes Was smoking cessation discussed for >3mins.? @ -No Was critical care preformed (if so, how long)? @ -No Were there social determinants of health that impacted care today? How? (Homelessness, low income, unemployed, alcoholism, drug addiction, transportation, low edu. Level, literacy, decrease access to med. care, care home, rehab)? @ -No Was there de-escalation of care discussed even if they declined? (Discuss DNR or withdrawal of care, Hospice)? @ -No What co-morbidities impacted this encounter? (DM, HTN, Smoking, COPD, CAD, Cancer, CVA, Hep., AIDS, mental health diagnosis, sleep apnea, morbid obesity)? @ -None Was patient admitted / discharged? @ -Admitted. Lab work unremarkable. Urinalysis is contaminated but negative for signs of infection. CT scan of the abdomen and pelvis with oral contrast was obtained. No acute process was identified. Case discussed with Dr. Martinez, general surgery. She advised that the patient can be admitted to herself and they may try to do lysis of adhesions, which do not show up on imaging, to help with her discomfort. Patient admitted to general surgery for intractable abdominal pain. Medicine consulted for medical management. Case discussed with ED attending Dr. Nolasco. Undiagnosed new problem with uncertain prognosis? @ -None Drug Therapy requiring intensive monitoring for toxicity (Heparin, Nitro, Insulin, Cardizem)? @ -None Were any procedures done? @ -None Diagnosis/symptom? @ -Intractable abdominal pain Acute, or Chronic, or Acute on Chronic? @ -Acute Uncomplicated (without systemic symptoms) or Complicated (systemic symptoms)? @ -Uncomplicated Side effects of treatment? @ -None Exacerbation, Progression, or Severe Exacerbation] @ -Not applicable Poses a threat to life or bodily function? @ -Yes, the pain is limiting her ability to function. - Lab Data Result diagrams: 07/01/24 08:39 07/01/24 09:33 Lab Results 07/01/24 07/01/24 07/01/24 Range/Units 08:39 08:39 08:39 WBC 6.5 (3.8-10.6) k/uL RBC 4.72 (3.80-5.40) m/uL Hgb 13.4 (11.4-16.0) gm/dL Hct 42.1 (34.0-46.0) % MCV 89.2 (80.0-100.0) fL MCH 28.5 (25.0-35.0) pg MCHC 31.9 (31.0-37.0) g/dL RDW 13.0 (11.5-15.5) % Plt Count 264 (150-450) k/uL MPV 9.2 Neutrophils % 61 % Lymphocytes % 30 % Monocytes % 5 % Eosinophils % 1 % Basophils % 0 % Neutrophils # 4.0 (1.3-7.7) k/uL Lymphocytes # 1.9 (1.0-4.8) k/uL Monocytes # 0.3 (0-1.0) k/uL Eosinophils # 0.1 (0-0.7) k/uL Basophils # 0.0 (0-0.2) k/uL Sodium (137-145) mmol/L Potassium (3.5-5.1) mmol/L Chloride (98-107) mmol/L Carbon Dioxide (22-30) mmol/L Anion Gap mmol/L BUN (7-17) mg/dL Creatinine (0.52-1.04) mg/dL Est GFR (CKD-EPI)AfAm (>60 ml/min/1.73 sqM) Est GFR (CKD-EPI)NonAf (>60 ml/min/1.73 sqM) Glucose (74-99) mg/dL Plasma Lactic Acid Darío (0.7-2.0) mmol/L Calcium (8.4-10.2) mg/dL Total Bilirubin (0.2-1.3) mg/dL AST (14-36) U/L ALT (4-34) U/L Alkaline Phosphatase (38-126) U/L Total Protein (6.3-8.2) g/dL Albumin (3.5-5.0) g/dL Amylase (30-110) U/L Lipase (23-300) U/L HCG, Qual Urine Color Yellow Urine Appearance Cloudy H (Clear) Urine pH 6.0 (5.0-8.0) Ur Specific Revere 1.023 (1.001-1.035) Urine Protein Trace H (Negative) Urine Glucose (UA) Negative (Negative) Urine Ketones Negative (Negative) Urine Blood Moderate H (Negative) Urine Nitrite Negative (Negative) Urine Bilirubin Negative (Negative) Urine Urobilinogen <2.0 (<2.0) mg/dL Ur Leukocyte Esterase Moderate H (Negative) Urine RBC <1 (0-5) /hpf Urine WBC 18 H (0-5) /hpf Ur Squamous Epith Cells 14 H (0-4) /hpf Urine Mucus Moderate H (None) /hpf Urine HCG, Qual Not Detected (Not Detectd) 07/01/24 07/01/24 Range/Units 08:39 09:33 WBC (3.8-10.6) k/uL RBC (3.80-5.40) m/uL Hgb (11.4-16.0) gm/dL Hct (34.0-46.0) % MCV (80.0-100.0) fL MCH (25.0-35.0) pg MCHC (31.0-37.0) g/dL RDW (11.5-15.5) % Plt Count (150-450) k/uL MPV Neutrophils % % Lymphocytes % % Monocytes % % Eosinophils % % Basophils % % Neutrophils # (1.3-7.7) k/uL Lymphocytes # (1.0-4.8) k/uL Monocytes # (0-1.0) k/uL Eosinophils # (0-0.7) k/uL Basophils # (0-0.2) k/uL Sodium 138 (137-145) mmol/L Potassium 3.8 (3.5-5.1) mmol/L Chloride 109 H (98-107) mmol/L Carbon Dioxide 25 (22-30) mmol/L Anion Gap 4 mmol/L BUN 7 (7-17) mg/dL Creatinine 0.63 (0.52-1.04) mg/dL Est GFR (CKD-EPI)AfAm >90 (>60 ml/min/1.73 sqM) Est GFR (CKD-EPI)NonAf >90 (>60 ml/min/1.73 sqM) Glucose 89 (74-99) mg/dL Plasma Lactic Acid Darío 0.9 (0.7-2.0) mmol/L Calcium 8.6 (8.4-10.2) mg/dL Total Bilirubin 0.5 (0.2-1.3) mg/dL AST 21 (14-36) U/L ALT 12 (4-34) U/L Alkaline Phosphatase 84 (38-126) U/L Total Protein 6.2 L (6.3-8.2) g/dL Albumin 3.3 L (3.5-5.0) g/dL Amylase 49 (30-110) U/L Lipase 102 (23-300) U/L HCG, Qual Not Detected Urine Color Urine Appearance (Clear) Urine pH (5.0-8.0) Ur Specific Revere (1.001-1.035) Urine Protein (Negative) Urine Glucose (UA) (Negative) Urine Ketones (Negative) Urine Blood (Negative) Urine Nitrite (Negative) Urine Bilirubin (Negative) Urine Urobilinogen (<2.0) mg/dL Ur Leukocyte Esterase (Negative) Urine RBC (0-5) /hpf Urine WBC (0-5) /hpf Ur Squamous Epith Cells (0-4) /hpf Urine Mucus (None) /hpf Urine HCG, Qual (Not Detectd) - Radiology Data Radiology results: report reviewed, image reviewed Disposition Clinical Impression: Intractable abdominal pain Disposition: ADMITTED IP TO THIS HOSP
[2024-07-01] MEDS: SODIUM CHLORIDE 0.9% 1,000 ML IV STA (08:56)
[2024-07-01] MEDS: HYDROmorphone 1 MG/ML 1 ML SYRINGE IVP STA ×2 (09:04→11:35)
[2024-07-01 09:13] LABS: Basophils % (A) 0 %; Eosinophils # (A) 0.1 k/uL (0-0.7); Eosinophils % (A) 1 %; HCT 42.1 % (34.0-46.0); HGB 13.4 gm/dL (11.4-16.0); Lymphocytes # (A) 1.9 k/uL (1.0-4.8); Lymphocytes % (A) 30 %; MCH 28.5 pg (25.0-35.0); MCHC 31.9 g/dL (31.0-37.0); MCV 89.2 fL (80.0-100.0); Mean Platelet Volume 9.2; Monocytes # (A) 0.3 k/uL (0-1.0); Monocytes % (A) 5 %; Neutrophils % (A) 61 %; Platelet Count 264 k/uL (150-450); RBC 4.72 m/uL (3.80-5.40); WBC 6.5 k/uL (3.8-10.6)
[2024-07-01 09:33] LABS: Appearance,Urine Cloudy (Clear); Bilirubin,Urine Negative (Negative); Blood,Urine Moderate (Negative); Color,Urine Yellow; Glucose,Urine (UA) Negative (Negative); Ketones,Urine Negative (Negative); Leukocyte Esterase,Urine Moderate (Negative); Mucus,Urine Moderate /hpf; Nitrite,Urine Negative (Negative); Protein,Urine Trace (Negative); RBC,Urine <1 /hpf (0-5); Specific Gravity,Urine 1.023 (1.001-1.035); Squamous Epithelial Cell,Urine 14 /hpf (0-4); Urobilinogen,Urine <2.0 mg/dL (<2.0); WBC,Urine 18 /hpf (0-5)
[2024-07-01 10:02] LABS: ALT 12 U/L (4-34); AST 21 U/L (14-36); African American GFR (CKD) >90 (>60 ml/min/1.73 sqM); Albumin 3.3 g/dL (3.5-5.0); Alkaline Phosphatase 84 U/L (38-126); Amylase 49 U/L (30-110); Anion Gap 4 mmol/L; Blood Urea Nitrogen 7 mg/dL (7-17); Calcium 8.6 mg/dL (8.4-10.2); Carbon Dioxide 25 mmol/L (22-30); Chloride 109 mmol/L (98-107); Glucose 89 mg/dL (74-99); Lipase 102 U/L (23-300); Non-African American GFR(CKD) >90 (>60 ml/min/1.73 sqM); Potassium 3.8 mmol/L (3.5-5.1); Sodium 138 mmol/L (137-145); Total Bilirubin 0.5 mg/dL (0.2-1.3); Total Protein 6.2 g/dL (6.3-8.2)
[2024-07-01 10:12] LABS: HCG,Qualitative Serum Not Detected
--- NOTE | 2024-07-01 10:38 | CT ---
EXAMINATION TYPE: CT abdomen pelvis w con CT DLP: 1313 mGycm, Automated exposure control for dose reduction was used. DATE OF EXAM: 07/01/2024 10:27 AM COMPARISON: CT abdomen pelvis 05/15/2022 CLINICAL INDICATION:Female, 34 years old with history of Epigastric pain; Epigastric pain. hx of bypa ss xfew years ago. bariatric oral prep requested,. TECHNIQUE: Standard CT of the abdomen and pelvis following the administration of 100 cc of Isovue 3 00 IV contrast material and oral contrast. Coronal and sagittal reformats were performed. FINDINGS: LOWER CHEST: Posterior dependent subsegmental atelectasis is noted. ABDOMEN LIVER: Left hepatic dome 1 cm cyst. GALLBLADDER AND BILE DUCTS: Gallbladder surgically absent. No biliary duct dilatation. PANCREAS: Unremarkable. SPLEEN: Unremarkable. ADRENAL GLANDS: Unremarkable. KIDNEYS AND URETERS: No evidence of hydronephrosis or renal calculus. The kidneys enhance symmetrical ly. Contrast is demonstrated within both collecting systems on the delayed phase. Left retroaortic re nal vein. PELVIS BLADDER: Incompletely distended but grossly unremarkable. REPRODUCTIVE: Unremarkable. ABDOMEN & PELVIS STOMACH AND BOWEL: Postsurgical changes from Bharathi-en-Y gastric bypass. Enteric contrast reaches the a limentary limb without enteric contrast identified within the remaining stomach or secondary limb. En teric contrast did not reach the alimentary anastomosis at time of exam. No focal bowel wall thickeni ng or stranding inflammatory changes. No evidence of bowel obstruction. PERITONEUM: No evidence of pneumoperitoneum or free fluid. VASCULATURE: No evidence of aortic aneurysm. MUSCULOSKELETAL: No acute osseous abnormalities LYMPH NODES: No evidence for lymphadenopathy. SOFT TISSUE/ABDOMINAL WALL: Unremarkable IMPRESSION: 1. No acute abdominal/pelvic process. 2. Postsurgical changes from Bharathi-en-Y gastric bypass. No CT evidence for abnormality. [facility], , 07/01/2024 10:36 AM
[2024-07-01] MEDS ORDERED: NALOXONE 0.4 MG/ML 1 ML VIAL IV PRN (11:53)
[2024-07-01] MEDS ORDERED: ONDANSETRON 4 MG/2 ML VIAL IVP PRN (11:53)
[2024-07-01] MEDS ORDERED: ACETAMINOPHEN TAB 325 MG TAB PO PRN (11:53)
[2024-07-01] MEDS ORDERED: HYDROmorphone 1 MG/ML 1 ML SYRINGE IVP PRN (11:53)
--- NOTE | 2024-07-01 12:13 | P.GSHP ---
History of Present Illness H&P Date: 07/01/24 CHIEF COMPLAINT: Intractable abdominal pain HISTORY OF PRESENT ILLNESS: The patient is a 34-year-old female who presents with intractable epigastric abdominal pain. She has personal history of gastric bypass including multiple prior surgeries for intra-abdominal adhesions. She completed both her upper and lower endoscopy over a week ago which was unremarkable for acute pathology. Incidentally, patient reports her pain became exquisitely worse in the past 3 to 4 days prompting her presentation to the emergency room. She reports prior change in bowel habits which per colonoscopy were unremarkable. Due to her pre-existing history of intra-abdominal adhesions as well as gastric bypass with high risk of intra-abdominal pathology, admission being advised. PAST MEDICAL HISTORY: Please see list. PAST SURGICAL HISTORY: Please see list. MEDICATIONS: Please see list. ALLERGIES: Please see list. SOCIAL HISTORY: No illicit drug use FAMILY HISTORY: No reports of Crohn disease or ulcerative colitis. REVIEW OF ORGAN SYSTEMS: CONSTITUTIONAL: Denies any fever or chills. Lifetime weight loss over 100 pounds. HEENT: Denies any trouble with vision, hearing or nosebleeds. No difficulty swallowing. LYMPHATIC: The patient denies any lumps and bumps around the neck. ENDOCRINE: Denies any thyroid disorders. Denies any blood sugar glucose intolerance. RESPIRATORY: Denies pneumonia. Denies any troubles with breathing or dyspnea on exertion. CARDIOVASCULAR: Denies any chest pain, palpitations, or recent heart attacks. GASTROINTESTINAL: Pre-existing history of gastrojejunal ulcers, peritoneal adhesions, intractable abdominal pain, change in bowel habits. GENITOURINARY: Denies any blood in urine or increased urinary frequency. MUSCULOSKELETAL: Has back pain, stiffness, joint arthritis. NEUROLOGIC: Denies any numbness or tingling along the distal extremities. No seizure disorders or headaches. PSYCHIATRIC: Denies depression or suidical ideation. HEMATOLOGIC: Denies any abnormal bleeding or bruising. BREASTS: Denies any breast lumps, pain or nipple discharge. PHYSICAL EXAM: GENERAL: Well-developed pleasant female in mild distress. HEENT: No scleral icterus. Extraocular movements grossly intact. Moist buccal mucosa. NECK: Supple without lymphadenopathy. CHEST: Unlabored respirations. Equal bilateral excursions. CARDIOVASCULAR: Regular rate and rhythm. Distal 2+ pulses. ABDOMEN: Obese, tender epigastrium. No diffuse peritonitis. MUSCULOSKELETAL: No clubbing, cyanosis, or edema. SKIN: Well perfused. PSYCH: Alert and oriented to self, place and time STUDIES: CT of the abdomen pelvis independently reviewed demonstrates no findi ngs of bowel obstruction. No mesenteric swirl. This is my independent interpretation. ASSESSMENT: 1. Intractable epigastric abdominal pain 2. History of multiple abdominal surgeries. 3. Intra-abdominal adhesions. 4. History of gastric bypass PLAN: 1. Admission advised with robotic lysis of adhesions were described in detail including risk of injury to the intestine, need for further surgery, and open technique. 2. DVT prophylaxis. 3. Antibiotic prophylaxis. 4. N.p.o. 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 issues with eating - either vomiting or diarrhea History of Any Multi-Drug Resistant Organisms: None Reported Past Surgical History: Appendectomy, Bariatric Surgery, Section, Cholecystectomy, Ear Surgery, Hernia Repair, Orthopedic Surgery Additional Past Surgical History / Comment(s): BILAT elbow, L foot surgery; BILAT eye surgery, RYGB 01-18-21, EGD. appendectomy and hernia repair . BMT Past Anesthesia/Blood Transfusion Reactions: No Reported Reaction Additional Past Anesthesia/Blood Transfusion Reaction / Comment(s): post hernia repair - pt started to break out and had itching (both arms and face) ,pt thinks she was given lidocaine. Past Psychological History: Anxiety, Depression Smoking Status: Never smoker Past Alcohol Use History: None Reported Past Drug Use History: None Reported - Past Family History Mother Family Medical History: No Reported History Medications and Allergies Home Medications Medication Instructions Recorded Confirmed Type Levothyroxine Sodium [Synthroid] 137 mcg PO BID 02/23/22 06/24/24 History Acetaminophen Tab [Tylenol] 1,000 mg PO Q6HR PRN #30 tablet 07/04/22 06/24/24 Rx Cyanocobalamin [Vitamin B-12] 1,000 mcg PO DAILY@1200 #60 tablet 07/12/23 Rx Hydroxychloroquine Sulfate 200 mg PO BID 07/12/23 06/24/24 History [Plaquenil] Omeprazole [PriLOSEC] 40 mg PO DAILY #30 cap 07/12/23 06/24/24 Rx Vit No.179/Iron/Folic 1 each PO DAILY 07/12/23 06/20/24 History [ Tablet] Sertraline [Zoloft] 50 mg PO HS 06/05/24 06/24/24 History Ergocalciferol [Vitamin D2 (1250 1,250 mcg PO BOURGEOIS 06/20/24 06/24/24 History Mcg = 59274 Iu)] Allergies Allergy/AdvReac Type Severity Reaction Status Date / Time cobalt Allergy PER Verified 07/01/24 08:18 ALLERGY TEST lidocaine Allergy PER Verified 07/01/24 08:18 ALLERGY TEST neomycin Allergy PER Verified 07/01/24 08:18 ALLERGY TEST nickel Allergy Itching Verified 07/01/24 08:18 codeine AdvReac Nausea & Verified 07/01/24 08:18 Vomiting. HEADACHES LINALOOL Allergy PER Uncoded 07/01/24 08:18 ALLERGY TEST Surgical - Exam Vital Signs Temp Pulse Resp BP Pulse Ox 98 F 62 20 138/67 99 07/01/24 08:16 07/01/24 08:16 07/01/24 08:16 07/01/24 08:16 07/01/24 08:16 Results - Labs 07/01/24 08:39 07/01/24 09:33 Abnormal Lab Results - Last 24 Hours (Table) 07/01/24 07/01/24 Range/Units 08:39 09:33 Chloride 109 H (98-107) mmol/L Total Protein 6.2 L (6.3-8.2) g/dL Albumin 3.3 L (3.5-5.0) g/dL Urine Appearance Cloudy H (Clear) Urine Protein Trace H (Negative) Urine Blood Moderate H (Negative) Ur Leukocyte Esterase Moderate H (Negative) Urine WBC 18 H (0-5) /hpf Ur Squamous Epith Cells 14 H (0-4) /hpf Urine Mucus Moderate H (None) /hpf Diabetes panel 07/01/24 Range/Units 09:33 Sodium 138 (137-145) mmol/L Potassium 3.8 (3.5-5.1) mmol/L Chloride 109 H (98-107) mmol/L Carbon Dioxide 25 (22-30) mmol/L BUN 7 (7-17) mg/dL Creatinine 0.63 (0.52-1.04) mg/dL Glucose 89 (74-99) mg/dL Calcium 8.6 (8.4-10.2) mg/dL AST 21 (14-36) U/L ALT 12 (4-34) U/L Alkaline Phosphatase 84 (38-126) U/L Total Protein 6.2 L (6.3-8.2) g/dL Albumin 3.3 L (3.5-5.0) g/dL Calcium panel 07/01/24 Range/Units 09:33 Calcium 8.6 (8.4-10.2) mg/dL Albumin 3.3 L (3.5-5.0) g/dL Pituitary panel 07/01/24 Range/Units 09:33 Sodium 138 (137-145) mmol/L Potassium 3.8 (3.5-5.1) mmol/L Chloride 109 H (98-107) mmol/L Carbon Dioxide 25 (22-30) mmol/L BUN 7 (7-17) mg/dL Creatinine 0.63 (0.52-1.04) mg/dL Glucose 89 (74-99) mg/dL Calcium 8.6 (8.4-10.2) mg/dL Adrenal panel 07/01/24 Range/Units 09:33 Sodium 138 (137-145) mmol/L Potassium 3.8 (3.5-5.1) mmol/L Chloride 109 H (98-107) mmol/L Carbon Dioxide 25 (22-30) mmol/L BUN 7 (7-17) mg/dL Creatinine 0.63 (0.52-1.04) mg/dL Glucose 89 (74-99) mg/dL Calcium 8.6 (8.4-10.2) mg/dL Total Bilirubin 0.5 (0.2-1.3) mg/dL AST 21 (14-36) U/L ALT 12 (4-34) U/L Alkaline Phosphatase 84 (38-126) U/L Total Protein 6.2 L (6.3-8.2) g/dL Albumin 3.3 L (3.5-5.0) g/dL
[2024-07-01] MEDS ORDERED: HEPARIN SODIUM,PORCINE 5,000 UNIT/ML 1 ML VIAL SQ PRN (12:14)
[2024-07-01] MEDS: SCOPOLAMINE 1 MG/72 HR PATCH TRANSDERM STA (12:31)
[2024-07-01] MEDS ORDERED: SUCCINYLCHOLINE CHLORIDE 200 MG/10 ML VIAL IV ONE (18:02)
[2024-07-01] MEDS ORDERED: PROPOFOL 10 MG/ML 20 ML VIAL IV ONE (18:02)
[2024-07-01] MEDS ORDERED: HYDROmorphone (PF) 1 MG/ML ONE (18:02)
[2024-07-01] MEDS ORDERED: HEPARIN SODIUM,PORCINE 5,000 UNIT/ML 1 ML VIAL ONE (18:02)
[2024-07-01] MEDS ORDERED: ROCURONIUM 10 MG/ML (5 ML VIAL) IV ONE (18:02)
[2024-07-01] MEDS ORDERED: MIDAZOLAM 2 MG/2 ML VIAL ONE (18:02)
[2024-07-01] MEDS ORDERED: fentaNYL (PF) 50 MCG/ML 2 ML AMP ONE (18:02)
[2024-07-01] MEDS: SODIUM CHLORIDE 0.9% 50 ML with ceFAZolin 2,000 MG IV ONE (18:07)
[2024-07-01] MEDS: LACTATED RINGERS 1,000 ML IV ONE ×2 (18:07→19:23)
[2024-07-01] MEDS: BUPIVACAINE (PF) 0.5% 30 ML VIAL SQ ONE ×3 (18:33→18:36)
--- NOTE | 2024-07-01 19:37 | P.OP ---
Date of Procedure: 07/01/24 Description of Procedure: SURGEON: GIOVANNY SHERIFF MD PREOPERATIVE DIAGNOSES: 1. Intractable abdominal pain 2. History of peritoneal adhesions 3. History of gastric bypass 4. Lupus POSTOPERATIVE DIAGNOSES: 1. Intractable abdominal pain due to intra-abdominal adhesions and internal hernia 2. Internal hernia, jejunojejunostomy 3. History of gastric bypass 4. Lupus OPERATION: 1. Robotic-assisted da Chaitanya Xi laparoscopic with extensive lysis of adhesions 2. Robotic-assisted da Chaitanya Xi laparoscopic reduction and repair of internal hernia, jejunojejunostomy with closure ESTIMATED BLOOD LOSS: 5 mL. SPECIMENS REMOVED: None. COMPLICATIONS: None. OPERATIVE FINDINGS: 1. No recurrent right inguinal hernia 2. Adhesions along the gastrojejunostomy and right lower quadrant lysed 3. Jejunojejunostomy internal hernia with moderate to severe peristalsis resolved after reduction of internal hernia 4. Scarring of Petersons defect 5. Normal terminal ileum and cecum unremarkable. INDICATIONS: The patient is a 34-year-old female who presents with intractable epigastric abdominal pain including left upper quadrant abdominal pain. Surgical intervention with diagnostic laparoscopy, lysis of adhesions were described. Informed consent was obtained. Robotic assisted laparoscopic approach was described. Benefits and risks of the procedure including but not limited to bleeding, infection, injury to the small bowel was described. Informed consent was obtained. DESCRIPTION OF PROCEDURE: Patient was brought to the operating room, placed in supine position. After general induction, the abdomen had been prepped and draped in standard sterile fashion. The robotic da Chaitanya XI system was primed. After a timeout protocol was performed, the patient had been prepped and draped in standard sterile fashion. The robot was docked along the right lateral abdomen. The patient was repositioned in with right side up. Please note prior to docking of the robot; however, a 5 mm 0 degrees laparoscopic trocar entry was performed along the left upper quadrant. The abdomen was insufflated to 15 mmHg pressure which she tolerated well. Diagnostic laparoscopy was performed. Next, three 8 mm robotic ports were placed along the right lateral abdominal wall. The camera 8-mm port was maintained along mid-lateral abdomen. Please note that the ports were placed at least 10 to 15 cm away from the target anatomy. Instruments including graspers and vessel sealer were interchanged by the reference library assistant. I had sat at the console. No evidence of incisional hernia was identified. The rest of the abdomen was unremarkable for small bowel pathology. The small bowel from the cortney limb to distal ileum was inspected. The small bowel was investigated from the terminal ileum to the ligament of Treitz with finding of redundant mesentery with active small bowel volvulus involving the jejunum to the jejunojejunostomy mesenteric defect. Abnormal adhesions to the jejunojejunostomy was identified and divided. The mesentery small bowel volvulus were reduced. Adhesions along the epigastrium linvolving the transverse colon to the cortney limb with an active internal hernia was lysed using vessel sealer. No herniation of bowel was found along the Oscar defect or jejunojejunostomy mesenteric defect. Adhesion of gastrojejunal anastomosis to the anterior abdominal wall was released. Moderate gaseous distention of sigmoid colon was identified with an active sigmoid volvulus similarly reduced secondary to highly redundant colon. The terminal ileum and cecum was unremarkable. Extensive lysis of adhesions over 1 hr was performed. The small bowel was viable.The robot was undocked. All pneumoperitoneum instruments were evacuated from the abdominal cavity. The incisions were reapproximated using 4-0 Monocryl in an interrupted subcuticular fashion. Please note along the trocar sites, local anesthetic was placed as a field block prior to insertion of all instruments. Exofin was applied to the skin. At the end of the procedure needle, sponge, and instrument count had been verified correct by the surgical technologist. The patient was transferred to postanesthesia care unit in stable condition. Plan - Discharge Summary New Discharge Prescriptions: New Acetaminophen Tab [Tylenol Tab] 1,000 mg PO Q6HR PRN #30 tablet PRN Reason: Pain Simethicone [Gas-X] 125 mg PO AC-TID PRN #20 capsule PRN Reason: Pain Continue Hydroxychloroquine Sulfate [Plaquenil] 200 mg PO BID Omeprazole [PriLOSEC] 40 mg PO DAILY #30 cap Sertraline [Zoloft] 50 mg PO HS Vitamin C(Unknown Dose) 1 tab PO DAILY Ergocalciferol [Vitamin D2 (1250 Mcg = 79833 Iu)] 1,250 mcg PO BOURGEOIS Norethindrone [Lucy] 0.35 mg PO DAILY Levothyroxine Sodium [Synthroid] 274 mcg PO DAILY Cyanocobalamin [Vitamin B-12] 1,000 mcg PO DAILY Furosemide [Lasix] 40 mg PO DAILY Discharge Medication List Hydroxychloroquine Sulfate [Plaquenil] 200 mg PO BID 07/12/23 [History] Omeprazole [PriLOSEC] 40 mg PO DAILY #30 cap 07/12/23 [Rx] Sertraline [Zoloft] 50 mg PO HS 06/05/24 [History] Ergocalciferol [Vitamin D2 (1250 Mcg = 00274 Iu)] 1,250 mcg PO BOURGEOIS 06/20/24 [History] Acetaminophen Tab [Tylenol Tab] 1,000 mg PO Q6HR PRN #30 tablet 07/01/24 [Rx] Cyanocobalamin [Vitamin B-12] 1,000 mcg PO DAILY 07/01/24 [History] Furosemide [Lasix] 40 mg PO DAILY 07/01/24 [History] Levothyroxine Sodium [Synthroid] 274 mcg PO DAILY 07/01/24 [History] Norethindrone [Lucy] 0.35 mg PO DAILY 07/01/24 [History] Simethicone [Gas-X] 125 mg PO AC-TID PRN #20 capsule 07/01/24 [Rx] Vitamin C(Unknown Dose) 1 tab PO DAILY 07/01/24 [History] Follow up Appointment(s)/Referral(s): Getachew Mar [Primary Care Provider] - 1-2 days [place], [place] [NON-STAFF] - 07/03/24 3:30 pm Patient Instructions/Handouts: Lysis of Abdominal Adhesions (DC) Activity/Diet/Wound Care/Special Instructions: NO LONG DRIVES OR AIRPLANE RIDES OVER 60 MINUTES FOR THE NEXT 2 WEEKS, Jul 15, DUE TO HIGH RISK OF PULMONARY EMBOLISM/DVTs May drive in 72 hrs, 07/04/24 No lifting over 10 pounds in 2 weeks until Jul 15 May shower. No bath tub soaks for two weeks until Jul 15, Diet as tolerated. Use Tylenol, simethicone scheduled for the next 24-48 hours for best pain relief. Use ice along incisions for today to prevent swelling. Discharge Disposition: HOME SELF-CARE
[2024-07-01] MEDS: HYDROmorphone 0.5 MG/0.5 ML SYRINGE IVP PRN (20:12)
[2024-07-01] MEDS: KETOROLAC 15 MG/ML 1 ML VIAL IVP SCH (21:07)
[2024-07-01] MEDS: ACETAMINOPHEN IV (For NPO) 1,000 MG in EMPTY BAG 1 BAG IVPB SCH (21:15)
[2024-07-01] MEDS: SERTRALINE 50 MG TAB PO SCH (21:56)
[2024-07-01] MEDS: HYDROXYCHLOROQUINE SULFATE 200 MG TAB PO SCH (21:56)
[2024-07-01] MEDS: SIMETHICONE 80 MG CHEWABLE PO SCH (21:57)
--- NOTE | 2024-07-02 05:05 | CONS ---
CONSULTATION REASON FOR CONSULTATION: Advice regarding rheumatoid arthritis and other medical issues. 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 Currently, the patient is complaining of abdominal pain. Surgery is planning robotic lysis of adhesions for intractable epigastric and abdominal pain. There is no history of any fever, rigors, or chills at this time. PAST MEDICAL HISTORY: Reviewed include rheumatoid arthritis, bariatric surgery, lupus. Rest of the history and rest of the chart is also reviewed. HOME MEDICATIONS: Reviewed include Zoloft, dose and rest of medications reviewed. ALLERGIES: [place]. Rest of the allergies are noted. FAMILY HISTORY: No history of heart disease or strokes in the family. SOCIAL HISTORY: No history of smoking. REVIEW OF SYSTEMS: Fourteen-point review is negative except as mentioned earlier. PHYSICAL EXAMINATION: VITAL SIGNS: Pulse 57, blood pressure 130/89, respirations 17. HEENT: Conjunctivae normal. NECK: No JVD. CARDIOVASCULAR: S1, S2. RESPIRATIONS: Breath sounds diminished at the bases. No rhonchi. No crackles. ABDOMEN: Soft, mild diffuse tenderness. No guarding or rigidity. LEGS: No edema. NERVOUS SYSTEM: Nonfocal. LABORATORY DATA: Reviewed. ASSESSMENT: 1. Intractable abdominal pain possibly secondary to lysis of adhesions. 2. Rheumatoid arthritis. 3. History of lupus. 4. History of vascular necrosis of the right tibia and femur. 5. History of bariatric surgery. 6. Multiple complex medical issues. RECOMMENDATIONS AND DISCUSSION: This is a 34-year-old woman, who presented with multiple complex medical issues. At this time, I recommend to continue the current medications. Continue symptomatic treatment. DVT prophylaxis. Otherwise, incentive spirometry. We will follow the patient closely with you. MMODL / IJN: [id number] /
[2024-07-02] MEDS: LEVOTHYROXINE 137 MCG TAB PO SCH (05:55)
[2024-07-02 08:00] VITALS: BP 130/85; PULSE 70; RESP 17; TEMP 98.4
[2024-07-02] MEDS: ASCORBIC ACID 500 MG TAB PO SCH (08:28)
[2024-07-02] MEDS: FUROSEMIDE 40 MG TAB PO SCH (08:28)
[2024-07-02] MEDS: CYANOCOBALAMIN 500 MCG TAB PO SCH (08:28)
[2024-07-02] MEDS: PANTOPRAZOLE 40 MG/10 ML VIAL IV SCH (08:28)
[2024-07-02] MEDS: NON FORMULARY DRUG (Norethindrone [Camila] 0.35 MG Tablet) PO SCH (08:36)
[2024-07-02] MEDS ORDERED: NON FORMULARY DRUG (Omeprazole 40 MG Capsule.Dr) PO SCH (09:00)
--- NOTE | 2024-07-02 15:04 | P.DS ---
Providers Date of admission: 07/01/24 12:48 Expected date of discharge: 07/02/24 Attending physician: Darya Martinez Consults: 07/01/24 11:53 Consult Physician Urgent Consulting Provider: Carlos Wood Consult Reason/Comments: Medical management Do you want consulting provider notified?: Yes 07/01/24 12:13 Consult Physician Routine Consulting Provider: [facility] Consult Reason/Comments: Abdominal wall block Do you want consulting provider notified?: Yes Primary care physician: Getachew Mar Hospital Course: Discharge diagnosis 1. Intractable abdominal pain due to intra-abdominal adhesions and internal hernia 2. Internal hernia, jejunojejunostomy 3. History of gastric bypass 4. Lupus Hospital course The patient is a 34-year-old female who presents with intractable epigastric abdominal pain including left upper quadrant abdominal pain. Patient is status post robotic assisted extensive lysis of adhesions and reduction and repair of internal hernia, jejunostomy with closure. Patient tolerated surgery well. She is tolerating diet. Her pain is controlled. She is having flatus. She has been up and ambulating. She is afebrile. She is stable for discharge. Physician Slate Splitter note has been reviewed by physician. Signing provider agrees with the documented findings, assessment, and plan of care. Patient Condition at Discharge: Stable Plan - Discharge Summary New Discharge Prescriptions: New Acetaminophen Tab [Tylenol Tab] 1,000 mg PO Q6HR PRN #30 tablet PRN Reason: Pain Simethicone [Gas-X] 125 mg PO AC-TID PRN #20 capsule PRN Reason: Pain Continue Hydroxychloroquine Sulfate [Plaquenil] 200 mg PO BID Omeprazole [PriLOSEC] 40 mg PO DAILY #30 cap Sertraline [Zoloft] 50 mg PO HS Vitamin C(Unknown Dose) 1 tab PO DAILY Ergocalciferol [Vitamin D2 (1250 Mcg = 95592 Iu)] 1,250 mcg PO BOURGEOIS Norethindrone [Lucy] 0.35 mg PO DAILY Levothyroxine Sodium [Synthroid] 274 mcg PO DAILY Cyanocobalamin [Vitamin B-12] 1,000 mcg PO DAILY Furosemide [Lasix] 40 mg PO DAILY Discharge Medication List Hydroxychloroquine Sulfate [Plaquenil] 200 mg PO BID 07/12/23 [History] Omeprazole [PriLOSEC] 40 mg PO DAILY #30 cap 07/12/23 [Rx] Sertraline [Zoloft] 50 mg PO HS 06/05/24 [History] Ergocalciferol [Vitamin D2 (1250 Mcg = 37675 Iu)] 1,250 mcg PO BOURGEOIS 06/20/24 [History] Acetaminophen Tab [Tylenol Tab] 1,000 mg PO Q6HR PRN #30 tablet 07/01/24 [Rx] Cyanocobalamin [Vitamin B-12] 1,000 mcg PO DAILY 07/01/24 [History] Furosemide [Lasix] 40 mg PO DAILY 07/01/24 [History] Levothyroxine Sodium [Synthroid] 274 mcg PO DAILY 07/01/24 [History] Norethindrone [Lucy] 0.35 mg PO DAILY 07/01/24 [History] Simethicone [Gas-X] 125 mg PO AC-TID PRN #20 capsule 07/01/24 [Rx] Vitamin C(Unknown Dose) 1 tab PO DAILY 07/01/24 [History] Follow up App[facility]ment(s[facility] [place] [facility] - 07/03/24 3:30 pm Getachew Mar [Primary Care Provider] - 1-2 days Patient Instructions/Handouts: Lysis of Abdominal Adhesions (DC) Activity/Diet/Wound Care/Special Instructions: NO LONG DRIVES OR AIRPLANE RIDES OVER 60 MINUTES FOR THE NEXT 2 WEEKS, Jul 15, DUE TO HIGH RISK OF PULMONARY EMBOLISM/DVTs May drive in 72 hrs, 07/04/24 No lifting over 10 pounds in 2 weeks until Jul 15 May shower. No bath tub soaks for two weeks until Jul 15, Diet as tolerated. Use Tylenol, simethicone scheduled for the next 24-48 hours for best pain relief. Use ice along incisions for today to prevent swelling. Discharge Disposition: HOME SELF-CARE
[2024-07-07] MEDS ORDERED: ERGOCALCIFEROL 1,250 MCG (50,000 IU) CAPSULE PO SCH (09:00)
== END 2024-07-02 11:45 | disposition home or self-care (01) ==
LOC: EC 08:06 → 1SOBS 12:48
PROVIDERS: ADMIT Surgery Plastic and Reconstructive Surgery; ATTEND Surgery Plastic and Reconstructive Surgery
DX: K66.0 Peritoneal adhesions (postprocedural) (postinfection) (principal); K46.9 Unspecified abdominal hernia without obstruction or gangrene; Z98.84 Bariatric surgery status; Z79.899 Other long term (current) drug therapy; Z79.890 Hormone replacement therapy; M06.9 Rheumatoid arthritis, unspecified
CPT/HCPCS: 44180; 49591; S2900; 36415; 74177; 80053; 81001; 81025; 82150; 83605; 83690; 84703; 85025; 96361; 96374; 99285

== ENCOUNTER → 2024-07-03 | Outpatient (CLI) | payer OTHER ==
[2024-07-03 17:00] VITALS: BP 150/93; PULSE 55; RESP 16; TEMP 98.6; BMI 38.7
--- NOTE | 2024-07-03 17:03 | P.BASOAP ---
Subjective Progress Note Date: 07/03/24 SHe is doing well. She is going to parent teacher conference. She already went back to work. Internal hernia. Objective - Vital Signs Vital signs: Vital Signs Temp 98.6 F 07/03/24 16:53 Pulse 55 L 07/03/24 16:53 Resp 16 07/03/24 16:53 BP 150/93 07/03/24 16:53 Pulse Ox FiO2 Intake & Output 07/02/24 07/03/24 07/03/24 18:59 06:59 18:59 Weight 96.162 kg Assessment/Plan Plan: Date: 07/03/24 Initial Weight: 128.82 kg Initial BMI: 51.9 Current Weight: 96.162 kg Current BMI: 38.7 Type of Surgery: Total Volume in Band: Previous Volume: Volume Removed: Volume Added: Band Size:
--- NOTE | 2024-07-03 17:05 | P.PN ---
Progress Note - Text Progress Note Date: 07/03/24 To whom it may concern: Breonna Garcia is under my surgical care. She will be off work from July 01 to July 14. 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 Regards, Darya Martinez MD, FACS
--- NOTE | 2024-07-04 15:44 | P.PN ---
Progress Note - Text Progress Note Date: 07/04/24 To whom it may concern: Breonna Garcia is under my surgical care. 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 She may return to work without restrictions July 15, 2024 thereafter. Regards, Darya Martinez MD, FACS
== END ==
LOC: BARWHC3 15:13
PROVIDERS: ATTEND Surgery Plastic and Reconstructive Surgery
DX: E66.01 Morbid (severe) obesity due to excess calories
CPT/HCPCS: 99211

== ENCOUNTER → 2024-07-24 | Outpatient (CLI) | payer OTHER ==
[2024-07-24 14:22] VITALS: BP 121/86; PULSE 88; RESP 16; TEMP 98.1; BMI 37.8
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
== END ==
LOC: BARWHC3 13:45
PROVIDERS: ATTEND Surgery Plastic and Reconstructive Surgery
DX: E66.01 Morbid (severe) obesity due to excess calories (principal); Z68.37 Body mass index [BMI] 37.0-37.9, adult; Z88.5 Allergy status to narcotic agent; Z91.048 Other nonmedicinal substance allergy status; Z88.8 Allergy status to other drugs, medicaments and biological substances; Z88.4 Allergy status to anesthetic agent; Z88.1 Allergy status to other antibiotic agents
CPT/HCPCS: 99211

== ENCOUNTER 2024-12-02 10:02 | Emergency (ER) | payer OTHER ==
--- NOTE | 2024-12-02 10:46 | ED ---
General Adult HPI - General Chief complaint: Fever Stated complaint: Fever Time Seen by Provider: 12/02/24 10:15 Source: patient, RN notes reviewed Mode of arrival: ambulatory Limitations: no limitations - History of Present Illness Initial comments: 34-year-old female presents to the emergency department for evaluation of URI symptoms x 2 weeks. Patient states that she has had a productive cough for the duration of 2 weeks. She also notes fevers on and off. She has been taking antipyretic medication. She last took Tylenol this morning. She denies any chest pain, shortness of breath. Reports history of SLE and take Plaquinil. - Related Data Home Medications Medication Instructions Recorded Confirmed Hydroxychloroquine Sulfate 200 mg PO BID 07/12/23 07/24/24 [Plaquenil] Sertraline [Zoloft] 50 mg PO HS 06/05/24 07/24/24 Ergocalciferol [Vitamin D2 (1250 1,250 mcg PO BOURGEOIS 06/20/24 07/24/24 Mcg = 71576 Iu)] Cyanocobalamin [Vitamin B-12] 1,000 mcg PO DAILY 07/01/24 07/24/24 Furosemide [Lasix] 40 mg PO DAILY 07/01/24 07/24/24 Levothyroxine Sodium [Synthroid] 274 mcg PO DAILY 07/01/24 07/24/24 Norethindrone [Lucy] 0.35 mg PO DAILY 07/01/24 07/24/24 Vitamin C(Unknown Dose) 1 tab PO DAILY 07/01/24 07/24/24 Previous Rx's Medication Instructions Recorded Omeprazole [PriLOSEC] 40 mg PO DAILY #30 cap 07/12/23 Acetaminophen Tab [Tylenol Tab] 1,000 mg PO Q6HR PRN #30 tablet 07/01/24 Amoxicillin 875 mg PO Q12HR #20 tablet 11/01/24 Allergies Allergy/AdvReac Type Severity Reaction Status Date / Time cobalt Allergy PER Verified 12/02/24 10:13 ALLERGY TEST lidocaine Allergy PER Verified 12/02/24 10:13 ALLERGY TEST neomycin Allergy PER Verified 12/02/24 10:13 ALLERGY TEST nickel Allergy Itching Verified 12/02/24 10:13 codeine AdvReac Nausea & Verified 12/02/24 10:13 Vomiting. HEADACHES LINALOOL Allergy PER Uncoded 12/02/24 10:13 ALLERGY TEST Review of Systems ROS Statement: Those systems with pertinent positive or pertinent negative responses have been documented in the HPI. ROS Other: All systems not noted in ROS Statement are negative. 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 issues with eating - either vomiting or diarrhea History of Any Multi-Drug Resistant Organisms: None Reported Past Surgical History: Appendectomy, Bariatric Surgery, Section, Cholecystectomy, Ear Surgery, Hernia Repair, Orthopedic Surgery Additional Past Surgical History / Comment(s): BILAT elbow, L foot surgery; BILAT eye surgery, RYGB 01-18-21, EGD. appendectomy and hernia repair . BMT, lysis of adhesions 07-01-24 Past Anesthesia/Blood Transfusion Reactions: No Reported Reaction Additional Past Anesthesia/Blood Transfusion Reaction / Comment(s): post hernia repair - pt started to break out and had itching (both arms and face) ,pt thinks she was given lidocaine. Past Psychological History: Anxiety, Depression Smoking Status: Never smoker Past Alcohol Use History: None Reported Past Drug Use History: None Reported - Past Family History Mother Family Medical History: No Reported History General Exam Limitations: no limitations General appearance: alert, in no apparent distress Head exam: Present: atraumatic, normocephalic, normal inspection Eye exam: Present: normal appearance, PERRL, EOMI. Absent: scleral icterus, conjunctival injection, periorbital swelling ENT exam: Present: mucous membranes moist. Absent: normal oropharynx, TM's normal bilaterally Neck exam: Present: normal inspection. Absent: tenderness, meningismus, lymphadenopathy Respiratory exam: Present: normal lung sounds bilaterally. Absent: respiratory distress, wheezes, rales, rhonchi, stridor Cardiovascular Exam: Present: regular rate, normal rhythm, normal heart sounds. Absent: systolic murmur, diastolic murmur, rubs, gallop, clicks Extremities exam: Present: normal inspection, full ROM, normal capillary refill. Absent: tenderness, pedal edema, joint swelling, calf tenderness Neurological exam: Present: alert, oriented X3 Psychiatric exam: Present: normal affect, normal mood Course Vital Signs 12/02/24 12/02/24 10:10 12:49 Temperature 98.2 F 98.8 F Pulse Rate 85 75 Respiratory 18 16 Rate Blood Pressure 126/84 127/88 O2 Sat by Pulse 98 99 Oximetry Medical Decision Making - Medical Decision Making Was pt. sent in by a medical professional or institution ([facility], LAND EXAMINER, urgent care, hospital, or fdc...) When possible be specific @ -No Did you speak to anyone other than the patient for history (EMS, parent, family, police, friend...)? What history was obtained from this source @ -No Did you review nursing and triage notes (agree or disagree)? Why? @ -I reviewed and agree with nursing and triage notes Were old charts reviewed (outside hosp., previous admission, EMS record, old EKG, old radiological studies, urgent care reports/EKG's, fdc records)? Report findings @ -No old charts were reviewed Differential Diagnosis (chest pain, altered mental status, abdominal pain women, abdominal pain men, vaginal bleeding, weakness, fever, dyspnea, syncope, headache, dizziness, GI bleed, back pain, seizure, CVA, palpatations, mental health, musculoskeletal)? @ -Differential Fever: Pneumonia, viral URI, endocarditis, myocarditis, pericarditis, otitis, sinusitis, peritonsillar Abscess, retropharyngeal Abscess, epiglottitis, peritonitis, appendicitis, Vonda cystitis, diverticulitis, hepatitis, colitis, UTI, PID, TOA, pyelonephritis, prostatitis, epididymitis, meningitis, encephalitis, pulmonary embolism, CVA, thyroid storm, pancreatitis, adrenal crisis, cavernous sinus thrombosis, this is not meant to be an all-inclusive list. EKG interpreted by me (3pts min.). @ -None X-rays interpreted by me (1pt min.). @ -Chest x-ray shows no acute process] CT interpreted by me (1pt min.). @ -None done U/S interpreted by me (1pt. min.). @ -None done What testing was considered but not performed or refused? (CT, X-rays, U/S, labs)? Why? @ -None What meds were considered but not given or refused? Why? @ -None Did you discuss the management of the patient with other professionals (professionals i.e. [facility], LAND EXAMINER, lab, RT, psych nurse, health care social worker, economic adviser, teacher, trust officer, case worker)? Give summary @ -No Was smoking cessation discussed for >3mins.? @ -No Was critical care preformed (if so, how long)? @ -No Were there social determinants of health that impacted care today? How? (Homelessness, low income, unemployed, alcoholism, drug addiction, transportation, low edu. Level, literacy, decrease access to med. care, [facility], rehab)? @ -No Was there de-escalation of care discussed even if they declined (Discuss DNR or withdrawal of care, Hospice)? DNR status @ -No What co-morbidities impacted this encounter? (DM, HTN, Smoking, COPD, CAD, Cancer, CVA, ARF, Chemo, Hep., AIDS, mental health diagnosis, sleep apnea, morbid obesity)? @ -None Was patient admitted / discharged? Hospital course, mention meds given and r oute, prescriptions, significant lab abnormalities, going to OR and other pertinent info. @ -Discharge. Patient presented emergency department for URI symptoms. Patient was tested for COVID, influenza, RSV which were negative. Chest x-ray obtained reveals no acute process. She will be discharged home. She is understanding agreeable this plan. Patient stable at time of discharge. Case discussed with Dr. Del Valle Undiagnosed new problem with uncertain prognosis? @ -No Drug Therapy requiring intensive monitoring for toxicity (Heparin, Nitro, Insulin, Cardizem)? @ -No Were any procedures done? @ -No Diagnosis/symptom? @ -URI Acute, or Chronic, or Acute on Chronic? @ -acute Uncomplicated (without systemic symptoms) or Complicated (systemic symptoms)? @ -uncomplicated Side effects of treatment? @ -No Exacerbation, Progression, or Severe Exacerbation? @ -No Poses a threat to life or bodily function? How? (Chest pain, [place], CO, pneumonia, PE, COPD, DKA, ARF, appy, cholecystitis, CVA, Diverticulitis, Homicidal, Suicidal, threat to staff... and all critical care pts) @ -No - Lab Data Lab Results 12/02/24 12/02/24 Range/Units 10:48 10:48 Influenza Type A (PCR) Not Detected (Not Detectd) Influenza Type B (PCR) Not Detected (Not Detectd) RSV (PCR) Not Detected (Not Detectd) SARS-CoV-2 (PCR) Not Detected (Not Detectd) Group A Strep (PCR) NOT DETECTED (Not Detectd) Disposition Clinical Impression: URI (upper respiratory infection) Disposition: HOME SELF-CARE Condition: Stable Instructions (If sedation given, give patient instructions): Fever in Adults (ED) Additional Instructions: Please follow up with your primary care provider. Return to the emergency department for new or worsening symptoms. Is patient prescribed a controlled substance at d/c from ED?: No Referrals: Getachew Mar [Primary Care Provider] - 1-2 days
--- NOTE | 2024-12-02 11:11 | XR ---
EXAMINATION TYPE: XR chest 2V DATE OF EXAM: 12/02/2024 11:07 AM COMPARISON: None CLINICAL INDICATION: Female, 34 years old with history of cough; [facility] TECHNIQUE: XR chest 2V Frontal and lateral views of the chest. FINDINGS: Lungs/Pleura: There is no evidence of pleural effusion, focal consolidation, or pneumothorax. Pulmonary vascularity: Unremarkable. Heart/mediastinum: Cardiomediastinal silhouette is unremarkable. Musculoskeletal: No acute osseous pathology. IMPRESSION: No acute cardiopulmonary disease/process. [facility], , 12/02/2024 11:09 AM
[2024-12-02 11:44] LABS: Influenza A Not Detected (Not Detectd); Influenza B Not Detected (Not Detectd); RSV Not Detected (Not Detectd)
[2024-12-02 12:51] VITALS: BP 127/88; PULSE 75; RESP 16; TEMP 98.8
== END 2024-12-02 12:52 | disposition home or self-care (01) ==
LOC: EC 10:02
DX: J06.9 Acute upper respiratory infection, unspecified (principal); M32.9 Systemic lupus erythematosus, unspecified; Z11.52 Encounter for screening for COVID-19
CPT/HCPCS: 71046; 87636; 87651; 99283

== ENCOUNTER 2025-04-07 12:39 | Emergency (ER) | payer OTHER ==
[2025-04-07 12:45] VITALS: RESP 20; TEMP 98.1
[2025-04-07] MEDS: PANTOPRAZOLE 40 MG/10 ML VIAL IVP STA (13:44)
[2025-04-07] MEDS: METOCLOPRAMIDE 5 MG/ML 2 ML VIAL IVP STA (13:44)
[2025-04-07] MEDS: SODIUM CHLORIDE 0.9% 1,000 ML IV ONE (13:47)
[2025-04-07 13:56] LABS: ALT 13 U/L (4-34); AST 28 U/L (14-36); African American GFR (CKD) >90 (>60 ml/min/1.73 sqM); Albumin 4.0 g/dL (3.5-5.0); Alkaline Phosphatase 74 U/L (38-126); Anion Gap 8 mmol/L; Blood Urea Nitrogen 13 mg/dL (7-17); Calcium 9.4 mg/dL (8.4-10.2); Carbon Dioxide 23 mmol/L (22-30); Chloride 108 mmol/L (98-107); Glucose 65 mg/dL (74-99); Lipase 183 U/L (23-300); Non-African American GFR(CKD) >90 (>60 ml/min/1.73 sqM); Potassium 4.2 mmol/L (3.5-5.1); Sodium 139 mmol/L (137-145); Total Protein 7.2 g/dL (6.3-8.2)
[2025-04-07 13:57] LABS: Bacteria,Urine Rare /hpf; Bilirubin,Urine Negative (Negative); Blood,Urine Negative (Negative); Color,Urine Yellow; Glucose,Urine (UA) Negative (Negative); Ketones,Urine Negative (Negative); Leukocyte Esterase,Urine Negative (Negative); Mucus,Urine Few /hpf; Nitrite,Urine Negative (Negative); PH, Urine 6.0 (5.0-8.0); Protein,Urine Trace (Negative); RBC,Urine <1 /hpf (0-5); Specific Gravity,Urine 1.030 (1.001-1.035); Squamous Epithelial Cell,Urine 7 /hpf (0-4); Urobilinogen,Urine <2.0 mg/dL (<2.0); WBC,Urine 1 /hpf (0-5)
--- NOTE | 2025-04-07 14:05 | ED ---
Abdominal Pain HPI - General Chief Complaint: Abdominal Pain Stated Complaint: Abd/Back pain Time Seen by Provider: 04/07/25 12:55 Source: patient, RN notes reviewed Mode of arrival: ambulatory Limitations: no limitations - History of Present Illness Initial Comments: 35-year-old female presents emergency department complaint of upper abdominal pain. Patient states has been increasing states it is from the epigastric upper abdomen to her back. Patient states that she had surgery approximate [address] Martinez which she states that she had a hole states that she does have occasionally some reflux. Denies any fevers or chills no chest pain shortness of breath no change in bowel habits no dysuria no chance . - Related Data Home Medications Medication Instructions Recorded Confirmed Hydroxychloroquine Sulfate 200 mg PO BID 07/12/23 07/24/24 [Plaquenil] Sertraline [Zoloft] 50 mg PO HS 06/05/24 07/24/24 Ergocalciferol [Vitamin D2 (1250 1,250 mcg PO BOURGEOIS 06/20/24 07/24/24 Mcg = 32110 Iu)] Cyanocobalamin [Vitamin B-12] 1,000 mcg PO DAILY 07/01/24 07/24/24 Furosemide [Lasix] 40 mg PO DAILY 07/01/24 07/24/24 Levothyroxine Sodium [Synthroid] 274 mcg PO DAILY 07/01/24 07/24/24 Norethindrone [Lucy] 0.35 mg PO DAILY 07/01/24 07/24/24 Vitamin C(Unknown Dose) 1 tab PO DAILY 07/01/24 07/24/24 Previous Rx's Medication Instructions Recorded Omeprazole [PriLOSEC] 40 mg PO DAILY #30 cap 07/12/23 Acetaminophen Tab [Tylenol Tab] 1,000 mg PO Q6HR PRN #30 tablet 07/01/24 Amoxicillin 875 mg PO Q12HR #20 tablet 11/01/24 Amoxic-Pot Clav 875-125Mg 1 tab PO BID 1 Days #14 tab 02/19/25 [Augmentin 875-125] Azithromycin [Zithromax Z Pack] 0 tab PO DIRECTED #4 tab 02/19/25 Sucralfate [Carafate] 1 gm PO BID #30 tablet 04/07/25 Allergies Allergy/AdvReac Type Severity Reaction Status Date / Time cobalt Allergy PER Verified 04/07/25 12:45 ALLERGY TEST lidocaine Allergy PER Verified 04/07/25 12:45 ALLERGY TEST neomycin Allergy PER Verified 04/07/25 12:45 ALLERGY TEST nickel Allergy Itching Verified 04/07/25 12:45 codeine AdvReac Nausea & Verified 04/07/25 12:45 Vomiting. HEADACHES LINALOOL Allergy PER Uncoded 04/07/25 12:45 ALLERGY TEST Review of Systems ROS Statement: Those systems with pertinent positive or pertinent negative responses have been documented in the HPI. ROS Other: All systems not noted in ROS Statement are negative. 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 issues with eating - either vomiting or diarrhea History of Any Multi-Drug Resistant Organisms: None Reported Past Surgical History: Appendectomy, Bariatric Surgery, Section, Cholecystectomy, Ear Surgery, Hernia Repair, Orthopedic Surgery Additional Past Surgical History / Comment(s): BILAT elbow, L foot surgery; BILAT eye surgery, RYGB 01-18-21, EGD. appendectomy and hernia repair . BMT, lysis of adhesions 07-01-24 Past Anesthesia/Blood Transfusion Reactions: No Reported Reaction Additional Past Anesthesia/Blood Transfusion Reaction / Comment(s): post hernia repair - pt started to break out and had itching (both arms and face) ,pt thinks she was given lidocaine. Past Psychological History: Anxiety, Depression Smoking Status: Never smoker Past Alcohol Use History: None Reported Past Drug Use History: None Reported - Past Family History Mother Family Medical History: No Reported History General Exam Limitations: no limitations General appearance: alert, in no apparent distress Head exam: Present: atraumatic, normocephalic, normal inspection Eye exam: Present: normal appearance, PERRL, EOMI. Absent: scleral icterus, conjunctival injection, periorbital swelling ENT exam: Present: normal exam, normal oropharynx, mucous membranes moist Neck exam: Present: normal inspection, full ROM. Absent: tenderness, meningismus, lymphadenopathy Respiratory exam: Present: normal lung sounds bilaterally. Absent: respiratory distress, wheezes, rales, rhonchi, stridor Cardiovascular Exam: Present: regular rate, normal rhythm, normal heart sounds. Absent: systolic murmur, diastolic murmur, rubs, gallop, clicks GI/Abdominal exam: Present: soft, tenderness, normal bowel sounds. Absent: distended, guarding, rebound, rigid Back exam: Absent: CVA tenderness (R), CVA tenderness (L) Skin exam: Present: warm, dry, intact, normal color. Absent: rash Course Vital Signs 04/07/25 04/07/25 12:43 14:58 Temperature 98.1 F Pulse Rate 84 61 Respiratory 20 20 Rate Blood Pressure 126/88 127/78 O2 Sat by Pulse 99 98 Oximetry Medical Decision Making - Medical Decision Making Was pt. sent in by a medical professional or institution (, PA, DEPALLETIZER OPERATOR, urgent care, hospital, or long term...) When possible be specific @ -No Did you speak to anyone other than the patient for history (EMS, parent, family, police, friend...)? What history was obtained from this source @ -No Did you review nursing and triage notes (agree or disagree)? Why? @ -I reviewed and agree with nursing and triage notes Were old charts reviewed (outside hosp., previous admission, EMS record, old EKG, old radiological studies, urgent care reports/EKG's, long term records)? Report findings @ -No old charts were reviewed Differential Diagnosis (chest pain, altered mental status, abdominal pain women, abdominal pain men, vaginal bleeding, weakness, fever, dyspnea, syncope, headac he, dizziness, GI bleed, back pain, seizure, CVA, palpatations, mental health, musculoskeletal)? @ -Differential Abdominal Pain Women: Appendicitis, Cholecystitis, diverticulosis, ischemic bowel, pancreatitis, hepatitis, UTI, gastroenteritis, AAA, incarcerated hernia, bowel obstruction, constipation, inflammatory bowel, hepatitis, peptic ulcer disease, splenic infarction, perforated viscus, vulvitis, ovarian torsion, PID, kidney stone, placenta abruption, this is not meant to be an all-inclusive list EKG interpreted by me (3pts min.). @ -None X-rays interpreted by me (1pt min.). @ -None done CT interpreted by me (1pt min.). @ -CT abdomen pelvis with contrast showing postsurgical changes no acute process of perforation, obstruction U/S interpreted by me (1pt. min.). @ -None done What testing was considered but not performed or refused? (CT, X-rays, U/S, labs)? Why? @ -None What meds were considered but not given or refused? Why? @ -None Did you discuss the management of the patient with other professionals (professionals i.e. , PA, DEPALLETIZER OPERATOR, lab, RT, psych nurse, social work administrator, jockey's agent, teacher, property disposal officer, case finishing machine adjuster)? Give summary @ -No Was smoking cessation discussed for >3mins.? @ -No Was critical care preformed (if so, how long)? @ -No Were there social determinants of health that impacted care today? How? (Homelessness, low income, unemployed, alcoholism, drug addiction, transportation, low edu. Level, literacy, decrease access to med. care, prison, rehab)? @ -No Was there de-escalation of care discussed even if they declined (Discuss DNR or withdrawal of care, Hospice)? DNR status @ -No What co-morbidities impacted this encounter? (DM, HTN, Smoking, COPD, CAD, Can cer, CVA, ARF, Chemo, Hep., AIDS, mental health diagnosis, sleep apnea, morbid obesity)? @ -None Was patient admitted / discharged? Hospital course, mention meds given and route, prescriptions, significant lab abnormalities, going to OR and other pertinent info. @ -Discharge patient's symptoms are improved. This may be related to underlying gastritis as she does have a history of this. She is post Bharathi-en-Y surgery. Patient is discharged with follow-up and strict return parameters. Undiagnosed new problem with uncertain prognosis? @ -No Drug Therapy requiring intensive monitoring for toxicity (Heparin, Nitro, Insulin, Cardizem)? @ -No Were any procedures done? @ -No Diagnosis/symptom? @ -Abdominal pain, gastritis Acute, or Chronic, or Acute on Chronic? @ -Acute Uncomplicated (without systemic symptoms) or Complicated (systemic symptoms)? @ -Complicated Side effects of treatment? @ -No Exacerbation, Progression, or Severe Exacerbation? @ -No Poses a threat to life or bodily function? How? (Chest pain, USA, PA, pneumonia, PE, COPD, DKA, ARF, appy, cholecystitis, CVA, Diverticulitis, Homicidal, Suicidal, threat to staff... and all critical care pts) @ -No - Lab Data Result diagrams: 04/07/25 13:35 04/07/25 13:35 Lab Results 04/07/25 04/07/25 04/07/25 Range/Units 13:35 13:35 13:35 WBC 7.86 (4.50-10.00) 10*3/uL RBC 4.57 (4.10-5.20) 10*6/uL Hgb 13.0 (12.0-15.0) g/dL Hct 40.1 (37.2-46.3) % MCV 87.7 (80.0-97.0) fL MCH 28.4 (27.0-32.0) pg MCHC 32.4 (32.0-37.0) g/dL Plt Count 255 (140-440) 10*3/uL MPV 11.7 (9.5-12.2) fL Immature Gran % (Auto) 0.3 % Neutrophils % 50.6 % Lymphocytes % 39.3 % Monocytes % 8.1 % Eosinophils % 1.1 % Basophils % 0.6 % Immature Gran # 0.02 (0.00-0.04) 10*3/uL Neutrophils # 3.97 (1.80-7.70) 10*3/uL Lymphocytes # 3.09 (0.90-5.00) 10*3/uL Monocytes # 0.64 (0.20-1.00) 10*3/uL Eosinophils # 0.09 (0.04-0.35) 10*3/uL Basophils # 0.05 (0.00-0.10) 10*3/uL Sodium (137-145) mmol/L Potassium (3.5-5.1) mmol/L Chloride (98-107) mmol/L Carbon Dioxide (22-30) mmol/L Anion Gap mmol/L BUN (7-17) mg/dL Creatinine (0.52-1.04) mg/dL Est GFR (CKD-EPI)AfAm (>60 ml/min/1.73 sqM) Est GFR (CKD-EPI)NonAf (>60 ml/min/1.73 sqM) Glucose (74-99) mg/dL Plasma Lactic Acid Darío 1.5 (0.7-2.0) mmol/L Calcium (8.4-10.2) mg/dL Total Bilirubin (0.2-1.3) mg/dL AST (14-36) U/L ALT (4-34) U/L Alkaline Phosphatase (38-126) U/L Total Protein (6.3-8.2) g/dL Albumin (3.5-5.0) g/dL Lipase (23-300) U/L Urine Color Yellow Urine Appearance Cloudy H (Clear) Urine pH 6.0 (5.0-8.0) Ur Specific [place] 1.030 (1.001-1.035) Urine Protein Trace H (Negative) Urine Glucose (UA) Negative (Negative) Urine Ketones Negative (Negative) Urine Blood Negative (Negative) Urine Nitrite Negative (Negative) Urine Bilirubin Negative (Negative) Urine Urobilinogen <2.0 (<2.0) mg/dL Ur Leukocyte Esterase Negative (Negative) Urine RBC <1 (0-5) /hpf Urine WBC 1 (0-5) /hpf Ur Squamous Epith Cells 7 H (0-4) /hpf Urine Bacteria Rare H (None) /hpf Urine Mucus Few H (None) /hpf Urine HCG, Qual (Not Detectd) 04/07/25 04/07/25 Range/Units 13:35 13:35 WBC (4.50-10.00) 10*3/uL RBC (4.10-5.20) 10*6/uL Hgb (12.0-15.0) g/dL Hct (37.2-46.3) % MCV (80.0-97.0) fL MCH (27.0-32.0) pg MCHC (32.0-37.0) g/dL Plt Count (140-440) 10*3/uL MPV (9.5-12.2) fL Immature Gran % (Auto) % Neutrophils % % Lymphocytes % % Monocytes % % Eosinophils % % Basophils % % Immature Gran # (0.00-0.04) 10*3/uL Neutrophils # (1.80-7.70) 10*3/uL Lymphocytes # (0.90-5.00) 10*3/uL Monocytes # (0.20-1.00) 10*3/uL Eosinophils # (0.04-0.35) 10*3/uL Basophils # (0.00-0.10) 10*3/uL Sodium 139 (137-145) mmol/L Potassium 4.2 (3.5-5.1) mmol/L Chloride 108 H (98-107) mmol/L Carbon Dioxide 23 (22-30) mmol/L Anion Gap 8 mmol/L BUN 13 (7-17) mg/dL Creatinine 0.78 (0.52-1.04) mg/dL Est GFR (CKD-EPI)AfAm >90 (>60 ml/min/1.73 sqM) Est GFR (CKD-EPI)NonAf >90 (>60 ml/min/1.73 sqM) Glucose 65 L (74-99) mg/dL Plasma Lactic Acid Darío (0.7-2.0) mmol/L Calcium 9.4 (8.4-10.2) mg/dL Total Bilirubin 0.5 (0.2-1.3) mg/dL AST 28 (14-36) U/L ALT 13 (4-34) U/L Alkaline Phosphatase 74 (38-126) U/L Total Protein 7.2 (6.3-8.2) g/dL Albumin 4.0 (3.5-5.0) g/dL Lipase 183 (23-300) U/L Urine Color Urine Appearance (Clear) Urine pH (5.0-8.0) Ur Specific [place] (1.001-1.035) Urine Protein (Negative) Urine Glucose (UA) (Negative) Urine Ketones (Negative) Urine Blood (Negative) Urine Nitrite (Negative) Urine Bilirubin (Negative) Urine Urobilinogen (<2.0) mg/dL Ur Leukocyte Esterase (Negative) Urine RBC (0-5) /hpf Urine WBC (0-5) /hpf Ur Squamous Epith Cells (0-4) /hpf Urine Bacteria (None) /hpf Urine Mucus (None) /hpf Urine HCG, Qual Not Detected (Not Detectd) Disposition Clinical Impression: Gastritis, Upper abdominal pain Disposition: HOME SELF-CARE Condition: Stable Instructions (If sedation given, give patient instructions): Abdominal Pain (ED) Additional Instructions: Please return to the Emergency Department if symptoms worsen or any other conc erns. Prescriptions: Sucralfate [Carafate] 1 gm PO BID #30 tablet Is patient prescribed a controlled substance at d/c from ED?: No Referrals: Kut,Getachew A [Primary Care Provider] - 1-2 days Time of Disposition: 14:46
[2025-04-07 14:18] LABS: Basophils # (A) 0.05 10*3/uL (0.00-0.10); Basophils % (A) 0.6 %; Eosinophils # (A) 0.09 10*3/uL (0.04-0.35); Eosinophils % (A) 1.1 %; HCT 40.1 % (37.2-46.3); HGB 13.0 g/dL (12.0-15.0); Lymphocytes # (A) 3.09 10*3/uL (0.90-5.00); Lymphocytes % (A) 39.3 %; MCH 28.4 pg (27.0-32.0); MCHC 32.4 g/dL (32.0-37.0); MCV 87.7 fL (80.0-97.0); Monocytes # (A) 0.64 10*3/uL (0.20-1.00); Monocytes % (A) 8.1 %; Neutrophils # (A) 3.97 10*3/uL (1.80-7.70); Neutrophils % (A) 50.6 %; Platelet Count 255 10*3/uL (140-440); RBC 4.57 10*6/uL (4.10-5.20); RDW 13.3 % (11.5-14.5); WBC 7.86 10*3/uL (4.50-10.00)
--- NOTE | 2025-04-07 14:42 | CT ---
EXAMINATION TYPE: CT abdomen pelvis w con CT DLP: 1419.8 mGycm, Automated exposure control for dose reduction was used. DATE OF EXAM: 04/07/2025 2:35 PM COMPARISON: CT abdomen pelvis 07/01/2024 CLINICAL INDICATION:Female, 35 years old with history of abdominal pain epigastric; abdominal pain, e pigastric pain TECHNIQUE: Standard CT of the abdomen and pelvis following the administration of 100 cc of Isovue 3 00 IV contrast material. Coronal and sagittal reformats were performed. FINDINGS: LOWER CHEST: Unremarkable ABDOMEN LIVER: Stable left hepatic dome 1 cm cyst. GALLBLADDER AND BILE DUCTS: The gallbladder is surgically absent. No biliary duct dilatation. PANCREAS: Unremarkable. SPLEEN: Unremarkable. ADRENAL GLANDS: Unremarkable. KIDNEYS AND URETERS: No evidence of hydronephrosis or renal calculus. The kidneys enhance symmetrical ly. Contrast is demonstrated within both collecting systems on the delayed phase. Left retroaortic re nal vein. PELVIS BLADDER: Underdistended but grossly unremarkable. REPRODUCTIVE: Unremarkable. ABDOMEN & PELVIS STOMACH AND BOWEL: Postsurgical changes from Bharathi-en-Y gastric bypass.No focal bowel wall thickening or surrounding inflammatory changes. The appendix is not identified. No inflammatory changes within t he right lower quadrant. No evidence of bowel obstruction. PERITONEUM: No evidence of pneumoperitoneum or free fluid. VASCULATURE: No evidence of aortic aneurysm. MUSCULOSKELETAL: No acute osseous abnormalities LYMPH NODES: No evidence for lymphadenopathy. SOFT TISSUE/ABDOMINAL WALL: Unremarkable IMPRESSION: 1. No CT evidence for acute abdominal/pelvic process. 2. Postsurgical changes from Bharathi-en-Y gastric bypass and cholecystectomy. [facility], , 04/07/2025 2:39 PM
[2025-04-07] MEDS: MAG HYDROX/AL HYDROX/SIMETH 30 ML CUP PO STA (14:53)
[2025-04-07 14:59] VITALS: BP 127/78; PULSE 61
== END 2025-04-07 14:59 | disposition home or self-care (01) ==
LOC: EC 12:39
DX: K29.70 Gastritis, unspecified, without bleeding (principal); Z88.4 Allergy status to anesthetic agent; Z88.1 Allergy status to other antibiotic agents; Z88.5 Allergy status to narcotic agent; Z88.8 Allergy status to other drugs, medicaments and biological substances
CPT/HCPCS: 36415; 80053; 83605; 83690; 85025; 81001; 81025; 74177; 99284; 96374; 96375; 96361; J2765; Q9967; J2470

== ENCOUNTER → 2025-04-09 | Outpatient (CLI) | payer OTHER ==
--- NOTE | 2025-04-09 16:15 | P.BASOAP ---
Subjective Progress Note Date: 04/09/25 She comes in with weight gain and new epigastric pain for over 1 day. She reports pain happened spontaneous. She comes in with her infant son. Has gastric bypass. She had a CT scan reviewed but limited. Needs updated EGD AND needs updated labs, last from 2022. CBC and CMP were done. Want to lose 60 pounds. Objective - Vital Signs Vital signs: Intake & Output 04/08/25 04/09/25 04/09/25 18:59 06:59 18:59 Weight 102.965 kg Assessment/Plan Plan: Date: Initial Weight: 128.82 kg Initial BMI: Current Weight: 102.965 kg Current BMI: Type of Surgery: Total Volume in Band: Previous Volume: Volume Removed: Volume Added: Band Size:
[2025-04-09 16:38] VITALS: BP 117/81; PULSE 77; RESP 16; TEMP 98.2; BMI 41.5
== END ==
LOC: BARWHC3 14:59
PROVIDERS: ATTEND Surgery Plastic and Reconstructive Surgery
DX: E66.01 Morbid (severe) obesity due to excess calories (principal); Z68.41 Body mass index [BMI] 40.0-44.9, adult; Z88.1 Allergy status to other antibiotic agents; Z88.5 Allergy status to narcotic agent; Z91.048 Other nonmedicinal substance allergy status; Z88.4 Allergy status to anesthetic agent; Z88.8 Allergy status to other drugs, medicaments and biological substances
CPT/HCPCS: 99211